=== PATIENT | male | born 1940 | race Caucasian/White ===

== ENCOUNTER 2020-06-03 19:21 | Outpatient (REF) | payer MEDICARE, MEDICAID, SELFPAY ==
--- NOTE | 2020-06-03 | MR_ITS ---
EXAMINATION: BRAIN MRI WITHOUT CONTRAST CLINICAL INFORMATION: Ataxic gait. COMPARISON: Brain MRI 09/09/2017. TECHNIQUE: Multiplanar MR imaging of the brain was performed without contrast. FINDINGS: There are numerous foci of T2 FLAIR signal hyperintensity within the periventricular white matter that most likely represent a chronic manifestation of small vessel ischemia. No acute territorial infarct. No pathological magnetic susceptibility artifact. Intracranial vascular flow voids are grossly maintained. There is no intracranial mass effect or midline shift. Lateral and third ventricles are proportionate to the subarachnoid spaces. No hydrocephalus. Midline structures including the cervicomedullary junction are normal. No acute bone marrow signal changes. No mastoid or middle ear effusion. Mild to moderate paranasal sinus disease primarily affecting the maxillary sinuses and ethmoid air cells. IMPRESSION: There are numerous chronic small vessel ischemic changes primarily involving the periventricular white matter. Otherwise normal examination. No evidence of acute territorial infarct or hemorrhage.
== END 2020-06-03 19:22 | disposition home or self-care (01) ==
LOC: HO.MRI 19:21
PROVIDERS: Visit Provider Internal Medicine
DX: R26.0 Ataxic gait (principal)
CPT/HCPCS: 70551

== ENCOUNTER 2020-07-11 12:29 | Outpatient (REF) | payer MEDICARE, MEDICAID, SELFPAY | END 2020-07-11 12:30 | disposition home or self-care (01) | LOC: HO.LAB 12:29 | PROVIDERS: Visit Provider Internal Medicine | DX: Z20.828 Contact with and (suspected) exposure to other viral communicable diseases (principal) | CPT/HCPCS: C9803; U0003 ==

== ENCOUNTER 2020-08-08 13:46 | Outpatient (REF) | payer MEDICARE, MEDICAID, SELFPAY ==
[2020-08-08 14:04] LABS: MANUAL DIFF FLAG NO
[2020-08-08 14:08] LABS: Basophils Percent Auto 0.6 % (0-2); Eosinophils Absolute Auto 0.1 X10*3/uL (0.0-0.4); Eosinophils Percent Auto 1.8 % (0-4); Hematocrit 41.2 % (42-52); Hemoglobin 13.9 g/dl (14.0-18.0); Imm Gran Abs Auto 0.02 X10*3/uL (0.00-0.03); Imm Gran Pct Auto 0.4 % (0.0-0.4); Lymphocytes Absolute Auto 1.2 X10*3/uL (1.2-4.9); Lymphocytes Percent Auto 21.3 % (20-40); Mean Corpuscular HGB Conc 33.7 g/dl (31.0-36.0); Mean Corpuscular Hemoglobin 33.6 pg (27.0-33.0); Mean Corpuscular Volume 99.5 fL (80-98); Mean Platelet Volume 10.7 fL (9.4-12.4); Monocytes Absolute Auto 0.7 X10*3/uL (0.1-1.2); Monocytes Percent Auto 11.9 % (2-11); Neutrophils Absolute Auto 3.5 X10*3/uL (2.0-8.3); Platelet Count 145 X10*3/uL (160-400); Red Blood Count 4.14 X10*6/uL (4.60-5.80); Red Cell Distribution Width 12.3 % (11.0-16.0); White Blood Count 5.4 X10*3/uL (4.8-10.8)
[2020-08-08 14:32] LABS: Alanine Aminotransferase 14 U/L (0-40); Albumin Level 3.9 g/dL (3.5-5.0); Alkaline Phosphatase 69 U/L (39-117); Anion Gap 10 (12-20); Aspartate Amino Transferase 20 U/L (5-37); Bilirubin Total 0.5 mg/dL (0.0-1.0); Blood Urea Nitrogen 15 mg/dL (9-16); Calcium 8.7 mg/dL (8.4-10.2); Carbon Dioxide 31 mmol/L (22-29); Chloride 105 mmol/L (96-108); Estimated Glomerular Filt Rate 55; Glucose Random 109 mg/dL (60-115); Potassium 4.5 mmol/l (3.3-5.1); Sodium 141 mmol/L (135-145); Total Protein 6.7 g/dL (6.5-8.0)
== END 2020-08-08 13:47 | disposition home or self-care (01) ==
LOC: HO.LAB 13:46
PROVIDERS: Visit Provider Internal Medicine Medical Oncology
DX: C91.10 Chronic lymphocytic leukemia of B-cell type not having achieved remission (principal); D69.6 Thrombocytopenia, unspecified; E66.9 Obesity, unspecified
CPT/HCPCS: 36415; 80053; 85025

== ENCOUNTER 2020-11-04 11:37 | Outpatient (REF) | payer MEDICARE, MEDICAID, SELFPAY ==
[2020-11-04 13:07] LABS: MANUAL DIFF FLAG NO
[2020-11-04 13:18] LABS: Basophils Percent Auto 0.9 % (0-2); Eosinophils Absolute Auto 0.1 X10*3/uL (0.0-0.4); Eosinophils Percent Auto 2.2 % (0-4); Hematocrit 40.9 % (42-52); Hemoglobin 13.7 g/dl (14.0-18.0); Imm Gran Abs Auto 0.02 X10*3/uL (0.00-0.03); Imm Gran Pct Auto 0.4 % (0.0-0.4); Lymphocytes Absolute Auto 1.2 X10*3/uL (1.2-4.9); Lymphocytes Percent Auto 27.2 % (20-40); Mean Corpuscular HGB Conc 33.5 g/dl (31.0-36.0); Mean Corpuscular Hemoglobin 33.5 pg (27.0-33.0); Mean Platelet Volume 11.2 fL (9.4-12.4); Monocytes Absolute Auto 0.6 X10*3/uL (0.1-1.2); Monocytes Percent Auto 14.4 % (2-11); Neutrophils Absolute Auto 2.4 X10*3/uL (2.0-8.3); Neutrophils Percent Auto 54.9 % (45-73); Platelet Count 147 X10*3/uL (160-400); Red Blood Count 4.09 X10*6/uL (4.60-5.80); Red Cell Distribution Width 12.4 % (11.0-16.0); White Blood Count 4.5 X10*3/uL (4.8-10.8)
[2020-11-04 14:30] LABS: Alanine Aminotransferase 14 U/L (0-40); Albumin Level 3.9 g/dL (3.5-5.0); Alkaline Phosphatase 68 U/L (39-117); Anion Gap 11 (12-20); Aspartate Amino Transferase 20 U/L (5-37); Bilirubin Total 0.5 mg/dL (0.0-1.0); Blood Urea Nitrogen 22 mg/dL (9-16); Calcium 8.9 mg/dL (8.4-10.2); Carbon Dioxide 29 mmol/L (22-29); Chloride 107 mmol/L (96-108); Estimated Glomerular Filt Rate 54; Glucose Random 94 mg/dL (60-115); Potassium 4.3 mmol/L (3.3-5.1); Sodium 143 mmol/L (135-145); Total Protein 6.5 g/dL (6.5-8.0)
== END 2020-11-04 11:38 | disposition home or self-care (01) ==
LOC: HO.LAB 11:37
PROVIDERS: PCP Internal Medicine; Visit Provider Internal Medicine Medical Oncology
DX: C91.10 Chronic lymphocytic leukemia of B-cell type not having achieved remission (principal); D69.6 Thrombocytopenia, unspecified; C85.90 Non-Hodgkin lymphoma, unspecified, unspecified site
CPT/HCPCS: 36415; 80053; 85025

== ENCOUNTER 2021-02-09 08:53 | Outpatient (REF) | payer MEDICARE, MEDICAID, SELFPAY ==
[2021-02-09 09:52] LABS: Eosinophils Absolute Auto 0.1 X10*3/uL (0.0-0.4); Hemoglobin 13.2 g/dl (14.0-18.0)
[2021-02-09 09:54] LABS: Basophils Percent Auto 0.2 % (0-2); Eosinophils Percent Auto 1.6 % (0-4); Hematocrit 39.8 % (42-52); Imm Gran Abs Auto 0.02 X10*3/uL (0.00-0.03); Imm Gran Pct Auto 0.5 % (0.0-0.4); Lymphocytes Absolute Auto 0.9 X10*3/uL (1.2-4.9); Lymphocytes Percent Auto 21.3 % (20-40); Mean Corpuscular HGB Conc 33.2 g/dl (31.0-36.0); Mean Corpuscular Hemoglobin 33.2 pg (27.0-33.0); Mean Platelet Volume 10.5 fL (9.4-12.4); Monocytes Absolute Auto 0.4 X10*3/uL (0.1-1.2); Monocytes Percent Auto 10.1 % (2-11); Neutrophils Absolute Auto 2.9 X10*3/uL (2.0-8.3); Neutrophils Percent Auto 66.3 % (45-73); Platelet Count 135 X10*3/uL (160-400); Red Blood Count 3.98 X10*6/uL (4.60-5.80); White Blood Count 4.4 X10*3/uL (4.8-10.8)
[2021-02-09 10:11] LABS: Alanine Aminotransferase 18 U/L (0-40); Alkaline Phosphatase 58 U/L (39-117); Anion Gap 12 (12-20); Aspartate Amino Transferase 21 U/L (5-37); Bilirubin Total 0.8 mg/dL (0.0-1.0); Blood Urea Nitrogen 15 mg/dL (9-16); Carbon Dioxide 28 mmol/L (22-29); Chloride 105 mmol/L (96-108); Estimated Glomerular Filt Rate 56; Glucose Random 135 mg/dL (60-115); Potassium 3.8 mmol/L (3.3-5.1); Sodium 141 mmol/L (135-145); Total Protein 6.5 g/dL (6.5-8.0)
== END 2021-02-09 08:54 | disposition home or self-care (01) ==
LOC: HO.LAB 08:53
PROVIDERS: Absent Provider Internal Medicine; PCP Internal Medicine; Visit Provider Internal Medicine Medical Oncology
DX: C91.10 Chronic lymphocytic leukemia of B-cell type not having achieved remission (principal)
CPT/HCPCS: 36415; 80053; 85025

== ENCOUNTER 2021-02-12 09:10 | Outpatient (REF) | payer MEDICARE, MEDICAID, SELFPAY ==
--- NOTE | ~2021-02-12 | XR_ITS ---
EXAMINATION: XR BILATERAL HIPS WITH AP PELVIS CLINICAL INFORMATION: Bilateral hip pain. COMPARISON: None TECHNIQUE: AP view of the pelvis and single views of each hip were obtained. FINDINGS: There is normal symmetry of bilateral hip joints and SI joints. No bony abnormality seen involving the pelvic bones. There are multiple phleboliths in the pelvis. Right hip: The right hip joint space is normal. No bony erosive changes, fracture or loose bodies. The soft tissues are normal Left hip: The left hip joint space is normal. No bony erosive changes, fracture or loose body seen. The soft tissues are normal. XR/XR hip BI w PEL1V IMPRESSION: Unremarkable AP pelvis and bilateral hip exam.
== END 2021-02-12 09:11 | disposition home or self-care (01) ==
LOC: HO.XRAY 09:10
PROVIDERS: PCP Internal Medicine; Visit Provider Internal Medicine
DX: M25.551 Pain in right hip (principal); M25.552 Pain in left hip
CPT/HCPCS: 73521

== ENCOUNTER 2021-02-20 11:00 | Outpatient (REF) | payer MEDICARE, MEDICAID, SELFPAY ==
--- NOTE | ~2021-02-20 | MR_ITS ---
EXAMINATION: MR HIP WITHOUT CONTRAST, RIGHT CLINICAL INFORMATION: Right hip pain. Lymphoma. COMPARISON: Bilateral hip and pelvis radiographs dated 02/12/2021. TECHNIQUE: MRI of the right hip was obtained using routine sequences on a high-field strength magnet. FINDINGS: ACETABULAR LABRUM: No displaced labral tear. ARTICULAR CARTILAGE/BONE: Intact articular cartilage. No abnormal marrow signal. No evidence of focal osseous lesion. No stress reaction, fracture, or avascular necrosis. The acetabular depth is within normal limits. MUSCLES/TENDONS: Gcit-fr-gveuwbqj gluteus medius and gluteus minimus tendinosis without a measurable tendon defect. JOINT FLUID/BURSA: Within normal limits. INTRAPELVIC STRUCTURES: Unremarkable. MR/MR hip RT wo con IMPRESSION: 1. Wygx-ag-xyxalqqd gluteus medius and gluteus minimus tendinosis. 2. No labral tear. 3. No focal osseous lesion. No stress reaction, fracture, or avascular necrosis.
== END 2021-02-20 11:01 | disposition home or self-care (01) ==
LOC: HO.MRI 11:00
PROVIDERS: PCP Internal Medicine; Visit Provider Internal Medicine
DX: M25.351 Other instability, right hip (principal)
CPT/HCPCS: 73721

== ENCOUNTER 2021-05-06 07:58 | Outpatient (REF) | payer MEDICARE, MEDICAID, SELFPAY ==
[2021-05-06 08:39] LABS: MANUAL DIFF FLAG NO
[2021-05-06 08:43] LABS: Basophils Percent Auto 0.6 % (0-2); Eosinophils Absolute Auto 0.1 X10*3/uL (0.0-0.4); Eosinophils Percent Auto 1.6 % (0-4); Hemoglobin 13.8 g/dl (14.0-18.0); Imm Gran Abs Auto 0.01 X10*3/uL (0.00-0.03); Imm Gran Pct Auto 0.2 % (0.0-0.4); Lymphocytes Absolute Auto 1.2 X10*3/uL (1.2-4.9); Lymphocytes Percent Auto 24.3 % (20-40); Mean Corpuscular HGB Conc 33.7 g/dl (31.0-36.0); Mean Corpuscular Hemoglobin 32.6 pg (27.0-33.0); Mean Corpuscular Volume 96.9 fL (80-98); Mean Platelet Volume 10.4 fL (9.4-12.4); Monocytes Absolute Auto 0.6 X10*3/uL (0.1-1.2); Monocytes Percent Auto 11.7 % (2-11); Neutrophils Percent Auto 61.6 % (45-73); Platelet Count 165 X10*3/uL (160-400); Red Blood Count 4.23 X10*6/uL (4.60-5.80); Red Cell Distribution Width 12.3 % (11.0-16.0); White Blood Count 4.9 X10*3/uL (4.8-10.8)
[2021-05-06 09:12] LABS: Alanine Aminotransferase 14 U/L (0-40); Albumin Level 4.1 g/dL (3.5-5.0); Alkaline Phosphatase 54 U/L (39-117); Anion Gap 11 (12-20); Aspartate Amino Transferase 26 U/L (5-37); Bilirubin Total 1.2 mg/dL (0.0-1.0); Blood Urea Nitrogen 27 mg/dL (9-16); Calcium 9.8 mg/dL (8.4-10.2); Carbon Dioxide 34 mmol/L (22-29); Chloride 100 mmol/L (96-108); Estimated Glomerular Filt Rate 47; Glucose Random 96 mg/dL (60-115); Lactate Dehydrogenase 157 U/L (118-273); Potassium 3.5 mmol/L (3.3-5.1); Sodium 141 mmol/L (135-145); Total Protein 6.8 g/dL (6.5-8.0)
[2021-05-06 09:27] LABS: Erythrocyte Sedimentation Rate 25 MM/HR (0-15)
== END 2021-05-06 07:59 | disposition home or self-care (01) ==
LOC: HO.LAB 07:58
PROVIDERS: PCP Internal Medicine; Visit Provider Internal Medicine Medical Oncology
DX: C91.10 Chronic lymphocytic leukemia of B-cell type not having achieved remission (principal)
CPT/HCPCS: 36415; 80053; 83615; 85025; 85652

== ENCOUNTER 2021-05-15 10:07 | Outpatient (REF) | payer MEDICARE, MEDICAID, SELFPAY ==
--- NOTE | ~2021-05-15 | XR_ITS ---
EXAMINATION: XR CHEST CLINICAL INFORMATION: Weight loss COMPARISON: Previous chest x-ray most recent March 2016 and chest CTA June 2014 TECHNIQUE: 2 views of the chest were obtained. FINDINGS: The cardiac and mediastinal contours are normal. The lungs are clear. There is no pleural effusion or pneumothorax. There are degenerative changes of the spine. XR/XR chest 2V IMPRESSION: Unremarkable examination.
[2021-05-15 10:38] LABS: MANUAL DIFF FLAG NO
[2021-05-15 10:43] LABS: Basophils Percent Auto 0.3 % (0-2); Eosinophils Absolute Auto 0.2 X10*3/uL (0.0-0.4); Eosinophils Percent Auto 2.7 % (0-4); Hematocrit 44.2 % (42-52); Hemoglobin 14.8 g/dl (14.0-18.0); Imm Gran Abs Auto 0.03 X10*3/uL (0.00-0.03); Imm Gran Pct Auto 0.4 % (0.0-0.4); Lymphocytes Absolute Auto 0.9 X10*3/uL (1.2-4.9); Lymphocytes Percent Auto 12.7 % (20-40); Mean Corpuscular HGB Conc 33.5 g/dl (31.0-36.0); Mean Corpuscular Hemoglobin 32.5 pg (27.0-33.0); Mean Corpuscular Volume 97.1 fL (80-98); Monocytes Absolute Auto 0.8 X10*3/uL (0.1-1.2); Monocytes Percent Auto 11.2 % (2-11); Neutrophils Absolute Auto 5.3 X10*3/uL (2.0-8.3); Neutrophils Percent Auto 72.7 % (45-73); Platelet Count 174 X10*3/uL (160-400); Red Blood Count 4.55 X10*6/uL (4.60-5.80); Red Cell Distribution Width 12.3 % (11.0-16.0); White Blood Count 7.3 X10*3/uL (4.8-10.8)
[2021-05-15 11:24] LABS: Alanine Aminotransferase 16 U/L (0-40); Albumin Level 4.1 g/dL (3.5-5.0); Alkaline Phosphatase 61 U/L (39-117); Anion Gap 10 (12-20); Aspartate Amino Transferase 23 U/L (5-37); Bilirubin Total 0.8 mg/dL (0.0-1.0); Blood Urea Nitrogen 24 mg/dL (9-16); Calcium 9.7 mg/dL (8.4-10.2); Carbon Dioxide 36 mmol/L (22-29); Chloride 99 mmol/L (96-108); Estimated Glomerular Filt Rate 45; Glucose Random 104 mg/dL (60-115); Potassium 3.6 mmol/L (3.3-5.1); Sodium 141 mmol/L (135-145); Total Protein 6.7 g/dL (6.5-8.0)
[2021-05-15 11:28] LABS: Erythrocyte Sedimentation Rate 18 MM/HR (0-15)
[2021-05-15 11:38] LABS: Free T4 (Free Thyroxine) 1.04 ng/dL (0.71-1.85)
[2021-05-15 11:51] LABS: Prostate Specific Antigen 0.51 ng/mL (<0.05-4.0)
== END 2021-05-15 10:08 | disposition home or self-care (01) ==
LOC: HO.XRAY 10:07
PROVIDERS: PCP Internal Medicine; Visit Provider Internal Medicine Medical Oncology
DX: C91.10 Chronic lymphocytic leukemia of B-cell type not having achieved remission (principal); R63.4 Abnormal weight loss
CPT/HCPCS: 36415; 71046; 80053; 84153; 84439; 85025; 85652

== ENCOUNTER 2021-07-22 10:25 | Outpatient (REF) | payer MEDICARE, MEDICAID, SELFPAY ==
[2021-07-22 10:40] LABS: MANUAL DIFF FLAG NO
[2021-07-22 11:48] LABS: Basophils Percent Auto 0.4 % (0-2); Eosinophils Absolute Auto 0.1 X10*3/uL (0.0-0.4); Eosinophils Percent Auto 2.7 % (0-4); Imm Gran Abs Auto 0.03 X10*3/uL (0.00-0.03); Imm Gran Pct Auto 0.6 % (0.0-0.4); Lymphocytes Percent Auto 19.5 % (20-40); Mean Corpuscular HGB Conc 33.3 g/dl (31.0-36.0); Mean Corpuscular Hemoglobin 33.7 pg (27.0-33.0); Mean Platelet Volume 10.5 fL (9.4-12.4); Monocytes Absolute Auto 0.5 X10*3/uL (0.1-1.2); Monocytes Percent Auto 10.4 % (2-11); Neutrophils Absolute Auto 3.5 x10*3/uL (2.0-8.3); Neutrophils Percent Auto 66.4 % (45-73); Platelet Count 157 X10*3/uL (160-400); Red Blood Count 3.86 X10*6/uL (4.60-5.80); Red Cell Distribution Width 12.7 % (11.0-16.0); White Blood Count 5.2 X10*3/uL (4.8-10.8)
[2021-07-22 12:13] LABS: Alanine Aminotransferase 12 U/L (0-40); Albumin Level 3.8 g/dL (3.5-5.0); Alkaline Phosphatase 62 U/L (39-117); Anion Gap 10 (12-20); Aspartate Amino Transferase 19 U/L (5-37); Bilirubin Total 0.4 mg/dL (0.0-1.0); Blood Urea Nitrogen 15 mg/dL (9-16); Calcium 9.1 mg/dL (8.4-10.2); Carbon Dioxide 31 mmol/L (22-29); Chloride 105 mmol/L (96-108); Estimated Glomerular Filt Rate 57; Glucose Random 90 mg/dL (60-115); Potassium 4.2 mmol/L (3.3-5.1); Sodium 142 mmol/L (135-145); Total Protein 6.4 g/dL (6.5-8.0)
[2021-07-22 12:43] LABS: Erythrocyte Sedimentation Rate 13 MM/HR (0-15)
[2021-07-27 11:56] LABS: Free Prostate Spec Ag 0.2 ng/mL; Percent Free Prostate Spec Ag 50 % (calc) (>25); Prostate Specific Ag Total 0.4 ng/mL (< OR = 4.0)
== END 2021-07-22 10:26 | disposition home or self-care (01) ==
LOC: HO.LAB 10:25
PROVIDERS: PCP Internal Medicine; Visit Provider Internal Medicine Medical Oncology
DX: Z12.5 Encounter for screening for malignant neoplasm of prostate (principal); C91.10 Chronic lymphocytic leukemia of B-cell type not having achieved remission; N40.0 Benign prostatic hyperplasia without lower urinary tract symptoms; D69.6 Thrombocytopenia, unspecified
CPT/HCPCS: 36415; 80053; 84154; 85025; 85652

== ENCOUNTER 2021-10-19 14:26 | Outpatient (REF) | payer MEDICARE, MEDICAID, SELFPAY ==
[2021-10-19 14:49] LABS: MANUAL DIFF FLAG NO
[2021-10-19 14:59] LABS: Basophils Percent Auto 0.6 % (0-2); Eosinophils Absolute Auto 0.1 X10*3/uL (0.0-0.4); Eosinophils Percent Auto 1.6 % (0-4); Hematocrit 35.4 % (42.0-52.0); Hemoglobin 11.6 g/dl (14.0-18.0); Imm Gran Abs Auto 0.02 X10*3/uL (0.00-0.03); Imm Gran Pct Auto 0.4 % (0.0-0.4); Lymphocytes Absolute Auto 0.8 X10*3/uL (1.2-4.9); Lymphocytes Percent Auto 16.9 % (20-40); Mean Corpuscular HGB Conc 32.8 g/dl (31.0-36.0); Mean Corpuscular Hemoglobin 33.4 pg (27.0-33.0); Monocytes Absolute Auto 0.7 X10*3/uL (0.1-1.2); Monocytes Percent Auto 14.5 % (2-11); Neutrophils Absolute Auto 3.2 x10*3/uL (2.0-8.3); Platelet Count 141 X10*3/uL (160-400); Red Blood Count 3.47 X10*6/uL (4.60-5.80); Red Cell Distribution Width 12.5 % (11.0-16.0); White Blood Count 4.9 X10*3/uL (4.8-10.8)
[2021-10-19 15:22] LABS: Alanine Aminotransferase 21 U/L (0-40); Albumin Level 3.7 g/dL (3.5-5.0); Alkaline Phosphatase 72 U/L (39-117); Anion Gap 10 (12-20); Aspartate Amino Transferase 30 U/L (5-37); Bilirubin Total 0.4 mg/dL (0.0-1.0); Blood Urea Nitrogen 28 mg/dL (9-16); Calcium 9.1 mg/dL (8.4-10.2); Carbon Dioxide 31 mmol/L (22-29); Chloride 106 mmol/L (96-108); Estimated Glomerular Filt Rate 51; Glucose Random 78 mg/dL (60-115); Potassium 4.5 mmol/L (3.3-5.1); Sodium 142 mmol/L (135-145); Total Protein 6.3 g/dL (6.5-8.0)
== END 2021-10-19 14:27 | disposition home or self-care (01) ==
LOC: HO.LAB 14:26
PROVIDERS: PCP Internal Medicine; Visit Provider Internal Medicine Medical Oncology
DX: C91.10 Chronic lymphocytic leukemia of B-cell type not having achieved remission (principal)
CPT/HCPCS: 36415; 80053; 85025

== ENCOUNTER 2022-02-23 14:53 | Outpatient (REF) | payer MEDICARE, MEDICAID, SELFPAY ==
[2022-02-23 15:38] LABS: MANUAL DIFF FLAG NO
[2022-02-23 15:41] LABS: Basophils Percent Auto 0.2 % (0-2); Eosinophils Absolute Auto 0.2 X10*3/uL (0.0-0.4); Eosinophils Percent Auto 3.1 % (0-4); Hematocrit 37.6 % (42.0-52.0); Hemoglobin 12.3 g/dl (14.0-18.0); Imm Gran Abs Auto 0.02 X10*3/uL (0.00-0.03); Imm Gran Pct Auto 0.4 % (0.0-0.4); Lymphocytes Absolute Auto 1.2 X10*3/uL (1.2-4.9); Mean Corpuscular HGB Conc 32.7 g/dl (31.0-36.0); Mean Corpuscular Hemoglobin 32.5 pg (27.0-33.0); Mean Corpuscular Volume 99.2 fL (80.0-98.0); Mean Platelet Volume 10.5 fL (9.4-12.4); Monocytes Absolute Auto 0.7 X10*3/uL (0.1-1.2); Monocytes Percent Auto 13.4 % (2-11); Neutrophils Absolute Auto 3.2 x10*3/uL (2.0-8.3); Neutrophils Percent Auto 60.9 % (45-73); Platelet Count 154 X10*3/uL (160-400); Red Blood Count 3.79 X10*6/uL (4.60-5.80); Red Cell Distribution Width 12.7 % (11.0-16.0); White Blood Count 5.2 X10*3/uL (4.8-10.8)
[2022-02-23 16:09] LABS: Alanine Aminotransferase 12 U/L (0-40); Albumin Level 3.9 g/dL (3.5-5.0); Alkaline Phosphatase 70 U/L (39-117); Anion Gap 10 (12-20); Aspartate Amino Transferase 21 U/L (5-37); Bilirubin Total 0.4 mg/dL (0.0-1.0); Blood Urea Nitrogen 23 mg/dL (9-16); Calcium 8.7 mg/dL (8.4-10.2); Carbon Dioxide 28 mmol/L (22-29); Chloride 107 mmol/L (96-108); Estimated Glomerular Filt Rate 42; Glucose Random 112 mg/dL (60-115); Potassium 4.4 mmol/L (3.3-5.1); Sodium 141 mmol/L (135-145)
[2022-02-23 16:29] LABS: Prostate Specific Antigen 0.45 ng/mL (<0.05-4.0); Thyroid Stimulating Hormone 1.87 uIU/mL (0.32-4.0); Vitamin D 25-OH Total 28.3 ng/mL (>30)
== END 2022-02-23 14:54 | disposition home or self-care (01) ==
LOC: HO.LAB 14:53
PROVIDERS: PCP Internal Medicine; Visit Provider Internal Medicine
DX: Z00.01 Encounter for general adult medical examination with abnormal findings (principal); Z12.5 Encounter for screening for malignant neoplasm of prostate
CPT/HCPCS: 36415; 80053; 82306; 84153; 84443; 85025

== ENCOUNTER 2022-03-05 12:24 | Outpatient (REF) | payer MEDICARE, MEDICAID, SELFPAY ==
[2022-03-05 12:38] LABS: MANUAL DIFF FLAG NO
[2022-03-05 13:40] LABS: Basophils Percent Auto 0.6 % (0-2); Eosinophils Absolute Auto 0.2 X10*3/uL (0.0-0.4); Hematocrit 36.6 % (42.0-52.0); Hemoglobin 12.1 g/dl (14.0-18.0); Imm Gran Abs Auto 0.02 X10*3/uL (0.00-0.03); Imm Gran Pct Auto 0.4 % (0.0-0.4); Lymphocytes Absolute Auto 1.1 X10*3/uL (1.2-4.9); Lymphocytes Percent Auto 21.4 % (20-40); Mean Corpuscular HGB Conc 33.1 g/dl (31.0-36.0); Mean Corpuscular Hemoglobin 32.6 pg (27.0-33.0); Mean Corpuscular Volume 98.7 fL (80.0-98.0); Mean Platelet Volume 10.8 fL (9.4-12.4); Monocytes Absolute Auto 0.7 X10*3/uL (0.1-1.2); Monocytes Percent Auto 13.2 % (2-11); Neutrophils Absolute Auto 3.1 x10*3/uL (2.0-8.3); Neutrophils Percent Auto 61.4 % (45-73); Platelet Count 144 X10*3/uL (160-400); Red Blood Count 3.71 X10*6/uL (4.60-5.80); Red Cell Distribution Width 12.6 % (11.0-16.0)
[2022-03-05 14:10] LABS: Alanine Aminotransferase 16 U/L (0-40); Albumin Level 3.8 g/dL (3.5-5.0); Alkaline Phosphatase 71 U/L (39-117); Anion Gap 11 (12-20); Aspartate Amino Transferase 23 U/L (5-37); Bilirubin Total 0.4 mg/dL (0.0-1.0); Blood Urea Nitrogen 23 mg/dL (9-16); Calcium 8.6 mg/dL (8.4-10.2); Carbon Dioxide 28 mmol/L (22-29); Chloride 106 mmol/L (96-108); Estimated Glomerular Filt Rate 46; Glucose Random 98 mg/dL (60-115); Potassium 4.3 mmol/L (3.3-5.1); Sodium 141 mmol/L (135-145); Total Protein 6.8 g/dL (6.5-8.0)
== END 2022-03-05 12:25 | disposition home or self-care (01) ==
LOC: HO.LAB 12:24
PROVIDERS: PCP Internal Medicine; Visit Provider Internal Medicine Medical Oncology
DX: C91.10 Chronic lymphocytic leukemia of B-cell type not having achieved remission (principal)
CPT/HCPCS: 36415; 80053; 85025

== ENCOUNTER 2022-06-02 08:42 | Outpatient (REF) | payer MEDICARE, MEDICAID, SELFPAY ==
[2022-06-02 08:50] LABS: MANUAL DIFF FLAG NO
[2022-06-02 08:59] LABS: Basophils Percent Auto 0.7 % (0-2); Eosinophils Absolute Auto 0.2 X10*3/uL (0.0-0.4); Eosinophils Percent Auto 4.1 % (0-4); Hematocrit 40.3 % (42.0-52.0); Hemoglobin 13.3 g/dl (14.0-18.0); Imm Gran Abs Auto 0.02 X10*3/uL (0.00-0.03); Imm Gran Pct Auto 0.4 % (0.0-0.4); Lymphocytes Absolute Auto 1.8 X10*3/uL (1.2-4.9); Lymphocytes Percent Auto 31.7 % (20-40); Mean Corpuscular Hemoglobin 31.6 pg (27.0-33.0); Mean Corpuscular Volume 95.7 fL (80.0-98.0); Mean Platelet Volume 9.9 fL (9.4-12.4); Monocytes Absolute Auto 0.7 X10*3/uL (0.1-1.2); Monocytes Percent Auto 12.1 % (2-11); Neutrophils Absolute Auto 2.9 x10*3/uL (2.0-8.3); Platelet Count 144 X10*3/uL (160-400); Red Blood Count 4.21 X10*6/uL (4.60-5.80); Red Cell Distribution Width 12.3 % (11.0-16.0); White Blood Count 5.6 X10*3/uL (4.8-10.8)
[2022-06-02 09:31] LABS: Alanine Aminotransferase 15 U/L (0-40); Albumin Level 3.8 g/dL (3.5-5.0); Alkaline Phosphatase 62 U/L (39-117); Anion Gap 14 (12-20); Aspartate Amino Transferase 23 U/L (5-37); Bilirubin Total 0.4 mg/dL (0.0-1.0); Blood Urea Nitrogen 30 mg/dL (9-16); Carbon Dioxide 27 mmol/L (22-29); Chloride 105 mmol/L (96-108); Cholesterol 202 mg/dL; Estimated Glomerular Filt Rate 43; Glucose Fasting 89 mg/dL (60-99); HDL Cholesterol 39 mg/dL; LDL Cholesterol Calculated 114 mg/dl; Potassium 4.3 mmol/L (3.3-5.1); Sodium 142 mmol/L (135-145); Total Protein 6.8 g/dL (6.5-8.0); Triglycerides 246 mg/dL; Uric Acid 6.7 mg/dL (3.4-7.0)
== END 2022-06-02 08:43 | disposition home or self-care (01) ==
LOC: HO.LAB 08:42
PROVIDERS: PCP Internal Medicine; Visit Provider Internal Medicine Medical Oncology
DX: C91.10 Chronic lymphocytic leukemia of B-cell type not having achieved remission (principal); E66.3 Overweight
CPT/HCPCS: 36415; 80053; 80061; 84550; 85025

== ENCOUNTER 2022-11-29 12:57 | Outpatient (REF) | payer MEDICARE, MEDICAID, SELFPAY ==
[2022-11-29 13:09] LABS: MANUAL DIFF FLAG NO
[2022-11-29 13:39] LABS: Basophils Percent Auto 0.4 % (0-2); Eosinophils Absolute Auto 0.1 X10*3/uL (0.0-0.4); Eosinophils Percent Auto 2.3 % (0-4); Hematocrit 40.4 % (42.0-52.0); Hemoglobin 13.2 g/dl (14.0-18.0); Imm Gran Abs Auto 0.03 X10*3/uL (0.00-0.03); Imm Gran Pct Auto 0.6 % (0.0-0.4); Lymphocytes Absolute Auto 1.4 X10*3/uL (1.2-4.9); Lymphocytes Percent Auto 27.1 % (20-40); Mean Corpuscular HGB Conc 32.7 g/dl (31.0-36.0); Mean Corpuscular Hemoglobin 32.4 pg (27.0-33.0); Mean Platelet Volume 10.2 fL (9.4-12.4); Monocytes Absolute Auto 0.8 X10*3/uL (0.1-1.2); Monocytes Percent Auto 14.6 % (2-11); Neutrophils Absolute Auto 2.9 x10*3/uL (2.0-8.3); Platelet Count 140 X10*3/uL (160-400); Red Blood Count 4.08 X10*6/uL (4.60-5.80); Red Cell Distribution Width 12.2 % (11.0-16.0); White Blood Count 5.3 X10*3/uL (4.8-10.8)
== END 2022-11-29 12:58 | disposition home or self-care (01) ==
LOC: HO.LAB 12:57
PROVIDERS: PCP Internal Medicine; Visit Provider Internal Medicine Medical Oncology
DX: C91.10 Chronic lymphocytic leukemia of B-cell type not having achieved remission (principal); I10 Essential (primary) hypertension; D69.6 Thrombocytopenia, unspecified; D70.9 Neutropenia, unspecified
CPT/HCPCS: 36415; 85025

== ENCOUNTER 2023-02-22 10:53 | Outpatient (REF) | payer MEDICARE, MEDICAID, SELFPAY ==
[2023-02-22 11:04] LABS: MANUAL DIFF FLAG NO
[2023-02-22 11:51] LABS: Basophils Percent Auto 0.7 % (0-2); Eosinophils Absolute Auto 0.1 X10*3/uL (0.0-0.4); Eosinophils Percent Auto 2.6 % (0-4); Hemoglobin 13.4 g/dl (14.0-18.0); Imm Gran Abs Auto 0.02 X10*3/uL (0.00-0.03); Imm Gran Pct Auto 0.5 % (0.0-0.4); Lymphocytes Absolute Auto 1.4 X10*3/uL (1.2-4.9); Lymphocytes Percent Auto 32.9 % (20-40); Mean Corpuscular HGB Conc 32.7 g/dl (31.0-36.0); Mean Corpuscular Hemoglobin 32.4 pg (27.0-33.0); Mean Platelet Volume 10.3 fL (9.4-12.4); Monocytes Absolute Auto 0.6 X10*3/uL (0.1-1.2); Monocytes Percent Auto 13.8 % (2-11); Neutrophils Absolute Auto 2.1 x10*3/uL (2.0-8.3); Neutrophils Percent Auto 49.5 % (45-73); Platelet Count 146 X10*3/uL (160-400); Red Blood Count 4.14 X10*6/uL (4.60-5.80); Red Cell Distribution Width 12.2 % (11.0-16.0); White Blood Count 4.3 X10*3/uL (4.8-10.8)
[2023-02-22 12:34] LABS: Erythrocyte Sedimentation Rate 14 MM/HR (0-15)
[2023-02-22 13:19] LABS: Alanine Aminotransferase 14 U/L (0-40); Albumin Level 3.7 g/dL (3.5-5.0); Alkaline Phosphatase 61 U/L (39-117); Anion Gap 11 (12-20); Aspartate Amino Transferase 21 U/L (5-37); Bilirubin Total 0.5 mg/dL (0.0-1.0); Blood Urea Nitrogen 25 mg/dL (9-16); Calcium 9.4 mg/dL (8.4-10.2); Carbon Dioxide 31 mmol/L (22-29); Chloride 105 mmol/L (96-108); Estimated Glomerular Filt Rate 46; Glucose Random 92 mg/dL (60-115); Lactate Dehydrogenase 178 U/L (118-273); Potassium 4.3 mmol/L (3.3-5.1); Sodium 143 mmol/L (135-145); Total Protein 6.9 g/dL (6.5-8.0)
== END 2023-02-22 10:54 | disposition home or self-care (01) ==
LOC: HO.LAB 10:53
PROVIDERS: Visit Provider Internal Medicine Medical Oncology
DX: C91.10 Chronic lymphocytic leukemia of B-cell type not having achieved remission (principal); I10 Essential (primary) hypertension; D69.6 Thrombocytopenia, unspecified; D70.9 Neutropenia, unspecified
CPT/HCPCS: 36415; 80053; 83615; 85025; 85652

== ENCOUNTER 2023-05-21 08:46 | Outpatient (REF) | payer MEDICARE, MEDICAID, SELFPAY ==
[2023-05-21 09:31] LABS: MANUAL DIFF FLAG NO
[2023-05-21 10:06] LABS: Basophils Percent Auto 0.6 % (0-2); Eosinophils Absolute Auto 0.1 X10*3/uL (0.0-0.4); Eosinophils Percent Auto 2.9 % (0-4); Hematocrit 40.8 % (42.0-52.0); Hemoglobin 13.3 g/dl (14.0-18.0); Imm Gran Abs Auto 0.01 X10*3/uL (0.00-0.03); Imm Gran Pct Auto 0.2 % (0.0-0.4); Lymphocytes Absolute Auto 1.6 X10*3/uL (1.2-4.9); Lymphocytes Percent Auto 32.7 % (20-40); Mean Corpuscular HGB Conc 32.6 g/dl (31.0-36.0); Mean Corpuscular Hemoglobin 32.6 pg (27.0-33.0); Mean Platelet Volume 10.3 fL (9.4-12.4); Monocytes Absolute Auto 0.6 X10*3/uL (0.1-1.2); Monocytes Percent Auto 11.4 % (2-11); Neutrophils Absolute Auto 2.5 x10*3/uL (2.0-8.3); Neutrophils Percent Auto 52.2 % (45-73); Platelet Count 140 X10*3/uL (160-400); Red Blood Count 4.08 X10*6/uL (4.60-5.80); Red Cell Distribution Width 12.2 % (11.0-16.0); White Blood Count 4.8 X10*3/uL (4.8-10.8)
[2023-05-21 10:31] LABS: Alanine Aminotransferase 11 U/L (0-40); Albumin Level 3.9 g/dL (3.5-5.0); Alkaline Phosphatase 62 U/L (39-117); Anion Gap 15 (12-20); Aspartate Amino Transferase 19 U/L (5-37); Bilirubin Total 0.4 mg/dL (0.0-1.0); Blood Urea Nitrogen 32 mg/dL (9-16); Calcium 9.4 mg/dL (8.4-10.2); Carbon Dioxide 26 mmol/L (22-29); Chloride 107 mmol/L (96-108); Estimated Glomerular Filt Rate 41; Glucose Random 99 mg/dL (60-115); Lactate Dehydrogenase 152 U/L (118-273); Potassium 4.1 mmol/L (3.3-5.1); Sodium 144 mmol/L (135-145)
== END 2023-05-21 08:47 | disposition home or self-care (01) ==
LOC: HO.LAB 08:46
PROVIDERS: PCP Internal Medicine Medical Oncology; Visit Provider Internal Medicine Medical Oncology
DX: C91.10 Chronic lymphocytic leukemia of B-cell type not having achieved remission (principal)
CPT/HCPCS: 36415; 80053; 83615; 85025

== ENCOUNTER → 2023-07-11 12:49 | Outpatient (REF) | payer MEDICARE, MEDICAID, SELFPAY ==
--- NOTE | 2023-07-11 12:52 | CA_ITS ---
Transthoracic Echocardiogram Patient (Last, First, Middle): Ishmael Beltran, Gender: Male Date of : 1940 Age: 83 Procedure Date: 07/11/2023 Procedure Type: Transthoracic Echocardiogram Location: OP Height: 165.1 cm Weight: 75.75 kg BSA: 1.83 m2 Heart Rate: bpm BP: 138 / 70 mmHg Patient Intake Representative: RODOLFO/SHRUTHI Referring MD: Avila Fuentes MD Symptoms: R07.9 CHEST PAIN Study Quality: Adequate with contrast ECG Rhythm: Sinus Conclusions: - The left ventricular systolic function is mildly decreased. The calculated ejection fraction is 44% by biplane method. - The inferolateral wall and basal inferior segment are akinetic. - No obvious valvular pathology seen on this study. Findings Procedure Information Contrast agent, definity, is being given per protocol without apparent complications. Left Ventricle Normal left ventricular cavity size. The left ventricular systolic function is mildly decreased. The calculated ejection fraction is 44% by biplane method. There is evidence of regional wall motion abnormalities. Evidence suggests grade I (mild) diastolic dysfunction. There is mild septal asymmetric hypertrophy. Wall Motion Rest Echo Findings The inferolateral wall and basal inferior segment are akinetic. Right Ventricle Normal right ventricular cavity size and systolic function. Atria Both atria are normal in size. Aortic Valve There is a normal trileaflet aortic valve. There is no aortic valve stenosis. There is no aortic valve regurgitation. Mitral Valve The mitral valve appears normal. There is trace mitral valve regurgitation. There is no mitral valve stenosis. Pulmonic Valve The pulmonic valve is likely normal. Tricuspid Valve Normal tricuspid valve structure. There is trace tricuspid valve regurgitation. There is no evidence of pulmonary hypertension. Great Vessels The asc aorta is normal in size. Venous The inferior vena cava is normal in size and collapses greater than 50% with inspiration. Pericardium/Pleural There is no evidence of pericardial effusion. Prior Study Comparison Changes noted compared to prior study dated: 03/07/2020. Decrease in LVEF. Recommendations, Care & Conclusions No obvious valvular pathology seen on this study. Measurements 2D Linear Measurements IVSd: 1.03 0.6-0.9/0.6-1.0 cm LVIDd: 5.16 3.9-5.3/4.2-5.9 cm LVIDd Index: 2.82 2.4-3.2/2.2-3.1 cm/m2 LVIDs: 4.58 2.0-3.6 cm LVPWd: 0.93 0.7-1.1 cm LA Diam: 3.20 2.7-3.8/3.0-4.0 cm LAIDs Index: 1.75 1.5-2.3 cm/m2 LV Mass: 232.50 67-162/88-224 g LV Mass Index: 127.05 43-95/49-115 g/m2 LVOT Diam: 2.20 3.0+(-)1.3 cm 2D Systolic Function EF 4C: 41.70 >55% EF 2C: 46.60 >55% EF BiP: 43.50 >55% Mitral Valve MV Pk E: 0.75 MV PK A: 1.10 MV Decel Time: 128.00 E/A: 0.70 E'Lateral: 6.31 E'Medial: 5.77 E/E' Med: 13.00 E/E' Lat: 11.90 PHT: 37.00 MVA PHT: 5.95 Decel Castro: 5.87 Aortic Valve AoV Pk Tyrone: 1.11 AoV Mn Tyrone: 0.80 AoV VTI: 0.25 AoV Pk Grad: 5.00 Aov Mn Grad: 3.00 CHARLIE Cont.VTI: 3.20 LVOT LVOT Pk Tyrone: 0.92 LVOT Mn Tyrone: 0.66 LVOT VTI: 0.21 LVOT Pk Grad: 3.00 LVOT Mn Grad: 2.00 LVOT Diam: 2.20 LVOT Area: 3.80 Diastolic Function MV Pk E: 0.75 MV Pk A: 1.10 E/A: 0.70 E'Medial: 5.77 E/E' Med: 13.00 E' Laterial: 6.31 E/E' Lat: 11.90 Right Ventricle TAPSE (mm): 24.40 TVS' Tyrone: 15.30 Tricuspid Valve TR Pk Tyrone: 2.34 TR Pk Grad: 22.00 RA Press: 3.00 RVSP: 25.00 Great Vessels Aorta Sinus of Valsalva: 3.69 2.0-3.[address] Ridge: 2.77 1.7-3.4 cm Ao Asc: 3.40 2.1-3.4 cm Updated in Other Vendor System with Status of Final Benja Singh MD electronically signed on 07/12/2023 9:49:03 AM with status of Final
== END ==
LOC: HO.CARD 12:49
PROVIDERS: PCP Internal Medicine Medical Oncology; Visit Provider Internal Medicine
DX: R07.9 Chest pain, unspecified (principal)
CPT/HCPCS: 93306; Q9957

== ENCOUNTER → 2023-07-11 12:52 | Outpatient (BNV) | payer MEDICARE, MEDICAID, SELFPAY | PROVIDERS: PCP Internal Medicine Medical Oncology; Visit Provider Internal Medicine | DX: I51.9 Heart disease, unspecified (principal) | CPT/HCPCS: 93306 ==

== ENCOUNTER 2023-09-28 13:02 | Outpatient (REF) | payer MEDICARE, MEDICAID, SELFPAY ==
[2023-09-28 13:12] LABS: MANUAL DIFF FLAG NO
[2023-09-28 13:23] LABS: Basophils Percent Auto 0.4 % (0-2); Eosinophils Absolute Auto 0.1 X10*3/uL (0.0-0.4); Eosinophils Percent Auto 2.6 % (0-4); Hematocrit 42.3 % (42.0-52.0); Hemoglobin 13.8 g/dl (14.0-18.0); Imm Gran Abs Auto 0.02 X10*3/uL (0.00-0.03); Imm Gran Pct Auto 0.4 % (0.0-0.4); Lymphocytes Absolute Auto 1.3 X10*3/uL (1.2-4.9); Lymphocytes Percent Auto 26.5 % (20-40); Mean Corpuscular HGB Conc 32.6 g/dl (31.0-36.0); Mean Corpuscular Hemoglobin 32.3 pg (27.0-33.0); Mean Corpuscular Volume 99.1 fL (80.0-98.0); Mean Platelet Volume 10.3 fL (9.4-12.4); Monocytes Absolute Auto 0.6 X10*3/uL (0.1-1.2); Monocytes Percent Auto 11.7 % (2-11); Neutrophils Percent Auto 58.4 % (45-73); Platelet Count 146 X10*3/uL (160-400); Red Blood Count 4.27 X10*6/uL (4.60-5.80); Red Cell Distribution Width 12.5 % (11.0-16.0); White Blood Count 5.1 X10*3/uL (4.8-10.8)
[2023-09-28 14:05] LABS: Alanine Aminotransferase 15 U/L (0-40); Alkaline Phosphatase 70 U/L (39-117); Anion Gap 11 (12-20); Aspartate Amino Transferase 21 U/L (5-37); Bilirubin Total 0.3 mg/dL (0.0-1.0); Blood Urea Nitrogen 24 mg/dL (9-16); Calcium 9.3 mg/dL (8.4-10.2); Carbon Dioxide 31 mmol/L (22-29); Chloride 106 mmol/L (96-108); Estimated Glomerular Filt Rate 44; Glucose Random 99 mg/dL (60-115); Potassium 4.4 mmol/L (3.3-5.1); Sodium 144 mmol/L (135-145); Total Protein 7.3 g/dL (6.5-8.0)
== END 2023-09-28 13:03 | disposition home or self-care (01) ==
LOC: HO.LAB 13:02
PROVIDERS: PCP Internal Medicine Medical Oncology; Visit Provider Internal Medicine Medical Oncology
DX: C91.10 Chronic lymphocytic leukemia of B-cell type not having achieved remission (principal); I10 Essential (primary) hypertension; D69.6 Thrombocytopenia, unspecified; D70.9 Neutropenia, unspecified
CPT/HCPCS: 36415; 80053; 85025

== ENCOUNTER 2024-01-02 10:35 | Outpatient (REF) | payer MEDICARE, SELFPAY ==
[2024-01-02 11:00] LABS: MANUAL DIFF FLAG NO
[2024-01-02 11:41] LABS: Basophils Percent Auto 0.7 % (0-2); Eosinophils Absolute Auto 0.1 X10*3/uL (0.0-0.4); Eosinophils Percent Auto 2.6 % (0-4); Hematocrit 39.5 % (42.0-52.0); Imm Gran Abs Auto 0.01 X10*3/uL (0.00-0.03); Imm Gran Pct Auto 0.2 % (0.0-0.4); Lymphocytes Absolute Auto 1.4 X10*3/uL (1.2-4.9); Lymphocytes Percent Auto 31.2 % (20-40); Mean Corpuscular HGB Conc 32.9 g/dl (31.0-36.0); Mean Corpuscular Hemoglobin 32.7 pg (27.0-33.0); Mean Corpuscular Volume 99.5 fL (80.0-98.0); Mean Platelet Volume 10.1 fL (9.4-12.4); Monocytes Absolute Auto 0.5 X10*3/uL (0.1-1.2); Monocytes Percent Auto 10.7 % (2-11); Neutrophils Absolute Auto 2.5 x10*3/uL (2.0-8.3); Neutrophils Percent Auto 54.6 % (45-73); Platelet Count 141 X10*3/uL (160-400); Red Blood Count 3.97 X10*6/uL (4.60-5.80); Red Cell Distribution Width 12.5 % (11.0-16.0); White Blood Count 4.6 X10*3/uL (4.8-10.8)
[2024-01-02 12:13] LABS: Alanine Aminotransferase 11 U/L (0-40); Albumin Level 3.8 g/dL (3.5-5.0); Alkaline Phosphatase 58 U/L (39-117); Anion Gap 13 (12-20); Aspartate Amino Transferase 22 U/L (5-37); Bilirubin Total 0.4 mg/dL (0.0-1.0); Blood Urea Nitrogen 28 mg/dL (9-16); Calcium 9.9 mg/dL (8.4-10.2); Carbon Dioxide 30 mmol/L (22-29); Chloride 106 mmol/L (96-108); Cholesterol 169 mg/dL (<200); Estimated Glomerular Filt Rate 40; Glucose Fasting 97 mg/dL (60-99); HDL Cholesterol 40 mg/dL (>40); LDL Cholesterol Calculated 101 mg/dL (<100); Lactate Dehydrogenase 155 U/L (118-273); Potassium 4.5 mmol/L (3.3-5.1); Sodium 144 mmol/L (135-145); Total Protein 7.1 g/dL (6.5-8.0); Triglycerides 140 mg/dL (<150)
[2024-01-03 13:49] LABS: Beta-2 Microglobulin, Serum 3.61 mg/L (< OR = 2.51)
== END 2024-01-02 10:36 | disposition home or self-care (01) ==
LOC: HO.LAB 10:35
PROVIDERS: PCP Internal Medicine; Visit Provider Internal Medicine Medical Oncology
DX: C91.10 Chronic lymphocytic leukemia of B-cell type not having achieved remission (principal); D69.6 Thrombocytopenia, unspecified; E66.3 Overweight
CPT/HCPCS: 36415; 80053; 80061; 82232; 83615; 84550; 85025

== ENCOUNTER 2024-05-29 08:17 | Outpatient (REF) | payer MEDICARE, SELFPAY ==
[2024-05-29 08:33] LABS: MANUAL DIFF FLAG NO
[2024-05-29 09:07] LABS: Basophils Percent Auto 0.5 % (0-2); Eosinophils Absolute Auto 0.1 X10*3/uL (0.0-0.4); Hematocrit 37.5 % (42.0-52.0); Hemoglobin 12.1 g/dl (14.0-18.0); Imm Gran Abs Auto 0.02 X10*3/uL (0.00-0.03); Imm Gran Pct Auto 0.5 % (0.0-0.4); Lymphocytes Absolute Auto 1.7 X10*3/uL (1.2-4.9); Lymphocytes Percent Auto 38.9 % (20-40); Mean Corpuscular HGB Conc 32.3 g/dl (31.0-36.0); Mean Corpuscular Hemoglobin 32.6 pg (27.0-33.0); Mean Corpuscular Volume 101.1 fL (80.0-98.0); Mean Platelet Volume 10.3 fL (9.4-12.4); Monocytes Absolute Auto 0.6 X10*3/uL (0.1-1.2); Monocytes Percent Auto 13.1 % (2-11); Neutrophils Absolute Auto 1.9 x10*3/uL (2.0-8.3); Platelet Count 137 X10*3/uL (160-400); Red Blood Count 3.71 X10*6/uL (4.60-5.80); Red Cell Distribution Width 12.3 % (11.0-16.0); White Blood Count 4.3 X10*3/uL (4.8-10.8)
[2024-05-29 09:40] LABS: Alanine Aminotransferase 12 U/L (0-40); Albumin Level 3.8 g/dL (3.5-5.0); Alkaline Phosphatase 64 U/L (39-117); Anion Gap 12 (12-20); Aspartate Amino Transferase 23 U/L (5-37); Bilirubin Total 0.4 mg/dL (0.0-1.0); Blood Urea Nitrogen 36 mg/dL (9-16); Calcium 9.5 mg/dL (8.4-10.2); Carbon Dioxide 29 mmol/L (22-29); Chloride 107 mmol/L (96-108); Cholesterol 158 mg/dL (<200); Estimated Glomerular Filt Rate 34; Glucose Fasting 98 mg/dL (60-99); HDL Cholesterol 35 mg/dL (>40); LDL Cholesterol Calculated 95 mg/dL (<100); Lactate Dehydrogenase 184 U/L (118-273); Potassium 4.5 mmol/L (3.3-5.1); Sodium 143 mmol/L (135-145); Total Protein 6.9 g/dL (6.5-8.0); Triglycerides 142 mg/dL (<150); Uric Acid 7.1 mg/dL (3.4-7.0)
[2024-05-31 05:08] LABS: Beta-2 Microglobulin, Serum 3.95 mg/L (< OR = 2.51)
== END 2024-05-29 08:18 | disposition home or self-care (01) ==
LOC: HO.LAB 08:17
PROVIDERS: PCP Internal Medicine; Visit Provider Internal Medicine Medical Oncology
DX: C91.10 Chronic lymphocytic leukemia of B-cell type not having achieved remission (principal); D69.6 Thrombocytopenia, unspecified; D70.9 Neutropenia, unspecified; K57.92 Diverticulitis of intestine, part unspecified, without perforation or abscess without bleeding
CPT/HCPCS: 36415; 80053; 80061; 82232; 83615; 84550; 85025

== ENCOUNTER 2024-08-09 16:40 | Outpatient (REF) | payer MEDICARE, MEDICAID, SELFPAY | END 2024-08-09 16:41 | disposition home or self-care (01) | LOC: HO.CT 16:40 | PROVIDERS: PCP Internal Medicine; Visit Provider Physician Assistant | DX: N23 Unspecified renal colic (principal) | CPT/HCPCS: 74176 ==

== ENCOUNTER → 2024-08-09 16:43 | Outpatient (BNV) | payer MEDICARE, MEDICAID, SELFPAY | PROVIDERS: PCP Internal Medicine; Visit Provider Radiology Diagnostic Radiology | DX: N20.0 Calculus of kidney (principal) | CPT/HCPCS: 74176 ==

== ENCOUNTER 2024-10-15 12:27 | Outpatient (REF) | payer MEDICARE, MEDICAID, SELFPAY ==
--- OUTSIDE RECORDS SUMMARY | 2024-10-15 12:30 | XMS_ITS ---
Author Organization Dillon Lynn III, MD Address [address] [address] Care Team Providers Care Shop Service Technician Name Role Phone Alfredo LEGER, Avila Primary Care Provider Dillon L[facility] [phone] Allergies Allergen (clinical drug ingredient) Drug/Non Drug Allergy documented on EMR Reaction Allergy Type Onset Date Status No Known Drug Allergy Unknown Drug Allergy Active REASON FOR VISIT Chronic lymphocytic leukemia, Benign prostatic hypertrophy, Hypertension, Weight loss Medications Medication SIG (Take, Route, Frequency, Duration) Notes Start Date End Date Status fentaNYL 25 MCG/HR APPLY 1 PATCH TOPICALLY TO THE SKIN EVERY 72 HOURS Transdermal Active traZODone HCl 100 MG 1 tablet at bedtime Orally Once a day Active Mirtazapine 30 MG 1 tablet at bedtime Orally Once a day Active Morphine Sulfate 15 MG 1 tablet as neede d Orally as needed Active Albuterol Sulfate 2 puffs as needed Inhalation as needed 1,1,1,8e6vdmdy Active Vitamin B 12 100 MCG as directed Orally once a day Active traMADol HCl 50 MG 2 tablet Orally twic e a day Active Leukeran 2 MG TAKE 1 TABLET BY MOUTH DAILY DIRECTED Active Aspirin 81 81 MG 1 tablet Orally Once a day Active Vitamin D3 50 MCG (1999 UT) 1 capsule Orally Once a day Active Social History Tobacco Use: Social History Observation Description Date Details (start date - stop date) Never Smoker NA - NA Sex Assigned At : Social History Observation Description Sex Assigned At Male Tobacco Use/Smoking Question Answer Notes Patient is a nonsmoker How long has it been since you last smoked? > 10 years Additional Findings: Tobacco Non-User Aggressive non-smoker Vital Signs Temperature 97.4 degrees Fahrenheit 06/13/20 24 Blood pressure systolic 110 mm Hg 06/13/20 24 Blood pressure diastolic 70 mm Hg 024 Heart Rate 80 /min 06/13/2024 Height 66 in 06/13/2024 Weight 171 lbs 06/13/2024 BMI 27.6 kg/m2 06/13/2024 Encounters Encounter Location Date Provider Diagnosis Dillon Lynn III, MD [address] [place] [address] [place] [id number] 06/13/2024 Dillon Lynn CLL (chronic lymphoc ytic leukemia) C91.10 ; Benign prostatic hyperplasia, presence of lower urinary tract symptoms unspecified, unspecified morphology N40.0 ; Essential hypertension I10 ; Thrombocytopenia D69.6 and Overweight E66.3 Assessments Encounter Date Diagnosis (ICD Code) Assessment Notes T reatment Notes Treatment Clinical Notes 06/13/2024 CLL (chronic lymphocytic leukemia) (ICD-10 - C91.10) He will continue on his current therapy with chlorambucil and and have blood work within the next 7 days. We will go and confer by telephone. 06/13/2024 Benign prostatic hyperplasia, presence of lower urinary tract symptoms unspecified, unspecified morphology (ICD-10 - N40.0) He wakes twice at night to urinate but is satisfied with this level of functioning. No change in his regimen was desired. 06/13/2024 Essential hypertension (ICD-10 - I10) His blood pressure is stable and well controlled today and no change in his regimen seems necessary. 06/13/2024 Thrombocytopenia (ICD-10 - D69.6) His mild thrombocytopenia remains without any bleeding. His platelets are 137,000. 06/13/2024 Overweight (ICD-10 - E66.3) He has lost 6 pounds and his weight is fluctuating. He says his appetite is good. His daughter said he is eating well. His weight will be carefully observed. Plan Of Treatment Medication Medication Name Sig Start Date Stop Date Notes fentaNYL 25 MCG/HR APPLY 1 PATCH TOPICA LLY TO THE SKIN EVERY 72 HOURS Transdermal traZODone HCl 100 MG 1 tablet at bedtime Orally Once a day Mirtazapine 30 MG 1 tablet at bedtime Orally Once a day Morphine Sulfate 15 MG 1 tablet as neede d Orally as needed Albuterol Sulfate 2 puffs as needed Inhalation as needed 1,1,1,0d9tfcvp Vitamin B 12 100 MCG as directed Orally once a day traMADol HCl 50 MG 2 tablet Orally twic e a day Leukeran 2 MG TAKE 1 TABLET BY JANET DAILY DIRECTED Aspirin 81 81 MG 1 tablet Orally Once a day Vitamin D3 50 MCG (1999) 1 capsule Orally Once a day Pending Test Test Name Order Date PROFILE, RANDOM (COMPREHENSIVE METABOLIC ) 06/13/2024 CBC WITH AUTO DIFF 06/13/2024 Beta-2 Microglobulin, Serum 06/13/2024 Next Appt Details Follow Up: 4 Months, Februar y, Reason: OV, Routine Checkup Provider Name:Dillon Lynn, 10/16/2024 09:30:00 AM, [address] [place] [address] [address] [id number], [place], [id number], Progress Notes * Otis CARMENioDOB:1940 (84 yo M)Acc No.[id number]:06/13/2024 Progress Notes Patient:?CARMEN Ishmael Provider:?Dillon Lynn MD :1940???Age:84 Y???Sex:Male Raymon e:06/13/2024 Address:[address] [place], [place] [id number] Pcp:Avila Fuentes MD Subjective: * Chief Complaints: * ???Chronic lymphocytic leuke miaBenign prostatic hypertrophyHypertensionWeight loss * HPI: ???COVID-19 Screening:?Questions?Have you had any new onset fever, chills, cough, congestion, sore throat, shortness of breath, muscle aches??No ?Have you been exposed to the virus within the last 10 days??No ?Have you travelled internationally in the last 10 days??No ?Have you been exposed to COVID-19 in the past??Yes ???:?The patient, a 84-year-old male, presented with complaints of back pain and overall body itch. The back pain is suspected to be due to arthritis. The itching is a new symptom and is suspected to be a side effect of the patient's chronic use of morphine. The patient also has a history of CLL (Chronic Lymphocytic Leukemia) for which he is currently on oral chemotherapy with Chlorambucil. The patient's CLL is stable and the medication is well-tolerated. However, there have been instances where the patient had to go without the medication for three to four days due to supply issues. The patient also has mild kidney failure, which is not severe but is not functioning as it did when he was younger. The patient's weight has been stable, with a slight increase over the past three years. * ROS:?General/Constitutional:?pain?only normal aches and pains.?Chills?denies.?Fatigue?admits.?Fever?denies.?ENT:?Decreased hearing?mild.?Respiratory:?Cough?denies.?Cardiovascular:?Chest pain with exertion?denies.?Dyspnea on exertion?denies.?Shortness of breath?denies.?Gastrointestinal:?Constipation?occasional.?Decreased appetite?denies.?Diarrhea?denies.?Heartburn?denies.?Nausea?denies.?Rectal bleeding?denies.?Vomiting?denies.?Hematology:?bruising?denies.?petechiae?denies.?Swollen glands?none have been noted.?Genitourinary:?Frequent urination?twice a night.?Musculoskeletal:?Muscle aches?denies.?Painful joints?denies.?Sciatica?denies.?Weakness?denies.?Skin:?Itching?denies.?Rash?denies.?Skin lesion(s)?denies.?Neurologic:?Difficulty speaking?denies.?Dizziness?denies.?Headache?denies.?Low back pain?denies.?Psychiatric:?Depressed mood?denies.? * Medical History:? * Surgical History:?right paro tid gland lymph node biopsy, CLL/SLL 12/2011No history * Hospitalization/Major Diagno stic Procedure:?No history * Family History:?Father: dece ased 85 yrs.?Mother: 75 yrs, stroke, breast cancer, diagnosed with Cancer.?2 brother(s) , 3 sister(s) . 6 son(s) , 3 daughter(s) . .? He has no family history of lymphoproliferative disorders. * Social History:?Tobacco Use:?Tobacco Use/Smoking?Patient is a?nonsmoker ?How long has it been since you last smoked??> 10 years ?Additional Findings: Tobacco Non-User?Aggressive non-smoker ???He does not smoke or drink. He is . He was born in [place]. * Medications:?TakingLeukeran 2 MG Tablet TAKE 1 TABLET BY MOUTH DAILY DIRECTED Aspirin 81 81 MG Tablet Delayed Release 1 tablet Orally Once a day Vitamin D3 50 MCG (2000 UT) Capsule 1 capsule Orally Once a day Vitamin B 12 100 MCG Lozenge as directed Orally once a day traMADol HCl 50 MG Tablet 2 tablet Orally twice a day fentaNYL 25 MCG/HR Patch 72 Hour APPLY 1 PATCH TOPICALLY TO THE SKIN EVERY 72 HOURS Transdermal traZODone HCl 100 MG Tablet 1 tablet at bedtime Orally Once a day Mirtazapine 30 MG Tablet 1 tablet at bedtime Orally Once a day Morphine Sulfate 15 MG Tablet 1 tablet as needed Orally as needed Albuterol Sulfate 2 puffs as needed Inhalation as needed , Notes to Pharmacist: 1,1,1,[id number] List reviewed and reconciled with the patientTaking Leukeran 2 MG Tablet TAKE 1 TABLET BY MOUTH DAILY DIRECTED Taking Aspirin 81 81 MG Tablet Delayed Release 1 tablet Orally Once a day Taking Vitamin D3 50 MCG (2000 UT) Capsule 1 capsule Orally Once a day Taking Vitamin B 12 100 MCG Lozenge as directed Orally once a day Taking traMADol HCl 50 MG Tablet 2 tablet Orally twice a day Taking fentaNYL 25 MCG/HR Patch 72 Hour APPLY 1 PATCH TOPICALLY TO THE SKIN EVERY 72 HOURS Transdermal Taking traZODone HCl 100 MG Tablet 1 tablet at bedtime Orally Once a day Taking Mirtazapine 30 MG Tablet 1 tablet at bedtime Orally Once a day Taking Morphine Sulfate 15 MG Tablet 1 tablet as needed Orally as needed Taking Albuterol Sulfate 2 puffs as needed Inhalation as needed , Notes to Pharmacist: 1,1,1,[id number] List reviewed and reconciled with the patient * Allergies:?No Known Drug All ergyno[Allergies Verified] Objective: * Vitals:?Ht: 66, Wt:171, BMI: 27.6, BP:110/70, HR:80, Temp:97.4, Wt-k.56. * ???Past Orders: Lab:Comprehensive Paty. Jona l Fast * Collection Date 05/29/2024 01/02/2024 06/02/2022 Collection Time 08:29 AM 10:58 AM 08:47 AM Order Date 05/29/2024 01/02/2024 06/02/2022 Sodium 143 (Ref Range: 135-145 mmol/L) 144 (Ref Range: 135-145 mmol/L) 142 (Ref Range: 135-145 mmol/L) Bilirubin Total 0.4 (Ref Range: 0.0-1.0 mg/dL) 0.4 (Ref Range: 0.0-1.0 mg/dL) 0.4 (Ref Range: 0.0-1.0 mg/dL) Aspartate Amino Transferase 23 (Ref Range: 5-37 U/L) 22 (Ref Range: 5-37 U/L) 23 (Ref Range: 5-37 U/L) Alanine Aminotransferase 12 (Ref Range: 0-40 U/L) 11 (Ref Range: 0-40 U/L) 15 (Ref Range: 0-40 U/L) Total Protein 6.9 (Ref Range: 6.5-8.0 g/dL) 7.1 (Ref Range: 6.5-8.0 g/dL) 6.8 (Ref Range: 6.5-8.0 g/dL) Albumin Level 3.8 (Ref Range: 3.5-5.0 g/dL) 3.8 (Ref Range: 3.5-5.0 g/dL) 3.8 (Ref Range: 3.5-5.0 g/dL) Alkaline Phosphatase 64 (Ref Range: 39-117 U/L) 58 (Ref Range: 39-117 U/L) 62 (Ref Range: 39-117 U/L) Potassium 4.5 (Ref Range: 3.3-5.1 mmol/L) 4.5 (Ref Range: 3.3-5.1 mmol/L) 4.3 (Ref Range: 3.3-5.1 mmol/L) Chloride 107 (Ref Range: 96-108 mmol/L) 106 (Ref Range: 96-108 mmol/L) 105 (Ref Range: 96-108 mmol/L) Carbon Dioxide 29 (Ref Range: 22-29 mmol/L) 30?H (Ref Range: 22-29 mmol/L) 27 (Ref Range: 22-29 mmol/L) Anion Gap 12 (Ref Range: 12-20) 13 (Ref Range: 12-20) 14 (Ref Range: 12-20) Blood Urea Nitrogen 36?H (Ref Range: 9-16 mg/dL) 28?H (Ref Range: 9-16 mg/dL) 30?H (Ref Range: 9-16 mg/dL) Creatinine 1.90?H (Ref Range: 0.5-1.4 mg/dL) 1.65?H (Ref Range: 0.5-1.4 mg/dL) 1.57?H (Ref Range: 0.5-1.4 mg/dL) Estimated Glomerular Filt Rate 34 40 43 Glucose Fasting 98 (Ref Range: 60-99 mg/dL) 97 (Ref Range: 60-99 mg/dL) 89 (Ref Range: 60-99 mg/dL) Calcium 9.5 (Ref Range: 8.4-10.2 mg/dL) 9.9 (Ref Range: 8.4-10.2 mg/dL) 9.0 (Ref Range: 8.4-10.2 mg/dL) * Lab:Uric Acid * Collection Date 05/29/2024 01/02/2024 06/02/2022 Collection Time 08:29 AM 10:58 AM 08:47 AM Order Date 05/29/2024 01/02/2024 06/02/2022 Uric Acid 7.1?H (Ref Range: 3.4-7.0 mg/dL) 6.0 (Ref Range: 3.4-7.0 mg/dL) 6.7 (Ref Range: 3.4-7.0 mg/dL) * Lab:Lactate Dehydrogenase * Collection Date 05/29/2024 01/02/2024 05/21/2023 Collection Time 08:29 AM 10:58 AM 09:30 AM Order Date 05/29/2024 01/02/2024 05/21/2023 Lactate Dehydrogenase 184 (Ref Range: 118-273 U/L) 155 (Ref Range: 118-273 U/L) 152 (Ref Range: 118-273 U/L) * Lab:Lipid Panel * Collection Date 05/29/2024 01/02/2024 06/02/2022 Collection Time 08:29 AM 10:58 AM 08:47 AM Order Date 05/29/2024 01/02/2024 06/02/2022 Triglycerides 142 (Ref Range: <150 mg/dL) 140 (Ref Range: <150 mg/dL) 246 (Ref Range: mg/dL) Cholesterol 158 (Ref Range: <200 mg/dL) 169 (Ref Range: <200 mg/dL) 202 (Ref Range: mg/dL) LDL Cholesterol Calculated 95 (Ref Range: <100 mg/dL) 101?H (Ref Range: <100 mg/dL) 114 (Ref Range: mg/dl) HDL Cholesterol 35?L (Ref Range: >40 mg/dL) 40?L (Ref Range: >40 mg/dL) 39 (Ref Range: mg/dL) * Lab:Beta-2 Microglobulin, Se rum * Collection Date 05/29/2024 01/02/2024 Collection Time 08:29 AM 10:58 AM Order Date 05/29/2024 01/02/2024 Beta-2 Microglobulin, Serum 3.95?A (Ref Range: < OR = 2.51 mg/L) 3.61?A (Ref Range: < OR = 2.51 mg/L) * Lab:Complete Blood Count Aut o Diff * Collection Date 05/29/2024 01/02/2024 09/28/2023 Collection Time 08:29 AM 10:58 AM 01:11 PM Order Date 05/29/2024 01/02/2024 09/28/2023 White Blood Count 4.3?L (Ref Range: 4.8-10.8 X10*3/uL) 4.6?L (Ref Range: 4.8-10.8 X10*3/uL) 5.1 (Ref Range: 4.8-10.8 X10*3/uL) Red Blood Count 3.71?L (Ref Range: 4.60-5.80 X10*6/uL) 3.97?L (Ref Range: 4.60-5.80 X10*6/uL) 4.27?L (Ref Range: 4.60-5.80 X10*6/uL) Hemoglobin 12.1?L (Ref Range: 14.0-18.0 g/dl) 13.0?L (Ref Range: 14.0-18.0 g/dl) 13.8?L (Ref Range: 14.0-18.0 g/dl) Hematocrit 37.5?L (Ref Range: 42.0-52.0 %) 39.5?L (Ref Range: 42.0-52.0 %) 42.3 (Ref Range: 42.0-52.0 %) Mean Corpuscular Volume 101.1?H (Ref Range: 80.0-98.0 fL) 99.5?H (Ref Range: 80.0-98.0 fL) 99.1?H (Ref Range: 80.0-98.0 fL) Mean Corpuscular Hemoglobin 32.6 (Ref Range: 27.0-33.0 pg) 32.7 (Ref Range: 27.0-33.0 pg) 32.3 (Ref Range: 27.0-33.0 pg) Mean Corpuscular HGB Conc 32.3 (Ref Range: 31.0-36.0 g/dl) 32.9 (Ref Range: 31.0-36.0 g/dl) 32.6 (Ref Range: 31.0-36.0 g/dl) Red Cell Distribution Width 12.3 (Ref Range: 11.0-16.0 %) 12.5 (Ref Range: 11.0-16.0 %) 12.5 (Ref Range: 11.0-16.0 %) Platelet Count 137?L (Ref Range: 160-400 X10*3/uL) 141?L (Ref Range: 160-400 X10*3/uL) 146?L (Ref Range: 160-400 X10*3/uL) Mean Platelet Volume 10.3 (Ref Range: 9.4-12.4 fL) 10.1 (Ref Range: 9.4-12.4 fL) 10.3 (Ref Range: 9.4-12.4 fL) Neutrophils Percent Auto 44.0?L (Ref Range: 45-73 %) 54.6 (Ref Range: 45-73 %) 58.4 (Ref Range: 45-73 %) Imm Gran Pct Auto 0.5?H (Ref Range: 0.0-0.4 %) 0.2 (Ref Range: 0.0-0.4 %) 0.4 (Ref Range: 0.0-0.4 %) Lymphocytes Percent Auto 38.9 (Ref Range: 20-40 %) 31.2 (Ref Range: 20-40 %) 26.5 (Ref Range: 20-40 %) Monocytes Percent Auto 13.1?H (Ref Range: 2-11 %) 10.7 (Ref Range: 2-11 %) 11.7?H (Ref Range: 2-11 %) Eosinophils Percent Auto 3.0 (Ref Range: 0-4 %) 2.6 (Ref Range: 0-4 %) 2.6 (Ref Range: 0-4 %) Basophils Percent Auto 0.5 (Ref Range: 0-2 %) 0.7 (Ref Range: 0-2 %) 0.4 (Ref Range: 0-2 %) NRBC Pct Auto 0.0 (Ref Range: 0.0-0.2 /100WBC) 0.0 (Ref Range: 0.0-0.2 /100WBC) 0.0 (Ref Range: 0.0-0.2 /100WBC) Neutrophils Absolute Auto 1.9?L (Ref Range: 2.0-8.3 x10*3/uL) 2.5 (Ref Range: 2.0-8.3 x10*3/uL) 3.0 (Ref Range: 2.0-8.3 x10*3/uL) Imm Gran Abs Auto 0.02 (Ref Range: 0.00-0.03 X10*3/uL) 0.01 (Ref Range: 0.00-0.03 X10*3/uL) 0.02 (Ref Range: 0.00-0.03 X10*3/uL) Lymphocytes Absolute Auto 1.7 (Ref Range: 1.2-4.9 X10*3/uL) 1.4 (Ref Range: 1.2-4.9 X10*3/uL) 1.3 (Ref Range: 1.2-4.9 X10*3/uL) Monocytes Absolute Auto 0.6 (Ref Range: 0.1-1.2 X10*3/uL) 0.5 (Ref Range: 0.1-1.2 X10*3/uL) 0.6 (Ref Range: 0.1-1.2 X10*3/uL) Eosinophils Absolute Auto 0.1 (Ref Range: 0.0-0.4 X10*3/uL) 0.1 (Ref Range: 0.0-0.4 X10*3/uL) 0.1 (Ref Range: 0.0-0.4 X10*3/uL) Basophils Absolute Auto 0.0 (Ref Range: 0.0-0.2 X10*3/uL) 0.0 (Ref Range: 0.0-0.2 X10*3/uL) 0.0 (Ref Range: 0.0-0.2 X10*3/uL) NRBC Abs Auto 0.000 (Ref Range: 0.0-0.012 X10*3/uL) 0.000 (Ref Range: 0.0-0.012 X10*3/uL) 0.000 (Ref Range: 0.0-0.012 X10*3/uL) * Examination: ???General Examination: ?GENERAL APPEARANCE:?pleasant, well nourished, well developed, in no acute distress, calm and relaxed, overweight, man.?HEAD:?atraumatic, normocephalic.?EYES:?eomi, perrla, anicteric, conjugate.?EARS:?normal.?NOSE:?septum intact.?ORAL CAVITY:?normal, unremarkable.?NECK/THYROID:?no jugular venous distention, no carotid bruit, thyroid normal.?LYMPH NODES:?no enlarged lymph nodes,spleen normal.?SKIN:?no suspicious lesions, anicteric.?HEART:?no clicks, gallops, murmurs, or rubs, regular rhythm, S1, S2 normal, no s3, or vascular bruits.?LUNGS:?clear to auscultation .?BREASTS:??no masses palpable bilaterally.?ABDOMEN:?bowel sounds normal, no ascites, no organomegaly, no mass.?RECTAL EXAM:?not examined.?MUSCULOSKELETAL:?extremities unremarkable, no clubbing, cyanosis or edema, Minor arthritic changes in the hands.?PERIPHERAL PULSES:?normal.?NEUROLOGIC:?alert and oriented, cranial nerves 2-12 grossly intact, deep tendon reflexes 2+ symmetrical, motor strength normal upper and lower extremities, sensory exam intact.?PSYCH:?alert, oriented, speech clear, cognitive function intact, cooperative with exam.? Assessment: * Assessment: 1.?CLL (chronic lymphocytic leukemia) - C91.10 (Primary)???Notes :He will continue on his current therapy with chlorambucil and and have blood work within the next 7 days. We will go and confer by telephone.???2.?Benign prostatic hyperplasia, presence of lower urinary tract symptoms unspecified, unspecified morphology - N40.0???Notes :He wakes twice at night to urinate but is satisfied with this level of functioning. No change in his regimen was desired.???3.?Essential hypertension - I10???Notes :His blood pressure is stable and well controlled today and no change in his regimen seems necessary.???4.?Thrombocytopenia - D69.6???Notes :His mild thrombocytopenia remains without any bleeding. His platelets are 137,000.???5.?Overweight - E66.3???Notes :He has lost 6 pounds and his weight is fluctuating. He says his appetite is good. His daughter said he is eating well. His weight will be carefully observed.??? Plan: * Treatment: 2.?Others? Continue Leukeran Tablet, 2 MG, TAKE 1 TABLET BY MOUTH DAILY DIRECTED.?? * Procedure Codes:? * Preventive Medicine:? ??Counseling:?Care goal follow-up plan:?Counseling for abnormal BMI given?Yes ?Above Normal BMI Follow-up?Dietary management education, guidance, and counseling * Follow Up:?4 Months, Februar y (Reason: OV, Routine Checkup) * Images: * Sign off status: Completed true * Provider:?Dillon Lynn MD Date:?05/29 Generated for Bruce coleman/Kayla/eTransmitting on:?10/15/2024 12:30 PM EST History and Physical Notes * HPI (History of Present Illness) Category Sub-Category Detail Notes COVID-19 Screening Questions Have you had any new onset fever, chills, cough, congestion, sore throat, shortness of breath, muscle aches?: No Have you been exposed to the virus withi n the last 10 days?: No Have you travelled internationally in last 10 days?: No Have you been exposed to COVID-19 in the past?: Yes Examination Category Sub-Category Detail Notes General Examination GENERAL APPEARANCE: pleasant , well nourished, well developed, in no acute distress, calm and relaxed, overweight, man HEAD: atraumatic, normocep halic EYES: eomi, perrla, anicte lucy, conjugate EARS: normal NOSE: septum intact NECK/THYROID: no jugular venous di stention, no carotid bruit, thyroid normal HEART: no clicks, gallops, murmurs, or rubs, regular rhythm, S1, S2 normal, no s3, or vascular bruits LUNGS: clear to auscultatio n ABDOMEN: bowel sounds normal, no ascites, no organomegaly, no mass NEUROLOGIC: alert and oriented, cranial nerves 2-12 grossly intact, deep tendon reflexes 2+ symmetrical, motor strength normal upper and lower extremities, sensory exam intact SKIN: no suspicious lesion s, anicteric PERIPHERAL PULSES: normal BREASTS: no masses palpable b ilaterally MUSCULOSKELETAL: extremities unremark able, no clubbing, cyanosis or edema, Minor arthritic changes in the hands LYMPH NODES: no enlarged lymph no tashia,spleen normal RECTAL EXAM: not examined PSYCH: alert, oriented, spe ech clear, cognitive function intact, cooperative with exam ORAL CAVITY: normal, unremarkable
--- OUTSIDE RECORDS SUMMARY | 2024-10-15 12:31 | XMS_ITS | Patient Health Record ---
Author Organization Dillon Lynn III, MD Address [address] [place] [address] [address] [facility] [place] [address] Care Team Providers Care Special Procedure Technologist Name Role Phone Avila Fuentes MD Primary Care Provider Dillon Lai Unavailable [phone] Allergies Allergen (clinical drug ingredient) Drug/Non Drug Allergy documented on EMR Reaction Allergy Type Onset Date Status No Known Drug Allergy Unknown Drug Allergy Active Results Component Value Reference Range Notes Complete Blood Count Auto Di ff Reviewed date:02/10/2024 03:01:49 PM Interpretation: Performing Lab:[facility], [address] [place] [phone] Notes/Report: White Blood Count 4.6 4.8-10.8 X10*3/uL Red Blood Count 3.97 4.60-5.80 X10*6/uL Hemoglobin 13.0 14.0-18.0 g/dl Hematocrit 39.5 42.0-52.0 % Mean Corpuscular Volume 99.5 80.0-98.0 fL Mean Corpuscular Hemoglobin 32.7 27.0-33.0 pg Mean Corpuscular HGB Conc 32.9 31.0-36.0 g/dl Red Cell Distribution Width 12.5 11.0-16.0 % Platelet Count 141 160-400 X10*3/uL Mean Platelet Volume 10.1 9.4-12.4 fL Neutrophils Percent Auto 54.6 45-73 % Imm Gran Pct Auto 0.2 0.0-0.4 % Lymphocytes Percent Auto 31.2 20-40 % Monocytes Percent Auto 10.7 2-11 % Eosinophils Percent Auto 2.6 0-4 % Basophils Percent Auto 0.7 0-2 % NRBC Pct Auto 0.0 0.0-0.2 /100WBC Neutrophils Absolute Auto 2.5 2.0-8.3 x10*3/u L Imm Gran Abs Auto 0.01 0.00-0.03 X10*3/uL Lymphocytes Absolute Auto 1.4 1.2-4.9 X10*3/u L Monocytes Absolute Auto 0.5 0.1-1.2 X10*3/uL Eosinophils Absolute Auto 0.1 0.0-0.4 X10*3/u L Basophils Absolute Auto 0.0 0.0-0.2 X10*3/uL NRBC Abs Auto 0.000 0.0-0.012 X10*3/uL Comprehensive [place]. Panel Fa st Reviewed date:02/10/2024 03:01:49 PM Interpretation: Performing Lab:[facility], [address] [place] [phone] Notes/Report: Sodium 144 135-145 mmol/L Potassium 4.5 3.3-5.1 mmol/L Chloride 106 96-108 mmol/L Carbon Dioxide 30 22-29 mmol/L Anion Gap 13 12-20 Blood Urea Nitrogen 28 9-16 mg/dL Creatinine 1.65 0.5-1.4 mg/dL Estimated Glomerular Filt Rate 40 NOTE: For -Honduran individuals, multiply the result by 1.210. Chronic Kidney Disease: Estimated GFR < 60 mL/min/1.73m2 Severe Kidney Disease: Estimated GFR < 15 mL/min/1.73m2 Glucose Fasting 97 60-99 mg/dL Calcium 9.9 8.4-10.2 mg/dL Bilirubin Total 0.4 0.0-1.0 mg/dL Aspartate Amino Transferase 22 5-37 U/L Alanine Aminotransferase 11 0-40 U/L Total Protein 7.1 6.5-8.0 g/dL Albumin Level 3.8 3.5-5.0 g/dL Alkaline Phosphatase 58 39-117 U/L Uric Acid Reviewed date:02/10/2024 03:01:49 PM Interpretation: Performing Lab:[facility], [address] [place] [phone] Notes/Report: Uric Acid 6.0 3.4-7.0 mg/dL Lactate Dehydrogenase Reviewed date:02/10/2024 03:01:49 PM Interpretation: Performing Lab:[facility], [address] [place] [phone] Notes/Report: Lactate Dehydrogenase 155 118-273 U/L Lipid Panel Reviewed date:02/10/2024 03:01:49 PM Interpretation: Performing Lab:[facility], [address] [place] [phone] Notes/Report: Triglycerides 140 <150 mg/dL Desirable Triglyceride: less than 150 mg/dL Borderline High Triglyceride 150-199 mg/dL High Triglyceride: 200-499 mg/dL Very High Triglyceride: greater than or equal to 5OO mg/dL Cholesterol 169 <200 mg/dL Desirable Cholesterol: less than 200 mg/dL Borderline High Cholesterol: 200-239 mg/dL High Cholesterol: greater than 239 mg/dL LDL Cholesterol Calculated 101 <100 mg/dL Desirable LDL: less than 100 mg/dL Near Optimal/Above Optimal LDL: 110-129 mg/dL Borderline High LDL: 130-159 mg/dL High LDL: 160-189 mg/dL Very High LDL: greater than or equal to 190 mg/dL HDL Cholesterol 40 >40 mg/dL Desirable HDL: greater than 40 mg/dL Note: This HDL assay may give artificially low results in patients with liver disease. Beta-2 Microglobulin, Serum Reviewed date:02/10/2024 03:01:49 PM Interpretation: Performing Lab:[facility], [address] [place] [phone] Notes/Report: Beta-2 Microglobulin, Serum 3.61 < OR = 2.51 m g/L THIS TEST WAS PERFORMED AT: [facility] [address] [place] [phone] VINCE LUCAS MD Complete Blood Count Auto Di ff Reviewed date:06/11/2024 07:35:14 AM Interpretation: Performing Lab:[facility], [address] [place] [phone] Notes/Report: White Blood Count 4.3 4.8-10.8 X10*3/uL Red Blood Count 3.71 4.60-5.80 X10*6/uL Hemoglobin 12.1 14.0-18.0 g/dl Hematocrit 37.5 42.0-52.0 % Mean Corpuscular Volume 101.1 80.0-98.0 fL Mean Corpuscular Hemoglobin 32.6 27.0-33.0 pg Mean Corpuscular HGB Conc 32.3 31.0-36.0 g/dl Red Cell Distribution Width 12.3 11.0-16.0 % Platelet Count 137 160-400 X10*3/uL Mean Platelet Volume 10.3 9.4-12.4 fL Neutrophils Percent Auto 44.0 45-73 % Imm Gran Pct Auto 0.5 0.0-0.4 % Lymphocytes Percent Auto 38.9 20-40 % Monocytes Percent Auto 13.1 2-11 % Eosinophils Percent Auto 3.0 0-4 % Basophils Percent Auto 0.5 0-2 % NRBC Pct Auto 0.0 0.0-0.2 /100WBC Neutrophils Absolute Auto 1.9 2.0-8.3 x10*3/u L Imm Gran Abs Auto 0.02 0.00-0.03 X10*3/uL Lymphocytes Absolute Auto 1.7 1.2-4.9 X10*3/u L Monocytes Absolute Auto 0.6 0.1-1.2 X10*3/uL Eosinophils Absolute Auto 0.1 0.0-0.4 X10*3/u L Basophils Absolute Auto 0.0 0.0-0.2 X10*3/uL NRBC Abs Auto 0.000 0.0-0.012 X10*3/uL Comprehensive [place]. Panel Fa st Reviewed date:06/11/2024 07:35:14 AM Interpretation: Performing Lab:[facility], [address] [place] [phone] Notes/Report: Sodium 143 135-145 mmol/L Potassium 4.5 3.3-5.1 mmol/L Chloride 107 96-108 mmol/L Carbon Dioxide 29 22-29 mmol/L Anion Gap 12 12-20 Blood Urea Nitrogen 36 9-16 mg/dL Creatinine 1.90 0.5-1.4 mg/dL Estimated Glomerular Filt Rate 34 NOTE: For -Honduran individuals, multiply the result by 1.210. Chronic Kidney Disease: Estimated GFR < 60 mL/min/1.73m2 Severe Kidney Disease: Estimated GFR < 15 mL/min/1.73m2 Glucose Fasting 98 60-99 mg/dL Calcium 9.5 8.4-10.2 mg/dL Bilirubin Total 0.4 0.0-1.0 mg/dL Aspartate Amino Transferase 23 5-37 U/L Alanine Aminotransferase 12 0-40 U/L Total Protein 6.9 6.5-8.0 g/dL Albumin Level 3.8 3.5-5.0 g/dL Alkaline Phosphatase 64 39-117 U/L Uric Acid Reviewed date:06/11/2024 07:35:14 AM Interpretation: Performing Lab:[facility], [address] [place] [phone] Notes/Report: Uric Acid 7.1 3.4-7.0 mg/dL Lactate Dehydrogenase Reviewed date:06/11/2024 07:35:14 AM Interpretation: Performing Lab:[facility], [address] [place] [phone] Notes/Report: Lactate Dehydrogenase 184 118-273 U/L Lipid Panel Reviewed date:06/11/2024 07:35:14 AM Interpretation: Performing Lab:[facility], [address] [place] [phone] Notes/Report: Triglycerides 142 <150 mg/dL Desirable Triglyceride: less than 150 mg/dL Borderline High Triglyceride 150-199 mg/dL High Triglyceride: 200-499 mg/dL Very High Triglyceride: greater than or equal to 5OO mg/dL Cholesterol 158 <200 mg/dL Desirable Cholesterol: less than 200 mg/dL Borderline High Cholesterol: 200-239 mg/dL High Cholesterol: greater than 239 mg/dL LDL Cholesterol Calculated 95 <100 mg/dL Desirable LDL: less than 100 mg/dL Near Optimal/Above Optimal LDL: 110-129 mg/dL Borderline High LDL: 130-159 mg/dL High LDL: 160-189 mg/dL Very High LDL: greater than or equal to 190 mg/dL HDL Cholesterol 35 >40 mg/dL Desirable HDL: greater than 40 mg/dL Note: This HDL assay may give artificially low results in patients with liver disease. Beta-2 Microglobulin, Serum Reviewed date:06/11/2024 07:35:14 AM Interpretation: Performing Lab:[facility], [address] [place] [phone] Notes/Report: Beta-2 Microglobulin, Serum 3.95 < OR = 2.51 m g/L THIS TEST WAS PERFORMED AT: [facility] [address] [place] [phone] VINCE LUCAS MD Reason For Referral No Information Medications Medication SIG (Take, Route, Frequency, Duration) Notes Start Date End Date Status Vitamin B 12 100 MCG as directed Orally once a day Active traMADol HCl 50 MG 2 tablet Orally twice a day Active fentaNYL 25 MCG/HR APPLY 1 PATCH TOPICALLY TO THE SKIN EVERY 72 HOURS Transdermal Active Chlorambucil 2 MG 2 mg Orally daily for 28 days 09/24/2024 Active Ibrutinib 140 MG 2 capsules Orally Once a day for 30 days DX: C91.10 Chronic Lymphocytic leukemia 10/10/2024 Active traZODone HCl 100 MG 1 tablet at bedtime Orally Once a day Active Mirtazapine 30 MG 1 tablet at bedtime Orally Once a day Active Morphine Sulfate 15 MG 1 tablet as needed Orally as needed Active Albuterol Sulfate 2 puffs as needed Inhalation as needed 1,1,1,7y0rqlld Active Aspirin 81 81 MG 1 tablet [...] years Additional Findings: Tobacco Non-User Aggressive non-smoker Problems Problem Type SNOMED Code ICD Code Onset Dates Problem Status W/U Status Risk Notes Problem 905406250 Overweight (E66.3) Active confirmed He has lost 6 pounds and his weight is fluctuating. He says his appetite is good. His daughter said he is eating well. His weight will be carefully observed. Problem Weight loss (37393306) Weight loss (R63.4) Active confirmed He has gained 4 pounds since July 2022. This problem has resolved. Problem 971636072 Thrombocytopenia (D69.6) Active confirmed His mild thrombocytopenia remains without any bleeding. His platelets are 137,000. Problem 450704345 Neutropenia (D70.9) Active confirmed His neutropenia is very mild and caused by the chlorambucil. He has had no infections. Problem 61809712 Essential hypertension (I10) Active confirmed His blood pressure is stable and well controlled today and no change in his regimen seems necessary. Problem 16716836 CLL (chronic lymphocytic leukemia) (C91.10) Active confirmed He will c ontinue on his current therapy with chlorambucil and and have blood work within the next 7 days. We will go and confer by telephone. Problem 488821670 Urine retention (R33.9) Active confirmed He recently had a catheter in place Problem 248654929 Benign prostatic hyperplasia, presence of lower urinary tract symptoms unspecified, unspecified morphology (N40.0) Active confirmed He wakes twice at night to urinate but is satisfied with this level of functioning. No change in his regimen was desired. Problem 679617363 Diverticulitis (K57.92) Active confirmed He clinically h as diverticulitis and will be treated with antibiotics for close follow-up visit. 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 He has not been to the emergency room and his cardiac status seems stable today. His pulse is regular and slow. Vital Signs Heart Rate 80 /min 06/13/2024 Temperature 97.4 degrees Fahrenheit 06/13/2024 Blood pressure diastolic 70 mm Hg 06/13/2024 Height 66 in 06/13/2024 Blood pressure systolic 110 mm Hg 06/13/2024 Weight 171 lbs 06/13/2024 BMI 27.6 kg/m2 06/13/2024 Encounters Encounter Location Date Provider Diagnosis Dillon Lynn III, MD [address] [place] [address] [place] [phone] 02/10/2024 Dillon Lynn CLL (chronic lymphoc ytic leukemia) C91.10 ; Thrombocytopenia D69.6 and Neutropenia D70.9 Dillon Lynn III, MD [address] [place] [address] [place] [phone] 06/13/2024 Dillon Lynn CLL (chronic lymphoc ytic leukemia) C91.10 ; Benign prostatic hyperplasia, presence of lower urinary tract symptoms unspecified, unspecified morphology N40.0 ; Essential hypertension I10 ; Thrombocytopenia D69.6 and Overweight E66.3 Dillon Lynn III, MD [address] [place] [address] [place] [phone] 09/20/2024 Dillon Lynn III, MD [address] [place] [address] DR [place], [place] [phone] 09/24/2024 Dillon Lynn Assessments Encounter Date Diagnosis (ICD Code) Assessment Notes T reatment Notes Treatment Clinical Notes 02/10/2024 Thrombocytopenia (ICD-10 - D69.6) His mild thrombocytopenia remains without any bleeding. His platelets are 141,000. 02/10/2024 CLL (chronic lymphocytic leukemia) (ICD-10 - C91.10) He will continue on his current therapy with chlorambucil and and have blood work within the next 7 days. We will go and confer by telephone. 06/13/2024 CLL (chronic lymphocytic leukemia) (ICD-10 - [...] No change in his regimen was desired. 02/10/2024 Neutropenia (ICD-10 - D70.9) His neutropenia is very mild and caused by the chlorambucil. He has had no infections. 06/13/2024 Essential hypertension (ICD-10 - I10) His [...] will be carefully observed. Plan Of Treatment Pending Test Test Name Order Date PROFILE, FASTING (COMPREHENSIVE METABOLI C) 05/25/2023 PROFILE, FASTING (COMPREHENSIVE METABOLI C) 03/09/2022 PROFILE, FASTING (COMPREHENSIVE METABOLI C) 02/10/2024 PROFILE, FASTING (COMPREHENSIVE METABOLI C) 06/09/2022 PROFILE, RANDOM (COMPREHENSIVE METABOLIC ) 09/21/2023 PROFILE, RANDOM (COMPREHENSIVE METABOLIC ) 02/11/2021 PROFILE, RANDOM (COMPREHENSIVE METABOLIC ) 07/30/2021 PROFILE, RANDOM (COMPREHENSIVE METABOLIC ) 05/14/2021 PROFILE, RANDOM (COMPREHENSIVE METABOLIC ) 02/23/2023 PROFILE, RANDOM (COMPREHENSIVE METABOLIC ) 05/29/2021 PROFILE, RANDOM (COMPREHENSIVE METABOLIC ) 06/13/2024 PROFILE, RANDOM (COMPREHENSIVE METABOLIC ) 11/24/2021 PROFILE, RANDOM (COMPREHENSIVE METABOLIC ) 11/22/2022 URIC ACID 03/09/2022 URIC ACID 05/25/2023 LIPID PANEL 03/09/2022 LIPID PANEL 05/25/2023 LDH 11/22/2022 LDH 06/09/2022 LDH 05/25/2023 LDH 02/23/2023 LDH 02/10/2024 FREE T4 (FT4) 05/14/2021 TSH (THYROID STIMULATING HORMONE) 2020 PSA, TOTAL 05/14/2021 PSA, TOTAL+FREE 05/29/2021 CBC w DIFF 02/23/2023 CBC w DIFF 11/24/2021 CBC w DIFF 05/29/2021 CBC w DIFF 11/22/2022 CBC w DIFF 06/09/2022 CBC w DIFF 05/14/2021 CBC w DIFF 09/21/2023 CBC w DIFF 07/30/2021 CBC w DIFF 03/09/2022 CBC w DIFF 05/25/2023 SED RATE (ESR) 05/29/2021 SED RATE (ESR) 11/22/2022 SED RATE (ESR) 05/14/2021 URINALYSIS (UA) 05/24/2022 BETA-2 MICROGLOBULIN, SERUM 05/25/2023 URINE CULTURE 05/24/2022 CBC WITH AUTO DIFF 06/13/2024 CBC WITH AUTO DIFF 02/10/2024 Uric Acid 02/10/2024 Lipid Panel 02/10/2024 Lipid Panel 06/09/2022 Beta-2 Microglobulin, Serum 06/13/2024 Beta-2 Microglobulin, Serum 02/10/2024 Beta-2 Microglobulin, Serum 06/09/2022 Next Appt Details Provider Name:Dillon Lynn, 10/16/2024 09:30:00 AM, [address] [place] [address] , KATHARINE Luz, [place], [address], Insurance Providers Payer Name Payer Address Payer Phone Subscriber Number Group Number Insured Name Patient Relationship to Insured Coverage Start Date Coverage End Date MEDICARE NGS [address] [place] [address] [id number] Ishmael Licea Self - patient is the insured MEDICAID [address] [place], [place] [id number] [phone] [id number] Ishmael Licea Self - patient is the insured Medical (General) History Medical History History ICD Code hypertension bph urine retention elevated psa back surgery for nerve impingement chronic lymphocytic leukemia Surgical History Surgery Date(Month/Year) No history right parotid gland lymph node biopsy, C LL/SLL 12/2011 Hospitalization History Reason Date(Month/Year) No history
--- OUTSIDE RECORDS SUMMARY | 2024-10-15 12:31 | XMS_ITS | Clinical Summary ---
Author Organization [facility] Address [address] [place] [address] Phone Care Team Providers Care Nuclear Logging Engineer Name Role Phone Avila Fuentes DO Primary Care Provider [phone] Allergies No known active allergies Encounters Date Type Department Care Team Description 10/01/2024 4:50 PM EST - 10/01/2024 10:55 PM EST Emergency [facility] Emergency [address] [place] [address] Larry Hoover MD Pain (Primary Dx); Chest pain on breathing Discharge Disposition: Home or Self Care from Last 3 Months Social History Tobacco Use Types Packs/Day Years Used Date Smoking Tobacco: Former Cigarettes Smokeless Tobacco: Never Tobacco Cessation:Counseling Given: Not Answered Sex and Gender Information Value Date Recorded Sex Assigned at Male 10/01/2024 5:33 PM EST Legal Sex Male 5:20 AM EST Gender Identity Male 10/01/2024 5:33 PM EST Sexual Orientation Straight 10/01/2024 5: 33 PM EST Obstetrics History Last Filed Vital Signs Vital Sign Reading Time Taken Comments Blood Pressure 135/75 10/01/2024 10:37 PM EST Pulse 71 10/01/2024 10:37 PM EST Temperature 36.7 ??C (98.1 ??F) 10/01/2024 10:[address] Respiratory Rate 16 10/01/2024 10:37 PM EST Oxygen Saturation 94% 10/01/2024 10:37 PM EST Inhaled Oxygen Concentration - - Weight 79.8 kg (176 lb) 10/01/2024 5:11 PM EST Height 165.1 cm (5' 5 ) 10/01/2024 5:11 PM EST Body Mass Index 29.29 10/01/2024 5:11 PM EST Plan of Treatment Health Maintenance Due Date Last Done Comments Zoster Vaccines (1 of 2) 01/03/1959 RSV Immunization Patients 60+ Years Old (1 - 1-dose 75+ series) 01/03/2015 Pneumococcal Vaccine: 50+ Years (2 of 2 - PPSV23) 10/12/2018 08/17/2018 COVID-19 Vaccine ( season) 2024 04/13/2022, 08/03/2021, 10/29/2020, Additional history exists Influenza Vaccine (#1) 2024 08/17/2018 Cholesterol Screening (Lipid Panel) 10/02/2024 Depression Screening 10/02/2024 Falls Risk Assessment 10/02/2024 Medicare Annual Wellness Visit 10/02/2024 Social Influencers of Health Screening 10/02/2024 Hypertension/CHF/CAD Annual BMP Blood Test 10/01/2025 10/01/2024 DTaP,Tdap,and Td Vaccines (3 - Td or Tdap) 06/12/2029 06/12/2019, 08/17/2018 HIB Vaccines Aged Out No longer eligi ble based on patient's age to complete this topic HPV Vaccines Aged Out No longer eligi ble based on patient's age to complete this topic Hepatitis A Vaccines Aged Out No long er eligible based on patient's age to complete this topic Hepatitis B Vaccines Aged Out No long er eligible based on patient's age to complete this topic IPV Vaccines Aged Out No longer eligi ble based on patient's age to complete this topic MMR Vaccines Aged Out No longer eligi ble based on patient's age to complete this topic Meningococcal ACWY Vaccine Aged Out N o longer eligible based on patient's age to complete this topic Meningococcal B Vacine Aged Out No lo nger eligible based on patient's age to complete this topic RSV Immunization Patients Under 20 months Aged Out No longer eligible based on patient's age to complete this topic Varicella Vaccines Aged Out No longer eligible based on patient's age to complete this topic Procedures Procedure Name Priority Date/Time Associated Diagnosis Comments CT ANGIO CHEST WO AND/OR W CONTRAST STAT 10/01/2024 8:52 PM EST Pain TROPONIN I HIGH SENSITIVITY STAT 10/01/2024 6:31 PM EST ECG 12-LEAD STAT 10/01/2024 6:30 PM EST XR CHEST 2 VIEWS STAT 10/01/2024 5:28 PM EST CBC WITH AUTO DIFFERENTIAL STAT 10/01/2024 5:15 PM EST B-TYPE NATRIURETIC PEPTIDE STAT 10/01/2024 5:15 PM EST MAGNESIUM STAT 10/01/2024 5:15 PM EST LIPASE STAT 10/01/2024 5:15 PM EST COMPREHENSIVE METABOLIC PANEL STAT 10/01/2024 5:15 PM EST CBC AND DIFFERENTIAL STAT 10/01/2024 5:15 PM EST TROPONIN I HIGH SENSITIVITY STAT 10/01/2024 5:15 PM EST ECG 12-LEAD STAT 10/01/2024 5:01 PM EST ECG ANNOTATED 10/01/2024 from Last 3 Months Results * CT Angio Chest wo and/or w Contrast (10/01/2024 8:52 PM EST) Anatomical Region Laterality Modality Body Computed Tomogra phy 10/01/2024 10:0 0 PM EST Impressions 10/01/2024 10:00 PM EST No acute findings. No pulmonary embolism. Nonemergent/incidental findings above. This document has been electronically signed by: De Juárez MD on 10/01/2024 22:00:43 Narrative 10/01/2024 10:00 PM EST INDICATION: PE suspected, high prob CT Angiography Chest W Contrast 3D Postprocessing COMPARISON: None FINDINGS: No pulmonary embolism. No thoracic aortic aneurysm or dissection. No consolidation. No mass. No pleural effusion. No pneumothorax. Mild cardiomegaly. No pericardial effusion. No pathologically enlarged lymph nodes. No acute fracture. Degenerative changes in the spine and shoulders. Small hiatal hernia. Procedure Note De Juárez MD - 10/01/2024 INDICATION: PE suspected, high prob CT Angiography Chest W Contrast 3D Postprocessing COMPARISON: None FINDINGS: No pulmonary embolism. No thoracic aortic aneurysm or dissection. No consolidation. No mass. No pleural effusion. No pneumothorax. Mild cardiomegaly. No pericardial effusion. No pathologically enlarged lymph nodes. No acute fracture. Degenerative changes in the spine and shoulders. Small hiatal hernia. IMPRESSION: No acute findings. No pulmonary embolism. Nonemergent/incidental findings above. This document has been electronically signed by: De Juárez MD on 10/01/2024 22:00:[address] PROCEDURES Final Resu lt * Troponin I high sensitivity (10/01/2024 6:31 PM EST) Only the most recent of2 resultswithin the time period is included. High Sensitivity Troponin I 47 <=79 ng/L LAB CHEMISTRY METHOD 10/01/2024 7:53 PM EST [facility] Blood Venous blood specimen / Unknown Venipuncture / Unknown 10/01/2024 6:31 PM EST 10/01/2024 7:25 PM EST Narrative [facility] - 10/01/2024 7:53 PM EST High levels of biotin in samples may falsely decrease hsTroponin values. ??Use caution when interpreting hsTroponin results in patients taking biotin who exhibit renal impairment (eGFR <60) or in patients taking more than 20 mg/day of biotin. Larry Hoover MD LAB BLOOD ORDERABLES Final Resu lt [facility] [address] [place] [address], * ECG 12 lead (10/01/2024 6:30 PM EST) Only the most recent of2 resultswithin the time period is included. Ventricular Rate ECG 77 BPM GEMUSE Atrial Rate 77 BPM GEMUSE P-R Interval 144 ms GEMUSE QRS Duration 122 ms GEMUSE Q-T Interval 388 ms GEMUSE QTc 439 ms GEMUSE P Wave Lavina -15 degrees GEMUSE R Lavina -36 degrees GEMUSE T Lavina 0 degrees GEMUSE ECG Interpretation Normal sinus rhythm Left anterior fascicular block Nonspecific ST abnormality Abnormal ECG When compared with ECG of 01-OCT-2024 17:01, Nonspecific T wave abnormality, improved in Lateral leads Confirmed by NAVNEET BARRIOS ([id number]) on 10/01/2024 8:22:40 PM GEMUSE 10/01/2024 6:30 PM EST 10/01/2024 8:22 PM EST us Larry B Kiko LEGER ECG ORDERABLES Final Result GEMUSE * XR Chest 2 Views (10/01/2024 5:28 PM EST) Anatomical Region Laterality Modality Body Radiographic Joceline ging 10/02/2024 8:13 AM EST Impressions 10/02/2024 8:14 AM EST No acute findings. -------- FINAL REPORT -------- Dictated By: Radu Young Dictated Date: 10/02/2024 08:13 ET Assigned Physician: Radu Young Reviewed and Electronically Signed By: Radu Young Signed Date: 10/02/2024 08:14 ET Workstation ID: [id number] Transcribed By: Self Edit Transcribed Date: 10/02/2024 08:13 ET Narrative 10/02/2024 8:14 AM EST PROCEDURE: PA and lateral radiographs of the chest. HISTORY: chest pain. COMPARISON: None. FINDINGS: Lungs, pleural spaces, and pulmonary vasculature are normal. ??Mildly tortuous aorta with mild atherosclerotic calcifications. ??Degenerative changes of the spine. Procedure Note Radu Young MD - 10/02/2024 PROCEDURE: PA and lateral radiographs of the chest. HISTORY: chest pain. COMPARISON: None. FINDINGS: Lungs, pleural spaces, and pulmonary vasculature are normal. Mildlytortuous aorta with mild atherosclerotic calcifications. Degenerativechanges of the spine. IMPRESSION: No acute findings. -------- FINAL REPORT -------- Dictated By: Radu Young Dictated Date: 10/02/2024 08:13 ET Assigned Physician: Radu Young Reviewed and Electronically Signed By: Radu Young Signed Date: 10/02/2024 08:14 ET Workstation ID: [id number] Transcribed By: Self Edit Transcribed Date: 10/02/2024 08:13 ET Larry Hoover MD IMG XR PROCEDURES Final Result * (ABNORMAL) CBC auto differential (10/01/2024 5:15 PM EST) WBC 5.1 4.8 - 10.8 K/mcL LAB HEMETOLOGY METHOD 10/01/2024 6:07 PM [facility] RBC 3.80(L) 4.50 - 5.50 M/mcL LAB HEMETOLOGY METHOD 10/01/2024 6:07 PM [facility] Hemoglobin 12.7(L) 13.5 - 17.5 g/dL LAB HEMETOLOGY METHOD 10/01/2024 6:07 PM [facility] Hematocrit 37.8(L) 42.0 - 54.0 % LAB HEMETOLOGY METHOD 10/01/2024 6:07 PM [facility] MCV 98.7(H) 79.0 - 98.0 FL LAB HEMETOLOGY METHOD 10/01/2024 6:07 PM [facility] MCH 33.2(H) 27.0 - 32.0 pcg LAB HEMETOLOGY METHOD 10/01/2024 6:07 PM [facility] MCHC 33.6 32.0 - 37.0 g/dL LAB HEMETOLOGY METHOD 10/01/2024 6:07 PM [facility] RDW 12.6 11.0 - 15.0 % LAB HEMETOLOGY METHOD 10/01/2024 6:07 PM [facility] Platelets 147 130 - 400 K/mcL LAB HEMETOLOGY METHOD 10/01/2024 6:07 PM [facility] MPV 10.3 7.0 - 11.0 FL LAB HEMETOLOGY METHOD 10/01/2024 6:07 PM [facility] NRBC 0.0 <1.0 % LAB HEMETOLOGY METHOD 10/01/2024 6:07 PM [facility] NRBC Absolute 0.00 <0.10 K/mcL LAB HEMETOLOGY METHOD 10/01/2024 6:07 PM [facility] Neutrophils Relative 66.7 % LAB HEMETOLOGY METHOD 10/01/2024 6:07 PM [facility] Lymphocytes Relative 21.1 % LAB HEMETOLOGY METHOD 10/01/2024 6:07 PM [facility] Monocytes Relative 10.0 % LAB HEMETOLOGY METHOD 10/01/2024 6:07 PM [facility] Eosinophils Relative 1.2 % LAB HEMETOLOGY METHOD 10/01/2024 6:07 PM [facility] Basophils Relative 0.4 % LAB HEMETOLOGY METHOD 10/01/2024 6:07 PM [facility] Immature Granulocytes Relative 0.6 % LAB HEMETOLOGY METHOD 10/01/2024 6:07 PM [facility] Neutrophils Absolute 3.42 1.50 - 7.00 K/mcL LAB HEMETOLOGY METHOD 10/01/2024 6:07 PM [facility] Lymphocytes Absolute 1.08 1.00 - 5.00 K/mcL LAB HEMETOLOGY METHOD 10/01/2024 6:07 PM [facility] Monocytes Absolute 0.51 0.20 - 1.00 K/[facility] LAB HEMETOLOGY METHOD 10/01/2024 6:07 PM EST [facility] Eosinophils Absolute 0.06 0.00 - 0.50 K/[facility] LAB HEMETOLOGY METHOD 10/01/2024 6:07 PM EST [facility] Basophils Absolute 0.02 0.00 - 0.20 K/[facility] LAB HEMETOLOGY METHOD 10/01/2024 6:07 PM EST [facility] Immature Granulocytes Absolute 0.03 0.00 - 0.03 K/[facility] LAB HEMETOLOGY METHOD 10/01/2024 6:07 PM EST [facility] Blood Venous blood specimen / Unknown Venipuncture / Unknown 10/01/2024 5:15 PM EST 10/01/2024 5:49 PM EST us Larryjohn Hoover MD LAB BLOOD ORDERABLES Final Resu lt [facility] [address] [place] [address], [place] [phone] * B-type natriuretic peptide (10/01/2024 5:15 PM EST) Pathologist [facility] BNP 79 <=100 pcg/mL LAB CHEMISTRY METHOD 10/01/2024 6:39 PM EST [facility] Blood Venous blood specimen / Unknown Venipuncture / Unknown 10/01/2024 5:15 PM EST 10/01/2024 5:49 PM EST us Larry Hoover MD LAB BLOOD ORDERABLES Final Resu lt [facility] [address] [place] [address], [place] [phone] * Magnesium (10/01/2024 5:15 PM EST) Pathologist [facility] Magnesium 2.0 1.9 - 2.6 mg/dL LAB CHEMISTRY METHOD 10/01/2024 6:52 PM EST [facility] Blood Venous blood specimen / Unknown Venipuncture / Unknown 10/01/2024 5:15 PM EST 10/01/2024 5:49 PM EST Larry Nancy Hoover MD LAB BLOOD ORDERABLES Final Resu lt Performing Organization Address City/[facility]/ZIP Co de Phone Number [facility] [address] [place] [address], [place] [phone] * Lipase (10/01/2024 5:15 PM EST) Pathologist [facility] Lipase 67 13 - 75 unit/L LAB CHEMISTRY METHOD 10/01/2024 6:52 PM [facility] Blood Venous blood specimen / Unknown Venipuncture / Unknown 10/01/2024 5:15 PM EST 10/01/2024 5:49 PM EST Larry Nancy Hoover MD LAB BLOOD ORDERABLES Final Resu lt Performing Organization Address [facility]/ZIP Co de Phone Number [facility] [address] [place] [address], [place] [phone] * (ABNORMAL) Comprehensive metabolic panel (10/01/2024 5:15 PM EST) Pathologist [facility] Sodium 139 133 - 145 mmol/L LAB CHEMISTRY METHOD 10/01/2024 6:52 PM [facility] Potassium 4.2 3.5 - 5.5 mmol/L LAB CHEMISTRY METHOD 10/01/2024 6:52 PM [facility] Chloride 106 96 - 110 mmol/L LAB CHEMISTRY METHOD 10/01/2024 6:52 PM EST [facility] CO2 27 21 - 32 mmol/L LAB CHEMISTRY METHOD 10/01/2024 6:52 PM EST [facility] Anion Gap 6 3 - 11 LAB CHEMISTRY METHOD 10/01/2024 6:52 PM [facility] Glucose 95 70 - 100 mg/dL LAB CHEMISTRY METHOD 10/01/2024 6:52 PM [facility] BUN 25 5 - 25 mg/dL LAB CHEMISTRY METHOD 10/01/2024 6:52 PM [facility] Creatinine 1.71(H) 0.70 - 1.30 mg/dL LAB CHEMISTRY METHOD 10/01/2024 6:52 PM [facility] eGFR 39(L) >=60 mL/min/1. 73m2 LAB CHEMISTRY METHOD 10/01/2024 6:52 PM [facility] Comment:Calculation based on the??Chronic Kidney Disease Epidemiology Collaboration (CKD-EPI) equation refit??without adjustment for race. BUN/Creatinine Ratio 14.6 LAB CHEMISTRY METHOD 10/01/2024 6:52 PM [facility] Calcium 8.9 8.5 - 10.5 mg/dL LAB CHEMISTRY METHOD 10/01/2024 6:52 PM [facility] AST (SGOT) 24 10 - 42 unit/L LAB CHEMISTRY METHOD 10/01/2024 6:52 PM [facility] ALT (SGPT) 20 10 - 60 unit/L LAB CHEMISTRY METHOD 10/01/2024 6:52 PM [facility] Alkaline Phosphatase 62 42 - 121 unit/L LAB CHEMISTRY METHOD 10/01/2024 6:52 PM [facility] Total Protein 6.8 6.0 - 8.0 g/dL LAB CHEMISTRY METHOD 10/01/2024 6:52 PM [facility] Albumin 3.7 3.2 - 5.0 g/dL LAB CHEMISTRY METHOD 10/01/2024 6:52 PM [facility] Total Bilirubin 0.4 0.0 - 1.4 mg/dL LAB CHEMISTRY METHOD 10/01/2024 6:52 PM [facility] Blood Venous blood specimen / Unknown Venipuncture / Unknown 10/01/2024 5:15 PM EST 10/01/2024 5:49 PM EST Larry Hoover MD LAB BLOOD ORDERABLES Final Resu lt [facility] [address] [place] [address], * ECG-Annotated (10/01/2024) Provider Onbase ECG ORDERABLES Final Result from Last 3 Months Insurance MEDICAID - [place] MEDICARE Care Teams Nuclear Logging Engineer Relationship Specialty Start Date End Date Avila Fuentes DO [address] [facility] [address] [place], [place] PCP - General Internal Medicine 09/08/17
--- OUTSIDE RECORDS SUMMARY | 2024-10-15 12:31 | XMS_ITS ---
Author Organization Dillon Lynn III, MD Address [address] [place] [address] [address] [facility] [facility] [place] [address] Care Team Providers Care Film Library Clerk Name Role Phone Alfredo LEGER, Avila Primary Care Provider Dillon Lai [phone] Medications Medication SIG (Take, Route, Fr equency, Duration) Notes Start Date End Date Status Chlorambucil 2 MG 2 mg Orally daily for 28 days Active Social History Sex Assigned At : Social History Observation Description Sex Assigned At Male Encounters Encounter Location Date Provider Diagnosis Dillon Lynn III, MD [address] [place] [address] [address] [facility] [facility] [address] 09/24/2024 Dillon Lynn Plan Of Treatment Medication Medication Name Sig Start Date Stop Date Notes Chlorambucil 2 MG 2 mg Orally daily for 28 days 09/24/2024 Next Appt Details Provider Name:Dillon Lynn, 10/16/2024 09:30:00 AM, [address] [place] [address] [place], [address], Progress Notes * Otis CARMENioDOB:1940 (84 yo M)Acc No.[id number]:09/24/2024 Patient:?CARMEN Ishmael :1940???Age:84 Y???Sex:Male Address:[address] [place] [id number] * Refills? Start Chlorambucil Tablet, 2 MG, Orally, 28, 2 mg, daily, 28 days, Refills=11 * true * Date:? Generated for Bruce coleman/Kayla/Hiteshitting on:?10/15/2024 12:30 PM EST
--- OUTSIDE RECORDS SUMMARY | 2024-10-15 12:32 | XMS_ITS ---
Author Organization Dillon Lynn III, MD Address [address] [place] [address] Care Team Providers Care Skein Tier Name Role Phone Alfredo LEGER, Avila Primary Care Provider Dillon Lai Unavailable [phone] REASON FOR VISIT Refills Medications Medication SIG (Take, Route, Frequency, Duration) Notes Start Date End Date Status Ibrutinib 140 MG 2 capsules Orally Once a day for 30 days DX: C91.10 Chronic Lymphocytic leukemia 10/10/2024 Active Social History Sex Assigned At : Social History Observation Description Sex Assigned At Male Encounters Encounter Location Date Provider Diagnosis Dillon Lynn III, MD [address] [place] [address] [address] [place] [address] 09/20/2024 Dillon Lynn Plan Of Treatment Medication Medication Name Sig Start Date Stop Date Notes Leukeran 2 MG TAKE 1 TABLET BY JANET TH DAILY DIRECTED Ibrutinib 140 MG 2 capsules Orally On ce a day for 30 days 10/10/2024 DX: C91.10 Chronic Lymphocytic leukemia Chlorambucil 2 MG 2 mg Orally daily 09/24/2024 Next Appt Details Provider Name:Dillon Lynn, 10/16/2024 09:30:00 AM, [address] [place] [address] [place], [address], Progress Notes * Otis CARMENioDOB:1940 (84 yo M)Acc No.[id number]:09/20/2024 Patient:?Ishmael CARMEN :1940???Age:84 Y???Sex:Male Address:[address] [place] [id number] * Refills? Stop Leukeran Tablet, 2 MG, TAKE 1 TABLET BY MOUTH DAILY DIRECTED Stop Chlorambucil Tablet, 2 MG, Orally, 2 mg, daily Start Ibrutinib Capsule, 140 MG, Orally, 60 Capsule, 2 capsules, Once a day, 30 days, Refills=11 * true * Date:? Generated for Bruce coleman/Kayla/Carolsmitting on:?10/15/2024 12:31 PM EST
[2024-10-15 12:41] LABS: MANUAL DIFF FLAG NO
[2024-10-15 13:39] LABS: Basophils Percent Auto 0.2 % (0-2); Eosinophils Absolute Auto 0.1 X10*3/uL (0.0-0.4); Eosinophils Percent Auto 0.5 % (0-4); Hematocrit 36.8 % (42.0-52.0); Hemoglobin 12.2 g/dl (14.0-18.0); Imm Gran Abs Auto 0.04 X10*3/uL (0.00-0.03); Imm Gran Pct Auto 0.4 % (0.0-0.4); Lymphocytes Absolute Auto 1.7 X10*3/uL (1.2-4.9); Lymphocytes Percent Auto 15.7 % (20-40); Mean Corpuscular HGB Conc 33.2 g/dl (31.0-36.0); Mean Corpuscular Hemoglobin 32.5 pg (27.0-33.0); Mean Corpuscular Volume 98.1 fL (80.0-98.0); Mean Platelet Volume 9.8 fL (9.4-12.4); Monocytes Absolute Auto 1.2 X10*3/uL (0.1-1.2); Monocytes Percent Auto 10.8 % (2-11); Neutrophils Absolute Auto 7.7 x10*3/uL (2.0-8.3); Neutrophils Percent Auto 72.4 % (45-73); Platelet Count 219 X10*3/uL (160-400); Red Blood Count 3.75 X10*6/uL (4.60-5.80); Red Cell Distribution Width 12.6 % (11.0-16.0); White Blood Count 10.6 X10*3/uL (4.8-10.8)
[2024-10-15 14:07] LABS: Alanine Aminotransferase 14 U/L (0-40); Albumin Level 3.7 g/dL (3.5-5.0); Alkaline Phosphatase 59 U/L (39-117); Anion Gap 10 (12-20); Aspartate Amino Transferase 26 U/L (5-37); Bilirubin Total 0.6 mg/dL (0.0-1.0); Blood Urea Nitrogen 17 mg/dL (9-16); Carbon Dioxide 28 mmol/L (22-29); Chloride 107 mmol/L (96-108); Estimated Glomerular Filt Rate 39; Glucose Random 105 mg/dL (60-115); Sodium 141 mmol/L (135-145); Total Protein 7.4 g/dL (6.5-8.0)
[2024-10-16 07:08] LABS: Beta-2 Microglobulin, Serum 4.29 mg/L (< OR = 2.51)
== END 2024-10-15 12:28 | disposition home or self-care (01) ==
LOC: HO.LAB 12:27
PROVIDERS: PCP Internal Medicine; Visit Provider Internal Medicine Medical Oncology
DX: C91.10 Chronic lymphocytic leukemia of B-cell type not having achieved remission (principal)
CPT/HCPCS: 36415; 80053; 82232; 85025

== ENCOUNTER 2024-10-29 09:03 | Outpatient (REF) | payer MEDICARE, MEDICAID, SELFPAY ==
[2024-10-29 09:37] LABS: MANUAL DIFF FLAG NO
--- OUTSIDE RECORDS SUMMARY | 2024-10-29 09:45 | XMS_ITS | Clinical Summary ---
Author Organization [facility] Address [address] [place] [address] Phone Care Team Providers Care Medical Collections Representative Name Role Phone Avila Funetes DO Primary Care Provider [phone] Allergies No known active allergies Encounters Date Type Department Care Team Description 10/01/2024 4:50 PM EST - 10/01/2024 10:55 PM EST Emergency [facility] Emergency [address] [place] [address] Larry Hoover MD Pain (Primary [...] LAB CHEMISTRY METHOD 10/01/2024 7:53 PM EST [facility] Blood Venous blood specimen / Unknown Venipuncture / Unknown 10/01/2024 6:31 PM EST 10/01/2024 7:25 PM EST Narrative [facility] - 10/01/2024 7:53 PM EST High levels of biotin in samples may falsely decrease hsTroponin values. ??Use caution when interpreting hsTroponin results in patients taking biotin who exhibit renal impairment (eGFR <60) or in patients taking more than 20 mg/day of biotin. Larry Hoover MD LAB BLOOD ORDERABLES Final Resu lt [facility] [address] [place] [address], * ECG 12 lead (10/01/2024 6:30 PM EST) Only the most recent of2 resultswithin the time period is included. Ventricular Rate ECG 77 BPM GEMUSE Atrial Rate 77 BPM GEMUSE P-R Interval 144 ms GEMUSE QRS Duration 122 ms GEMUSE Q-T Interval 388 ms GEMUSE QTc 439 ms GEMUSE P Wave [place] -15 degrees GEMUSE R [place] -36 degrees GEMUSE T [place] 0 degrees GEMUSE ECG Interpretation Normal sinus [...] Signed Date: 10/02/2024 08:14 ET Workstation ID: [id number] Transcribed By: Self Edit Transcribed Date: 10/02/2024 [...] Signed Date: 10/02/2024 08:14 ET Workstation ID: [id number] Transcribed By: Self Edit Transcribed Date: 10/02/2024 08:13 ET Larry Hoover MD IMG XR PROCEDURES Final Result * (ABNORMAL) CBC auto differential (10/01/2024 5:15 PM EST) WBC 5.1 4.8 - 10.8 K/mcL LAB HEMETOLOGY METHOD 10/01/2024 6:07 PM [facility] RBC 3.80(L) 4.50 - 5.50 M/mcL LAB HEMETOLOGY METHOD 10/01/2024 6:07 PM [facility] Hemoglobin 12.7(L) 13.5 - 17.5 g/dL LAB HEMETOLOGY METHOD 10/01/2024 6:07 PM [facility] Hematocrit 37.8(L) 42.0 - 54.0 % LAB HEMETOLOGY METHOD 10/01/2024 6:07 PM [facility] MCV 98.7(H) 79.0 - 98.0 FL LAB HEMETOLOGY METHOD 10/01/2024 6:07 PM [facility] MCH 33.2(H) 27.0 - 32.0 pcg LAB HEMETOLOGY METHOD 10/01/2024 6:07 PM [facility] MCHC 33.6 32.0 - 37.0 g/dL LAB HEMETOLOGY METHOD 10/01/2024 6:07 PM [facility] RDW 12.6 11.0 - 15.0 % LAB HEMETOLOGY METHOD 10/01/2024 6:07 PM [facility] Platelets 147 130 - 400 K/mcL LAB HEMETOLOGY METHOD 10/01/2024 6:07 PM [facility] MPV 10.3 7.0 - 11.0 FL LAB HEMETOLOGY METHOD 10/01/2024 6:07 PM [facility] NRBC 0.0 <1.0 % LAB HEMETOLOGY METHOD 10/01/2024 6:07 PM [facility] NRBC Absolute 0.00 <0.10 K/mcL LAB HEMETOLOGY METHOD 10/01/2024 6:07 PM [facility] Neutrophils Relative 66.7 % LAB HEMETOLOGY METHOD 10/01/2024 6:07 PM [facility] Lymphocytes Relative 21.1 % LAB HEMETOLOGY METHOD 10/01/2024 6:07 PM [facility] Monocytes Relative 10.0 % LAB HEMETOLOGY METHOD 10/01/2024 6:07 PM [facility] Eosinophils Relative 1.2 % LAB HEMETOLOGY METHOD 10/01/2024 6:07 PM [facility] Basophils Relative 0.4 % LAB HEMETOLOGY METHOD 10/01/2024 6:07 PM [facility] Immature Granulocytes Relative 0.6 % LAB HEMETOLOGY METHOD 10/01/2024 6:07 PM [facility] Neutrophils Absolute 3.42 1.50 - 7.00 K/mcL LAB HEMETOLOGY METHOD 10/01/2024 6:07 PM [facility] Lymphocytes Absolute 1.08 1.00 - 5.00 K/mcL LAB HEMETOLOGY METHOD 10/01/2024 6:07 PM [facility] Monocytes Absolute 0.51 0.20 - 1.00 K/[facility] LAB HEMETOLOGY METHOD 10/01/2024 6:07 PM EST [facility] Eosinophils Absolute 0.06 0.00 - 0.50 K/[facility] LAB HEMETOLOGY METHOD 10/01/2024 6:07 PM EST [facility] Basophils Absolute 0.02 0.00 - 0.20 K/[facility] LAB HEMETOLOGY METHOD 10/01/2024 6:07 PM EST [facility] Immature Granulocytes Absolute 0.03 0.00 - 0.03 K/[facility] LAB HEMETOLOGY METHOD 10/01/2024 6:07 PM EST [facility] Blood Venous blood specimen / Unknown Venipuncture / Unknown 10/01/2024 5:15 PM EST 10/01/2024 5:49 PM EST us Larryjohn Hoover MD LAB BLOOD ORDERABLES Final Resu lt [facility] [address] [place] [address], [place] [phone] * B-type natriuretic peptide (10/01/2024 5:15 PM EST) Pathologist [facility] BNP 79 <=100 pcg/mL LAB CHEMISTRY METHOD 10/01/2024 6:39 PM EST [facility] Blood Venous blood specimen / Unknown Venipuncture / Unknown 10/01/2024 5:15 PM EST 10/01/2024 5:49 PM EST us Larry Hoover MD LAB BLOOD ORDERABLES Final Resu lt [facility] [address] [place] [address], [place] [phone] * Magnesium (10/01/2024 5:15 PM EST) Pathologist [facility] Magnesium 2.0 1.9 - 2.6 mg/dL LAB CHEMISTRY METHOD 10/01/2024 6:52 PM EST [facility] Blood Venous blood specimen / Unknown Venipuncture / Unknown 10/01/2024 5:15 PM EST 10/01/2024 5:49 PM EST Larry Nancy Hoover MD LAB BLOOD ORDERABLES Final Resu lt Performing Organization Address City/[facility]/ZIP Co de Phone Number [facility] [address] [place] [address], [place] [phone] * Lipase (10/01/2024 5:15 PM EST) Pathologist [facility] Lipase 67 13 - 75 unit/L LAB CHEMISTRY METHOD 10/01/2024 6:52 PM [facility] Blood Venous blood specimen / Unknown Venipuncture / Unknown 10/01/2024 5:15 PM EST 10/01/2024 5:49 PM EST Larry Nancy Hoover MD LAB BLOOD ORDERABLES Final Resu lt Performing Organization Address City/[facility]/ZIP Co de Phone Number [facility] [address] [place] [address], [place] [phone] * (ABNORMAL) Comprehensive metabolic panel (10/01/2024 5:15 PM EST) Pathologist [facility] Sodium 139 133 - 145 mmol/L LAB CHEMISTRY METHOD 10/01/2024 6:52 PM [facility] Potassium 4.2 3.5 - 5.5 mmol/L LAB CHEMISTRY METHOD 10/01/2024 6:52 PM [facility] Chloride 106 96 - 110 mmol/L LAB CHEMISTRY METHOD 10/01/2024 6:52 PM EST [facility] CO2 27 21 - 32 mmol/L LAB CHEMISTRY METHOD 10/01/2024 6:52 PM EST [facility] Anion Gap 6 3 - 11 LAB CHEMISTRY METHOD 10/01/2024 6:52 PM [facility] Glucose 95 70 - 100 mg/dL LAB CHEMISTRY METHOD 10/01/2024 6:52 PM [facility] BUN 25 5 - 25 mg/dL LAB CHEMISTRY METHOD 10/01/2024 6:52 PM [facility] Creatinine 1.71(H) 0.70 - 1.30 mg/dL LAB CHEMISTRY METHOD 10/01/2024 6:52 PM [facility] eGFR 39(L) >=60 mL/min/1. 73m2 LAB CHEMISTRY METHOD 10/01/2024 6:52 PM [facility] Comment:Calculation based on the??Chronic Kidney Disease Epidemiology Collaboration (CKD-EPI) equation refit??without adjustment for race. BUN/Creatinine Ratio 14.6 LAB CHEMISTRY METHOD 10/01/2024 6:52 PM [facility] Calcium 8.9 8.5 - 10.5 mg/dL LAB CHEMISTRY METHOD 10/01/2024 6:52 PM [facility] AST (SGOT) 24 10 - 42 unit/L LAB CHEMISTRY METHOD 10/01/2024 6:52 PM [facility] ALT (SGPT) 20 10 - 60 unit/L LAB CHEMISTRY METHOD 10/01/2024 6:52 PM [facility] Alkaline Phosphatase 62 42 - 121 unit/L LAB CHEMISTRY METHOD 10/01/2024 6:52 PM [facility] Total Protein 6.8 6.0 - 8.0 g/dL LAB CHEMISTRY METHOD 10/01/2024 6:52 PM [facility] Albumin 3.7 3.2 - 5.0 g/dL LAB CHEMISTRY METHOD 10/01/2024 6:52 PM [facility] Total Bilirubin 0.4 0.0 - 1.4 mg/dL LAB CHEMISTRY METHOD 10/01/2024 6:52 PM [facility] Blood Venous blood specimen / Unknown Venipuncture / Unknown 10/01/2024 5:15 PM EST 10/01/2024 5:49 PM EST Larry Hoover MD LAB BLOOD ORDERABLES Final [facility] [address] [place] [address], * ECG-Annotated (10/01/2024) Provider Onbase ECG ORDERABLES Final Result from Last 3 Months Insurance MEDICAID - [place] MEDICARE Care Teams Medical Collections Representative Relationship Specialty Start Date End Date Avila Fuentes DO [address] [facility] [address] [place], [place] PCP - General Internal Medicine 09/08/17
--- OUTSIDE RECORDS SUMMARY | 2024-10-29 09:45 | XMS_ITS | Encounter Summary ---
Author Organization [facility] Address [address] [place] [address] Care Team Providers Care Financial Auditor Name Role Phone Avila Fuentes DO Primary Care Provider Reason for Visit * Reason Comments Chest Pain Encounter Details Date Type Department Care Team (Late st Contact Info) Description 10/01/2024 4:50 PM EST - 10/01/2024 10:55 PM EST Emergency [facility] Emergency [address] [place] [id number] Larry Hoover MD [address] [place] [address] Pain (Primary Dx); Chest pain on breathing Discharge Disposition: Home or Self Care Social History Tobacco Use Types Packs/Day Years Used Date Smoking Tobacco: Former Cigarettes Smokeless Tobacco: Never Tobacco Cessation:Counseling Given: Not Answered Sex and Gender Information Value Date Recorded Sex Assigned at Male 10/01/2024 5:33 PM EST Legal Sex Male 5:20 AM EST Gender Identity Male 10/01/2024 5:33 PM EST Sexual Orientation Straight 10/01/2024 5: 33 PM EST documented as of this encounter Last Filed Vital Signs Vital Sign Reading [...] Mass Index 29.29 10/01/2024 5:11 PM EST documented in this encounter Discharge Instructions * Discharge Instructions* DEMARCUS Baer - 10/01/2024 10:27 PM EST The blood work shows no evidence of this pain being related to the heart. The CAT scan shows no evidence of blood clot or pneumonia. Take Tylenol as needed for pain. Follow-up with your primary care doctor. Return to the emergency department for worsening symptoms. * Attachments The following attachments cannot be sent through Care Everywhere. * Chest Pain (Luxembourgish) documented in this encounter Discharge Disposition Disposition Code Departure Means Destination Comment s Home or Self Retirement PT AND FAMILY MEMBER PROVIDED DISCHARGE INSTRUCTIONS,PLAN OF CARE BY OTHER POD RN documented in this encounter Progress Notes * Gemma Giang RN - 10/01/2024 8:47 PM EST PT TO [address] SCAN * Gemma Giang RN - 10/01/2024 8:00 PM EST FALL RISK BAND APPLIED * Gemma Giang RN - 10/01/2024 7:26 PM EST ASSUMED CARE OF PT * Larry Hoover MD - 10/01/2024 5:50 PM EST 84Y M presents with CC of chest pressure like sensation and pleuritic chest pain. Earlier was steady pressure. Associated with SOB and nausea. Pain was worse with exertion. PMH: Emphysema, Silent DE, Leukemia (off treatment for 2 weeks) Larry Hoover MD 10/01/24 1750 * Olivia José RN - 10/01/2024 5:39 PM EST Fentanyl patch from home intact on left chest, verified and visualized by second nurse, Amy COREY. * Amy Campa RN - 10/01/2024 4:51 PM EST Pt BIBA from home with complaints of reproducible chest pain with deep breaths. Pt reported to EMS that he felt like he couldn't catch his his breath. Pt took 4 ASA at home prior to EMS arrival. Pt alert and oriented. * Larry Hoover MD - 10/01/2024 4:48 PM EST Emergency Medicine Note Patient Name: Ishmael Licea Initial Evaluation: 10/01/2024 : 1940 Patient's PCP: Avila Fuentes DO Emergency Physician: DEMARCUS Baer History of Present Illness Chief Complaint: Chief Complaint Patient presents with Chest Pain HPI: 84-year-old male with a history of CLL, he was on Lupron until approximately 2 weeks ago when his insurance stopped paying for it. Patient began complaining of chest tightness this morning. Patient states that he was nauseous earlier but that is resolved. He states that the discomfort is not co nstant, now he is only feeling it when he takes a deep breath. ROS: I have performed a ROS with the pertinent positives and negatives documented in the history ofpresent illness. Previous History No past medical history on file. No past surgical history on file. No family history on file. has no allergies on file. No current facility-administered medications on file prior to encounter. No current outpatient medications on file prior to encounter. Physical Exam ED Triage Vitals Temp Pulse Resp BP -- -- -- -- SpO2 Temp src Heart Rate Source Patient Position -- -- -- -- BP Location FiO2 (%) -- -- General: Well-appearing, well nourished, in no acute distress HEENT: PERRL, EOMI, external ears and nose appear unremarkable, airway is patent Neck: Supple, full range of motion Chest: Clear to auscultation; no evidence of respiratory distress. Mild left costochondral tenderness Circulatory: RRR, extremities well perfused Abdomen: Non-distended, Non-Tender Extremities: Normal ROM, No edema Skin: Warm and dry Neuro: Alert and oriented, no focal deficits Results Labs Reviewed TROPONIN I HIGH SENSITIVITY TROPONIN I HIGH SENSITIVITY CBC AND DIFFERENTIAL Narrative: The following orders were created for panel order CBC and differential. Procedure Abnormality Status --------- ------ CBC auto differential[[id number]] Please view results for these tests on the individual orders. COMPREHENSIVE METABOLIC PANEL LIPASE MAGNESIUM B-TYPE NATRIURETIC PEPTIDE CBC WITH AUTO DIFFERENTIAL Abnormal Labs Reviewed - No abnormal labs to display XR Chest 2 Views (Results Pending) I have discussed the incidental/abnormal imaging and/or lab abnormalities with the patient and haveinstructed them the need for further evaluation and workup with their primary care doctor. I have provided the patient with a paper copy of the abnormality. The laboratory results, imaging results and other diagnostic exam results were reviewed in the EMR. EKG Interpretation Normal sinus rhythm 81 bpm with left axis deviation and T waves in 1 aVL 2 3 aVF and V6 no ST depression or ST elevation Critical Care Time None ? Medical Decision Making Medications - No data to display Clinical Impressions as of 10/01/24 2227 Pain Chest pain on breathing Patient was evaluated. EKG chest x-ray CBC Chem-7 troponin x 2. Patient is already received aspirin. Currently pain-free except for deep breath. EKG shows no ST elevation or depression. Initial troponin is 44-second troponin is 47. Patient has been pain-free in the emergency department. CTA of the chest will be performed. CTA of the chest is negative. Procedures Procedures Diagnosis No diagnosis found. Noncardiac chest pain Disposition Data Unavailable Discharge ED Prescriptions None Physician Attestation I was available for consult in real time (during the shifts I was working) and if asked my input incare is as outlined by the documentation below by me. If not documented, then I did not participatein the care of this patient and have reviewed the chart as written. MD Harsha Rosado PA 10/01/24 1702 DEMARCUS Baer 10/01/24 1703 DEMARCUS Baer 10/01/24 1708 DEMARCUS Baer 10/01/24 1720 DEMARCUS Baer 10/01/24 2109 DEMARCUS Baer 10/01/24 2226 Larry Hoover MD 10/03/24 1908 documented in this encounter Plan of Treatment Not on file documented as of this encounter Procedures Procedure Name Priority Date/Time Associated Diagnosis Comments CT ANGIO CHEST WO AND/OR W CONTRAST STAT 10/01/2024 8:52 PM EST Pain TROPONIN I HIGH SENSITIVITY STAT 10/01/2024 6:31 PM EST ECG 12-LEAD STAT 10/01/2024 6:30 PM EST XR CHEST 2 VIEWS STAT 10/01/2024 5:28 PM EST TROPONIN I HIGH SENSITIVITY STAT 10/01/2024 5:15 PM EST CBC WITH AUTO DIFFERENTIAL STAT 10/01/2024 5:15 PM EST CBC AND DIFFERENTIAL STAT 10/01/2024 5:15 PM EST B-TYPE NATRIURETIC PEPTIDE STAT 10/01/2024 5:15 PM EST MAGNESIUM STAT 10/01/2024 5:15 PM EST LIPASE STAT 10/01/2024 5:15 PM EST COMPREHENSIVE METABOLIC PANEL STAT 10/01/2024 5:15 PM EST ECG 12-LEAD STAT 10/01/2024 5:01 PM EST ECG ANNOTATED 10/01/2024 documented in this encounter Results * CT Angio Chest wo and/or [...] I high sensitivity (10/01/2024 6:31 PM EST) High Sensitivity Troponin I 47 <=79 ng/L LAB CHEMISTRY METHOD 10/01/2024 7:53 PM EST [facility] Blood Venous blood specimen / Unknown Venipuncture / Unknown 10/01/2024 6:31 PM EST 10/01/2024 7:25 PM EST Narrative [facility] ([facility] - 10/01/2024 7:53 PM EST High levels of biotin in samples may falsely decrease hsTroponin values. ??Use caution when interpreting hsTroponin results in patients taking biotin who exhibit renal impairment (eGFR <60) or in patients taking more than 20 mg/day of biotin. Larryjohn Hoover MD LAB BLOOD ORDERABLES Final Resu lt Performing Organization Address City/[facility]/ZIP Co de Phone Number [facility] ([facility] [address] [place] [address], [place] [phone] * ECG 12 lead (10/01/2024 6:30 PM EST) Ventricular Rate ECG 77 BPM GEMUSE Atrial Rate 77 BPM GEMUSE P-R Interval 144 ms GEMUSE QRS Duration 122 ms GEMUSE Q-T Interval 388 ms GEMUSE QTc 439 ms GEMUSE P Wave [place] -15 degrees GEMUSE R [place] -36 degrees GEMUSE T [place] 0 degrees GEMUSE ECG Interpretation Normal sinus rhythm Left anterior fascicular block Nonspecific ST abnormality Abnormal ECG When compared with ECG of 01-OCT-2024 17:01, Nonspecific T wave abnormality, improved in Lateral leads Confirmed by NAVNEET BARRIOS ([id number]) on 10/01/2024 8:22:40 PM GEMUSE 10/01/2024 6:30 PM EST 10/01/2024 8:22 PM EST Larryjohn Hoover MD ECG ORDERABLES Final Result Performing Organization Address [facility] Co de Phone Number GEMUSE * XR Chest 2 Views (10/01/2024 5:28 PM EST) Anatomical Region Laterality Modality Body Radiographic Joceline ging 10/02/2024 8:13 AM EST Impressions 10/02/2024 8:14 AM EST No acute findings. -------- FINAL REPORT -------- Dictated By: Radu Young Dictated Date: 10/02/2024 08:13 ET Assigned Physician: Radu Young Reviewed and Electronically Signed By: Radu Young Signed Date: 10/02/2024 08:14 ET Workstation ID: [id number] Transcribed By: Self Edit Transcribed Date: 10/02/2024 [...] Signed Date: 10/02/2024 08:14 ET Workstation ID: [id number] Transcribed By: Self Edit Transcribed Date: 10/02/2024 08:13 ET Larry Hoover MD IMG XR PROCEDURES Final Result * (ABNORMAL) CBC auto differential (10/01/2024 5:15 PM EST) WBC 5.1 4.8 - 10.8 K/[facility] LAB HEMETOLOGY METHOD 10/01/2024 6:07 PM EST [facility] RBC 3.80(L) 4.50 - 5.50 M/mcL LAB HEMETOLOGY METHOD 10/01/2024 6:07 PM EST [facility] Hemoglobin 12.7(L) 13.5 - 17.5 g/dL LAB HEMETOLOGY METHOD 10/01/2024 6:07 PM [facility] Hematocrit 37.8(L) 42.0 - 54.0 % LAB HEMETOLOGY METHOD 10/01/2024 6:07 PM [facility] MCV 98.7(H) 79.0 - 98.0 FL LAB HEMETOLOGY METHOD 10/01/2024 6:07 PM [facility] MCH 33.2(H) 27.0 - 32.0 pcg LAB HEMETOLOGY METHOD 10/01/2024 6:07 PM [facility] MCHC 33.6 32.0 - 37.0 g/dL LAB HEMETOLOGY METHOD 10/01/2024 6:07 PM [facility] RDW 12.6 11.0 - 15.0 % LAB HEMETOLOGY METHOD 10/01/2024 6:07 PM [facility] Platelets 147 130 - 400 K/mcL LAB HEMETOLOGY METHOD 10/01/2024 6:07 PM [facility] MPV 10.3 7.0 - 11.0 FL LAB HEMETOLOGY METHOD 10/01/2024 6:07 PM [facility] NRBC 0.0 <1.0 % LAB HEMETOLOGY METHOD 10/01/2024 6:07 PM [facility] NRBC Absolute 0.00 <0.10 K/mcL LAB HEMETOLOGY METHOD 10/01/2024 6:07 PM [facility] Neutrophils Relative 66.7 % LAB HEMETOLOGY METHOD 10/01/2024 6:07 PM [facility] Lymphocytes Relative 21.1 % LAB HEMETOLOGY METHOD 10/01/2024 6:07 PM [facility] Monocytes Relative 10.0 % LAB HEMETOLOGY METHOD 10/01/2024 6:07 PM [facility] Eosinophils Relative 1.2 % LAB HEMETOLOGY METHOD 10/01/2024 6:07 PM EST [facility] Basophils Relative 0.4 % LAB HEMETOLOGY METHOD 10/01/2024 6:07 PM [facility] Immature Granulocytes Relative 0.6 % LAB HEMETOLOGY METHOD 10/01/2024 6:07 PM [facility] Neutrophils Absolute 3.42 1.50 - 7.00 K/mcL LAB HEMETOLOGY METHOD 10/01/2024 6:07 PM [facility] Lymphocytes Absolute 1.08 1.00 - 5.00 K/mcL LAB HEMETOLOGY METHOD 10/01/2024 6:07 PM [facility] Monocytes Absolute 0.51 0.20 - 1.00 K/mcL LAB HEMETOLOGY METHOD 10/01/2024 6:07 PM [facility] Eosinophils Absolute 0.06 0.00 - 0.50 K/mcL LAB HEMETOLOGY METHOD 10/01/2024 6:07 PM [facility] Basophils Absolute 0.02 0.00 - 0.20 K/mcL LAB HEMETOLOGY METHOD 10/01/2024 6:07 PM [facility] Immature Granulocytes Absolute 0.03 0.00 - 0.03 K/mcL LAB HEMETOLOGY METHOD 10/01/2024 6:07 PM [facility] Blood Venous blood specimen / Unknown Venipuncture / Unknown 10/01/2024 5:15 PM EST 10/01/2024 5:49 PM EST us Larry B Kiko LEGER LAB BLOOD ORDERABLES Final Resu lt [facility] [address] [place] [address], * B-type natriuretic peptide (10/01/2024 5:15 PM EST) BNP 79 <=100 pcg/mL LAB CHEMISTRY METHOD 10/01/2024 6:39 PM EST [facility] Blood Venous blood specimen / Unknown Venipuncture / Unknown 10/01/2024 5:15 PM EST 10/01/2024 5:49 PM EST Larryjohn Hoover MD LAB BLOOD ORDERABLES Final Resu lt Performing Organization Address City/[facility]/ZIP Co de Phone Number [facility] [address] [place] [address], [place] [phone] * Magnesium (10/01/2024 5:15 PM EST) Magnesium 2.0 1.9 - 2.6 mg/dL LAB CHEMISTRY METHOD 10/01/2024 6:52 PM EST [facility] Blood Venous blood specimen / Unknown Venipuncture / Unknown 10/01/2024 5:15 PM EST 10/01/2024 5:49 PM EST us Larryjohn Hoover MD LAB BLOOD ORDERABLES Final Resu lt Performing Organization Address [facility]/ZIP Co de Phone Number [facility] [address] [place] [address], [place] [phone] * Lipase (10/01/2024 5:15 PM EST) Lipase 67 13 - 75 unit/L LAB CHEMISTRY METHOD 10/01/2024 6:52 PM EST [facility] Blood Venous blood specimen / Unknown Venipuncture / Unknown 10/01/2024 5:15 PM EST 10/01/2024 5:49 PM EST Larryjohn Hoover MD LAB BLOOD ORDERABLES Final Resu lt Performing Organization Address City/[facility]/ZIP Co de Phone Number [facility] [address] [place] [address], [place] [phone] * (ABNORMAL) Comprehensive metabolic panel (10/01/2024 5:15 PM EST) Sodium 139 133 - 145 mmol/L LAB CHEMISTRY METHOD 10/01/2024 6:52 PM [facility] Potassium 4.2 3.5 - 5.5 mmol/L LAB CHEMISTRY METHOD 10/01/2024 6:52 PM [facility] Chloride 106 96 - 110 mmol/L LAB CHEMISTRY METHOD 10/01/2024 6:52 PM [facility] CO2 27 21 - 32 mmol/L LAB CHEMISTRY METHOD 10/01/2024 6:52 PM [facility] Anion Gap 6 3 - 11 LAB CHEMISTRY METHOD 10/01/2024 6:52 PM [facility] Glucose 95 70 - 100 mg/dL LAB CHEMISTRY METHOD 10/01/2024 6:52 PM [facility] BUN 25 5 - 25 mg/dL LAB CHEMISTRY METHOD 10/01/2024 6:52 PM [facility] Creatinine 1.71(H) 0.70 - 1.30 mg/dL LAB CHEMISTRY METHOD 10/01/2024 6:52 PM [facility] eGFR 39(L) >=60 mL/min/1. 73m2 LAB CHEMISTRY METHOD 10/01/2024 6:52 PM [facility] Comment:Calculation based on the??Chronic Kidney Disease Epidemiology Collaboration (CKD-EPI) equation refit??without adjustment for race. BUN/Creatinine Ratio 14.6 LAB CHEMISTRY METHOD 10/01/2024 6:52 PM [facility] Calcium 8.9 8.5 - 10.5 mg/dL LAB CHEMISTRY METHOD 10/01/2024 6:52 PM [facility] AST (SGOT) 24 10 - 42 unit/L LAB CHEMISTRY METHOD 10/01/2024 6:52 PM [facility] ALT (SGPT) 20 10 - 60 unit/L LAB CHEMISTRY METHOD 10/01/2024 6:52 PM EST [facility] Alkaline Phosphatase 62 42 - 121 unit/L LAB CHEMISTRY METHOD 10/01/2024 6:52 PM EST [facility] Total Protein 6.8 6.0 - 8.0 g/dL LAB CHEMISTRY METHOD 10/01/2024 6:52 PM EST [facility] Albumin 3.7 3.2 - 5.0 g/dL LAB CHEMISTRY METHOD 10/01/2024 6:52 PM EST [facility] Total Bilirubin 0.4 0.0 - 1.4 mg/dL LAB CHEMISTRY METHOD 10/01/2024 6:52 PM EST [facility] Blood Venous blood specimen / Unknown Venipuncture / Unknown 10/01/2024 5:15 PM EST 10/01/2024 5:49 PM EST Larry Hoover MD LAB BLOOD ORDERABLES Final Resu lt [facility] [address] [place] [address], * Troponin I high sensitivity (10/01/2024 5:15 PM EST) [facility] High Sensitivity Troponin I 44 <=79 ng/L LAB CHEMISTRY METHOD 10/01/2024 6:33 PM EST [facility] Blood Venous blood specimen / Unknown Venipuncture / Unknown 10/01/2024 5:15 PM EST 10/01/2024 5:49 PM EST Narrative [facility] - 10/01/2024 6:33 PM EST High levels of biotin in samples may falsely decrease hsTroponin values. ??Use caution when interpreting hsTroponin results in patients taking biotin who exhibit renal impairment (eGFR <60) or in patients taking more than 20 mg/day of biotin. us Larry Hoover MD LAB BLOOD ORDERABLES Final Resu lt Performing Organization Address City/[facility]/ZIP Co de Phone Number MACHELLE MARAVILLA MD ([facility] [address] [place] [address], * ECG 12 lead (10/01/2024 5:01 PM EST) Ventricular Rate ECG 81 BPM GEMUSE Atrial Rate 81 BPM GEMUSE P-R Interval 138 ms GEMUSE QRS Duration 124 ms GEMUSE Q-T Interval 376 ms GEMUSE QTc 436 ms GEMUSE P Wave [place] 118 degrees GEMUSE R [place] -42 degrees GEMUSE T [place] -36 degrees GEMUSE ECG Interpretation Normal sinus rhythm Left anterior fascicular block Nonspecific ST and T wave abnormality Abnormal ECG When compared with ECG of 15-MAR-2011 07:00, Left anterior fascicular block is now Present Confirmed by NAVNEET BARRIOS ([id number]) on 10/01/2024 8:16:12 PM GEM[facility] 10/01/2024 5:01 PM EST 10/01/2024 8:16 PM EST Larry Hoover MD ECG ORDERABLES Final Result Performing Organization Address [facility] Co de Phone Number GEMUSE * ECG-Annotated (10/01/2024) Provider Onbase ECG ORDERABLES Final Result documented in this encounter Visit Diagnoses Diagnosis Pain- Primary Generalized pain Chest pain on breathing Painful respiration documented in this encounter Administered Medications Inactive Administered Medications - up to 3 most recent administrations Medication Order MAR Action Action Date Dose Rate Site iopamidoL (ISOVUE-370) 370 mg iodine /mL (76 %) injection 100 mL 100 mL, intravenous, Once in imaging, Starting on Tue10/01/24 at 204, For 1 dose Given 10/01/2024 8:50 PM EST 90 mL sodium chloride 0.9 % bolus 1,000 mL 1,000 mL, intravenous, at 1,000 mL/hr, Administer over 1 Hours, Once, On Tue10/01/24 at 1927, For 1 dose New Bag 10/01/2024 7:49 PM EST 1,000 mL 1000 mL/hr sodium chloride 0.9 % flush 10 mL 10 mL, intravenous, Once, On Tue10/01/24 at 204, For 1 dose Given 10/01/2024 8:50 PM EST 10 mL documented in this encounter Active and Recently Administered Medications Times are shown in EST. Scheduled Medication Order 09/29/2024 09/30/2024 10/01/2024 iopamidoL (ISOVUE-370) 370 mg iodine /mL (76 %) injection 100 mL (COMPLETED) 100 mL, intravenous, Once in imaging, Starting on Tue10/01/24 at 2044, For 1 dose 2049 (Given - Provid er: Dwight Quintanilla) sodium chloride 0.9 % bolus 1,000 mL (COMPLETED) 1,000 mL, intravenous, at 1,000 mL/hr, Administer over 1 Hours, Once, On Tue10/01/24 at 1927, For 1 dose 194 (New Bag - Prov ider: Gemma Giang RN)3 (Stopped - Provider: Amy Campa RN) sodium chloride 0.9 % flush 10 mL (COMPLETED) 10 mL, intravenous, Once, On Tue10/01/24 at 2045, For 1 dose 2049 (Given - Provid er: Dwight Quintanilla) documented in this encounter Orders Medications Ordered That Jovany ht Not Have Been Administered Count Last Ordered Date First Ordered Date loperamide (IMODIUM) capsule 4 mg 1 025 documented in this encounter Care Teams Financial Auditor Relationship Specialty Start Date End Date Avila Fuentes DO [address] [facility] [address] [place], [place] PCP - General Internal Medicine 09/08/17 documented as of this encounter
[2024-10-29 09:57] LABS: Basophils Percent Auto 0.4 % (0-2); Eosinophils Absolute Auto 0.1 X10*3/uL (0.0-0.4); Eosinophils Percent Auto 0.5 % (0-4); Hematocrit 35.8 % (42.0-52.0); Hemoglobin 11.5 g/dl (14.0-18.0); Imm Gran Abs Auto 0.13 X10*3/uL (0.00-0.03); Imm Gran Pct Auto 1.3 % (0.0-0.4); Lymphocytes Absolute Auto 3.3 X10*3/uL (1.2-4.9); Lymphocytes Percent Auto 33.5 % (20-40); Mean Corpuscular HGB Conc 32.1 g/dl (31.0-36.0); Mean Corpuscular Hemoglobin 32.1 pg (27.0-33.0); Mean Platelet Volume 10.8 fL (9.4-12.4); Monocytes Percent Auto 10.1 % (2-11); Neutrophils Absolute Auto 5.3 x10*3/uL (2.0-8.3); Neutrophils Percent Auto 54.2 % (45-73); Platelet Count 167 X10*3/uL (160-400); Red Blood Count 3.58 X10*6/uL (4.60-5.80); Red Cell Distribution Width 12.7 % (11.0-16.0); White Blood Count 9.7 X10*3/uL (4.8-10.8)
== END 2024-10-29 09:04 | disposition home or self-care (01) ==
LOC: HO.LAB 09:03
PROVIDERS: PCP Internal Medicine; Visit Provider Internal Medicine Medical Oncology
DX: C91.10 Chronic lymphocytic leukemia of B-cell type not having achieved remission (principal)
CPT/HCPCS: 36415; 85025

== ENCOUNTER 2024-11-15 08:55 | Outpatient (AMB) | payer MEDICARE, MEDICAID, SELFPAY ==
--- NOTE | 2024-11-15 09:07 | A.OFFVIS_ITS ---
Intake Visit Reasons: Kidney Stones Intake Note: New Patient presents for initial visit for kidney stones Urology Medications: none Blood Thinner: aspirin Speech And Language Assistant Required: No Accompanied by: Unknown Allergies No Known Allergies Allergy (Unverified 11/15/24 09:43) Medication List - Last Reconciled 11/15/24 by SALLY Sellers- albuterol sulfate 90 mcg/actuation 2 puffs inhalation Q4H PRN aspirin 81 mg PO DAILY fentanyl 25 mcg/hr topical ibrutinib (Imbruvica) mg PO tramadol 100 mg PO BID PRN trazodone mg PO HPI Comments Details: Ishmael is a very pleasant 84-year-old male patient of Dr. Fuentes was accompanied by his grandson at today's office visit. He has a past medical history of back pain, memory impairment, spinal stenosis, nephrolithiasis, chronic kidney disease, diverticulitis, pulmonary emphysema, heart failure, paroxysmal super ventricular tachycardic, hypertension, restless legs syndrome, depression, metabolic syndrome, and chronic lymphoid leukemia. He presents to the office today as a new patient for nephrolithiasis, bladder wall thickening and history of TURP. In discussion with the patient today he was unaware as to why he was following up here as he has not had any bothersome urinary issues or concerns. We discussed findings on most recent CT 09/22 that notes there is a 2 mm nonobstructing calculus in the inferior pole of the left kidney, no hydronephrosis or definitive renal masses noted. Mild diffuse wall thickening suspected, most likely on the basis of chronic outlet obstruction. 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 When asked he does report a previous history of a TURP in the past over 10-15 years ago. He reports since this procedure he has had no bothersome urinary issues or concerns. He denie urinary urgency, urinary frequency, incontinence, nocturia, hematuria, dysuria, foul smelling urine, changes to urinary stream, flank pain, fever, and or chills. He is happy with his current voiding parameters. In office urinalysis results reviewed with the patient today. PVR 0 mL. In review of patient's chart it appears PSA 02/17 0.5. We discussed potential causes of nephrolithiasis as well as bladder wall thickening. He denies any previous history of nephrolithiasis and or surgical intervention for nephrolithiasis. Discussion Notes During our discussion, I explained to the patient that his 2 mm kidney stone is currently manageable with conservative measures, primarily focusing on maintaining high water intake to promote natural stone passage. I emphasized the importance of water as an effective preventative measure against recurrent stones. Given the mild bladder wall thickening found during diagnostic imaging, I advised that no treatment is necessary without symptoms, which reassured the patient due to his current symptom-free status. We discussed his past prostate surgery, acknowledging there are no symptoms warranting further intervention presently. For monitoring purposes, a PSA test is scheduled for this year, maintaining alignment with routine prostate health management. The patient was advised to keep aware of any new or changing urinary symptoms, with instructions to seek an immediate appointment if they occur. 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 Primary erectile dysfunction Kidney stone Chronic kidney disease Diverticulitis Pulmonary emphysema Heart failure Paroxysmal supraventricular tachycardia Hypertensive disorder Restless legs Depressive disorder Metabolic syndrome X Chronic lymphoid leukemia Herpes zoster Surgical History History of prostatectomy Review of Systems Eyes Reports no additional complaints ENT Reports no additional complaints Card Reports as per HPI Resp Reports as per HPI GI Reports no additional complaints Reports as per HPI Musc Reports as per HPI Neuro Reports no additional complaints Psych Reports as per HPI Endo Reports no additional complaints Physical Exam Const General: cooperative, healthy appearing, comfortable, no acute distress, well developed, alert and awake Orientation/consciousness: patient oriented x3 Limitations: ambulation with cane HEENT Head: Yes normal to inspection, Yes normocephalic and Yes atraumatic Ears: hearing grossly normal bilaterally Eyes General: appearance normal, both eyes and all related structures Neck Neck: Yes normal visual inspection and Yes trachea midline Chest Chest palpation & inspection: normal inspection of the chest Resp Effort & Inspection: normal respiratory effort and able to speak in complete sentences Cardio Rate: regular rate GI Inspection: Yes normal to inspection General: Yes no CVA tenderness Back/Spine/Pelvis Back: no CVA tenderness Skin General skin exam: no rashes or lesions noted Neuro General: patient oriented x3 Extrem General: Yes normal to inspection Psych Appearance: grossly normal and well kempt Mental Status: mental status grossly normal Speech and movement: Normal speech and movement present and Clear speech present Affect: normal affect Attitude: cooperative Thought process: Normal thought process present Thought content: Normal thought content present Insight: Fair insight present (Psych) Judgement: Fair judgement present (Psych) Results AMB Urinalysis, Automated UA Leukoctes 0 Sarah/uL Last Edit by Alton Luther on 11/15/24 09:24 UA Nitrite Last Edit by Alton Luther on 11/15/24 09:24 UA Urobilinogen 0.2 mg/dL Last Edit by Alton Luther on 11/15/24 09:24 UA Protein 15 mg/dL Last Edit by Alton Luther on 11/15/24 09:24 UA pH 6.0 Last Edit by Alton Luther on 11/15/24 09:24 UA Blood 25 Seth/uL Last Edit by Alton Luther on 11/15/24 09:24 UA Specific Elmont 1.020 Last Edit by Alton Luther on 11/15/24 09:24 UA Ketone Last Edit by Alton Luther on 11/15/24 09:24 UA Bilirubin 0 mg/dL Last Edit by Alton Luther on 11/15/24 09:24 UA Glucose 0 mg/dL Last Edit by [employer] on 11/15/24 09:24 Results Reviewed Results Reviewed: Laboratory Last Values Urine pH (Auto) 6.0 11/15/24 09:16 Specific [place]mont (Auto) 1.020 11/15/24 09:16 Urine Protein (Auto) 15 mg/dL 11/15/24 09:16 Glucose (UA)(Auto) 0 mg/dL 11/15/24 09:16 Urine Blood (Auto) 25 Seth/uL 11/15/24 09:16 Urine Bilirubin (Auto) 0 mg/dL 11/15/24 09:16 Urine Urobilinogen (Auto) 0.2 mg/dL 11/15/24 09:16 Leukocyte Esterase (Auto) 0 Sarah/uL 11/15/24 09:16 Date of Service: 08/09/24 Procedure(s): CT abdomen pelvis wo IV con FINDINGS: LUNG BASES: -There is scarring and mild bronchiectasis in both lung bases, worse than the costophrenic sulci. No active lung disease seen. Heart size is normal. There are moderate to heavy coronary calcifications. -There is a small type I hiatus hernia the GE junction. -There are no effusions. LIVER, GALLBLADDER, AND BILIARY TREE: The unenhanced liver is normal in size, shape, and attenuation. No focal hepatic lesion or biliary ductal dilatation is present. The gallbladder is unremarkable with no evidence of radiopaque gallstones, gallbladder wall thickening, or obvious pericholecystic inflammatory changes. PANCREAS: Unremarkable. SPLEEN: Unremarkable. ADRENAL GLANDS: Unremarkable. KIDNEYS AND URETERS: -There is mild bilateral nonspecific perinephric stranding. -There is a tiny 2 mm nonobstructing calculus in the inferior pole of the left kidney. -There are vascular calcifications within the renal navdeep left greater than right. -No hydronephrosis, definitive renal mass, or renal atrophy/thinning. -There is a hyperattenuating cyst in the superior pole of the left kidney measuring 6 mm. This is stable from CTA chest 07/19/2014. -Ureters are nondilated. BLADDER: -Partially collapsed, limiting evaluation especially ventrally. Mild diffuse wall thickening suspected, most likely on the basis of chronic outlet obstruction. No masses. No calculi. 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 GASTROINTESTINAL TRACT: -Small type I hiatus hernia present. -Duodenum is normal. -The small bowel is normal in caliber and course. -There is diverticulosis of the colon, moderate to severe in the sigmoid region. There is no inflammation or wall thickening identified. -The rectum is normal in appearance. ABDOMINAL WALL: Small fat-containing periumbilical hernia. There are postoperative changes to the abdomen. LYMPH NODES: No pathologic or abnormal lymphadenopathy is present. VASCULAR: There is mild ectasia and heavy calcification of the aorta and iliac arteries. There is no definable aneurysm. PELVIC VISCERA: Mild prostate hypertrophy is present with a probable central TURP defect. OSSEOUS STRUCTURES: -No suspicious lytic or blastic bone lesions are present. -There are moderate to advanced degenerative changes in the lumbar spine with a right convex scoliosis centered at L1-2. -L4-5 laminectomy. -There are mild hip joint degenerative changes. -Stable bone island in the left ischial tuberosity. IMPRESSION: 1. No acute findings in the abdomen or pelvis. 2. There is a 2 mm nonobstructing calculus in the lower pole of the left kidney. No hydronephrosis or renal mass. Nonspecific bilateral perirenal stranding. Kidneys otherwise normal. 3. Mild bladder wall thickening diffusely although difficult to evaluate due to decompression. No masses. 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 4. Heavy atheromatous calcification and ectasia of the aorta without aneurysm. 5. Moderate to severe sigmoid colonic diverticulosis. No inflammation. 6. Additional ancillary findings as discussed in the body of the report. Assessment & Plan Assessment & Plan (1) Kidney stone: Code(s): N20.0 - Calculus of kidney Category: Medical (2) Bladder wall thickening: Code(s): N32.89 - Other specified disorders of bladder Category: Medical Plan In office urinalysis results reviewed with the patient today; as noted above. PVR [address] results reviewed with the patient today; as noted above. We discussed at length potential causes and treatment options for nephrolithiasis as well as bladder wall thickening. He currently denies any bothersome urinary issues or concerns. He reports be happy with current voiding parameters. BEVERLEY offered however deferred. Discussed, educated, and stressed the importance of adequate hydration relation to nephrolithiasis as well as overall health and wellbeing. Will obtain PSA. Follow-up in 3 months with PSA and PVR; or sooner with any issues, concerns, and or questions. Orders: Orders AMB Urinalysis Automated Today Z13.9 - Encounter for screening, unspecified Patient Instructions: The patient had an opportunity to ask questions regarding the treatment plan. All questions were answered. Physical exam, labs, and imaging were discussed and reviewed in detail. As well as risks, benefits, and discussion of treatment choices. No major barriers to understanding were identified. The patient expressed understanding and agreement with the above treatment plan. The patient was made aware they should contact our office by phone for worsening of their current condition, the appearance of new symptoms, or with any questions or concerns. Compliance is encouraged with any medications and follow up testing that is ordered. It is a privilege to be allowed the opportunity to participate in? your urological care.? Again, if you have any questions or concerns If you have any questions or concerns please do not hesitate to contact me. The office is [phone]. This note is constructed using voice recognition software. While every effort has been made to ensure accuracy premium cancellation clerk errors may have been included. Yours sincerely, FREEDOM Sellers Coding Level of Care Code New Pt Level 3 (34714) Diagnoses Kidney stone N20.0 Bladder wall thickening N32.89
--- OUTSIDE RECORDS SUMMARY | 2024-11-15 09:27 | XMS_ITS ---
Author Organization Dillon Lynn III, MD Address [address] [place] [address] [place] [address] Care Team Providers Care Laboratory Animal Caretaker Name Role Phone Alfredo LEGER, Avila Primary Care Provider Dillon Lai Unavailable [phone] REASON FOR VISIT Message Social History Sex Assigned At : Social History Observation Description Sex Assigned At Male Encounters Encounter Location Date Provider Diagnosis Dillon Lynn III, MD [address] [place] [address] [address] [facility] [place] [address] 11/14/2024 Dillon Lynn Plan Of Treatment Next Appt Details Provider Name:Dillon Lynn, 12/27/2024 10:30:00 AM, [address] [place] [address] [place], [address], Progress Notes * Otis CARMENioDOB:1940 (84 yo M)Acc No.[id number]:11/14/2024 Patient:?Ishmael CARMEN :1940???Age:84 Y???Sex:Male Address:[address] [place] [phone] * * Date:?
--- OUTSIDE RECORDS SUMMARY | 2024-11-15 09:27 | XMS_ITS ---
Author Organization Dillon Lynn III, MD Address [address] [place] [address] [place] [address] Care Team Providers Care Bright Cutter Name Role Phone Alfredo LEGER, Avila Primary Care Provider Dillon Lai [facility] [phone] Allergies Allergen (clinical drug ingredient) Drug/Non Drug Allergy documented on EMR Reaction Allergy Type Onset Date Status No Known Drug Allergy Unknown Drug Allergy Active REASON FOR VISIT Chronic lymphocytic leukemia, Benign prostatic hypertrophy, Thrombocytopenia, Neutropenia Medications Medication SIG (Take, Route, Frequency, Duration) Notes Start Date End Date Status Albuterol Sulfate 2 puffs as needed Inhalation as needed 1,1,1,5v6cxmjq Active Morphine Sulfate 15 MG 1 tablet [...] Date Provider Diagnosis Dillon Lynn III, MD [address] [place] [address] [address] [place], [place] [phone] 11/01/2024 Dillon Lynn CLL (chronic lymphoc ytic [...] 2 puffs as needed Inhalation as needed 1,1,1,5y2nhwuq Morphine Sulfate 15 MG 1 tablet as [...] weeks, Reason: OV review labs Provider Name:Dillon Lynn, 12/27/2024 10:30:00 AM, [address] [place] [address] [address], [place], [address], Progress Notes * Otis CARMENioDOB:1940 (84 yo M)Acc No.[id number]:11/01/2024 Progress Notes Patient:?Ishmael CARMEN Provider:?Dillon Lynn MD :1940???Age:84 Y???Sex:Male Raymon e:11/01/2024 Address:[address] [place], [place] [id number] Pcp:Avila Fuentes MD Subjective: * Chief Complaints: * ???Chronic lymphocytic leuke miaBenign prostatic hypertrophyThrombocytopeniaNeutropenia * HPI: ???COVID-19 Screening:?He returns to monitor side efffects from his medication.? His chlorambucil was discontinued because the insurance company will no longer pay for it.? He has begun on ibruitinib 140 mg daily.? His white blood cell count is 9000.? The differential is normal.? He has had no side effects recently.? He had some insomnia and nausea for the first few days.? He is now tolerating it well.? This dose was continued with a repeat visit in 3 weeks after a CBC. ?Questions?Have you had any new onset fever, chills, cough, congestion, sore throat, shortness of breath, muscle aches??No * ROS:?General/Constitutional:?pain?only normal aches and pains.?Chills?denies.?Fatigue?admits.?Fever?denies.?ENT:?Decreased hearing?in both ears.?Respiratory:?Cough?denies.?Cardiovascular:?Chest pain with exertion?denies.?Dyspnea on exertion?denies.?Shortness of breath?denies.?Gastrointestinal:?Constipation?occasional.?Decreased [...] He is . He was born in [place]. * Medications:?TakingIbrutinib 140 MG Capsule 2 capsules Orally Once [...] Inhalation as needed , Notes to Pharmacist: 1,1,1,0y3amhieXyykrivas 140 MG Capsule Oral Taking Ibrutinib 140 [...] Inhalation as needed , Notes to Pharmacist: 1,1,1,0m5gfnwdAhqexh Imbruvica 140 MG Capsule Oral DiscontinuedChlorambucil 2 MG Tablet 2 mg Orally daily Medication List reviewed and reconciled with the patientDiscontinued Chlorambucil 2 MG Tablet 2 mg Orally daily Medication List reviewed and reconciled with the patient * Allergies:?No Known Drug All ergyno[Allergies Verified] Objective: * Vitals:?Ht: 66, Wt:167, BMI: 26.95, BP:143/89, HR:127, Temp:97.5, Wt-k.75. * Examination: ???General Examination: ?GENERAL APPEARANCE:?pleasant, well nourished, well developed, in no acute distress, calm and relaxed, overweight, elderly man.?HEAD:?atraumatic, normocephalic.?EYES:?eomi, perrla, anicteric, conjugate.?EARS:?normal.?NOSE:?septum intact.?ORAL CAVITY:?normal, unremarkable.?NECK/THYROID:?no jugular venous distention, no carotid bruit, thyroid normal.?LYMPH NODES:?no enlarged lymph nodes,spleen normal.?SKIN:?no suspicious lesions, anicteric.?HEART:?no clicks, gallops, murmurs, or rubs, regular rhythm, S1, S2 normal, no s3, or vascular bruits.?LUNGS:?clear to auscultation .?BREASTS:??no masses palpable bilaterally.?ABDOMEN:?bowel sounds normal, no ascites, no organomegaly, no mass.?RECTAL EXAM:?not examined.?MUSCULOSKELETAL:?extremities unremarkable, no clubbing, cyanosis or edema.?PERIPHERAL PULSES:?normal.?NEUROLOGIC:?alert and oriented, cranial nerves 2-12 grossly intact, deep tendon reflexes 2+ symmetrical, motor strength normal upper and lower extremities, sensory exam intact.?PSYCH:?alert, oriented.? Assessment: * Assessment: 1.?CLL (chronic lymphocytic leukemia) - C91.10 (Primary)???Notes :He was continued on 140 mg daily with a follow-up in 21 days.???2.?Thrombocytopenia - D69.6???Notes :His platelet count is now in the normal range.???3.?Overweight - E66.3???Notes :His weight is stable.? His appetite is good.? This will be observed carefully.???4.?Essential hypertension - I10???Notes :His blood pressure is stable and well controlled today and no change in his regimen seems necessary.??? Plan: * Treatment: 2.?Others? Continue Chlorambucil Tablet, 2 MG, 2 mg, Orally, daily;?Continue Ibrutinib Capsule, 140 MG, 2 capsules, Orally, Once a day, Notes to Pharmacist: DX: C91.10 Chronic Lymphocytic leukemia.?? * Procedure Codes:? * Preventive Medicine:? ??Counseling:?Care goal follow-up plan:?Counseling for abnormal BMI given?Yes ?Above Normal BMI Follow-up?Dietary management education, guidance, and counseling, Dietary needs education * Follow Up:?8 weeks (Reason: OV review labs) * Images: * Sign off status: Completed true * Provider:?Dillon Lynn MD Date:?01/2025 Generated for Shari jared/Kayla/eTransmitting on:?11/15/2024 09:27 AM EDT History and Physical Notes * HPI [...]
--- OUTSIDE RECORDS SUMMARY | 2024-11-15 09:27 | XMS_ITS | Clinical Summary ---
Author Organization [facility] Address [address] [place] [address] Phone Care Team Providers Care [employer] Name Role Phone Avila Fuentes DO Primary Care Provider [phone] Allergies No known active allergies Encounters Date Type Department Care Team Description 10/01/2024 4:50 PM EST - 10/01/2024 10:55 PM EST Emergency [facility] Emergency [address] [place] [address] Larry Hoover MD Pain (Primary [...] LAB CHEMISTRY METHOD 10/01/2024 7:53 PM EST [facility] Blood Venous blood specimen / Unknown Venipuncture / Unknown 10/01/2024 6:31 PM EST 10/01/2024 7:25 PM EST Narrative [facility] - 10/01/2024 7:53 PM EST High levels of biotin in samples may falsely decrease hsTroponin values. ??Use caution when interpreting hsTroponin results in patients taking biotin who exhibit renal impairment (eGFR <60) or in patients taking more than 20 mg/day of biotin. Larry Hoover MD LAB BLOOD ORDERABLES Final Resu lt [facility] [address] [place] [address], * ECG 12 lead (10/01/2024 6:30 PM EST) Only the most recent of2 resultswithin the time period is included. Ventricular Rate ECG 77 BPM GEMUSE Atrial Rate 77 BPM GEMUSE P-R Interval 144 ms GEMUSE QRS Duration 122 ms GEMUSE Q-T Interval 388 ms GEMUSE QTc 439 ms GEMUSE P Wave [place] -15 degrees GEMUSE R [place] -36 degrees GEMUSE T [place] 0 degrees GEMUSE ECG Interpretation Normal sinus [...] Signed Date: 10/02/2024 08:14 ET Workstation ID: [id number] Transcribed By: Self Edit Transcribed Date: 10/02/2024 [...] Signed Date: 10/02/2024 08:14 ET Workstation ID: [id number] Transcribed By: Self Edit Transcribed Date: 10/02/2024 08:13 ET Larry Hoover MD IMG XR PROCEDURES Final Result * (ABNORMAL) CBC auto differential (10/01/2024 5:15 PM EST) WBC 5.1 4.8 - 10.8 K/mcL LAB HEMETOLOGY METHOD 10/01/2024 6:07 PM [facility] RBC 3.80(L) 4.50 - 5.50 M/mcL LAB HEMETOLOGY METHOD 10/01/2024 6:07 PM [facility] Hemoglobin 12.7(L) 13.5 - 17.5 g/dL LAB HEMETOLOGY METHOD 10/01/2024 6:07 PM [facility] Hematocrit 37.8(L) 42.0 - 54.0 % LAB HEMETOLOGY METHOD 10/01/2024 6:07 PM [facility] MCV 98.7(H) 79.0 - 98.0 FL LAB HEMETOLOGY METHOD 10/01/2024 6:07 PM [facility] MCH 33.2(H) 27.0 - 32.0 pcg LAB HEMETOLOGY METHOD 10/01/2024 6:07 PM [facility] MCHC 33.6 32.0 - 37.0 g/dL LAB HEMETOLOGY METHOD 10/01/2024 6:07 PM [facility] RDW 12.6 11.0 - 15.0 % LAB HEMETOLOGY METHOD 10/01/2024 6:07 PM [facility] Platelets 147 130 - 400 K/mcL LAB HEMETOLOGY METHOD 10/01/2024 6:07 PM [facility] MPV 10.3 7.0 - 11.0 FL LAB HEMETOLOGY METHOD 10/01/2024 6:07 PM [facility] NRBC 0.0 <1.0 % LAB HEMETOLOGY METHOD 10/01/2024 6:07 PM [facility] NRBC Absolute 0.00 <0.10 K/mcL LAB HEMETOLOGY METHOD 10/01/2024 6:07 PM [facility] Neutrophils Relative 66.7 % LAB HEMETOLOGY METHOD 10/01/2024 6:07 PM [facility] Lymphocytes Relative 21.1 % LAB HEMETOLOGY METHOD 10/01/2024 6:07 PM [facility] Monocytes Relative 10.0 % LAB HEMETOLOGY METHOD 10/01/2024 6:07 PM [facility] Eosinophils Relative 1.2 % LAB HEMETOLOGY METHOD 10/01/2024 6:07 PM [facility] Basophils Relative 0.4 % LAB HEMETOLOGY METHOD 10/01/2024 6:07 PM [facility] Immature Granulocytes Relative 0.6 % LAB HEMETOLOGY METHOD 10/01/2024 6:07 PM [facility] Neutrophils Absolute 3.42 1.50 - 7.00 K/mcL LAB HEMETOLOGY METHOD 10/01/2024 6:07 PM [facility] Lymphocytes Absolute 1.08 1.00 - 5.00 K/mcL LAB HEMETOLOGY METHOD 10/01/2024 6:07 PM [facility] Monocytes Absolute 0.51 0.20 - 1.00 K/[facility] LAB HEMETOLOGY METHOD 10/01/2024 6:07 PM EST [facility] Eosinophils Absolute 0.06 0.00 - 0.50 K/[facility] LAB HEMETOLOGY METHOD 10/01/2024 6:07 PM EST [facility] Basophils Absolute 0.02 0.00 - 0.20 K/[facility] HEMETOLOGY METHOD 10/01/2024 6:07 PM EST [facility] Immature Granulocytes Absolute 0.03 0.00 - 0.03 K/[facility] HEMETOLOGY METHOD 10/01/2024 6:07 PM EST [facility] Blood Venous blood specimen / Unknown Venipuncture / Unknown 10/01/2024 5:15 PM EST 10/01/2024 5:49 PM EST us Larryjohn Hoover MD LAB BLOOD ORDERABLES Final Resu lt [facility] [address] [place] [address], [place] [phone] * B-type natriuretic peptide (10/01/2024 5:15 PM EST) Pathologist [facility] BNP 79 <=100 pcg/mL LAB CHEMISTRY METHOD 10/01/2024 6:39 PM EST [facility] Blood Venous blood specimen / Unknown Venipuncture / Unknown 10/01/2024 5:15 PM EST 10/01/2024 5:49 PM EST us Larry Hoover MD LAB BLOOD ORDERABLES Final Resu lt [facility] [address] [place] [address], [place] [phone] * Magnesium (10/01/2024 5:15 PM EST) Pathologist [facility] Magnesium 2.0 1.9 - 2.6 mg/dL LAB CHEMISTRY METHOD 10/01/2024 6:52 PM EST [facility] Blood Venous blood specimen / Unknown Venipuncture / Unknown 10/01/2024 5:15 PM EST 10/01/2024 5:49 PM EST Larry Nancy Hoover MD LAB BLOOD ORDERABLES Final Resu lt Performing Organization Address City/[facility]/ZIP Co de Phone Number [facility] [address] [place] [address], [place] [phone] * Lipase (10/01/2024 5:15 PM EST) Pathologist [facility] Lipase 67 13 - 75 unit/L LAB CHEMISTRY METHOD 10/01/2024 6:52 PM [facility] Blood Venous blood specimen / Unknown Venipuncture / Unknown 10/01/2024 5:15 PM EST 10/01/2024 5:49 PM EST Larry Nancy Hoover MD LAB BLOOD ORDERABLES Final Resu lt Performing Organization Address City/[facility]/ZIP Co de Phone Number [facility] [address] [place] [address], [place] [phone] * (ABNORMAL) Comprehensive metabolic panel (10/01/2024 5:15 PM EST) Pathologist [facility] Sodium 139 133 - 145 mmol/L LAB CHEMISTRY METHOD 10/01/2024 6:52 PM [facility] Potassium 4.2 3.5 - 5.5 mmol/L LAB CHEMISTRY METHOD 10/01/2024 6:52 PM [facility] Chloride 106 96 - 110 mmol/L LAB CHEMISTRY METHOD 10/01/2024 6:52 PM EST [facility] CO2 27 21 - 32 mmol/L LAB CHEMISTRY METHOD 10/01/2024 6:52 PM EST [facility] Anion Gap 6 3 - 11 LAB CHEMISTRY METHOD 10/01/2024 6:52 PM [facility] Glucose 95 70 - 100 mg/dL LAB CHEMISTRY METHOD 10/01/2024 6:52 PM [facility] BUN 25 5 - 25 mg/dL LAB CHEMISTRY METHOD 10/01/2024 6:52 PM [facility] Creatinine 1.71(H) 0.70 - 1.30 mg/dL LAB CHEMISTRY METHOD 10/01/2024 6:52 PM [facility] eGFR 39(L) >=60 mL/min/1. 73m2 LAB CHEMISTRY METHOD 10/01/2024 6:52 PM [facility] Comment:Calculation based on the??Chronic Kidney Disease Epidemiology Collaboration (CKD-EPI) equation refit??without adjustment for race. BUN/Creatinine Ratio 14.6 LAB CHEMISTRY METHOD 10/01/2024 6:52 PM [facility] Calcium 8.9 8.5 - 10.5 mg/dL LAB CHEMISTRY METHOD 10/01/2024 6:52 PM [facility] AST (SGOT) 24 10 - 42 unit/L LAB CHEMISTRY METHOD 10/01/2024 6:52 PM [facility] ALT (SGPT) 20 10 - 60 unit/L LAB CHEMISTRY METHOD 10/01/2024 6:52 PM [facility] Alkaline Phosphatase 62 42 - 121 unit/L LAB CHEMISTRY METHOD 10/01/2024 6:52 PM [facility] Total Protein 6.8 6.0 - 8.0 g/dL LAB CHEMISTRY METHOD 10/01/2024 6:52 PM [facility] Albumin 3.7 3.2 - 5.0 g/dL LAB CHEMISTRY METHOD 10/01/2024 6:52 PM [facility] Total Bilirubin 0.4 0.0 - 1.4 mg/dL LAB CHEMISTRY METHOD 10/01/2024 6:52 PM [facility] Blood Venous blood specimen / Unknown Venipuncture / Unknown 10/01/2024 5:15 PM EST 10/01/2024 5:49 PM EST Larry Hoover MD LAB BLOOD ORDERABLES Final Resu lt [facility] [address] [place] [address], * ECG-Annotated (10/01/2024) Provider Onbase ECG ORDERABLES Final Result from Last 3 Months Insurance MEDICAID - [place] MEDICARE Care Teams [employer] Relationship Specialty Start Date End Date Avila Fuentes DO [address] [facility] [address] [place], [place] PCP - General Internal Medicine 09/08/17
--- OUTSIDE RECORDS SUMMARY | 2024-11-15 09:27 | XMS_ITS ---
Author Organization Dillon Lynn III, MD Address [address] [place] [address] Care Team Providers Care Weapons Engineer Name Role Phone Alfredo LEGER, Avila Primary Care Provider Dillon Lai [facility] [phone] Allergies Allergen (clinical drug ingredient) Drug/Non Drug [...] 2 puffs as needed Inhalation as needed 1,1,1,2j8ypjaq Active Morphine Sulfate 15 MG 1 tablet [...] Date Provider Diagnosis Dillon Lynn III, MD [address] [place] [address] [address] [place], [place] [address] 10/16/2024 Dillon Lynn CLL (chronic lymphoc ytic [...] 2 puffs as needed Inhalation as needed 1,1,1,1m8rbxta Morphine Sulfate 15 MG 1 tablet as neede d Orally as needed traMADol HCl 50 MG 2 tablet Orally twic e a day Vitamin B 12 100 MCG as directed Orally once a day Ibrutinib 140 MG 2 capsules Orally Once a day 10/10/2024 DX: C91.10 Chronic Lymphocytic leukemia Vitamin D3 50 MCG (1999) 1 capsule Orally Once a day Aspirin 81 81 MG 1 tablet Orally Once a day Imbruvica 140 MG Oral Chlorambucil 2 MG 2 mg Orally daily 09/24/2024 Next Appt Details Follow Up: 2 Weeks, Reason: OV Provider Name:Dillon Lynn, 12/27/2024 10:30:00 AM, [address] [place] [address], [address], Progress Notes * Otis CARMENioDOB:1940 (84 yo M)Acc No.[id number]:10/16/2024 Progress Notes Patient:?Sammy CARMENnisio Provider:?Dillon Lynn MD :1940???Age:84 Y???Sex:Male Raymon e:10/16/2024 Address:[address] [place], [place] [phone] Pcp:Avila Fuentes MD Subjective: * Chief Complaints: * ???Chronic lymphocytic leuke miaBenign prostatic hypertrophyHypertensionThrombocytopenia * HPI: ???COVID-19 Screening:? He has been maintained on chlorambucil 2 mg 3 times a week with no side effects and excellent control of his disease.? In the past I have offered him, several times, to update his treatment to more modern therapy.? He has always refused preferring the chlorambucil.? Recently his insurance company has declined to pay for chlorambucil.? Therefore he will be switched to ibrutinib.? I have explained this at length to the patient and his daughter ,Cherrie.? They both understand and agree to this.? Because of his age I have recommended a dose of 240 mg daily and will begin with half of that.? A follow-up visit in the near future was arranged. ?Questions?Have you had any new onset fever, chills, cough, congestion, sore throat, shortness of breath, muscle aches??Yes Sore Throat, Cough, Congestion 2 weeks * ROS:?General/Constitutional:?pain?only normal aches and pains.?Chills?denies.?Fatigue?admits.?Fever?denies.?ENT:?Decreased hearing?denies.?Respiratory:?Cough?denies.?Cardiovascular:?Chest pain with exertion?denies.?Dyspnea on exertion?denies.?Shortness of breath?denies.?Gastrointestinal:?Constipation?occasional.?Decreased [...] He is . He was born in [place]. * Medications:?TakingAspirin 8 1 81 MG Tablet Delayed Release 1 tablet [...] Inhalation as needed , Notes to Pharmacist: 1,1,1,7o2idpcwZhizxhfrduao 2 MG Tablet 2 mg Orally daily [...] Inhalation as needed , Notes to Pharmacist: 1,1,1,5x2jlhcdAizkgo Chlorambucil 2 MG Tablet 2 mg Orally daily Taking Ibrutinib 140 MG Capsule 2 capsules Orally Once a day , Notes to Pharmacist: DX: C91.10 Chronic Lymphocytic leukemiaTaking Imbruvica 140 MG Capsule Oral Medication List reviewed and reconciled with the patient * Allergies:?No Known Drug All ergyno[Allergies Verified] Objective: * Vitals:?Ht: 66, Wt:170, BMI: 27.44, BP:128/63, HR:96, Temp:98.4, Wt-k.11. * Examination: ???General Examination: ?GENERAL APPEARANCE:?pleasant, well [...] lymphocytic leukemia) - C91.10 (Primary)???Notes :He will begin his new therapy with 1 tablet a day.? Blood work will be done periodically and he will be seen in the office to titrate to the effective dose.???2.?Benign prostatic hyperplasia, presence of lower urinary tract symptoms unspecified, unspecified morphology - N40.0???Notes :He wakes twice at night to urinate but is satisfied with this level of functioning. No change in his regimen was desired.???3.?Thrombocytopenia - D69.6???Notes :His mild thrombocytopenia remains without any bleeding. 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 He has not been to the emergency room and his cardiac status seems stable today. His pulse is regular and slow.???5.?Overweight - E66.3???Notes :He has lost 6 pounds and his weight is fluctuating. He says his appetite is good. His daughter said he is eating well. His weight will be carefully observed.??? Plan: * Treatment: 2.?Others? Continue Chlorambucil Tablet, 2 MG, 2 mg, Orally, daily;?Continue Ibrutinib Capsule, 140 MG, 2 capsules, Orally, Once a day, Notes to Pharmacist: DX: C91.10 Chronic Lymphocytic leukemia.?? * Procedure Codes:? * Preventive Medicine:? ??Counseling:?Care goal follow-up plan:?Counseling for abnormal BMI given?Yes ?Above Normal BMI Follow-up?Dietary management education, guidance, and counseling, Dietary needs education * Follow Up:?2 Weeks (Reason: OV) * Images: * Sign off status: Completed true * Provider:?Dillon Lynn MD Date:?09/29 Generated for Printi ng/Faclarig/eTransmitting on:?11/15/2024 09:27 AM EDT History and Physical [...]
== END 2024-11-15 09:44 | disposition home or self-care (01) ==
LOC: HO.HUSH 08:55
PROVIDERS: PCP Internal Medicine; Visit Provider Nurse Practitioner Family
DX: N20.0 Calculus of kidney (principal); N32.89 Other specified disorders of bladder; Z13.9 Encounter for screening, unspecified
CPT/HCPCS: 99203

== ENCOUNTER 2024-11-15 08:55 | Outpatient (REF) | payer MEDICARE, MEDICAID, SELFPAY ==
[2024-11-15 17:56] LABS: Urine Cytology See Pathology rpt
== END 2024-11-15 08:56 | disposition home or self-care (01) ==
LOC: HO.LNP 08:55
PROVIDERS: PCP Internal Medicine; Visit Provider Nurse Practitioner Family
DX: N20.0 Calculus of kidney (principal); N32.89 Other specified disorders of bladder
CPT/HCPCS: 81003; 88112; 99202

== ENCOUNTER 2024-12-27 10:57 | Outpatient (REF) | payer MEDICARE, MEDICAID, SELFPAY ==
--- OUTSIDE RECORDS SUMMARY | 2024-12-27 12:40 | XMS_ITS | Clinical Summary ---
Author Organization [facility] Address [address] [place] [address] Phone Care Team Providers Care Adult Basic Studies Teacher Name Role Phone Avila Fuentes Primary Care Provider [phone] Allergies No known active allergies Encounters Date Type Department Care Team Description 10/01/2024 4:50 PM EST - 10/01/2024 10:55 PM EST Emergency [facility] Emergency [address] [place] [address] Larry Hoover MD Pain (Primary [...] Vaccines (1 of 2) 01/03/1959 RSV Immunization Adult Patients (1 - 1-dose 75+ series) 01/03/2015 Pneumococcal Vaccine: 50+ Years (2 of 2 - PPSV23) 10/12/2018 08/17/2018 COVID-19 Vaccine ( season) 2024 04/13/2022, 08/03/2021, 10/29/2020, Additional history exists Cholesterol Screening (Lipid Panel) 10/02/2024 Depression Screening 10/02/2024 Falls Risk Assessment 10/02/2024 Medicare Annual Wellness Visit 10/02/2024 Social Influencers of Health Screening 10/02/2024 Influenza Vaccine (Season Ended) 2025 08/17/2018 Hypertension/CHF/CAD Annual BMP Blood Test 10/01/2025 10/01/2024 [...] age to complete this topic Meningococcal B Vaccine Aged Out No l onger eligible based on patient's age to complete [...] of2 resultswithin the time period is included. [facility] High Sensitivity Troponin I 47 <=79 ng/L LAB CHEMISTRY METHOD 10/01/2024 7:[address] [facility] Blood Venous blood specimen / Unknown Venipuncture / Unknown 10/01/2024 6:31 PM EST 10/01/2024 7:[address] [facility] - 10/01/2024 7:53 PM EST High levels of biotin in samples may falsely decrease hsTroponin values. ??Use caution when interpreting hsTroponin results in patients taking biotin who exhibit renal impairment (eGFR <60) or in patients taking more than 20 mg/day of biotin. Larry Hoover MD LAB BLOOD ORDERABLES Final Resu lt [facility]) [facility] [address] [place] [address], * ECG 12 lead (10/01/2024 6:30 PM EST) Only the most recent of2 resultswithin the time period is included. Ventricular Rate ECG 77 BPM GEMUSE Atrial Rate 77 BPM GEMUSE P-R Interval 144 ms GEMUSE QRS Duration 122 ms GEMUSE Q-T Interval 388 ms GEMUSE QTc 439 ms GEMUSE P Wave [place] -15 degrees GEMUSE R [place] -36 degrees GEMUSE T [place] 0 degrees GEMUSE ECG Interpretation Normal sinus rhythm Left anterior fascicular block Nonspecific ST abnormality Abnormal ECG When compared with ECG of 01-OCT-2024 17:01, Nonspecific T wave abnormality, improved in Lateral leads Confirmed by NAVNEET BARRIOS ([id number]) on 10/01/2024 8:22:40 PM GEMUSE 10/01/2024 6:30 PM EST 10/01/2024 8:22 PM EST Larry Hoover MD ECG ORDERABLES Final Result GEMUSE * XR [...] Signed Date: 10/02/2024 08:14 ET Workstation ID: [id number] Transcribed By: Self Edit Transcribed Date: 10/02/2024 [...] Signed Date: 10/02/2024 08:14 ET Workstation ID: [id number] Transcribed By: Self Edit Transcribed Date: 10/02/2024 [...] K/mcL LAB HEMETOLOGY METHOD 10/01/2024 6:[address] [facility] Eosinophils Absolute 0.06 0.00 - 0.50 K/Health system LAB HEMETOLOGY METHOD 10/01/2024 6:[address] [facility] Basophils Absolute 0.02 0.00 - 0.20 K/Health system LAB HEMETOLOGY METHOD 10/01/2024 6:[address] [facility] Immature Granulocytes Absolute 0.03 0.00 - 0.03 K/Health system LAB HEMETOLOGY METHOD 10/01/2024 6:[address] [facility] Blood Venous blood specimen / Unknown Venipuncture / Unknown 10/01/2024 5:15 PM EST 10/01/2024 5:49 PM EST Larryjohn Hoover MD LAB BLOOD ORDERABLES Final Resu lt [facility] [address] [place] [address], [place] [phone] * B-type natriuretic peptide (10/01/2024 5:15 PM EST) BNP 79 <=100 pcg/mL LAB CHEMISTRY METHOD 10/01/2024 6:[address] [facility] Blood Venous blood specimen / Unknown Venipuncture / Unknown 10/01/2024 5:15 PM EST 10/01/2024 5:49 PM EST us Larryjohn Hoover MD LAB BLOOD ORDERABLES Final Resu lt [facility] [address] [place] [address], [place] [phone] * Magnesium (10/01/2024 5:15 PM EST) Magnesium 2.0 1.9 - 2.6 mg/dL LAB CHEMISTRY METHOD 10/01/2024 6:[address] [facility] Blood Venous blood specimen / Unknown Venipuncture / Unknown 10/01/2024 5:15 PM EST 10/01/2024 5:49 PM EST Larry B Kiko LEGER LAB BLOOD ORDERABLES Final Resu lt Performing Organization Address City/[facility]/ZIP Co de Phone Number [facility] [address] [place] [address], [place] [phone] * Lipase (10/01/2024 5:15 PM EST) Pathologist [facility] Lipase 67 13 - 75 unit/L LAB CHEMISTRY METHOD 10/01/2024 6:52 PM [facility] Blood Venous blood specimen / Unknown Venipuncture / Unknown 10/01/2024 5:15 PM EST 10/01/2024 5:49 PM EST Larry Nancy Hoover MD LAB BLOOD ORDERABLES Final Resu lt Performing Organization Address City/[facility]/ZIP Co de Phone Number [facility] [address] [place] [address], [place] [phone] * (ABNORMAL) Comprehensive metabolic panel (10/01/2024 5:15 PM EST) Pathologist [facility] Sodium 139 133 - 145 mmol/L LAB CHEMISTRY METHOD 10/01/2024 6:52 PM [facility] Potassium 4.2 3.5 - 5.5 mmol/L LAB CHEMISTRY METHOD 10/01/2024 6:52 PM [facility] Chloride 106 96 - 110 mmol/L LAB CHEMISTRY METHOD 10/01/2024 6:52 PM [facility] CO2 27 21 - 32 mmol/L LAB CHEMISTRY METHOD 10/01/2024 6:52 PM [facility] Anion Gap 6 3 [...] MD LAB BLOOD ORDERABLES Final Resu lt [facility] [address] [place] [address], * ECG-Annotated (10/01/2024) Provider Onbase ECG ORDERABLES Final Result from Last 3 Months Insurance MEDICAID - [place] MEDICARE Care Teams Adult Basic Studies Teacher Relationship Specialty Start Date End Date Avila Fuentes DO [address] [facility] [address] [place], [place] PCP - General Internal Medicine 09/08/17
[2024-12-27 14:03] LABS: MANUAL DIFF FLAG NO
[2024-12-27 14:16] LABS: Basophils Percent Auto 0.4 % (0-2); Eosinophils Absolute Auto 0.1 X10*3/uL (0.0-0.4); Eosinophils Percent Auto 1.1 % (0-4); Hematocrit 36.7 % (42.0-52.0); Hemoglobin 11.9 g/dl (14.0-18.0); Imm Gran Abs Auto 0.04 X10*3/uL (0.00-0.03); Imm Gran Pct Auto 0.5 % (0.0-0.4); Lymphocytes Absolute Auto 4.1 X10*3/uL (1.2-4.9); Lymphocytes Percent Auto 47.8 % (20-40); Mean Corpuscular HGB Conc 32.4 g/dl (31.0-36.0); Mean Corpuscular Hemoglobin 32.2 pg (27.0-33.0); Mean Corpuscular Volume 99.2 fL (80.0-98.0); Mean Platelet Volume 11.7 fL (9.4-12.4); Monocytes Absolute Auto 0.7 X10*3/uL (0.1-1.2); Monocytes Percent Auto 8.1 % (2-11); Neutrophils Absolute Auto 3.6 x10*3/uL (2.0-8.3); Neutrophils Percent Auto 42.1 % (45-73); Platelet Count 125 X10*3/uL (160-400); Red Cell Distribution Width 13.1 % (11.0-16.0); White Blood Count 8.5 X10*3/uL (4.8-10.8)
[2024-12-27 14:29] LABS: Alanine Aminotransferase 14 U/L (0-40); Albumin Level 3.7 g/dL (3.5-5.0); Alkaline Phosphatase 51 U/L (39-117); Anion Gap 12 (12-20); Aspartate Amino Transferase 34 U/L (5-37); Bilirubin Total 0.4 mg/dL (0.0-1.0); Blood Urea Nitrogen 23 mg/dL (9-16); Carbon Dioxide 27 mmol/L (22-29); Chloride 108 mmol/L (96-108); Estimated Glomerular Filt Rate 41; Glucose Random 100 mg/dL (60-115); Potassium 4.3 mmol/L (3.3-5.1); Sodium 143 mmol/L (135-145); Total Protein 6.7 g/dL (6.5-8.0)
== END 2024-12-27 10:58 | disposition home or self-care (01) ==
LOC: HO.10HDL 10:57
PROVIDERS: Visit Provider Internal Medicine Medical Oncology
DX: C91.10 Chronic lymphocytic leukemia of B-cell type not having achieved remission (principal); D69.6 Thrombocytopenia, unspecified
CPT/HCPCS: 36415; 80053; 85025

== ENCOUNTER 2025-02-19 09:02 | Outpatient (REF) | payer MEDICARE, MEDICAID, SELFPAY ==
[2025-02-19 09:17] LABS: MANUAL DIFF FLAG NO
[2025-02-19 09:49] LABS: Basophils Percent Auto 0.5 % (0-2); Eosinophils Absolute Auto 0.1 X10*3/uL (0.0-0.4); Eosinophils Percent Auto 1.7 % (0-4); Hemoglobin 12.4 g/dl (14.0-18.0); Imm Gran Abs Auto 0.02 X10*3/uL (0.00-0.03); Imm Gran Pct Auto 0.3 % (0.0-0.4); Lymphocytes Percent Auto 52.5 % (20-40); Mean Corpuscular HGB Conc 31.8 g/dl (31.0-36.0); Mean Corpuscular Hemoglobin 31.9 pg (27.0-33.0); Mean Corpuscular Volume 100.3 fL (80.0-98.0); Mean Platelet Volume 11.9 fL (9.4-12.4); Monocytes Absolute Auto 0.8 X10*3/uL (0.1-1.2); Monocytes Percent Auto 10.3 % (2-11); Neutrophils Absolute Auto 2.6 x10*3/uL (2.0-8.3); Neutrophils Percent Auto 34.7 % (45-73); Platelet Count 121 X10*3/uL (160-400); Red Blood Count 3.89 X10*6/uL (4.60-5.80); Red Cell Distribution Width 12.8 % (11.0-16.0); White Blood Count 7.6 X10*3/uL (4.8-10.8)
[2025-02-19 09:53] LABS: Fibrinogen 445 MG/DL (259-690); INTERNATIONAL NORM RATIO 0.9 (0.9-1.1); Prothrombin Time 9.9 SEC (10.9-12.4)
[2025-02-19 09:56] LABS: Partial Thromboplastin Time 30.4 SEC (26.0-36.8)
[2025-02-19 10:14] LABS: Alanine Aminotransferase 17 U/L (0-40); Albumin Level 3.9 g/dL (3.5-5.0); Alkaline Phosphatase 65 U/L (39-117); Anion Gap 11 (12-20); Aspartate Amino Transferase 33 U/L (5-37); Bilirubin Total 0.3 mg/dL (0.0-1.0); Blood Urea Nitrogen 27 mg/dL (9-16); Calcium 8.9 mg/dL (8.4-10.2); Carbon Dioxide 27 mmol/L (22-29); Chloride 109 mmol/L (96-108); Estimated Glomerular Filt Rate 35; Glucose Random 94 mg/dL (60-115); Potassium 4.3 mmol/L (3.3-5.1); Sodium 143 mmol/L (135-145); Total Protein 6.8 g/dL (6.5-8.0)
[2025-02-19 14:23] LABS: Prostate Specific Antigen 0.47 ng/mL (<0.05-4.0)
[2025-02-21 09:28] LABS: Beta-2 Microglobulin, Serum 3.88 mg/L (< OR = 2.51)
== END 2025-02-19 09:03 | disposition home or self-care (01) ==
LOC: HO.LAB 09:02
PROVIDERS: Absent Provider Nurse Practitioner Family; PCP Internal Medicine Medical Oncology; Visit Provider Internal Medicine Medical Oncology
DX: C91.10 Chronic lymphocytic leukemia of B-cell type not having achieved remission (principal); D69.6 Thrombocytopenia, unspecified; E66.3 Overweight; Z12.5 Encounter for screening for malignant neoplasm of prostate
CPT/HCPCS: 36415; 80053; 82232; 84153; 85025; 85384; 85610; 85730

== ENCOUNTER 2025-02-20 09:31 | Outpatient (AMB) | payer MEDICARE, MEDICAID, SELFPAY ==
--- OUTSIDE RECORDS SUMMARY | 2024-12-27 06:30 | XMS_ITS ---
Author Organization Dillon Lynn III, MD Address [address] [place] [address] Care Team Providers Care Switchboard Wirer Name Role Phone Alfredo LEGER, Avila Primary Care Provider Dillon Lai [facility] [phone] Allergies Allergen (clinical drug ingredient) Drug/Non Drug [...] 2 puffs as needed Inhalation as needed 1,1,1,3g8vjyha Active fentaNYL 25 MCG/HR APPLY 1 PATCH [...] Date Provider Diagnosis Dillon Lynn III, MD [address] [place] [address] [place], [place] [address] 12/27/2024 Dillon Lynn CLL (chronic lymphoc ytic [...] 2 puffs as needed Inhalation as needed 1,1,1,6q0kygsr fentaNYL 25 MCG/HR APPLY 1 PATCH TOPICALLY [...] UT) 1 capsule Orally Once a day Chlorambucil 2 MG 2 mg Orally daily 09/24/2024 Pending Test Test Name Order Date PROFILE, RANDOM (COMPREHENSIVE METABOLIC ) 12/27/2024 CBC w DIFF 12/27/2024 Beta-2 Microglobulin, Serum 12/27/2024 Next Appt Details Follow Up: 2 Months, Reason: ov review labs Provider Name:Dillon Lynn, 03/07/2025 10:30:00 AM, [address] [place] [address], [address], [address], Progress Notes * Otis CARMENioDOB:1940 (84 yo M)Acc No.[id number]:12/27/2024 Progress Notes Patient: Ishmael GRIGSBY Provider: Sarah Lynn MD :1940 A ge:84 Y S ex:Male Date:12/27/2024 Address:[address] [place], [place] [phone] Pcp:Avila Fuentes MD Subjective: * Chief Complaints: [...] He was born in [place]. * Medications: T akingIbrutinib 140 MG Capsule [...] Inhalation as needed , Notes to Pharmacist: 1,,1,9a6vxspnFxhhux Ibrutinib 140 MG Capsule 2 capsules Orally [...] Inhalation as needed , Notes to Pharmacist: 1,1,1,8l1olyihDzoigxhcvenzEvpjfvjpujtl 2 MG Tablet 2 mg Orally daily [...] MD Date: 0 12/27/2024 Generated for Bruce coleman/Kayla/Hiteshitting on: 0 02/20/2025 10:31 AM EDT History and Physical Notes * [...]
--- NOTE | 2025-02-20 09:36 | A.OFFVIS_ITS ---
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 Fuentes was accompanied by his grandson at today's office visit. He has a past medical history of back pain, memory impairment, spinal stenosis, nephrolithiasis, chronic kidney disease, diverticulitis, pulmonary emphysema, heart failure, paroxysmal super ventricular tachycardic, hypertension, restless legs syndrome, depression, metabolic syndrome, and chronic lymphoid leukemia. He presents to the office today for follow-up of his history of nephrolithiasis, bladder wall thickening and history of TURP. In discussion with the patient today reports to be doing and feeling well. He denies any bothersome urinary issues or concerns. Previous workup has included 08/21 that noted there is a 2 mm nonobstructing calculus in the inferior pole of the left kidney, no hydronephrosis or definitive renal masses noted. Mild diffuse wall thickening suspected, most likely on the basis of chronic outlet obstruction. 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 He reports a previous TURP in the past over 10-15 years ago. He reports since this procedure he has had no bothersome urinary issues or concerns. He denies urinary urgency, urinary frequency, incontinence, nocturia, hematuria, dysuria, foul smelling urine, changes to urinary stream, flank pain, fever, and or chills. He is happy with his current voiding parameters. In office urinalysis results reviewed with the patient today. We did discussed microscopic hematuria and previous urine cytology results. We did discussed potential causes of microscopic hematuria as well as further workup in risks and benefits of these interventions. We discussed reasons for blood in the urine may include but are not limited to kidney stones, cancer in the urin johanna tract, BPH, kidney stone disease or inflammatory conditions of the urinary tract. I have discussed workup to include cystoscopy evaluation. PVR 56 mL. PSAs are as follows: 05/19 0.5, 02/17 0.5, 02/20 0.5 We discussed surveillance monitoring of PSAs as well as nephrolithiasis. All questions were answered. He otherwise offers no other issues or concerns at this time. 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 Primary erectile dysfunction Kidney stone Chronic kidney disease Diverticulitis Pulmonary emphysema Heart failure Paroxysmal supraventricular tachycardia Hypertensive disorder Restless legs Depressive disorder Metabolic syndrome X Chronic lymphoid leukemia Herpes zoster Surgical History History of prostatectomy Review of Systems Eyes Reports no additional complaints ENT Reports no additional complaints Card Reports as per HPI Resp Reports as per HPI GI Reports no additional complaints Reports as per HPI Musc Reports as per [facility] Neuro Reports no additional complaints Psych Reports as per HPI Endo Reports no additional complaints Physical Exam Const General: cooperative, healthy appearing, comfortable, no acute distress, well developed, alert and awake Orientation/consciousness: patient oriented x3 Limitations: ambulation with cane HEENT Head: Yes normal to inspection, Yes normocephalic and Yes atraumatic Ears: hearing grossly normal bilaterally Eyes General: appearance normal, both eyes and all related structures Neck Neck: Yes normal visual inspection and Yes trachea midline Chest Chest palpation & inspection: normal inspection of the chest Resp Effort & Inspection: normal respiratory effort and able to speak in complete sentences Cardio Rate: regular rate GI Inspection: Yes normal to inspection General: Yes no CVA tenderness Back/Spine/Pelvis Back: no CVA tenderness Skin General skin exam: no rashes or lesions noted Neuro General: patient oriented x3 Extrem General: Yes normal to inspection Psych Appearance: grossly normal and well kempt Mental Status: mental status grossly normal Speech and movement: Normal speech and movement present and Clear speech present Affect: normal affect Attitude: cooperative Thought process: Normal thought process present Thought content: Normal thought content present Insight: Fair insight present (Psych) Judgement: Fair judgement present (Psych) Office Procedures Post Void Residual Post Residual Void Post Void Residual (PVR): 59 [id number] Void Residual by ultrasound Results AMB Urinalysis, Automated 2 UA Leukoctes 0 Sarah/uL Last Edit by DU Chawla on 02/20/25 09:52 UA Nitrite Last Edit by Alton Luther [facility] on 02/20/25 09:52 UA Urobilinogen 0.2 mg/dL Last Edit by Alton Luther [facility] on 02/20/25 09:5 2 UA Protein 0 mg/dL Last Edit by Alton Luther [facility] on 02/20/25 09:52 UA pH 6.0 Last Edit by Alton Luther [facility] on 02/20/25 09:52 UA Blood 80 Seth/uL Last Edit by Alton Luther [facility] on 02/20/25 09:52 UA Specific [place] 1.015 Last Edit by Alton Luther [facility] on 02/20/25 09: 52 UA Ketone Last Edit by Alton Luther [facility] on 02/20/25 09:52 UA Bilirubin 0 mg/dL Last Edit by Alton Luther [facility] on 02/20/25 09:52 UA Glucose 0 mg/dL Last Edit by Alton Luther [facility] on 02/20/25 09:52 Results Reviewed Results Reviewed: Laboratory Last Values Urine pH (Auto) 6.0 02/20/25 09:42 Specific [place] (Auto) 1.015 02/20/25 09:42 Urine Protein (Auto) 0 mg/dL 02/20/25 09:42 Glucose (UA)(Auto) 0 mg/dL 02/20/25 09:42 Urine Blood (Auto) 80 Seth/uL 02/20/25 09:42 Urine Bilirubin (Auto) 0 mg/dL 02/20/25 09:42 Urine Urobilinogen (Auto) 0.2 mg/dL 02/20/25 09:42 Leukocyte Esterase (Auto) 0 Sarah/uL 02/20/25 09:42 Assessment & Plan Assessment & Plan (1) Kidney stone: Code(s): N20.0 - Calculus of kidney Category: Medical (2) Bladder wall thickening: Code(s): N32.89 - Other specified disorders of bladder Category: Medical (3) Microscopic hematuria: Code(s): R31.29 - Other microscopic hematuria Category: Medical Plan In office urinalysis results reviewed with the patient today; as noted above will send for urine cytology. PVR 56 mL. Most recent PSA results reviewed with the patient today; as noted above. We will continue with surveillance monitoring of PSAs, nephrolithiasis, and bladder wall thickening. He currently denies any bothersome urinary issues or concerns. He reports be happy with current voiding parameters. Discussed, educated, and stressed the importance of adequate hydration relation to nephrolithiasis as well as overall health and wellbeing. Will obtain renal ultrasound in 6 months Follow-up in 6 months with imaging and PVR; or sooner with any issues, concerns, and or questions. Orders: Orders US renal BI 6 Months N20.0 - Calculus of kidney Urine Cytology Today R31.29 - Other microscopic hematuria AMB Urinalysis Automated Today Z13.9 - Encounter for screening, unspecified AMB Post Void Residual by ultrasound Today N32.89 - Other specified disorders of bladder Patient Instructions: The patient had an opportunity to ask questions regarding the treatment plan. A ll questions were answered. Physical exam, labs, and imaging were discussed and reviewed in detail. As well as risks, benefits, and discussion of treatment choices. No major barriers to understanding were identified. The patient expressed understanding and agreement with the above treatment plan. The patient was made aware they should contact our office by phone for worsening of their current condition, the appearance of new symptoms, or with any questions or concerns. Compliance is encouraged with any medications and follow up testing that is ordered. It is a privilege to be allowed the opportunity to participate in? your urological care.? Again, if you have any questions or concerns If you have any questions or concerns please do not hesitate to contact me. The office is [phone]. This note is constructed using voice recognition software. While every effort has been made to ensure accuracy injection maintenance technician errors may have been included. Yours sincerely, SALLY Sellers-MATHIEU Coding Level of Care Code Est Pt Level 3 (54598) Complex EM visit Add On G2211 Diagnoses Kidney stone N20.0 Bladder wall thickening N32.89 Microscopic hematuria R31.29 CPT Codes Post Residual Void - PVR CPT Code: 03917-[id number] Void Residual by ultrasound ([id number])
== END 2025-02-20 10:06 | disposition home or self-care (01) ==
PROVIDERS: PCP Internal Medicine Medical Oncology; Visit Provider Nurse Practitioner Family
DX: N20.0 Calculus of kidney (principal); N32.89 Other specified disorders of bladder; R31.29 Other microscopic hematuria; Z13.9 Encounter for screening, unspecified
CPT/HCPCS: 99213; G2211

== ENCOUNTER 2025-02-20 09:31 | Outpatient (REF) | payer MEDICARE, MEDICAID, SELFPAY ==
[2025-02-20 16:29] LABS: Urine Cytology See Pathology rpt
== END 2025-02-20 09:32 | disposition home or self-care (01) ==
LOC: HO.LAB 09:31
PROVIDERS: PCP Internal Medicine Medical Oncology; Visit Provider Nurse Practitioner Family
DX: N20.0 Calculus of kidney (principal); N32.89 Other specified disorders of bladder; R31.29 Other microscopic hematuria
CPT/HCPCS: 51798; 81003; 88112; 99212

== ENCOUNTER 2025-03-18 09:27 | Outpatient (REF) | payer MEDICARE, MEDICAID, SELFPAY ==
--- OUTSIDE RECORDS SUMMARY | 2025-03-07 06:30 | XMS_ITS ---
Author Organization Dillon Lynn III, MD Address [address] [place] [address] Care Team Providers Care Transmission Rebuilder Name Role Phone Alfredo LEGER, Avila Primary Care Provider Dillon Lai Unavailable [phone] Allergies Allergen (clinical drug ingredient) Drug/Non Drug [...] 2 puffs as needed Inhalation as needed 1,1,1,4l7kebha Active Imbruvica 140 MG Oral Act srutih Social History Tobacco Use: Social History Observation [...] Date Provider Diagnosis Dillon Lynn III, MD [address] [place] [address] [place] [address] 03/07/2025 Dillon Lynn CLL (chronic lymphoc ytic [...] 2 puffs as needed Inhalation as needed 1,1,1,9d7ixnbr Imbruvica 140 MG Oral Pending Test Test Name Order Date PROFILE, RANDOM (COMPREHENSIVE METABOLIC ) 03/07/2025 CBC w DIFF 03/07/2025 Next Appt Details Follow Up: 2 Months, Reason: ov review labs Provider Name:Dillon Lynn, 05/09/2025 10:45:00 AM, [address] [place] [address], [address], [address], Progress Notes * Otis CARMENioDOB:1940 (85 yo M)Acc No.[id number]:03/07/2025 Progress Notes Patient: Ishmael GRIGSBY Provider: Sarah Lynn MD :1940 A ge:85 Y S ex:Male Date:03/07/2025 Address:[address] [place], [place] [phone] Pcp:Avila Fuentes MD Subjective: * Chief Complaints: * C hronic lymphocytic leukemiaBenign prostatic hypertrophyHypertensionNeutropeniaThrombocytopeniaHistory of junctional tachycardia * HPI: C OVID-19 Screening: went to er for cp bmc. He returns for medical management of his chronic lymphocytic leukemia.? Since his last visit he had developed an episode of chest pain and went to the [facility] where he was kept for 12 [...] Inhalation as needed , Notes to Pharmacist: 1,1,1,1l3rfcwiPibftfshb 140 MG Capsule Oral Taking Ibrutinib 140 [...] Inhalation as needed , Notes to Pharmacist: 1,1,1,1z9dmzarSuajdv Imbruvica 140 MG Capsule Oral Not-Taking/PRNChlorambucil 2 [...] Date & Time - 02/19/2025 09:16 AM)?ValueReference Range?[id number] - MG/DL * Lab:Comprehensive Met. Panel * [...] true * Provider: Sarah Lynn MD Date: 03/07/2025 Generated for Bruce coleman/Kayla/Hiteshitting on: 03/18/2025 09:56 AM EDT History and Physical Notes * [...]
--- OUTSIDE RECORDS SUMMARY | 2025-03-18 09:57 | XMS_ITS | Patient Health Record ---
Author Organization [facility] Address [address] [place] [address] Care Team Providers Care Fiction And Nonfiction Writer Prose Name Role Phone Valentino Acosta Jr Reason For Referral No Information Plan Of Treatment No Information
--- OUTSIDE RECORDS SUMMARY | 2025-03-18 09:57 | XMS_ITS | Clinical Summary ---
Author Organization [facility] Address [address] [place] [address] Phone Care Team Providers Care Apprentice Name Role Phone Avila Fuentes Primary Care Provider [phone] Allergies No known active allergies Social History Tobacco Use Types Packs/Day Years [...] 71 10/01/2024 10:37 PM EST Temperature 36.7 C (98.1 F) 10/01/2024 10:37 PM EST Respiratory Rate 16 10/01/2024 10:37 PM EST [...] 2024 04/13/2022, 08/03/2021, 10/29/2020, Additional history exists Depression Screening 08/29/2024 Cholesterol Screening (Lipid Panel) 10/02/2024 Falls Risk Assessment 10/02/2024 Medicare Annual Wellness Visit 10/02/2024 Social Influencers of Health Screening 10/02/2024 Influenza Vaccine (#1) 2025 08/17/2018 Hypertension/CHF/CAD Annual BMP Blood Test [...] Procedure Name Priority Date/Time Associated Diagnosis Comments COMPREHENSIVE METABOLIC PANEL STAT 10/01/2024 5:15 PM EST from Last 3 Months or Most Recently Relevant to Health Maintenance Results * (ABNORMAL) Comprehensive metabolic panel (10/01/2024 5:15 PM EST) Sodium 139 133 - 145 mmol/L LAB CHEMISTRY METHOD 10/01/2024 6:52 PM EST [facility] ([facility] Potassium 4.2 3.5 - 5.5 mmol/L LAB CHEMISTRY METHOD 10/01/2024 6:52 PM [facility] Chloride 106 96 - 110 mmol/L LAB CHEMISTRY METHOD 10/01/2024 6:52 PM [facility] CO2 27 21 - 32 mmol/L LAB CHEMISTRY METHOD 10/01/2024 6:52 PM [facility] Anion Gap 6 3 - 11 LAB CHEMISTRY METHOD 10/01/2024 6:52 PM [facility] Glucose 95 70 - 100 mg/dL LAB CHEMISTRY METHOD 10/01/2024 6:52 PM [facility] BUN 25 5 - 25 mg/dL LAB CHEMISTRY METHOD 10/01/2024 6:52 PM [facility] Creatinine 1.71(H) 0.70 - 1.30 mg/dL LAB CHEMISTRY METHOD 10/01/2024 6:52 PM [facility] eGFR 39(L) >=60 mL/min/1. 73m2 LAB CHEMISTRY METHOD 10/01/2024 6:52 PM [facility] Comment:Calculation based on the Chronic Kidney Disease Epidemiology Collaboration (CKD-EPI) equation refit without adjustment for race. BUN/Creatinine Ratio 14.6 LAB CHEMISTRY METHOD 10/01/2024 6:52 PM [facility] Calcium 8.9 8.5 - 10.5 mg/dL LAB CHEMISTRY METHOD 10/01/2024 6:52 PM [facility] AST (SGOT) 24 10 - 42 unit/L LAB CHEMISTRY METHOD 10/01/2024 6:52 PM [facility] ALT (SGPT) 20 10 - 60 unit/L LAB CHEMISTRY METHOD 10/01/2024 6:52 PM [facility] Alkaline Phosphatase 62 42 - 121 unit/L LAB CHEMISTRY METHOD 10/01/2024 6:52 PM [facility] Total Protein 6.8 6.0 - 8.0 g/dL LAB CHEMISTRY METHOD 10/01/2024 6:52 PM [facility] Albumin 3.7 3.2 - 5.0 g/dL LAB CHEMISTRY METHOD 10/01/2024 6:52 PM EST [facility] Total Bilirubin 0.4 0.0 - 1.4 mg/dL LAB CHEMISTRY METHOD 10/01/2024 6:52 PM EST [facility] Blood Venous blood specimen / Unknown Venipuncture / Unknown 10/01/2024 5:15 PM EST 10/01/2024 5:49 PM EST us Larry B Kiko LEGER LAB BLOOD ORDERABLES Final Resu lt [facility] ([facility]) [facility] [address] [place] [address], from Last 3 Months or Most Recently Relevant to Health Maintenance Insurance MEDICAID - [place] MEDICARE Care Teams Apprentice Relationship Specialty Start Date End Date Avila Fuentes DO [address] [facility] [place], [place] PCP - General Internal Medicine 09/08/17
[2025-03-18 10:11] LABS: INTERNATIONAL NORM RATIO 0.9 (0.9-1.1); Prothrombin Time 10.4 SEC (10.9-12.4)
[2025-03-18 10:18] LABS: Hemoglobin A1C 120.9343 umol/L; Total Hemoglobin (HGBA1C) 3439.1504 umol/L
[2025-03-18 10:52] LABS: Alanine Aminotransferase 10 U/L (0-40); Albumin Level 3.7 g/dL (3.5-5.0); Alkaline Phosphatase 63 U/L (39-117); Anion Gap 11 (12-20); Aspartate Amino Transferase 24 U/L (5-37); Blood Urea Nitrogen 25 mg/dL (9-16); Calcium 8.7 mg/dL (8.4-10.2); Carbon Dioxide 28 mmol/L (22-29); Chloride 110 mmol/L (96-108); Estimated Glomerular Filt Rate 35; Magnesium 2.0 mg/dL (1.6-2.6); Potassium 4.4 mmol/L (3.3-5.1); Sodium 145 mmol/L (135-145); Total Protein 6.4 g/dL (6.5-8.0)
[2025-03-18 10:53] LABS: Protein/Creatinine Ratio, Ur 0.08 (<0.2); Total Protein Urine Random 8 mg/dL (<12)
== END 2025-03-18 09:28 | disposition home or self-care (01) ==
LOC: HO.LAB 09:27
PROVIDERS: Absent Provider Nurse Practitioner Family; PCP Internal Medicine; Visit Provider Physician Assistant
DX: N28.9 Disorder of kidney and ureter, unspecified (principal)
CPT/HCPCS: 36415; 80053; 82306; 82550; 82570; 83036; 83735; 84100; 84156; 85610

== ENCOUNTER 2025-04-16 15:41 | Outpatient (REF) | payer MEDICARE, MEDICAID, SELFPAY ==
--- OUTSIDE RECORDS SUMMARY | 2025-03-07 06:30 | XMS_ITS ---
Author Organization Dillon Lynn III, MD Address [address] [place] [address] Care Team Providers Care Director Business Systems Name Role Phone Alferdo LEGER, Avila Primary Care Provider Dillon Lai Unavailable [phone] Allergies Allergen (clinical drug ingredient) Drug/Non Drug [...] 2 puffs as needed Inhalation as needed 1,1,1,1h2veruo Active Imbruvica 140 MG Oral Act sruthi [...] Provider Diagnosis Dillon Lynn III, MD [address] [place] [address] [place] [address] 03/07/2025 Dillon Lynn CLL (chronic lymphoc ytic [...] 2 puffs as needed Inhalation as needed 1,1,1,9v8aeofg Imbruvica 140 MG Oral Pending Test Test Name Order Date PROFILE, RANDOM (COMPREHENSIVE METABOLIC ) 03/07/2025 CBC w DIFF 03/07/2025 Next Appt Details Follow Up: 2 Months, Reason: ov review labs Provider Name:Dillon Lynn, 05/09/2025 10:45:00 AM, [address] [place] [address], [address], [address], Progress Notes * Otis CARMENioDOB:1940 (85 yo M)Acc No.[id number]:03/07/2025 Progress Notes Patient: Ishmael GRIGSBY Provider: Sarah Lynn MD :1940 A ge:85 Y S ex:Male Date:03/07/2025 Address:[address] [place], [place] [id number] Pcp:Avila Fuentes MD Subjective: * Chief Complaints: * C hronic lymphocytic leukemiaBenign prostatic hypertrophyHypertensionNeutropeniaThrombocytopeniaHistory of junctional tachycardia * HPI: C OVID-19 Screening: went to er for cp bmc. He returns for medical management of his chronic lymphocytic leukemia.? Since his last visit he had developed an episode of chest pain and went to the [facility] where he was kept for 12 [...] is . He was born in [place]. * Medications: T akingIbrutinib 140 MG Capsule [...] Inhalation as needed , Notes to Pharmacist: 1,1,1,7y9dkwxlPiouexotr 140 MG Capsule Oral Taking Ibrutinib 140 [...] Inhalation as needed , Notes to Pharmacist: 1,1,1,8b7howtoDdtkzo Imbruvica 140 MG Capsule Oral Not-Taking/PRNChlorambucil 2 [...] Date & Time - 02/19/2025 09:16 AM)?ValueReference Range?[id number] - MG/DL * Lab:Comprehensive Met. Panel * [...] Date: 03/07/2025 Generated for Bruce coleman/Kayla/Hiteshitting on: 04/16/2025 05:00 PM EDT History and Physical Notes * [...]
--- NOTE | ~2025-04-16 | CT_ITS ---
CLINICAL HISTORY: CHEST PAIN CT chest without contrast Comparison: None provided Findings: The heart is normal size. Moderate atherosclerotic calcification of the coronary arteries. The visualized thyroid and mediastinum are unremarkable. No consolidation or effusion. The upper abdomen is unremarkable. The bones are intact. IMPRESSION: 1. No acute disease within the chest. 2. Moderate coronary artery calcifications. This document has been electronically signed by: Ryan Richards MD on 04/23/2025 20:39:30
--- OUTSIDE RECORDS SUMMARY | 2025-04-16 17:01 | XMS_ITS | Clinical Summary ---
Author Organization [facility] Address [address] [place] [address] Phone Care Team Providers Care Hyperbaric Technologist Name Role Phone Avila Fuentes Primary Care Provider [phone] Allergies No known active allergies Social History [...] METHOD 10/01/2024 6:52 PM EST [facility] ([facility] Potassium 4.2 3.5 - 5.5 mmol/L LAB CHEMISTRY METHOD 10/01/2024 6:52 PM [facility] Chloride 106 96 - 110 mmol/L LAB CHEMISTRY METHOD 10/01/2024 6:52 PM [facility] CO2 27 21 - 32 mmol/L LAB CHEMISTRY METHOD 10/01/2024 6:52 PM [facility] Anion Gap 6 3 - 11 LAB CHEMISTRY METHOD 10/01/2024 6:52 PM [facility] Glucose 95 70 - 100 mg/dL LAB CHEMISTRY METHOD 10/01/2024 6:52 PM [facility] BUN 25 5 - 25 mg/dL LAB CHEMISTRY METHOD 10/01/2024 6:52 PM [facility] Creatinine 1.71(H) 0.70 - 1.30 mg/dL LAB CHEMISTRY METHOD 10/01/2024 6:52 PM [facility] eGFR 39(L) >=60 mL/min/1. 73m2 LAB CHEMISTRY METHOD 10/01/2024 6:52 PM [facility] Comment:Calculation based on the Chronic Kidney Disease Epidemiology Collaboration (CKD-EPI) equation refit without adjustment for race. BUN/Creatinine Ratio 14.6 LAB CHEMISTRY METHOD 10/01/2024 6:52 PM [facility] Calcium 8.9 8.5 - 10.5 mg/dL LAB CHEMISTRY METHOD 10/01/2024 6:52 PM [facility] AST (SGOT) 24 10 - 42 unit/L LAB CHEMISTRY METHOD 10/01/2024 6:52 PM [facility] ALT (SGPT) 20 10 - 60 unit/L LAB CHEMISTRY METHOD 10/01/2024 6:52 PM [facility] Alkaline Phosphatase 62 42 - 121 unit/L LAB CHEMISTRY METHOD 10/01/2024 6:52 PM [facility] Total Protein 6.8 6.0 - 8.0 g/dL LAB CHEMISTRY METHOD 10/01/2024 6:52 PM [facility] Albumin 3.7 3.2 - 5.0 g/dL LAB CHEMISTRY METHOD 10/01/2024 6:52 PM EST [facility] Total Bilirubin 0.4 0.0 - 1.4 mg/dL LAB CHEMISTRY METHOD 10/01/2024 6:52 PM EST [facility] Blood Venous blood specimen / Unknown Venipuncture / Unknown 10/01/2024 5:15 PM EST 10/01/2024 5:49 PM EST us Larry B Kiko LEGER LAB BLOOD ORDERABLES Final Resu lt [facility] ([facility]) [facility] [address] [place] [address], from Last 3 Months or Most Recently Relevant to Health Maintenance Insurance [place] - [place]ICARE Care Teams Hyperbaric Technologist Relationship Specialty Start Date End Date Avila Fuentes DO [address] [facility] [address] [place], [place] PCP - General Internal Medicine 09/08/17
--- OUTSIDE RECORDS SUMMARY | 2025-04-16 17:01 | XMS_ITS | Patient Health Record ---
Author Organization [facility] Address [address] [place] [address] Care Team Providers Care Embossing Press Operator Name Role Phone Valentino Acosta Jr Reason For Referral No Information Plan Of Treatment No Information
== END 2025-04-16 15:42 | disposition home or self-care (01) ==
LOC: HO.CT 15:41
PROVIDERS: PCP Internal Medicine; Visit Provider Physician Assistant
DX: R07.89 Other chest pain (principal)
CPT/HCPCS: 71250

== ENCOUNTER → 2025-04-16 15:58 | Outpatient (BNV) | payer MEDICARE, MEDICAID, SELFPAY | PROVIDERS: PCP Internal Medicine; Visit Provider Student in an Organized Health Care Education/Training Program | DX: R07.9 Chest pain, unspecified (principal) | CPT/HCPCS: 71250 ==

== ENCOUNTER → 2025-04-24 12:54 | Outpatient (REF) | payer MEDICARE, MEDICAID, SELFPAY ==
--- OUTSIDE RECORDS SUMMARY | 2024-12-27 06:30 | XMS_ITS ---
Author Organization Dillon yLnn III, MD Address [address] [place] [address] Care Team Providers Care Biomedical Equipment Specialist Name Role Phone Alfredo LEGER, Avila Primary Care Provider Dillon Lai [facility] [phone] Allergies Allergen (clinical drug ingredient) Drug/Non Drug Allergy documented on EMR Reaction Allergy Type Onset Date Status No Known Drug Allergy Unknown Drug Allergy Active Results Component Value Reference Range Notes Beta-2 Microglobulin, Serum Reviewed date:02/27/2025 03:57:54 PM Interpretation: Performing Lab:[facility], [address] [place] [phone] Notes/Report: Beta-2 Microglobulin, Serum 3.88 < OR = 2.51 m g/L THIS TEST WAS PERFORMED AT: [facility] [employer] [address] [phone] VINCE LUCAS MD REASON FOR VISIT Chronic [...] 2 puffs as needed Inhalation as needed 1,1,1,4n2niuhk Active fentaNYL 25 MCG/HR APPLY 1 PATCH [...] Date Provider Diagnosis Dillon Lynn III, MD [address] [place] [address] [place] [address] 12/27/2024 Dillon Lynn CLL (chronic lymphoc ytic [...] 2 puffs as needed Inhalation as needed 1,1,1,2z7yficb fentaNYL 25 MCG/HR APPLY 1 PATCH TOPICALLY [...] 2 MG 2 mg Orally daily 09/24/2024 Pending Test Test Name Order Date PROFILE, RANDOM (COMPREHENSIVE METABOLIC ) 12/27/2024 CBC w DIFF 12/27/2024 Next Appt Details Follow Up: 2 Months, Reason: ov review labs Provider Name:Dillon Lynn, 05/09/2025 10:45:00 AM, [address] [place] [address] , [place] [address], [place], [address], Progress Notes * Otis CARMENioDOB:1940 (84 yo M)Acc No.[id number]:12/27/2024 Progress Notes Patient: Ishmael GRIGSBY Provider: Sarah Lynn MD :1940 A ge:84 Y S ex:Male Date:12/27/2024 Address:[address] [place] [address], [facility], [id number] Pcp:Avila Fuentes MD Subjective: * Chief Complaints: [...] He is . He was born in [place]. * Medications: T akingIbrutinib 140 MG Capsule [...] Inhalation as needed , Notes to Pharmacist: 1,1,1,0a2evmkmLmihah Ibrutinib 140 MG Capsule 2 capsules Orally [...] Inhalation as needed , Notes to Pharmacist: 1,1,1,6m7nfvmmDwkyrzlfodxjXlpaawokiqly 2 MG Tablet 2 mg Orally daily [...] Range: 8.4-10.2 mg/dL) * Lab:Beta-2 Microglobulin, Se [facility] * Collection Date 10/15/2024 05/29/2024 01/02/2024 Collection [...] Lynn MD Date: 0 12/27/2024 Generated for Shari jared/Kayla/eTransmitting on: 0 04/24/2025 01:21 PM EDT History and Physical Notes * [...]
--- OUTSIDE RECORDS SUMMARY | 2025-02-18 06:02 | XMS_ITS ---
Author Organization Dillon Lynn III, MD Address [address] [facility] [address] [place] [address] Care Team Providers Care Paginator Name Role Phone Alfredo LEGER, Avila Primary Care Provider Dillon Lai Unavailable [phone] REASON FOR VISIT Concern Social History Sex Assigned At : Social History Observation Description Sex Assigned At Male Encounters Encounter Location Date Provider Diagnosis Dillon Lynn III, MD [address] [place] [address] [place] [address] 02/18/2025 Dillon Lynn CLL (chronic lymphoc ytic leukemia) C91.10 ; Thrombocytopenia D69.6 and Overweight E66.3 Assessments Encounter Date Diagnosis (ICD Code) Assessment Notes Treat ment Notes Treatment Clinical Notes 02/18/2025 CLL (chronic lymphocytic leukemia) (ICD-10 - C91.10) 02/18/2025 Thrombocytopenia (ICD-10 - D69.6) 02/18/2025 Overweight (ICD-10 - E66.3) Plan Of Treatment Pending Test Test Name Order Date CBC w DIFF 02/18/2025 PROTHROMBIN TIME (PT, INR) 02/18/2025 PARTIAL THROMBOPLASTIN TIME (PTT) 2024 FIBRINOGEN 02/18/2025 Next Appt Details Provider Name:Dillon Lynn, 05/09/2025 10:45:00 AM, [address] [place] [address] [place], [address], Progress Notes * Otis CARMENioDOB:1940 (85 yo M)Acc No.[id number]:02/18/2025 Patient: Ishmael GRIGSBY :1940 A ge:85 Y S ex:Male Address:[address] [place] [address] Subjective: * Chief Complaints: * C oncern [...] * Date: Generated for Bruce coleman/Kayla/Carolsmitting on: 0 04/24/2025 01:22 PM EDT
--- OUTSIDE RECORDS SUMMARY | 2025-03-07 06:30 | XMS_ITS ---
Author Organization Dillon Lynn III, MD Address [address] [address] Care Team Providers Care Labor Union Business Representative Name Role Phone Alfredo LEGER, Avila Primary Care Provider Dillon Lai Unavailable [phone] Allergies Allergen (clinical drug ingredient) Drug/Non Drug [...] 2 puffs as needed Inhalation as needed 1,1,1,3r6ogaok Active Imbruvica 140 MG Oral Act sruthi [...] Date Provider Diagnosis Dillon Lynn III, MD [address] [place] [address] [place] [address] 03/07/2025 Dillon Lynn CLL (chronic lymphoc ytic [...] 2 puffs as needed Inhalation as needed 1,1,1,2d8obmzb Imbruvica 140 MG Oral Pending Test Test Name Order Date PROFILE, RANDOM (COMPREHENSIVE METABOLIC ) 03/07/2025 CBC w DIFF 03/07/2025 Next Appt Details Follow Up: 2 Months, Reason: ov review labs Provider Name:Dillon Lynn, 05/09/2025 10:45:00 AM, [address] [place] [address], [address], [address], Progress Notes * Otis CARMENioDOB:1940 (85 yo M)Acc No.[id number]:03/07/2025 Progress Notes Patient: Ishmael GRIGSBY Provider: Sarah Lynn MD :1940 A ge:85 Y S ex:Male Date:03/07/2025 Address:[address] [place], [place] [phone] Pcp:Avila Fuentes MD Subjective: * Chief Complaints: * C hronic lymphocytic leukemiaBenign prostatic hypertrophyHypertensionNeutropeniaThrombocytopeniaHistory of junctional tachycardia * HPI: C OVID-19 Screening: went to er for cp bmc. He returns for medical management of his chronic lymphocytic leukemia.? Since his last visit he had developed an episode of chest pain and went to the [facility] where he was kept for 12 hours [...] Inhalation as needed , Notes to Pharmacist: 1,1,1,7d4orygvGbtlvxcan 140 MG Capsule Oral Taking Ibrutinib 140 [...] Inhalation as needed , Notes to Pharmacist: 1,1,1,7p4wphglGrdvpi Imbruvica 140 MG Capsule Oral Not-Taking/PRNChlorambucil 2 [...] Date & Time - 02/19/2025 09:16 AM)?ValueReference Range?[id number] - MG/DL * Lab:Comprehensive Met. Panel * [...] 0 03/07/2025 Generated for Bruce coleman/Kayla/Hiteshitting on: 04/24/2025 01:21 PM EDT History and Physical [...]
--- NOTE | 2025-04-24 12:57 | CA_ITS ---
Transthoracic Echocardiogram Patient (Last, First, Middle): Ishmael Beltran, Gender: M Date of : 1940 Age: 85 Procedure Date: 04/24/2025 Procedure Type: Transthoracic Echocardiogram Location: OP Height: 165.1 cm Weight: 76.2 kg BSA: 1.84 m2 Heart Rate: 72 bpm BP: 142 / 55 mmHg Construction Manager: RODOLFO Referring MD: Fauzia TRACY Symptoms: CP Study Quality: Adequate w contrast ECG Rhythm: Sinus Conclusions: - The left ventricular systolic function is mild to moderately decreased. The calculated ejection fraction is 41% by biplane method. - The basal inferior and basal inferolateral segments are akinetic. - No obvious valvular pathology seen on this study. Findings Procedure Information Contrast agent, definity, is being given per protocol without apparent complications. Left Ventricle Normal left ventricular cavity size. There is normal left ventricular wall thickness. The left ventricular systolic function is mild to moderately decreased. The calculated ejection fraction is 41% by biplane method. Evidence suggests grade I (mild) diastolic dysfunction. Wall Motion Rest Echo Findings The basal inferior and basal inferolateral segments are akinetic. Right Ventricle Normal right ventricular cavity size and systolic function. Atria Both atria are normal in size. Aortic Valve There is a normal trileaflet aortic valve. There is no aortic valve stenosis. There is no aortic valve regurgitation. Mitral Valve There is mild mitral annular calcification. There is mild mitral valve regurgitation. There is no mitral valve stenosis. Pulmonic Valve The pulmonic valve is likely normal. Tricuspid Valve There is trace tricuspid valve regurgitation. There is no evidence of pulmonary hypertension. Great Vessels The asc aorta and aortic arch are normal in size. Venous The inferior vena cava is normal in size and collapses greater than 50% with inspiration. Pericardium/Pleural There is no evidence of pericardial effusion. Prior Study Comparison No significant change compared to prior study dated: 07/11/2023. Recommendations, Care & Conclusions No obvious valvular pathology seen on this study. Measurements 2D Linear Measurements IVSd: 0.73 0.6-0.9/0.6-1.0 cm LVIDd: 5.49 3.9-5.3/4.2-5.9 cm LVIDd Index: 2.98 2.4-3.2/2.2-3.1 cm/m2 LVIDs: 4.92 2.0-3.6 cm LVPWd: 0.80 0.7-1.1 cm LA Diam: 3.10 2.7-3.8/3.0-4.0 cm LAIDs Index: 1.68 1.5-2.3 cm/m2 LV Mass: 187.24 67-162/88-224 g LV Mass Index: 101.76 43-95/49-115 g/m2 LVOT Diam: 2.30 3.0+(-)1.3 cm 2D Systolic Function EF 4C: 40.80 >55% EF 2C: 42.20 >55% EF BiP: 41.00 >55% Mitral Valve MV Pk E: 0.72 MV PK A: 1.02 MV Decel Time: 234.00 E/A: 0.70 E'Lateral: 7.51 E'Medial: 5.22 E/E' Med: 13.80 E/E' Lat: 9.60 PHT: 68.00 MVA PHT: 3.24 Decel Leslie: 3.08 Aortic Valve AoV Pk Tyrone: 1.19 AoV Mn Tyrone: 0.78 AoV VTI: 0.26 AoV Pk Grad: 6.00 Aov Mn Grad: 3.00 CHARLIE Cont.VTI: 2.96 LVOT LVOT Pk Tyrone: 0.78 LVOT Mn Tyrone: 0.49 LVOT VTI: 0.18 LVOT Pk Grad: 2.00 LVOT Mn Grad: 1.00 LVOT Diam: 2.30 LVOT Area: 4.15 Diastolic Function MV Pk E: 0.72 MV Pk A: 1.02 E/A: 0.70 E'Medial: 5.22 E/E' Med: 13.80 E' Laterial: 7.51 E/E' Lat: 9.60 Right Ventricle TAPSE (mm): 25.70 TVS' Tyrone: 17.20 Tricuspid Valve TR Pk Tyrone: 2.65 TR Pk Grad: 28.00 RA Press: 3.00 RVSP: 31.00 Great Vessels Aorta Sinus of Valsalva: 3.40 2.0-3.5 cm Ao Asc: 3.10 2.1-3.4 cm Ao Arch: 3.10 Pulmonary Valve PV Pk Tyrone: 1.24 Peak PV Grad: 6.00 Updated in Other Vendor System with Status of Final Benja Francisco MD electronically signed on 04/25/2025 12:49:12 PM with status of Final
--- OUTSIDE RECORDS SUMMARY | 2025-04-24 13:22 | XMS_ITS | Patient Health Record ---
Author Organization [facility] Address [address] [place] [address] Care Team Providers Care Calender Wind Up Helper Name Role Phone Valentino Acosta Jr Reason For Referral No Information Plan Of Treatment No Information
--- OUTSIDE RECORDS SUMMARY | 2025-04-24 13:22 | XMS_ITS | Clinical Summary ---
Author Organization [facility] Address [address] [place] [address] Phone Care Team Providers Care Crown Pouncer Name Role Phone Avila Fuentes Primary Care Provider [phone] Allergies No known active allergies Social History [...] LAB CHEMISTRY METHOD 10/01/2024 6:52 PM EST [facility] ([facility] Potassium 4.2 3.5 - 5.5 mmol/L LAB CHEMISTRY METHOD 10/01/2024 6:52 PM [facility] Chloride 106 96 - 110 mmol/L LAB CHEMISTRY METHOD 10/01/2024 6:52 PM [facility] CO2 27 21 - 32 mmol/L LAB CHEMISTRY METHOD 10/01/2024 6:52 PM [facility] Anion Gap 6 3 - 11 LAB CHEMISTRY METHOD 10/01/2024 6:52 PM [facility] Glucose 95 70 - 100 mg/dL LAB CHEMISTRY METHOD 10/01/2024 6:52 PM [facility] BUN 25 5 - 25 mg/dL LAB CHEMISTRY METHOD 10/01/2024 6:52 PM [facility] Creatinine 1.71(H) 0.70 - 1.30 mg/dL LAB CHEMISTRY METHOD 10/01/2024 6:52 PM [facility] eGFR 39(L) >=60 mL/min/1. 73m2 LAB CHEMISTRY METHOD 10/01/2024 6:52 PM [facility] Comment:Calculation based on the Chronic Kidney Disease Epidemiology Collaboration (CKD-EPI) equation refit without adjustment for race. BUN/Creatinine Ratio 14.6 LAB CHEMISTRY METHOD 10/01/2024 6:52 PM [facility] Calcium 8.9 8.5 - 10.5 mg/dL LAB CHEMISTRY METHOD 10/01/2024 6:52 PM [facility] AST (SGOT) 24 10 - 42 unit/L LAB CHEMISTRY METHOD 10/01/2024 6:52 PM [facility] ALT (SGPT) 20 10 - 60 unit/L LAB CHEMISTRY METHOD 10/01/2024 6:52 PM [facility] Alkaline Phosphatase 62 42 - 121 unit/L LAB CHEMISTRY METHOD 10/01/2024 6:52 PM [facility] Total Protein 6.8 6.0 - 8.0 g/dL LAB CHEMISTRY METHOD 10/01/2024 6:52 PM [facility] Albumin 3.7 3.2 - 5.0 g/dL LAB CHEMISTRY METHOD 10/01/2024 6:52 PM EST [facility] Total Bilirubin 0.4 0.0 - 1.4 mg/dL LAB CHEMISTRY METHOD 10/01/2024 6:52 PM EST [facility] Blood Venous blood specimen / Unknown Venipuncture / Unknown 10/01/2024 5:15 PM EST 10/01/2024 5:49 PM EST us Larry B Kiko LEGER LAB BLOOD ORDERABLES Final Resu lt [facility] ([facility]) [facility] [address] [place] [address], from Last 3 Months or Most Recently Relevant to Health Maintenance Insurance [place]ICA[place] - [place] MEDICARE Care Teams Crown Pouncer Relationship Specialty Start Date End Date Avila Fuentes DO [address] [facility] [facility] [address] [place], [place] PCP - General Internal Medicine 09/08/17
--- OUTSIDE RECORDS SUMMARY | 2025-04-24 13:22 | XMS_ITS | Patient Health Record ---
Author Organization Dillon Lynn III, MD Address [address] [place] [address] [place] [address] Care Team Providers Care Healthcare Economics Manager Name Role Phone Avila Fuentes MD Primary Care Provider Dillon Lai [phone] Allergies Allergen (clinical drug ingredient) Drug/Non Drug Allergy documented on EMR Reaction Allergy Type Onset Date Status No Known Drug Allergy Unknown Drug Allergy Active Results Component Value Reference Range Notes Beta-2 Microglobulin, Serum Reviewed date:02/27/2025 03:57:54 PM Interpretation: Performing Lab:[facility], [address] [place] [phone] Notes/Report: Beta-2 Microglobulin, Serum 3.88 < OR = 2.51 mg/L THIS TEST WAS PERFORMED AT: [facility] [address] [place] [phone] VINCE LUCAS MD Complete Blood Count Auto Di ff Reviewed date:06/11/2024 07:35:14 AM Interpretation: Performing Lab:[facility], [address] [place] [phone] Notes/Report: White Blood Count 4.3 4.8-10.8 X10*3/uL [...] 0.0-0.2 /100WBC Neutrophils Absolute Auto 1.9 2.0-8.3 x10*3/uL Imm Gran Abs Auto 0.02 0.00-0.03 X10*3/uL Lymphocytes Absolute Auto 1.7 1.2-4.9 X10*3/uL Monocytes Absolute Auto 0.6 0.1-1.2 X10*3/uL Eosinophils Absolute Auto 0.1 0.0-0.4 X10*3/uL Basophils Absolute Auto 0.0 0.0-0.2 X10*3/uL NRBC Abs Auto 0.000 0.0-0.012 X10*3/uL Comprehensive [place]. Panel Fa st Reviewed date:06/11/2024 07:35:14 AM Interpretation: Performing Lab:[facility], [address] [place] [phone] Notes/Report: Sodium 143 135-145 mmol/L Potassium 4.5 3.3-5.1 mmol/L Chloride 107 96-108 mmol/L Carbon Dioxide 29 22-29 mmol/L Anion Gap 12 12-20 Blood Urea Nitrogen 36 9-16 mg/dL Creatinine 1.90 0.5-1.4 mg/dL Estimated Glomerular Filt Rate 34 NOTE: For -Filipino individuals, multiply the result by 1.210. Chronic [...] Acid Reviewed date:06/11/2024 07:35:14 AM Interpretation: Performing Lab:[facility], [address] [place] [phone] Notes/Report: Uric Acid 7.1 3.4-7.0 mg/dL Lactate Dehydrogenase Reviewed date:06/11/2024 07:35:14 AM Interpretation: Performing Lab:[facility], [address] [place] [phone] Notes/Report: Lactate Dehydrogenase 184 118-273 U/L Lipid Panel Reviewed date:06/11/2024 07:35:14 AM Interpretation: Performing Lab:[facility], [address] [place] [phone] Notes/Report: Triglycerides 142 <150 mg/dL Desirable Triglyceride: [...] Serum Reviewed date:06/11/2024 07:35:14 AM Interpretation: Performing Lab:[facility], [address] [place] [phone] Notes/Report: Beta-2 Microglobulin, Serum 3.95 < OR = 2.51 mg/L THIS TEST WAS PERFORMED AT: [facility] [address] [place] [phone] VINCE LUCAS MD Complete Blood Count Auto Di ff Reviewed date:11/11/2024 10:16:50 AM Interpretation: Performing Lab:[facility], [address] [place] [phone] Notes/Report: White Blood Count 10.6 4.8-10.8 X10*3/uL Red Blood Count 3.75 4.60-5.80 X10*6/uL Hemoglobin 12.2 14.0-18.0 g/dl Hematocrit 36.8 42.0-52.0 % Mean Corpuscular Volume 98.1 80.0-98.0 fL Mean Corpuscular Hemoglobin 32.5 27.0-33.0 pg Mean Corpuscular HGB Conc 33.2 31.0-36.0 g/dl Red Cell Distribution Width 12.6 11.0-16.0 % Platelet Count 219 160-400 X10*3/uL Mean Platelet Volume 9.8 9.4-12.4 fL Neutrophils Percent Auto 72.4 45-73 % Imm Gran Pct Auto 0.4 0.0-0.4 % Lymphocytes Percent Auto 15.7 20-40 % Monocytes Percent Auto 10.8 2-11 % Eosinophils Percent Auto 0.5 0-4 % Basophils Percent Auto 0.2 0-2 % NRBC Pct Auto 0.0 0.0-0.2 /100WBC Neutrophils Absolute Auto 7.7 2.0-8.3 x10*3/uL Imm Gran Abs Auto 0.04 0.00-0.03 X10*3/uL Lymphocytes Absolute Auto 1.7 1.2-4.9 X10*3/uL Monocytes Absolute Auto 1.2 0.1-1.2 X10*3/uL Eosinophils Absolute Auto 0.1 0.0-0.4 X10*3/uL Basophils Absolute Auto 0.0 0.0-0.2 X10*3/uL NRBC Abs Auto 0.000 0.0-0.012 X10*3/uL Comprehensive Met. Panel Reviewed date:11/11/2024 10:16:50 AM Interpretation: Performing Lab:[facility], [address] [place] [phone] Notes/Report: Sodium 141 135-145 mmol/L Potassium 4.0 3.3-5.1 mmol/L Chloride 107 96-108 mmol/L Carbon Dioxide 28 22-29 mmol/L Anion Gap 10 12-20 Blood Urea Nitrogen 17 9-16 mg/dL Creatinine 1.69 0.5-1.4 mg/dL Estimated Glomerular Filt Rate 39 Chronic Kidney Disease: Estimated GFR < 60 mL/min/1.73m2 Severe Kidney Disease: Estimated GFR < 15 mL/min/1.73m2 Glucose Random 105 60-115 mg/dL Calcium 9.0 8.4-10.2 mg/dL Bilirubin Total 0.6 0.0-1.0 mg/dL Aspartate Amino Transferase 26 5-37 U/L Alanine Aminotransferase 14 0-40 U/L Total Protein 7.4 6.5-8.0 g/dL Albumin Level 3.7 3.5-5.0 g/dL Alkaline Phosphatase 59 39-117 U/L Beta-2 Microglobulin, Serum Reviewed date:11/11/2024 10:16:50 AM Interpretation: Performing Lab:[facility], [address] [place] [phone] Notes/Report: Beta-2 Microglobulin, Serum 4.29 < OR = 2.51 mg/L THIS TEST WAS PERFORMED AT: [facility] [address] [phone] VINCE LUCAS MD Complete Blood Count Auto Di ff Reviewed date:11/11/2024 10:16:50 AM Interpretation: Performing Lab:[facility], [address] [place] [phone] Notes/Report: White Blood Count 9.7 4.8-10.8 X10*3/uL Red Blood Count 3.58 4.60-5.80 X10*6/uL Hemoglobin 11.5 14.0-18.0 g/dl Hematocrit 35.8 42.0-52.0 % Mean Corpuscular Volume 100.0 80.0-98.0 fL Mean Corpuscular Hemoglobin 32.1 27.0-33.0 pg Mean Corpuscular HGB Conc 32.1 31.0-36.0 g/dl Red Cell Distribution Width 12.7 11.0-16.0 % Platelet Count 167 160-400 X10*3/uL Mean Platelet Volume 10.8 9.4-12.4 fL Neutrophils Percent Auto 54.2 45-73 % Imm Gran Pct Auto 1.3 0.0-0.4 % Lymphocytes Percent Auto 33.5 20-40 % Monocytes Percent Auto 10.1 2-11 % Eosinophils Percent Auto 0.5 0-4 % Basophils Percent Auto 0.4 0-2 % NRBC Pct Auto 0.0 0.0-0.2 /100WBC Neutrophils Absolute Auto 5.3 2.0-8.3 x10*3/uL Imm Gran Abs Auto 0.13 0.00-0.03 X10*3/uL Lymphocytes Absolute Auto 3.3 1.2-4.9 X10*3/uL Monocytes Absolute Auto 1.0 0.1-1.2 X10*3/uL Eosinophils Absolute Auto 0.1 0.0-0.4 X10*3/uL Basophils Absolute Auto 0.0 0.0-0.2 X10*3/uL NRBC Abs Auto 0.000 0.0-0.012 X10*3/uL Complete Blood Count Auto Di ff Reviewed date:12/29/2024 08:46:20 PM Interpretation: Performing Lab:[facility], [address] [place] [phone] Notes/Report: White Blood Count 8.5 4.8-10.8 X10*3/uL Red Blood Count 3.70 4.60-5.80 X10*6/uL Hemoglobin 11.9 14.0-18.0 g/dl Hematocrit 36.7 42.0-52.0 % Mean Corpuscular Volume 99.2 80.0-98.0 fL Mean Corpuscular Hemoglobin 32.2 27.0-33.0 pg Mean Corpuscular HGB Conc 32.4 31.0-36.0 g/dl Red Cell Distribution Width 13.1 11.0-16.0 % Platelet Count 125 160-400 X10*3/uL Mean Platelet Volume 11.7 9.4-12.4 fL Neutrophils Percent Auto 42.1 45-73 % Imm Gran Pct Auto 0.5 0.0-0.4 % Lymphocytes Percent Auto 47.8 20-40 % Monocytes Percent Auto 8.1 2-11 % Eosinophils Percent Auto 1.1 0-4 % Basophils Percent Auto 0.4 0-2 % NRBC Pct Auto 0.0 0.0-0.2 /100WBC Neutrophils Absolute Auto 3.6 2.0-8.3 x10*3/uL Imm Gran Abs Auto 0.04 0.00-0.03 X10*3/uL Lymphocytes Absolute Auto 4.1 1.2-4.9 X10*3/uL Monocytes Absolute Auto 0.7 0.1-1.2 X10*3/uL Eosinophils Absolute Auto 0.1 0.0-0.4 X10*3/uL Basophils Absolute Auto 0.0 0.0-0.2 X10*3/uL NRBC Abs Auto 0.000 0.0-0.012 X10*3/uL Comprehensive Met. Panel Reviewed date:12/29/2024 08:46:20 PM Interpretation: Performing Lab:[facility], [address] [place] [phone] Notes/Report: Sodium 143 135-145 mmol/L Potassium 4.3 3.3-5.1 mmol/L Chloride 108 96-108 mmol/L Carbon Dioxide 27 22-29 mmol/L Anion Gap 12 12-20 Blood Urea Nitrogen 23 9-16 mg/dL Creatinine 1.63 0.5-1.4 mg/dL Estimated Glomerular Filt Rate 41 Chronic Kidney Disease: Estimated GFR < 60 mL/min/1.73m2 Severe Kidney Disease: Estimated GFR < 15 mL/min/1.73m2 Glucose Random 100 60-115 mg/dL Calcium 9.0 8.4-10.2 mg/dL Bilirubin Total 0.4 0.0-1.0 mg/dL Aspartate Amino Transferase 34 5-37 U/L Alanine Aminotransferase 14 0-40 U/L Total Protein 6.7 6.5-8.0 g/dL Albumin Level 3.7 3.5-5.0 g/dL Alkaline Phosphatase 51 39-117 U/L Complete Blood Count Auto Di ff Reviewed date:02/20/2025 05:39:39 AM Interpretation: Performing Lab:[facility], [address] [place] [phone] Notes/Report: White Blood Count 7.6 4.8-10.8 X10*3/uL Red Blood Count 3.89 4.60-5.80 X10*6/uL Hemoglobin 12.4 14.0-18.0 g/dl Hematocrit 39.0 42.0-52.0 % Mean Corpuscular Volume 100.3 80.0-98.0 fL Mean Corpuscular Hemoglobin 31.9 27.0-33.0 pg Mean Corpuscular HGB Conc 31.8 31.0-36.0 g/dl Red Cell Distribution Width 12.8 11.0-16.0 % Platelet Count 121 160-400 X10*3/uL Mean Platelet Volume 11.9 9.4-12.4 fL Neutrophils Percent Auto 34.7 45-73 % Imm Gran Pct Auto 0.3 0.0-0.4 % Lymphocytes Percent Auto 52.5 20-40 % Monocytes Percent Auto 10.3 2-11 % Eosinophils Percent Auto 1.7 0-4 % Basophils Percent Auto 0.5 0-2 % NRBC Pct Auto 0.0 0.0-0.2 /100WBC Neutrophils Absolute Auto 2.6 2.0-8.3 x10*3/uL Imm Gran Abs Auto 0.02 0.00-0.03 X10*3/uL Lymphocytes Absolute Auto 4.0 1.2-4.9 X10*3/uL Monocytes Absolute Auto 0.8 0.1-1.2 X10*3/uL Eosinophils Absolute Auto 0.1 0.0-0.4 X10*3/uL Basophils Absolute Auto 0.0 0.0-0.2 X10*3/uL NRBC Abs Auto 0.000 0.0-0.012 X10*3/uL Prothrombin Time INR Reviewed date:02/20/2025 05:39:39 AM Interpretation: Performing Lab:[facility], [address] [place] [phone] Notes/Report: Prothrombin Time 9.9 10.9-12.4 SEC INTERNATIONAL NORM RATIO 0.9 0.9-1.1 INTERNATIONAL NORMALIZED RATIO (INR) REFERENCE RANGES Reference Range For patients not on anticoagulant therapy: 0.9 - 1.1 INR ranges for oral anticoagulant therapy: For prevention and treatment of venous thrombosis and pulmonary embolism: 2.0 - 3.0 For acute myocardial infarction with aspirin therapy: 2.0 - 3.0 For acute myocardial infarction without aspirin therapy: 3.0 - 4.0 For patients with mechanical prosthetic heart valves: 2.5 - 3.5 Partial Thromboplastin Time Reviewed date:02/20/2025 05:39:39 AM Interpretation: Performing Lab:[facility], [address] [place] [phone] Notes/Report: Partial Thromboplastin Time 30.4 26.0-36.8 SEC For information regarding the monitoring of direct thrombin inhibitors, please refer to Pharmacy. Fibrinogen Reviewed date:02/20/2025 05:39:39 AM Interpretation: Performing Lab:[address] [phone] Notes/Report: Fibrinogen 445 259-690 MG/DL Comprehensive Met. Panel Reviewed date:02/20/2025 05:39:39 AM Interpretation: Performing Lab:[address] [phone] Notes/Report: Sodium 143 135-145 mmol/L Potassium 4.3 3.3-5.1 mmol/L Chloride 109 96-108 mmol/L Carbon Dioxide 27 22-29 mmol/L Anion Gap 11 12-20 Blood Urea Nitrogen 27 9-16 mg/dL Creatinine 1.86 0.5-1.4 mg/dL Estimated Glomerular Filt Rate 35 Chronic Kidney Disease: Estimated GFR < 60 mL/min/1.73m2 Severe Kidney Disease: Estimated GFR < 15 mL/min/1.73m2 Glucose Random 94 60-115 mg/dL Calcium 8.9 8.4-10.2 mg/dL Bilirubin Total 0.3 0.0-1.0 mg/dL Aspartate Amino Transferase 33 5-37 U/L Alanine Aminotransferase 17 0-40 U/L Total Protein 6.8 6.5-8.0 g/dL Albumin Level 3.9 3.5-5.0 g/dL Alkaline Phosphatase 65 39-117 U/L Prostate Specific Antigen Reviewed date:02/20/2025 03:22:01 PM Interpretation: Performing Lab:[address] [phone] Notes/Report: Prostate Specific Antigen 0.47 <0.05-4.0 ng/mL PSA methodology: Best Alinity i Chemiluminescent Microparticle Immunoassay (CMIA) Pathology Reviewed date:02/27/2025 03:57:54 PM Interpretation: Performing Lab:[address] [phone] Notes/Report: ------ Name: Ishmael Beltran Age/Sex: 85/M : 1940 Unit#: [id number] Attend Dr: Mary Servin [facility] Re02/20/25 Status : [facility] Disch: ------ SPEC : [id number] RECD : 02/21/25-1035 STATUS: ADRIANA MOSLEY NUM: [id number] MARC: 02/20/25-[address] [facility] [address]: Mary Servin [facility] ENTERED: 02/21/25-11 36 SP TYPE: Cytology OTHR DR: Dillon Lynn MD ORDERED: Cyto-enhanced Diagnosis Urine: Atypical urot helial cells. See comment. COMMENT: Cellular sp ecimen consisting of a rare group of atypical urothelial cells, which are small/medium in size, have increased nuclear:cytoplasmic ratio and variable dark chromatin. The backg round has single urothelial cells with degenerative changes, squamous cells, nume shikha acute inflammatory cells and red blood cells. Clinical History Other microscopic hematuria Material Received Urine Gross Description Received is 35 cc of clear yellow fluid from which a ThinPrep slide is prepared. IHC S/NG Disclaimer NOTE: Unless otherwi se stated, all tissue is formalin-fixed and paraffin-embedded. Some or all of the immunohistochemical tests reported herein may have been developed and their performance characteristics determined by [facility]. They have not been cleared or appr jose carlos by the U.S. Food and Drug Administration (FDA). However, the FDA has determined that such clearance or approval is not necessary. This laboratory is certified under the Clinical Laboratory Improvement Amendments of 1988 (CLIA) as qualified to perform high comp lexity clinical laboratory testing. Copies To: Dillon Lynn MD [address] [place] [address] [address] [place] [address] Mary Servin [facility] [address] [place] [address] DrMarc [address] [place], [place] [id number] [email or web address] CONTINUED ON NEXT PAGE ------ Name: Ishmael Beltran Age/Sex: 85/M : 1940 Unit#: [id number] Attend Dr: Mary Servin [facility] Re02/20/25 Status : DEP [facility] Disch: ------ SPEC : [id number] RECD : 02/21/25 STATUS: ADRIANA MOSLEY NUM: [id number] MARC: 02/20/[address] [facility] [address]: Mary ServinPCARA ENTERED: 02/21/25-11 36 SP TYPE: Cytology OTHR DR: Dillon Lynn MD ORDERED: Cyto-enhanced ------ Signed (signature on file) Dung Bowman MD 02/25/25 1130 ------ END OF REPORT Reason For Referral No Information Medications Medication [...] 2 puffs as needed Inhalation as needed 1,1,1,7c5mfend Active Chlorambucil 2 MG 2 mg Orally daily 09/24/2024 Active Imbruvica 140 MG Oral Act sruthi Ibrutinib 140 MG 2 capsules Orally Once a day DX: C91.10 Chronic Lymphocytic leukemia 10/10/2024 Active Aspirin 81 81 MG 1 tablet Orally Once a day Active Vitamin D3 50 MCG (1999 [place]) 1 capsule Orally Once a day Active Vitamin B 12 100 MCG as directed Orally once a day Active traMADol HCl 50 MG 2 tablet Orally twice a day Active Social History Tobacco Use: Social History Observation Description Date Details (start date - stop date) Never Smoker NA - NA Sex Assigned At : Social History Observation Description Sex Assigned At Male Tobacco Use/Smoking Question Answer Notes Patient is a nonsmoker How long has it been since you last smoked? > 10 years Additional Findings: Tobacco Non-User Aggressive non-smoker Alcohol Screen Question Answer Notes Did you have a drink containing alcohol in the p ast year? No Points 0 Interpretation Negative Problems Problem Type SNOMED Code ICD Code Onset Dates Problem Status W/U Status Risk Notes Problem 001523816 Overweight (E66.3) Active confirmed He has gained 6 pounds. His body mass index is 27.9. I recommended stabilizing his weight at this level. Problem Weight loss (R63.4) Active confirmed He has gained 6 pounds on his body mass index is now 27. He is no longer losing weight. Problem 729418157 Thrombocytopenia (D69.6) Active confirmed His platelet count is at his baseline which is 121,000. He has had no bleeding. No change in his medications was made today. Problem 484601026 Neutropenia (D70.9) Active confirmed His neutrophils and lymphocytes are present in normal numbers. His medication was continued at the current dose. Problem 08055543 Essential hypertension (I10) Active confirmed His blood pressure is stable and well controlled today and no change in his regimen seems necessary.His value was 133/76. Problem 42466915 CLL (chronic lymphocytic leukemia) (C91.10) Active confirmed He was continued on Ibrutinib without a change in dose. He is stable and his disease is well controlled. Problem 186198680 Urine retention (R33.9) Active confirmed He recently had a catheter in place Problem 840178213 Benign prostatic hyperplasia, presence of lower urinary tract symptoms unspecified, unspecified morphology (N40.0) Active confirmed He wakes twice at night to urinate but is satisfied with this level of functioning. No change in his regimen was desired. Problem 167211185 Diverticulitis (K57.92) Active confirmed He clinically has diverticulitis and will be treated with antibiotics for close follow-up visit. 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 Vital Signs Heart Rate 74 /min 03/07/2025 Temperature 97.4 degrees Fahrenheit 03/07/2025 Blood pressure diastolic 76 mm Hg 03/07/2025 Height 66 in 03/07/2025 Blood pressure systolic 133 mm Hg 03/07/2025 Weight 171 lbs 03/07/2025 BMI 27.6 kg/m2 03/07/2025 Encounters Encounter Location Date Provider Diagnosis Dillon Lynn III, MD [address] [place] [address] [place] [address] 06/13/2024 Dillon Lynn CLL (chronic lymphoc ytic leukemia) C91.10 ; Benign prostatic hyperplasia, presence of lower urinary tract symptoms unspecified, unspecified morphology N40.0 ; Essential hypertension I10 ; Thrombocytopenia D69.6 and Overweight E66.3 Dillon Lynn III, MD [address] [place] [address] [place] [address] 10/16/2024 Dillon Lynn CLL (chronic lymphoc ytic leukemia) C91.10 ; Benign prostatic hyperplasia, presence of lower urinary tract symptoms unspecified, unspecified morphology N40.0 ; Thrombocytopenia D69.6 ; Junctional tachycardia I47.1 and Overweight E66.3 Dillon Lynn III, MD [address] [place] [address] [place] [address] 11/01/2024 Dillon Lynn CLL (chronic lymphoc ytic leukemia) C91.10 ; Thrombocytopenia D69.6 ; Overweight E66.3 and Essential hypertension I10 Dillon Lynn III, MD [address] [place] [address] [place] [address] 12/27/2024 Dillon Lynn CLL (chronic lymphoc ytic leukemia) C91.10 ; Thrombocytopenia D69.6 ; Benign prostatic hyperplasia, presence of lower urinary tract symptoms unspecified, unspecified morphology N40.0 ; Essential hypertension I10 ; Weight loss R63.4 ; Junctional tachycardia I47.1 and Overweight E66.3 Dillon Lynn III, MD [address] [place] [address] [place] [address] 03/07/2025 Dillon Lynn CLL (chronic lymphoc ytic leukemia) C91.10 ; Thrombocytopenia D69.6 ; Neutropenia D70.9 ; Benign prostatic hyperplasia, presence of lower urinary tract symptoms unspecified, unspecified morphology N40.0 ; Essential hypertension I10 and Junctional tachycardia I47.1 Dillon Lynn III, MD [address] [place] [address] [place] [address] 09/20/2024 Dillon Lynn III, MD [address] [place] [address] [place] [address] 09/24/2024 Dillon Lynn III, MD [address] [place] [address] [place] [address] 11/14/2024 Dillon Lynn III, MD [address] [place] [address] [address] [place] [phone] 02/18/2025 Dillon Lynn CLL (chronic lymphoc ytic [...] change in his regimen was desired. 10/16/2024 CLL (chronic lymphocytic leukemia) (ICD-10 - [...] No change in his regimen was desired. 11/01/2024 Thrombocytopenia (ICD-10 - D69.6) His platelet count is now in the normal range. 11/01/2024 CLL (chronic lymphocytic leukemia) (ICD-10 - C91.10) He was continued on 140 mg daily with a follow-up in 21 days. 12/27/2024 Thrombocytopenia (ICD-10 - D69.6) His platelet count has returned to normal and this problem has resolved. 12/27/2024 CLL (chronic lymphocytic leukemia) (ICD-10 - C91.10) He was continued on 140 mg daily with a follow-up in 21 days.His CBC today shows good control of his chronic lymphocytic leukemia. 03/07/2025 Thrombocytopenia (ICD-10 - D69.6) His platelet count is at his baseline which is 121,000. He has had no bleeding. No change in his medications was made today. 03/07/2025 CLL (chronic lymphocytic leukemia) (ICD-10 - C91.10) He was continued on Ibrutinib without a change in dose. He is stable and his disease is well controlled. 02/18/2025 CLL (chronic lymphocytic leukemia) (ICD-10 - C91.10) 06/13/2024 Essential hypertension (ICD-10 - I10) His blood pressure is stable and well controlled today and no change in his regimen seems necessary. 10/16/2024 Thrombocytopenia (ICD-10 - D69.6) His mild thrombocytopenia remains without any bleeding. His platelets are 137,000. 11/01/2024 Overweight (ICD-10 - E66.3) His weight is stable. His appetite is good. This will be observed carefully. 12/27/2024 Benign prostatic hyperplasia, presence of lower urinary tract symptoms unspecified, unspecified morphology (ICD-10 - N40.0) He wakes twice at night to urinate but is satisfied with this level of functioning. No change in his regimen was desired. 03/07/2025 Neutropenia (ICD-10 - D70.9) His neutrophils and lymphocytes are present in normal numbers. His medication was continued at the current dose. 02/18/2025 Thrombocytopenia (ICD-10 - D69.6) 06/13/2024 Thrombocytopenia (ICD-10 - D69.6) His mild [...] today. His pulse is regular and slow. 11/01/2024 Essential hypertension (ICD-10 - I10) His blood pressure is stable and well controlled today and no change in his regimen seems necessary. 12/27/2024 Essential hypertension (ICD-10 - I10) His blood pressure is stable and well controlled today and no change in his regimen seems necessary.His value was 129/67. 03/07/2025 Benign prostatic hyperplasia, presence of lower urinary tract symptoms unspecified, unspecified morphology (ICD-10 - N40.0) He wakes twice at night to urinate but is satisfied with this level of functioning. No change in his regimen was desired. 02/18/2025 Overweight (ICD-10 - E66.3) 06/13/2024 Overweight (ICD-10 - E66.3) He has lost 6 pounds and his weight is fluctuating. He says his appetite is good. His daughter said he is eating well. His weight will be carefully observed. 10/16/2024 Overweight (ICD-10 - E66.3) He has lost 6 pounds and his weight is fluctuating. He says his appetite is good. His daughter said he is eating well. His weight will be carefully observed. 12/27/2024 Weight loss (ICD-10 - R63.4) He has gained 6 pounds on his body mass index is now 27. He is no longer losing weight. 03/07/2025 Essential hypertension (ICD-10 - I10) His blood pressure is stable and well controlled today and no change in his regimen seems necessary.His value was 133/76. 12/27/2024 Junctional tachycardia (ICD-10 - I47.1) He was in a normal sinus rhythm today with a normal heart rate and no complaints. 03/07/2025 Junctional tachycardia (ICD-10 - I47.1) He was in a normal sinus rhythm today with a normal heart rate and no complaints. 12/27/2024 Overweight (ICD-10 - E66.3) He has gained 6 pounds. His body mass index is 27.9. I recommended stabilizing his weight at this level. Plan Of Treatment Pending Test Test Name Order Date PROFILE, RANDOM (COMPREHENSIVE METABOLIC ) 12/27/2024 PROFILE, RANDOM (COMPREHENSIVE METABOLIC ) 03/07/2025 CBC w DIFF 02/18/2025 CBC w DIFF 12/27/2024 CBC w DIFF 03/07/2025 PROTHROMBIN TIME (PT, INR) 02/18/2025 PARTIAL THROMBOPLASTIN TIME (PTT) 2024 FIBRINOGEN 02/18/2025 Next Appt Details Provider Name:Dillon Lynn, 05/09/2025 10:45:00 AM, [address] [place] [address] KATH[address]INE MERIDA, [place], [phone], Insurance Providers Payer Name Payer Address Payer Phone Subscriber Number Group Number Insured Name Patient Relationship to Insured Coverage Start Date Coverage End Date MEDICARE NGS [address] [place] [address] [id number] Ishmael Licea Self - patient is the insured [place] [address] [place] [id number] [phone] [id number] Ishmael Licea Self - patient is the insured Medical (General) History Medical History History ICD Code hypertension bph urine retention elevated psa back surgery for nerve impingement chronic lymphocytic leukemia Surgical History Surgery Date(Month/Year) No history right parotid gland lymph node biopsy, C LL/SLL 12/2011 Hospitalization History Reason Date(Month/Year) No history
== END ==
LOC: HO.CARD 12:54
PROVIDERS: PCP Internal Medicine; Visit Provider Physician Assistant
DX: R07.89 Other chest pain (principal)
CPT/HCPCS: 93306; Q9957

== ENCOUNTER → 2025-04-24 12:57 | Outpatient (BNV) | payer MEDICARE, MEDICAID, SELFPAY | PROVIDERS: PCP Internal Medicine; Visit Provider Internal Medicine | DX: I34.0 Nonrheumatic mitral (valve) insufficiency (principal); I51.89 Other ill-defined heart diseases | CPT/HCPCS: 93306 ==

== ENCOUNTER 2025-06-04 10:50 | Outpatient (AMB) | payer MEDICARE, MEDICAID, SELFPAY ==
--- OUTSIDE RECORDS SUMMARY | 2024-12-27 06:30 | XMS_ITS ---
Author Organization Dillon Lynn III, MD Address [address] [place] [address] Care Team Providers Care Paper Bag Maker Name Role Phone Alfredo LEGER, Avila Primary Care Provider Dr. Dillon Lai III Unavailable [phone] Allergies Allergen (clinical drug ingredient) Drug/Non Drug Allergy documented on EMR Reaction Allergy Type Onset Date Status No Known Drug Allergy Unknown Drug Allergy Active Results Component Value Reference Range Notes Beta-2 Microglobulin, Serum Reviewed date:02/27/2025 03:57:54 PM Interpretation: Performing Lab:[facility], [address] [place] [phone] Notes/Report: Beta-2 Microglobulin, Serum 3.88 < OR = 2.51 m g/L THIS TEST WAS PERFORMED AT: [facility] [address] [place] [phone] VINCE LUCAS MD REASON FOR VISIT Chronic [...] 2 puffs as needed Inhalation as needed 1,1,1,9i3xpact Active fentaNYL 25 MCG/HR APPLY 1 PATCH [...] Date Provider Diagnosis Dillon Lynn III, MD [address] [place] [address] [place] [address] 12/27/2024 Dillon Lynn CLL (chronic lymphoc ytic [...] 2 puffs as needed Inhalation as needed 1,1,1,9q6fsadd fentaNYL 25 MCG/HR APPLY 1 PATCH TOPICALLY [...] Provider Name:Dillon Lynn , 06/21/2025 09:30:00 AM, [address] [place] [address] [address]ATHARINE [place], [place], [address], Progress Notes * Otis CARMENioDOB:1940 (84 yo M)Acc No.[id number]:12/27/2024 Progress Notes Patient: Sarah JENNIFERSammy BolanosIshmael Provider: Sarah Lynn MD :1940 A ge:84 Y S ex:Male Date:12/27/2024 Address:[address] [place] [address], [phone] Pcp:Avila Fuentes MD Subjective: * Chief Complaints: [...] Inhalation as needed , Notes to Pharmacist: 1,1,1,2l6opryrEfciqc Ibrutinib 140 MG Capsule 2 capsules Orally [...] Inhalation as needed , Notes to Pharmacist: 1,1,1,2i7uealbQevtkgbiamkiLadexcyjqnjr 2 MG Tablet 2 mg Orally daily [...] 0 12/27/2024 Generated for Bruce coleman/Kayla/Carolsmitting on: 01:18 PM EDT History and Physical Notes * [...]
--- OUTSIDE RECORDS SUMMARY | 2025-02-18 06:02 | XMS_ITS ---
Author Organization Dillon Lynn III, MD Address [address] [place] [address] [place] [address] Care Team Providers Care Kaiako Kura Tuarua Name Role Phone Alfredo LEGER, Avila Primary Care Provider Dr. Dillon Lai III Unavailable [phone] REASON FOR VISIT Concern Social History Sex Assigned At : Social History Observation Description Sex Assigned At Male Encounters Encounter Location Date Provider Diagnosis Dillon Lynn III, MD [address] [place] [address] [place] [address] 02/18/2025 Dillon Lynn CLL (chronic lymphoc ytic leukemia) C91.10 ; Thrombocytopenia D69.6 and Overweight E66.3 Assessments Encounter Date Diagnosis (ICD Code) Assessment Notes Treat ment Notes Treatment Clinical Notes 02/18/2025 CLL (chronic lymphocytic leukemia) (ICD-10 - C91.10) 02/18/2025 Thrombocytopenia (ICD-10 - D69.6) 02/18/2025 Overweight (ICD-10 - E66.3) Plan Of Treatment Next Appt Details Provider Name:Dillon Lynn , 06/21/2025 09:30:00 AM, [address] [place] [address] [place], [address], Progress Notes * Mariaa CARMENOB:1940 (85 yo M)Acc No.[id number]:02/18/2025 Patient: Sarah Ishmael BEAN :1940 A ge:85 Y S ex:Male Address:[address] [place] [address] Subjective: * Chief Complaints: * C oncern [...] * true * Date: Generated for Bruce coleman/Kayla/Carolsmitting on: 01:19 PM EDT
--- OUTSIDE RECORDS SUMMARY | 2025-03-07 06:30 | XMS_ITS ---
Author Organization Dillon Lynn III, MD Address [address] [place] [address] [place] [address] Care Team Providers Care Finance And Administration Manager Name Role Phone Alfredo LEGER, Avila Primary [...] 2 puffs as needed Inhalation as needed 1,1,1,0s2zdced Active Imbruvica 140 MG Oral Act sruthi [...] Date Provider Diagnosis Dillon Lynn III, MD [address] [place] [address] [place] [address] 03/07/2025 Dillon Lynn CLL (chronic lymphoc ytic [...] 2 puffs as needed Inhalation as needed 1,1,1,1f1qmtdv Imbruvica 140 MG Oral Pending Test Test Name Order Date PROFILE, RANDOM (COMPREHENSIVE METABOLIC ) 03/07/2025 CBC w DIFF 03/07/2025 Next Appt Details Follow Up: 2 Months, Reason: ov review labs Provider Name:Dillon Lynn , 06/21/2025 09:30:00 AM, [address] [place] [address] , [address], [address], Progress Notes * Otis CARMENioDOB:1940 (85 yo M)Acc No.[id number]:03/07/2025 Progress Notes Patient: Ishmael GRIGSBY Provider: Sarah Lynn MD :1940 A ge:85 Y S ex:Male Date:03/07/2025 Address:[address] [place], [place] [phone] Pcp:Avila Fuentes MD Subjective: * Chief Complaints: * C hronic lymphocytic leukemiaBenign prostatic hypertrophyHypertensionNeutropeniaThrombocytopeniaHistory of junctional tachycardia * HPI: C OVID-19 Screening: went to er for cp bmc. He returns for medical management of his chronic lymphocytic leukemia.? Since his last visit he had developed an episode of chest pain and went to the [facility] where he was kept for 12 hours [...] He is . He was born in [place]. * Medications: T akingIbrutinib 140 MG Capsule [...] Inhalation as needed , Notes to Pharmacist: 1,1,1,2d4xbitgGshwbbbsn 140 MG Capsule Oral Taking Ibrutinib 140 [...] Inhalation as needed , Notes to Pharmacist: 1,1,1,3k6wfskyOpqkeg Imbruvica 140 MG Capsule Oral Not-Taking/PRNChlorambucil 2 [...] Date & Time - 02/19/2025 09:16 AM)?ValueReference Range?[id number] - MG/DL * Lab:Comprehensive Met. Panel * [...] 0 03/07/2025 Generated for Bruce coleman/Kayla/Hiteshitting on: 01:18 PM EDT History and Physical [...]
--- OUTSIDE RECORDS SUMMARY | 2025-05-09 06:45 | XMS_ITS ---
Author Organization Dillon Lynn III, MD Address [address] [place] [address] [place] [address] Care Team Providers Care Attending Ambulatory Care Name Role Phone Alfredo LEGER, Avila Primary [...] 2 puffs as needed Inhalation as needed 1,1,1,0n7qgjnu Active Vitamin D3 50 MCG (2000 UT) [...] Provider Diagnosis Dillon Lynn III, MD [address] [place] [address] [place] [address] 05/09/2025 Dillon Lynn CLL (chronic lymphoc ytic [...] 2 puffs as needed Inhalation as needed 1,1,1,3t3fyykr Vitamin D3 50 MCG (2000 UT) 1 [...] Provider Name:Dillon Lynn , 06/21/2025 09:30:00 AM, [address] [place] [address], [address], Progress Notes * Otis CARMENioDOB:1940 (85 yo M)Acc No.[id number]:05/09/2025 Progress Notes Patient: Ishmael GRIGSBY Provider: Sarah Lynn MD :1940 A ge:85 Y S ex:Male Date:05/09/2025 Address:[address] [place], [place] [phone] Pcp:Avila Fuentes MD Subjective: * Chief Complaints: [...] we will appeal. He was hospitalized at [facility] couple of months ago with chest [...] Inhalation as needed , Notes to Pharmacist: 1,1,1,3k8qmxqeXbaltellw 140 MG Capsule Oral Medication List reviewed [...] Inhalation as needed , Notes to Pharmacist: 1,1,1,4a2wnimmZhuiow Imbruvica 140 MG Capsule Oral Medication List [...] Date & Time - 02/19/2025 09:16 AM)?ValueReference Range?[id number] - MG/DL ???Lab:Pathology (Order Date - 02/20/2025) [...] 0 05/09/2025 Generated for Shari jared/Kayla/Hiteshitting on: 1 01:19 PM EDT History and Physical Notes * [...]
--- OUTSIDE RECORDS SUMMARY | 2025-05-09 07:17 | XMS_ITS ---
Author Organization Dillon Lynn III, MD Address [address] [place] [facility] [place] [address] Care Team Providers Care Welding Equipment Repairer Name Role Phone Alfredo LEGER, Avila Primary Care Provider Dr. Dillon Lai III Unavailable [phone] REASON FOR VISIT go back on Leukeran/Chlorambucil Social History Sex Assigned At : Social History Observation Description Sex Assigned At Male Encounters Encounter Location Date Provider Diagnosis Dillon Lynn III, MD [address] [place] [address] [address] [place] [place] [address] 05/09/2025 Dillon Lynn Plan Of Treatment Next Appt Details Provider Name:Dillon Lynn , 06/21/2025 09:30:00 AM, [address] [place] [address] [place], [address], Progress Notes * Otis CARMENioDOB:1940 (85 yo M)Acc No.[id number]:05/09/2025 Patient: Sarah Ishmael BEAN :1940 A ge:85 Y S ex:Male Address:[address] [place] [address] * true * Date: Generated for Printi ng/Faxing/eTransmitting on: 01:18 PM EDT
--- NOTE | 2025-06-04 10:59 | A.OFFVIS_ITS ---
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 No prior history of any coronary disease but it seems that he has had an echocardiogram in the past that shows wall motion abnormalities and most likely has undiagnosed CAD. He gets some random chest pains at different times. Can happen any time. Nothing clearly exertional. Otherwise, he has somewhat frail. Suspect he has got some gait instability as well. According to martha, blood pressures are variable and sometimes goes up into the 150s but nothing truly as to low blood pressure. Many comorbidities. Few months back, visit to [facility] emergency room for chest pain. Does not appear that he underwent any testing or follow-up. 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 Primary erectile dysfunction Kidney stone Chronic kidney disease Diverticulitis Pulmonary emphysema Heart failure Paroxysmal supraventricular tachycardia Hypertensive disorder Restless legs Depressive disorder Metabolic syndrome X Chronic lymphoid leukemia Herpes zoster Surgical History History of prostatectomy Family History (Updated 06/04/25 @ 11:03 by Lyric Zapata CMA) Mother Stroke Social History (Updated 06/04/25 @ 11:03 by Lyric Zapata CMA) Alcohol intake: never Patient Tobacco Use Status: Never used Tobacco Review of Systems Const Denies chills, Denies fatigue, Denies fever(s), Denies frequent falls, Denies weakness, Denies weight gain and Denies weight loss ENT Denies dizziness Card Denies chest pain, Denies leg edema, Denies lightheadedness, Denies palpitations, Denies dyspnea, Denies dyspnea on exertion and Denies orthopnea Resp Denies cough, Denies dyspnea and Denies dyspnea on exertion GI Denies bloating and Denies change in bowel habits Musc Denies muscle weakness, Denies numbness and Denies tingling Neuro Denies dizziness, Denies frequent falls, Denies numbness, Denies tingling and Denies weakness Endo Denies fatigue and Denies palpitations Physical Exam Vital Signs: Last Vital Signs Pulse 73 06/04/25 11:00 BP 130/62 06/04/25 11:00 BMI result Body Mass Index 28.1 Const General: comfortable and no acute distress Orientation/consciousness: patient oriented x3 HEENT Other: Unremarkable Head: Yes normal to inspection Neck Neck: Yes normal visual inspection Chest Chest palpation & inspection: normal inspection of the chest Resp Auscultation: clear to auscultation bilaterally Cardio Palpation: normal PMI Heart sounds: S1 normal heart sound present, S2 normal heart sound present, no gallops, no murmurs and no rubs GI Palpation (GI): Soft to palpation Back/Spine/Pelvis Other: unremarkable Skin General skin exam: no rashes or lesions noted Neuro General: patient oriented x3 Extrem General: Yes normal to inspection Psych Mental Status: mental status grossly normal Office Procedures EKG Details: EKG with underlying sinus rhythm at 73/Min; leftward axis; nonspecific interventricular conduction defect; nonspecific ST-T changes; [place] [address]-[id number], Complete Assessment & Plan Assessment & Plan (1) Atherosclerotic cardiovascular disease: Code(s): I25.10 - Atherosclerotic heart disease of nez perce coronary artery without angina pectoris Category: Medical Plan Echocardiogram 2022-LVEF 44% with basal inferior/inferolateral akinesis. Echocardiogram 2024-LVEF 41% with basal inferior/inferolateral akinesis. Based on the above, he clearly has underlying coronary artery disease. The chest pains he describes above could be angina but could also be something nonspecific as it can randomly happened. He can continue low-dose aspirin. Start low-dose beta-blockers and statins. We will get a pharmacological stress perfusion imaging study. Consider diagnostic catheterization but he has got many comorbidities, of advanced age and also frail. We will need to decide if it is truly necessary. Discussed with grandson and he will contact us if any concerns. Discussion Notes I discussed with the patient the need for a stress test to evaluate cardiac function and the possibility of an angiogram if significant abnormalities are found. We also talked about starting a small dose of medication to manage blood pressure fluctuations and the importance of monitoring symptoms such as dizziness and leg swelling. Patient was informed and verbally consented to the use of an ambient scribe for clinic note documentation during this visit. Orders: Orders CA lexiscan stress w radu Today I20.9 - Angina pectoris, unspecified, I25.10 - Atherosclerotic heart disease of nez perce coronary artery without angina pectoris NM cardiolite stress test Today I25.10 - Atherosclerotic heart disease of nez perce coronary artery without angina pectoris, R07.2 - Precordial pain Medications: New metoprolol succinate ER (Toprol XL) 25 mg PO DAILY 30 tabs 3RF atorvastatin (Lipitor) 10 mg PO QPM 30 tabs 5RF I25.10 - Atherosclerotic heart disease of nez perce coronary artery without angina pectoris Patient Instructions: - Undergo a stress test as scheduled. - Start the prescribed medication for blood pressure management. - Monitor for any new or worsening symptoms, especially dizziness and leg swelling, and report them promptly. - Follow up in six to eight weeks for reassessment. Coding Level of Care Code New Pt Level 4 (14296) Complex EM visit Add On G2211 Diagnoses Atherosclerotic cardiovascular disease I25.10 CPT Codes EKG - CPT: 34114-[id number], Complete ([id number])
[2025-06-04 11:00] VITALS: BP 130/62; PULSE 73; BMI 28.1
--- OUTSIDE RECORDS SUMMARY | 2025-06-04 13:18 | XMS_ITS | Patient Health Record ---
Author Organization [facility] Address [address] [place] [address] Care Team Providers Care Honey Liquefier Name Role Phone Valentino Acosta Jr Reason For Referral No Information Plan Of Treatment No Information
--- OUTSIDE RECORDS SUMMARY | 2025-06-04 13:19 | XMS_ITS | Clinical Summary ---
Author Organization [facility] Address [address] [place] [address] Phone Care Team Providers Care Ceramic Engineer Name Role Phone Avila Fuentes Primary Care Provider [phone] Allergies No known active allergies Social History [...] Vaccine: 50+ Years (2 of 2 - PPSV23, PCV20, or PCV21) 10/12/2018 08/17/2018 Depression Screening 08/29/2024 Cholesterol Screening (Lipid Panel) 10/02/2024 Falls Risk Assessment 10/02/2024 Medicare Annual Wellness Visit 10/02/2024 Social Influencers of Health Screening 10/02/2024 COVID-19 Vaccine ( season) 2025 04/13/2022, 08/03/2021, 10/29/2020, Additional history exists Influenza Vaccine (#1) 2025 08/17/2018 Hypertension/CHF/CAD Annual [...] LAB CHEMISTRY METHOD 10/01/2024 6:[address] [facility] Potassium 4.2 3.5 - 5.5 mmol/L LAB CHEMISTRY METHOD 10/01/2024 6:52 PM [facility] Chloride 106 96 - 110 mmol/L LAB CHEMISTRY METHOD 10/01/2024 6:52 PM [facility] CO2 27 21 - 32 mmol/L LAB CHEMISTRY METHOD 10/01/2024 6:52 PM [facility] Anion Gap 6 3 - 11 LAB CHEMISTRY METHOD 10/01/2024 6:52 PM [facility] Glucose 95 70 - 100 mg/dL LAB CHEMISTRY METHOD 10/01/2024 6:52 PM [facility] BUN 25 5 - 25 mg/dL LAB CHEMISTRY METHOD 10/01/2024 6:52 PM [facility] Creatinine 1.71(H) 0.70 - 1.30 mg/dL LAB CHEMISTRY METHOD 10/01/2024 6:52 PM [facility] eGFR 39(L) >=60 mL/min/1. 73m2 LAB CHEMISTRY METHOD 10/01/2024 6:52 PM [facility] Comment:Calculation based on the Chronic Kidney Disease Epidemiology Collaboration (CKD-EPI) equation refit without adjustment for race. BUN/Creatinine Ratio 14.6 LAB CHEMISTRY METHOD 10/01/2024 6:52 PM [facility] Calcium 8.9 8.5 - 10.5 mg/dL LAB CHEMISTRY METHOD 10/01/2024 6:52 PM [facility] AST (SGOT) 24 10 - 42 unit/L LAB CHEMISTRY METHOD 10/01/2024 6:52 PM [facility] ALT (SGPT) 20 10 - 60 unit/L LAB CHEMISTRY METHOD 10/01/2024 6:52 PM [facility] Alkaline Phosphatase 62 42 - 121 unit/L LAB CHEMISTRY METHOD 10/01/2024 6:52 PM [facility] Total Protein 6.8 6.0 - 8.0 g/dL LAB CHEMISTRY METHOD 10/01/2024 6:52 PM [facility] Albumin 3.7 3.2 - 5.0 g/dL LAB CHEMISTRY METHOD 10/01/2024 6:[address] [facility] Total Bilirubin 0.4 0.0 - 1.4 mg/dL LAB CHEMISTRY METHOD 10/01/2024 6:[address] [facility] Blood Venous blood specimen / Unknown Venipuncture / Unknown 10/01/2024 5:15 PM EST 10/01/2024 5:49 PM EST us Larry B Kiko LEGER LAB BLOOD ORDERABLES Final Resu lt [facility] [address] [place] [address], from Last 3 Months or Most Recently Relevant to Health Maintenance Insurance MEDICAID - [place] MEDICARE Care Teams Ceramic Engineer Relationship Specialty Start Date End Date Avila Fuentes DO [facility] [place] [place] PCP - General Internal Medicine 09/08/17
--- OUTSIDE RECORDS SUMMARY | 2025-06-04 13:19 | XMS_ITS | Patient Health Record ---
Author Organization Dillon Lynn III, MD Address [address] [place] [address] [place] [address] Care Team Providers Care Optometric Coordinator Name Role Phone Avila Fuentes MD Primary Care Provider Dr. Dillon Lai III Unavailable [phone] Allergies Allergen (clinical drug ingredient) Drug/Non Drug Allergy documented on EMR Reaction Allergy Type Onset Date Status No Known Drug Allergy Unknown Drug Allergy Active Results Component Value Reference Range Notes Beta-2 Microglobulin, Serum Reviewed date:02/27/2025 03:57:54 PM Interpretation: Performing Lab:[facility], [address] [place] [phone] Notes/Report: Beta-2 Microglobulin, Serum 3.88 < OR = 2.51 mg/L THIS TEST WAS PERFORMED AT: [facility] [address] [place] [phone] VINCE LUCAS MD Complete Blood Count Auto Di ff Reviewed date:11/11/2024 10:16:50 AM Interpretation: Performing Lab:[facility], [address] [place] [phone] Notes/Report: White Blood Count 10.6 4.8-10.8 X10*3/uL [...] Panel Reviewed date:11/11/2024 10:16:50 AM Interpretation: Performing Lab:[facility], [address] [place] [phone] Notes/Report: Sodium 141 135-145 mmol/L Potassium 4.0 [...] Serum Reviewed date:11/11/2024 10:16:50 AM Interpretation: Performing Lab:[facility], [address] [place] [phone] Notes/Report: Beta-2 Microglobulin, Serum 4.29 < OR = 2.51 mg/L THIS TEST WAS PERFORMED AT: [facility] [address] [place] [phone] VINCE LUCAS MD Complete Blood Count Auto Di ff Reviewed date:11/11/2024 10:16:50 AM Interpretation: Performing Lab:[facility], [address] [place] [phone] Notes/Report: White Blood Count 9.7 4.8-10.8 X10*3/uL [...] ff Reviewed date:12/29/2024 08:46:20 PM Interpretation: Performing Lab:[facility], [address] [place] [phone] Notes/Report: White Blood Count 8.5 4.8-10.8 X10*3/uL [...] Panel Reviewed date:12/29/2024 08:46:20 PM Interpretation: Performing Lab:[facility], [address] [place] [phone] Notes/Report: Sodium 143 135-145 mmol/L Potassium 4.3 [...] ff Reviewed date:02/20/2025 05:39:39 AM Interpretation: Performing Lab:[facility], [address] [place] [phone] Notes/Report: White Blood Count 7.6 4.8-10.8 X10*3/uL [...] INR Reviewed date:02/20/2025 05:39:39 AM Interpretation: Performing Lab:[address] [phone] Notes/Report: Prothrombin Time 9.9 10.9-12.4 SEC INTERNATIONAL [...] Time Reviewed date:02/20/2025 05:39:39 AM Interpretation: Performing Lab:[facility], [address] [place] [phone] Notes/Report: Partial Thromboplastin Time 30.4 26.0-36.8 SEC For information regarding the monitoring of direct thrombin inhibitors, please refer to Pharmacy. Fibrinogen Reviewed date:02/20/2025 05:39:39 AM Interpretation: Performing Lab:[address] [phone] Notes/Report: Fibrinogen 445 259-690 MG/DL Comprehensive Met. Panel Reviewed date:02/20/2025 05:39:39 AM Interpretation: Performing Lab:[facility] [address], [place] [address] Notes/Report: Sodium 143 135-145 mmol/L Potassium 4.3 [...] Antigen Reviewed date:02/20/2025 03:22:01 PM Interpretation: Performing Lab:[facility], [address] [place] [phone] Notes/Report: Prostate Specific Antigen 0.47 <0.05-4.0 ng/mL PSA methodology: Best Alinity i Chemiluminescent Microparticle Immunoassay (CMIA) Pathology Reviewed date:02/27/2025 03:57:54 PM Interpretation: Performing Lab:[facility], [address] [place] [phone] Notes/Report: ------- Name: George Beltran Age/Sex: 85/M : 1940 Unit#: [id number] Attend Dr: Mary Servin [facility]: 02/20/25 Status : DEP REF Location: .LAB Disch: ------- SPEC : [id number] RECD : 02/21/25 STATUS: ADRIANA MOSLEY NUM: [id number] MARC: 02/20/25 [facility] DR: Mary Servin [facility] ENTERED: 02/21/25 36 SP TYPE: Cytology OTHR DR: Dillon [...] may have been developed and their performance characte ristics determined by [facility]. They have not been cleared or appr jose carlos by the U.S. Food and Drug Administration (FDA). However, the FDA has determined that such clearance or approval is not necessary. This laboratory is certified under the Clinical Laboratory Improvement Amendments of 1988 (CLIA) as qualified to perform high comp lexity clinical laboratory testing. Copies To: Dillon Lynn MD [address] [place] [address], [facility] [address] [address] [facility] [address] [place] [address] Dr. Top[address] [id number] [email or web address] CONTINUED ON NEXT PAGE ------- Name: Vinayak LundyeGorge schultz freida Age/Sex: 85/M : 1940 Unit#: [id number] Attend Dr: Mary Servin [facility] Re02/20/25 Status : DEP REF Location: [facility] Disch: ------- SPEC : [id number] RECD : 02/21/25 STATUS: ADRIANA MOSLEY NUM: [id number] MARC: 02/20/25-1626 [facility] DR: Mary Servin [facility] ENTERED: 02/21/25-11 36 SP TYPE: Cytology OTHR DR: Dillon Lynn MD ORDERED: Cyto-enhanced ------- Signed (si gnature on file) Dung Bowman MD 02/25/25 1130 ------- END OF REPORT Reason For Referral No Information Medications Medication SIG (Take, Route, Frequency, Duration) Notes Start Date End Date Status Vitamin D3 50 MCG (1999) 1 capsule [...] 72 HOURS Transdermal Active Chlorambucil 2 MG 1 tablet Orally daily for 30 days 05/09/2025 Active Chlorambucil 2 MG 2 mg Orally daily 09/24/2024 Active Imbruvica 140 MG Oral Act sruthi Ibrutinib 140 MG 2 capsules Orally Once a day DX: C91.10 Chronic Lymphocytic leukemia 10/10/2024 Active Morphine Sulfate 15 MG 1 tablet as needed Orally as needed Active Albuterol Sulfate 2 puffs as needed Inhalation as needed 1,1,1,6n2ovyre Active Aspirin 81 81 MG 1 tablet [...] Problem Status W/U Status Risk Notes Problem 262706149 Overweight (E66.3) Active confirmed He has gained 6 pounds. His body mass index is 27.9. I recommended stabilizing his weight at this level. Problem Weight loss (611222249) Weight loss (R63.4) Active confirmed He has gained 6 pounds on his body mass index is now 27. He is no longer losing weight. Problem 448729379 Thrombocytopenia (D69.6) Active confirmed His platelet count is at his baseline which is 121,000. He has had no bleeding. No change in his medications was made today. Problem 098311237 Neutropenia (D70.9) Active confirmed His neutrophils and lymphocytes are present in normal numbers. His medication was continued at the current dose. Problem 38330321 Essential hypertension (I10) Active confirmed His blood pressure is stable and well controlled today and no change in his regimen seems necessary.His value was 133/76. Problem 01966815 CLL (chronic lymphocytic leukemia) (C91.10) Active confirmed He was continued on Ibrutinib without a change in dose. He is stable and his disease is well controlled. I will try to obtain the chlorambucil that he and his family prefer. Problem 738961429 Urine retention (R33.9) Active confirmed He recently had a catheter in place Problem 249079433 Benign prostatic hyperplasia, presence of lower urinary tract symptoms unspecified, unspecified morphology (N40.0) Active confirmed He wakes twice at night to urinate but is satisfied with this level of functioning. No change in his regimen was desired. Problem 052363325 Diverticulitis (K57.92) Active confirmed He clinically has diverticulitis and will be treated with antibiotics for close follow-up visit. 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 Vital Signs Heart Rate 73 /min 05/09/2025 Temperature 98.4 degrees Fahrenheit 05/09/2025 Blood pressure diastolic 64 mm Hg 05/09/2025 Height 66 in 05/09/2025 Blood pressure systolic 131 mm Hg 05/09/2025 Weight 171 lbs 05/09/2025 BMI 27.6 kg/m2 05/09/2025 Encounters Encounter Location Date Provider Diagnosis Dillon Lynn III, MD [address] [place] [address] [place] [phone] 06/13/2024 Dillon Lynn CLL (chronic lymphoc ytic leukemia) C91.10 ; Benign prostatic hyperplasia, presence of lower urinary tract symptoms unspecified, unspecified morphology N40.0 ; Essential hypertension I10 ; Thrombocytopenia D69.6 and Overweight E66.3 Dillon Lynn III, MD [address] [place] [address] [place] [phone] 10/16/2024 Dillon Lynn CLL (chronic lymphoc ytic leukemia) C91.10 ; Benign prostatic hyperplasia, presence of lower urinary tract symptoms unspecified, unspecified morphology N40.0 ; Thrombocytopenia D69.6 ; Junctional tachycardia I47.1 and Overweight E66.3 Dillon Lynn III, MD [address] [place] [address] [place] [id number] 11/01/2024 Dillon Lynn CLL (chronic lymphoc ytic leukemia) C91.10 ; Thrombocytopenia D69.6 ; Overweight E66.3 and Essential hypertension I10 Dillon Lynn III, MD [address] [place] [address] [place] [id number] 12/27/2024 Dillon Lynn CLL (chronic lymphoc ytic leukemia) C91.10 ; Thrombocytopenia D69.6 ; Benign prostatic hyperplasia, presence of lower urinary tract symptoms unspecified, unspecified morphology N40.0 ; Essential hypertension I10 ; Weight loss R63.4 ; Junctional tachycardia I47.1 and Overweight E66.3 Dillon Lynn III, MD [address] [place] [address] [place] [id number] 03/07/2025 Dillon Lynn CLL (chronic lymphoc ytic leukemia) C91.10 ; Thrombocytopenia D69.6 ; Neutropenia D70.9 ; Benign prostatic hyperplasia, presence of lower urinary tract symptoms unspecified, unspecified morphology N40.0 ; Essential hypertension I10 and Junctional tachycardia I47.1 Dillon Lynn III, MD [address] [place] [address] [place] [id number] 05/09/2025 Dillon Lynn CLL (chronic lymphoc ytic leukemia) C91.10 ; Overweight E66.3 ; Junctional tachycardia I47.1 ; Thrombocytopenia D69.6 and Benign prostatic hyperplasia, presence of lower urinary tract symptoms unspecified, unspecified morphology N40.0 Dillon Lynn III, MD [address] [place] [address] [place] [phone] 09/20/2024 Dillon Lynn III, MD [address] [place] [address] [place] [phone] 09/24/2024 Dillon Lynn III, MD [address] [place] [address] [place] [id number] 11/14/2024 Dillon Lynn III, MD [address] [place] [address] [place] [phone] 02/18/2025 Dillon Lynn CLL (chronic lymphoc ytic leukemia) C91.10 ; Thrombocytopenia D69.6 and Overweight E66.3 Dillon Lynn III, MD [address] [place] [address] [place] [phone] 05/09/2025 Dillon Lynn Assessments Encounter Date Diagnosis (ICD [...] stable and his disease is well controlled. 05/09/2025 Overweight (ICD-10 - E66.3) He has gained 6 pounds. His body mass index is 27.9. I recommended stabilizing his weight at this level. 05/09/2025 CLL (chronic lymphocytic leukemia) (ICD-10 - C91.10) He was continued on Ibrutinib without a change in dose. He is stable and his disease is well controlled. I will try to obtain the chlorambucil that he and his family prefer. 02/18/2025 CLL (chronic lymphocytic leukemia) (ICD-10 - [...] medication was continued at the current dose. 05/09/2025 Junctional tachycardia (ICD-10 - I47.1) He was in a normal sinus rhythm today with a normal heart rate and no complaints. 02/18/2025 Thrombocytopenia (ICD-10 - D69.6) 06/13/2024 Thrombocytopenia [...] No change in his regimen was desired. 05/09/2025 Thrombocytopenia (ICD-10 - D69.6) His platelet count is at his baseline which is 121,000. He has had no bleeding. No change in his medications was made today. 02/18/2025 Overweight (ICD-10 - E66.3) 06/13/2024 Overweight [...] his regimen seems necessary.His value was 133/76. 05/09/2025 Benign prostatic hyperplasia, presence of lower urinary tract symptoms unspecified, unspecified morphology (ICD-10 - N40.0) He wakes twice at night to urinate but is satisfied with this level of functioning. No change in his regimen was desired. 12/27/2024 Junctional tachycardia (ICD-10 - I47.1) He [...] Date PROFILE, RANDOM (COMPREHENSIVE METABOLIC ) 03/07/2025 PROFILE, RANDOM (COMPREHENSIVE METABOLIC ) 05/09/2025 CBC w DIFF 03/07/2025 CBC w DIFF 05/09/2025 Next Appt Details Provider Name:Dillon Lynn , 06/21/2025 09:30:00 AM, [address] [place] [address] [address], [place], [address], Insurance Providers Payer Name Payer Address Payer Phone Subscriber Number Group Number Insured Name Patient Relationship to Insured Coverage Start Date Coverage End Date MEDICARE [place] [address] [place] [address] [id number] Ishmael Licea Self - patient is the insured MED[place] [address] [id number] Ishmael Licea Self - patient is the insured Medical (General) History Medical History History ICD Code hypertension bph urine retention elevated psa back surgery for nerve impingement chronic lymphocytic leukemia Surgical History Surgery Date(Month/Year) No history right parotid gland lymph node biopsy, C LL/SLL 12/2011 Hospitalization History Reason Date(Month/Year) No history
== END 2025-06-04 11:21 | disposition home or self-care (01) ==
LOC: HO.HCS 10:51
PROVIDERS: PCP Internal Medicine; Visit Provider Internal Medicine
DX: I25.10 Atherosclerotic heart disease of native coronary artery without angina pectoris (principal)
CPT/HCPCS: 93010; 99214; G2211

== ENCOUNTER → 2025-06-04 10:50 | Outpatient (BNVA) | payer MEDICARE, MEDICAID, SELFPAY | PROVIDERS: PCP Internal Medicine; Visit Provider Internal Medicine | DX: I25.10 Atherosclerotic heart disease of native coronary artery without angina pectoris (principal); I45.4 Nonspecific intraventricular block; R94.31 Abnormal electrocardiogram [ECG] [EKG] | CPT/HCPCS: 93005; 99212 ==

== ENCOUNTER 2025-06-13 09:28 | Outpatient (REF) | payer MEDICARE, MEDICAID, SELFPAY ==
--- OUTSIDE RECORDS SUMMARY | 2024-12-27 06:30 | XMS_ITS ---
Author Organization Dillon Lynn III, MD Address [address] [place] [address] Care Team Providers Care Milking Worker Name Role Phone Alfredo LEGER, Avila Primary Care Provider Dr. Dillon Lai III Unavailable Allergies Allergen (clinical drug ingredient) Drug/Non Drug Allergy documented on EMR Reaction Allergy Type Onset Date Status No Known Drug Allergy Unknown Drug Allergy Active Results Component Value Reference Range Notes Beta-2 Microglobulin, Serum Reviewed date:02/27/2025 03:57:54 PM Interpretation: Performing Lab:[facility], [address] [place] [phone] Notes/Report: Beta-2 Microglobulin, Serum 3.88 < OR = 2.51 m g/L THIS TEST WAS PERFORMED AT: [facility] [address] [place] [phone] VINCE LUCAS MD REASON FOR VISIT Chronic [...] 2 puffs as needed Inhalation as needed 1,1,1,2s6jboer Active fentaNYL 25 MCG/HR APPLY 1 PATCH [...] Date Provider Diagnosis Dillon Lynn III, MD [address] [place] [address] [place] [address] 12/27/2024 Dillon Lynn CLL (chronic lymphoc ytic [...] 2 puffs as needed Inhalation as needed 1,1,1,9z3hscos fentaNYL 25 MCG/HR APPLY 1 PATCH TOPICALLY [...] Provider Name:Dillon Lynn , 06/21/2025 09:30:00 AM, [address] [place] [address] [address] KATHAR[address] Sukh, [place], [address], Progress Notes * Otis CARMENioDOB:1940 (84 yo M)Acc No.[id number]:12/27/2024 Progress Notes Patient: Sarah JENNIFERSammy BolanosIshmael Provider: Sarah Lynn MD :1940 A ge:84 Y S ex:Male Date:12/27/2024 Address:[address] [place] [address], [id number] Pcp:Avila Fuentes MD Subjective: * Chief Complaints: [...] He is . He was born in [place]. * Medications: T akingIbrutinib 140 MG Capsule [...] Inhalation as needed , Notes to Pharmacist: 1,1,1,8a0ppeqrVbkdan Ibrutinib 140 MG Capsule 2 capsules Orally [...] Inhalation as needed , Notes to Pharmacist: 1,1,1,3c3frcyrVdmivfnpqhupYupvckihfkeo 2 MG Tablet 2 mg Orally daily [...] man. HEAD: a traumatic, normocephalic. EYES: e aklia, perrla, anicteric, conjugate. EARS: n ormal. NOSE: [...] 0 12/27/2024 Generated for Bruce coleman/Kayla/Carolsmitting on: 10:51 AM EDT History and Physical Notes * [...]
--- OUTSIDE RECORDS SUMMARY | 2025-02-18 06:02 | XMS_ITS ---
Author Organization Dillon Lynn III, MD Address [address] [place] [address] [place] [address] Care Team Providers Care Home Stager Name Role Phone Alfredo LEGER, Avila Primary Care Provider Dr. Dillon Lai III Unavailable REASON FOR VISIT Concern Social History Sex Assigned At : Social History Observation Description Sex Assigned At Male Encounters Encounter Location Date Provider Diagnosis Dillon Lynn III, MD [address] [place] [address] [place] [address] 02/18/2025 Dillon Lynn CLL (chronic lymphoc ytic leukemia) C91.10 ; Thrombocytopenia D69.6 and Overweight E66.3 Assessments Encounter Date Diagnosis (ICD Code) Assessment Notes Treat ment Notes Treatment Clinical Notes 02/18/2025 CLL (chronic lymphocytic leukemia) (ICD-10 - C91.10) 02/18/2025 Thrombocytopenia (ICD-10 - D69.6) 02/18/2025 Overweight (ICD-10 - E66.3) Plan Of Treatment Next Appt Details Provider Name:Dillon Lynn , 06/21/2025 09:30:00 AM, [address] [place] [address] [place], [address], Progress Notes * Mariaa CARMENOB:1940 (85 yo M)Acc No.[id number]:02/18/2025 Patient: Sarah Ishmael BEAN :1940 A ge:85 Y S ex:Male Address:[address] [place] [address] Subjective: * Chief Complaints: * C oncern [...] * Date: Generated for Bruce coleman/Kayla/Carolsmitting on: 1 10:51 AM EDT
--- OUTSIDE RECORDS SUMMARY | 2025-03-07 06:30 | XMS_ITS ---
Author Organization Dillon Lynn III, MD Address [address] [place] [address] [place] [address] Care Team Providers Care Counselor Aide Name Role Phone Alfredo LEGER, Avila Primary Care Provider Dr. Dillon Lai III Unavailable [phone] Allergies Allergen (clinical drug ingredient) Drug/Non Drug [...] 2 puffs as needed Inhalation as needed 1,1,1,3u7ulwgz Active Imbruvica 140 MG Oral Act sruthi [...] Date Provider Diagnosis Dillon Lynn III, MD [address] [place] [address] [place] [address] 03/07/2025 Dillon Lynn CLL (chronic lymphoc ytic [...] 2 puffs as needed Inhalation as needed 1,1,1,6y8syczz Imbruvica 140 MG Oral Pending Test Test Name Order Date PROFILE, RANDOM (COMPREHENSIVE METABOLIC ) 03/07/2025 CBC w DIFF 03/07/2025 Next Appt Details Follow Up: 2 Months, Reason: ov review labs Provider Name:Dillon Lynn , 06/21/2025 09:30:00 AM, [address] [place] [address] , [address], [address], Progress Notes * Otis CARMENioDOB:1940 (85 yo M)Acc No.[id number]:03/07/2025 Progress Notes Patient: Ishmael GRIGSBY Provider: Sarah Lynn MD :1940 A ge:85 Y S ex:Male Date:03/07/2025 Address:[address] [place], [place] [phone] Pcp:Avila Fuentes MD Subjective: * Chief Complaints: * C hronic lymphocytic leukemiaBenign prostatic hypertrophyHypertensionNeutropeniaThrombocytopeniaHistory of junctional tachycardia * HPI: C OVID-19 Screening: went to er for cp bmc. He returns for medical management of his chronic lymphocytic leukemia.? Since his last visit he had developed an episode of chest pain and went to the [facility] where he was kept for 12 [...] Inhalation as needed , Notes to Pharmacist: 1,1,1,2s9fzhliWsrfwbqiu 140 MG Capsule Oral Taking Ibrutinib 140 [...] Inhalation as needed , Notes to Pharmacist: 1,1,1,5g7ooqfsMhzqsk Imbruvica 140 MG Capsule Oral Not-Taking/PRNChlorambucil 2 [...] Date & Time - 02/19/2025 09:16 AM)?ValueReference Range?[id number] - MG/DL * Lab:Comprehensive Met. Panel * [...] 0 03/07/2025 Generated for Bruce coleman/Kayla/Hiteshitting on: 10:51 AM EDT History and Physical [...]
--- OUTSIDE RECORDS SUMMARY | 2025-05-09 06:45 | XMS_ITS ---
Author Organization Dillon Lynn III, MD Address [address] [place] [address] [place] [address] Care Team Providers Care Gameplay Programmer Name Role Phone Alfredo LEGER, Avila Primary Care Provider Dr. Dillon Lai III Unavailable [phone] Allergies Allergen (clinical drug ingredient) Drug/Non Drug [...] 2 puffs as needed Inhalation as needed 1,1,1,2i1dvqdf Active Vitamin D3 50 MCG (2000 UT) [...] Provider Diagnosis Dillon Lynn III, MD [address] [place] [address] [place] [address] 05/09/2025 Dillon Lynn CLL (chronic lymphoc ytic [...] 2 puffs as needed Inhalation as needed 1,1,1,0c9bitis Vitamin D3 50 MCG (2000 UT) 1 [...] Provider Name:Dillon Lynn , 06/21/2025 09:30:00 AM, [address] [place] [address], [address], Progress Notes * Otis CARMENioDOB:1940 (85 yo M)Acc No.[id number]:05/09/2025 Progress Notes Patient: Ishmael GRIGSBY Provider: Sarah Lynn MD :1940 A ge:85 Y S ex:Male Date:05/09/2025 Address:[address] [place], [place] [phone] Pcp:Avila Fuentes MD Subjective: * Chief Complaints: [...] we will appeal. He was hospitalized at [facility] couple of months ago with chest [...] Inhalation as needed , Notes to Pharmacist: 1,1,1,3u4emrpqSplsnktje 140 MG Capsule Oral Medication List reviewed [...] Inhalation as needed , Notes to Pharmacist: 1,1,1,2j3njyuvBvcpmi Imbruvica 140 MG Capsule Oral Medication List [...] Date & Time - 02/19/2025 09:16 AM)?ValueReference Range?[id number] - MG/DL ???Lab:Pathology (Order Date - 02/20/2025) [...] MD Date: 0 05/09/2025 Generated for Shari jared/Kayla/Carolsmitting on: 1 10:52 AM EDT History and Physical Notes * [...]
--- OUTSIDE RECORDS SUMMARY | 2025-05-09 07:17 | XMS_ITS ---
Author Organization Dillon Lynn III, MD Address [address] [place] [facility] [place] [address] Care Team Providers Care Industrial Gas Servicer Helper Name Role Phone Alfredo LEGER, Avila Primary Care Provider Dr. Dillon Lai III Unavailable REASON FOR VISIT go back on Leukeran/Chlorambucil Social History Sex Assigned At : Social History Observation Description Sex Assigned At Male Encounters Encounter Location Date Provider Diagnosis Dillon Lynn III, MD [address] [place] [address] [address] [facility] [facility] [place] [address] 05/09/2025 Dillon Lynn Plan Of Treatment Next Appt Details Provider Name:Dillon Lynn , 06/21/2025 09:30:00 AM, [address] [place] [address] [place], [address], Progress Notes * Otis CARMENioDOB:1940 (85 yo M)Acc No.[id number]:05/09/2025 Patient: Sarah Ishmael BEAN :1940 A ge:85 Y S ex:Male Address:[address] [place] [address] * true * Date: Generated for Printi ng/Faxing/eTransmitting on: 10:51 AM EDT
--- NOTE | ~2025-06-13 | XR_ITS ---
EXAMINATION: XR CHEST CLINICAL INFORMATION: Acute bronchitis COMPARISON: May 15, 2021. Correlated to CT chest dated April 16, 2025 TECHNIQUE: PA and lateral views FINDINGS: Hyperinflated lungs. Pulmonary reticular pattern. No consolidation, pleural effusion or pneumothorax. Cardiomediastinal silhouette size is normal with likely prominent pericardial fat near the apex. Calcified plaques, thoracic aorta. Multilevel thoracolumbar spondylosis. Degenerative changes in the shoulders. XR/XR chest 2V IMPRESSION: Chronic interstitial lung disease. Atherosclerosis disease. Multilevel spondylosis. Electronically signed by: Maldonado Berman MD 06/13/2025 09:46 AM EDT
--- OUTSIDE RECORDS SUMMARY | 2025-06-13 10:51 | XMS_ITS | Patient Health Record ---
Author Organization [facility] Address [address] [place] [address] Care Team Providers Care Spring Upholsterer Name Role Phone Valentino Acosta Jr Reason For Referral No Information Plan Of Treatment No Information
--- OUTSIDE RECORDS SUMMARY | 2025-06-13 10:52 | XMS_ITS | Patient Health Record ---
Author Organization Dillon Lynn III, MD Address [address] [place] [address] [place] [address] Care Team Providers Care Torch Straightener Name Role Phone Avila Fuentes MD Primary Care Provider Dr. Dillon Lai III Unavailable Allergies Allergen (clinical drug ingredient) Drug/Non Drug Allergy documented on EMR Reaction Allergy Type Onset Date Status No Known Drug Allergy Unknown Drug Allergy Active Results Component Value Reference Range Notes Beta-2 Microglobulin, Serum Reviewed date:02/27/2025 03:57:54 PM Interpretation: Performing Lab:[facility], [address] [place] [phone] Notes/Report: Beta-2 Microglobulin, Serum 3.88 < OR = 2.51 mg/L THIS TEST WAS PERFORMED AT: [facility] [address] [place] [phone] VINCE LUCAS MD Complete Blood Count Auto Di ff Reviewed date:11/11/2024 10:16:50 AM Interpretation: Performing Lab:[facility], [address] [place] [phone] Notes/Report: White Blood Count 10.6 4.8-10.8 X10*3/uL [...] Panel Reviewed date:11/11/2024 10:16:50 AM Interpretation: Performing Lab:[facility], [address] [place] [phone] Notes/Report: Sodium 141 135-145 mmol/L Potassium 4.0 [...] Serum Reviewed date:11/11/2024 10:16:50 AM Interpretation: Performing Lab:[facility], [address] [place] [phone] Notes/Report: Beta-2 Microglobulin, Serum 4.29 < OR = 2.51 mg/L THIS TEST WAS PERFORMED AT: [facility] [address] [place] [phone] VINCE LUCAS MD Complete Blood Count Auto Di ff Reviewed date:11/11/2024 10:16:50 AM Interpretation: Performing Lab:[facility], [address] [place] [phone] Notes/Report: White Blood Count 9.7 4.8-10.8 X10*3/uL [...] ff Reviewed date:12/29/2024 08:46:20 PM Interpretation: Performing Lab:[facility], [address] [place] [phone] Notes/Report: White Blood Count 8.5 4.8-10.8 X10*3/uL [...] Panel Reviewed date:12/29/2024 08:46:20 PM Interpretation: Performing Lab:[facility], [address] [place] [phone] Notes/Report: Sodium 143 135-145 mmol/L Potassium 4.3 [...] ff Reviewed date:02/20/2025 05:39:39 AM Interpretation: Performing Lab:[facility], [address] [place] [phone] Notes/Report: White Blood Count 7.6 4.8-10.8 X10*3/uL [...] INR Reviewed date:02/20/2025 05:39:39 AM Interpretation: Performing Lab:[address] [phone] Notes/Report: Prothrombin Time 9.9 10.9-12.4 SEC [employer]NATIONAL [...] Time Reviewed date:02/20/2025 05:39:39 AM Interpretation: Performing Lab:[facility], [address] [place] [phone] Notes/Report: Partial Thromboplastin Time 30.4 26.0-36.8 SEC For information regarding the monitoring of direct thrombin inhibitors, please refer to Pharmacy. Fibrinogen Reviewed date:02/20/2025 05:39:39 AM Interpretation: Performing Lab:[address] [phone] Notes/Report: Fibrinogen 445 259-690 MG/DL Comprehensive Met. Panel Reviewed date:02/20/2025 05:39:39 AM Interpretation: Performing Lab:[facility] [address], [place] [address] Notes/Report: Sodium 143 135-145 mmol/L Potassium 4.3 [...] Antigen Reviewed date:02/20/2025 03:22:01 PM Interpretation: Performing Lab:[facility], [address] [place] [phone] Notes/Report: Prostate Specific Antigen 0.47 <0.05-4.0 ng/mL PSA methodology: Best Alinity i Chemiluminescent Microparticle Immunoassay (CMIA) Pathology Reviewed date:02/27/2025 03:57:54 PM Interpretation: Performing Lab:[facility], [address] [place] [phone] Notes/Report: ------- Name: George Beltran Age/Sex: 85/M : 1940 Unit#: [id number] Attend Dr: Mary Servin [facility]: 02/20/25 Status : DEP REF Location: .LAB Disch: ------- SPEC : [id number] RECD : 02/21/25 STATUS: ADRIANA MOSLEY NUM: [id number] MARC: 02/20/[address] [facility] [address]: Mary Servin [facility] ENTERED: 02/21/25 36 SP TYPE: Cytology OTHR [...] and their performance characte ristics determined by [facility]. They have not been cleared or appr jose carlos by the U.S. Food and Drug Administration (FDA). However, the FDA has determined that such clearance or approval is not necessary. This laboratory is certified under the Clinical Laboratory Improvement Amendments of 1988 (CLIA) as qualified to perform high comp lexity clinical laboratory testing. Copies To: Dillon Lynn MD [address] [place] [address], [facility] [address] [address] [facility] [address] [place] [address] Dr. [address] [id number] [email or web address] CONTINUED ON NEXT PAGE ------- Name: Vinayak LundyGeorge schultz freida Age/Sex: 85/M : 1940 Unit#: [id number] Attend Dr: Mary Servin [facility] Re02/20/25 Status : DEP REF Location: [facility] Disch: ------- SPEC : [id number] RECD : 02/21/25 STATUS: ADRIANA MOSLEY NUM: [id number] MARC: 02/20/25-[address] [facility] [address]: Mary Servin [facility] ENTERED: 02/21/25-11 36 SP TYPE: Cytology OTHR [...] 2 puffs as needed Inhalation as needed 1,1,1,6q2iqrlp Active Aspirin 81 81 MG 1 tablet [...] Problem Status W/U Status Risk Notes Problem 398364824 Overweight (E66.3) Active confirmed He has gained 6 pounds. His body mass index is 27.9. I recommended stabilizing his weight at this level. Problem Weight loss (968828635) Weight loss (R63.4) Active confirmed He has gained 6 pounds on his body mass index is now 27. He is no longer losing weight. Problem 562899264 Thrombocytopenia (D69.6) Active confirmed His platelet count is at his baseline which is 121,000. He has had no bleeding. No change in his medications was made today. Problem 366215929 Neutropenia (D70.9) Active confirmed His neutrophils and lymphocytes are present in normal numbers. His medication was continued at the current dose. Problem 35843976 Essential hypertension (I10) Active confirmed His blood pressure is stable and well controlled today and no change in his regimen seems necessary.His value was 133/76. Problem 96958401 CLL (chronic lymphocytic leukemia) (C91.10) Active confirmed He was continued on Ibrutinib without a change in dose. He is stable and his disease is well controlled. I will try to obtain the chlorambucil that he and his family prefer. Problem 063712708 Urine retention (R33.9) Active confirmed He recently had a catheter in place Problem 689753183 Benign prostatic hyperplasia, presence of lower urinary tract symptoms unspecified, unspecified morphology (N40.0) Active confirmed He wakes twice at night to urinate but is satisfied with this level of functioning. No change in his regimen was desired. Problem 479075082 Diverticulitis (K57.92) Active confirmed He clinically has diverticulitis and will be treated with antibiotics for close follow-up visit. 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) Active confirmed He was [...] Date Provider Diagnosis Dillon Lynn III, MD [address] [place] [address] [place] [phone] 06/13/2024 Dillon Lynn CLL (chronic lymphoc ytic leukemia) C91.10 ; Benign prostatic hyperplasia, presence of lower urinary tract symptoms unspecified, unspecified morphology N40.0 ; Essential hypertension I10 ; Thrombocytopenia D69.6 and Overweight E66.3 Dillon Lynn III, MD [address] [place] [address] [place] [phone] 10/16/2024 Dillon Lynn CLL (chronic lymphoc ytic leukemia) C91.10 ; Benign prostatic hyperplasia, presence of lower urinary tract symptoms unspecified, unspecified morphology N40.0 ; Thrombocytopenia D69.6 ; Junctional tachycardia I47.1 and Overweight E66.3 Dillon Lynn III, MD [address] [place] [address] [place] [phone] 11/01/2024 Dillon Lynn CLL (chronic lymphoc ytic leukemia) C91.10 ; Thrombocytopenia D69.6 ; Overweight E66.3 and Essential hypertension I10 Dillon Lynn III, MD [address] [place] [address] [place] [phone] 12/27/2024 Dillon Lynn CLL (chronic lymphoc ytic leukemia) C91.10 ; Thrombocytopenia D69.6 ; Benign prostatic hyperplasia, presence of lower urinary tract symptoms unspecified, unspecified morphology N40.0 ; Essential hypertension I10 ; Weight loss R63.4 ; Junctional tachycardia I47.1 and Overweight E66.3 Dillon Lynn III, MD [address] [place] [address] [place] [phone] 03/07/2025 Dillon Lynn CLL (chronic lymphoc ytic leukemia) C91.10 ; Thrombocytopenia D69.6 ; Neutropenia D70.9 ; Benign prostatic hyperplasia, presence of lower urinary tract symptoms unspecified, unspecified morphology N40.0 ; Essential hypertension I10 and Junctional tachycardia I47.1 Dillon Lynn III, MD [address] [place] [address] [place] [address] 05/09/2025 Dillon Lynn CLL (chronic lymphoc ytic leukemia) C91.10 ; Overweight E66.3 ; Junctional tachycardia I47.1 ; Thrombocytopenia D69.6 and Benign prostatic hyperplasia, presence of lower urinary tract symptoms unspecified, unspecified morphology N40.0 Dillon Lynn III, MD [address] [place] [address] [place] [phone] 09/20/2024 Dillon Lynn III, MD [address] [place] [address] [place] [address] 09/24/2024 Dillon Lynn III, MD [address] [place] [address] [place] [address] 11/14/2024 Dillon Lynn III, MD [address] [place] [address] [place] [phone] 02/18/2025 Dillon Lynn CLL (chronic lymphoc ytic leukemia) C91.10 ; Thrombocytopenia D69.6 and Overweight E66.3 Dillon Lynn III, MD [address] [place] [address] [place] [phone] 05/09/2025 Dillon Lynn Assessments Encounter Date Diagnosis [...] Provider Name:Dillon Lynn , 06/21/2025 09:30:00 AM, [address] [place] [address] [address], [place], [address], Insurance Providers Payer Name Payer Address Payer Phone Subscriber Number Group Number Insured Name Patient Relationship to Insured Coverage Start Date Coverage End Date MEDICARE [place] [address] [place] [address] [id number] Ishmael Licea Self - patient is the insured [place] [address] [id number] Ishmael Licea Self - patient is the insured Medical (General) History Medical History History ICD Code hypertension bph urine retention elevated psa back surgery for nerve impingement chronic lymphocytic leukemia Surgical History Surgery Date(Month/Year) No history right parotid gland lymph node biopsy, C LL/SLL 12/2011 Hospitalization History Reason Date(Month/Year) No history
--- OUTSIDE RECORDS SUMMARY | 2025-06-13 10:52 | XMS_ITS | Clinical Summary ---
Author Organization [facility] Address [address] [place] [address] Phone Care Team Providers Care Aircraft Accessories Mechanic Name Role Phone Avila Fuentes Primary Care Provider [phone] Allergies No known active allergies Social History [...] LAB CHEMISTRY METHOD 10/01/2024 6:52 PM EST [facility] Potassium 4.2 3.5 - 5.5 mmol/L LAB CHEMISTRY METHOD 10/01/2024 6:52 PM [facility] Chloride 106 96 - 110 mmol/L LAB CHEMISTRY METHOD 10/01/2024 6:52 PM [facility] CO2 27 21 - 32 mmol/L LAB CHEMISTRY METHOD 10/01/2024 6:52 PM [facility] Anion Gap 6 3 - 11 LAB CHEMISTRY METHOD 10/01/2024 6:52 PM [facility] Glucose 95 70 - 100 mg/dL LAB CHEMISTRY METHOD 10/01/2024 6:52 PM [facility] BUN 25 5 - 25 mg/dL LAB CHEMISTRY METHOD 10/01/2024 6:52 PM [facility] Creatinine 1.71(H) 0.70 - 1.30 mg/dL LAB CHEMISTRY METHOD 10/01/2024 6:52 PM [facility] eGFR 39(L) >=60 mL/min/1. 73m2 LAB CHEMISTRY METHOD 10/01/2024 6:52 PM [facility] Comment:Calculation based on the Chronic Kidney Disease Epidemiology Collaboration (CKD-EPI) equation refit without adjustment for race. BUN/Creatinine Ratio 14.6 LAB CHEMISTRY METHOD 10/01/2024 6:52 PM [facility] Calcium 8.9 8.5 - 10.5 mg/dL LAB CHEMISTRY METHOD 10/01/2024 6:52 PM [facility] AST (SGOT) 24 10 - 42 unit/L LAB CHEMISTRY METHOD 10/01/2024 6:52 PM [facility] ALT (SGPT) 20 10 - 60 unit/L LAB CHEMISTRY METHOD 10/01/2024 6:52 PM [facility] Alkaline Phosphatase 62 42 - 121 unit/L LAB CHEMISTRY METHOD 10/01/2024 6:52 PM [facility] Total Protein 6.8 6.0 - 8.0 g/dL LAB CHEMISTRY METHOD 10/01/2024 6:52 PM [facility] Albumin 3.7 3.2 - 5.0 g/dL LAB CHEMISTRY METHOD 10/01/2024 6:52 PM EST [facility] Total Bilirubin 0.4 0.0 - 1.4 mg/dL LAB CHEMISTRY METHOD 10/01/2024 6:52 PM EST [facility] Blood Venous blood specimen / Unknown Venipuncture / Unknown 10/01/2024 5:15 PM EST 10/01/2024 5:49 PM EST us Larry B Kiko LEGER LAB BLOOD ORDERABLES Final Resu lt [facility]) [facility] [address] [place] [address], from Last 3 Months or Most Recently Relevant to Health Maintenance Insurance MEDICAID - [place] MEDICARE Care Teams Aircraft Accessories Mechanic Relationship Specialty Start Date End Date Avila Fuentes [facility] [place] [place] PCP - General Internal Medicine 09/08/17
== END 2025-06-13 09:29 | disposition home or self-care (01) ==
LOC: HO.XRAY 09:28
PROVIDERS: PCP Internal Medicine; Visit Provider Physician Assistant
DX: J20.9 Acute bronchitis, unspecified (principal)
CPT/HCPCS: 71046

== ENCOUNTER → 2025-06-13 09:39 | Outpatient (BNV) | payer MEDICARE, MEDICAID, SELFPAY | PROVIDERS: PCP Internal Medicine; Visit Provider Radiology Diagnostic Radiology | DX: J84.9 Interstitial pulmonary disease, unspecified (principal); I70.90 Unspecified atherosclerosis; M47.814 Spondylosis without myelopathy or radiculopathy, thoracic region | CPT/HCPCS: 71046 ==

== ENCOUNTER 2025-06-14 10:39 | Outpatient (REF) | payer MEDICARE, MEDICAID, SELFPAY ==
--- OUTSIDE RECORDS SUMMARY | 2024-09-20 12:22 | XMS_ITS ---
Author Organization Dillon Lynn III, MD Address [address] [place] [address] Care Team Providers Care [employer] Buffer Name Role Phone Alfredo LEGER, Avila Primary Care Provider Dr. 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 Chronic Lymphocytic leukemia 10/10/2024 Active Social History Sex Assigned At : Social History Observation Description Sex Assigned At Male Encounters Encounter Location Date Provider Diagnosis Dillon Lynn III, MD [address] [place] [address] [place] [address] 09/20/2024 Dillon Lynn Plan Of Treatment Medication Medication Name Sig Start Date Stop Date Notes Leukeran 2 MG TAKE 1 TABLET BY JANET TH DAILY DIRECTED Ibrutinib 140 MG 2 capsules Orally On ce a day for 30 days 10/10/2024 DX: C91.10 Chronic Lymphocytic leukemia Chlorambucil 2 MG 2 mg Orally daily 09/24/2024 Next Appt Details Provider Name:Dillon Lynn , 06/21/2025 09:30:00 AM, [address] [place] [address] [place], [address], Progress Notes * Otis CARMENioDOB:1940 (84 yo M)Acc No.[id number]:09/20/2024 Patient: Ishmael GRIGSBY :1940 A ge:84 Y S ex:Male Address:[address] [place] [id number] * Refills Stop Leukeran Tablet, 2 MG, TAKE 1 TABLET BY MOUTH DAILY DIRECTED Stop Chlorambucil Tablet, 2 MG, Orally, 2 mg, daily Start Ibrutinib Capsule, 140 MG, Orally, 60 Capsule, 2 capsules, Once a day, 30 days, Refills=11 * true * Date: Generated for Bruce coleman/Kayla/Hiteshitting on: 1 01:04 PM EDT
--- OUTSIDE RECORDS SUMMARY | 2024-09-24 09:20 | XMS_ITS ---
Author Organization Dillon Lynn III, MD Address [address] [place] [address] [address] [place] [address] Care Team Providers Care Sign E[employer]ctor And Repairer Name Role Phone Alfredo LEGER, Avila Primary Care Provider Dr. Dillon Lai III [facility] [phone] Medications Medication SIG (Take, Route, Fr equency, Duration) Notes Start Date End Date Status Chlorambucil 2 MG 2 mg Orally daily for 28 days Active Social History Sex Assigned At : Social History Observation Description Sex Assigned At Male Encounters Encounter Location Date Provider Diagnosis Dillon Lynn III, MD [address] [place] [address] [place] [address] 09/24/2024 Dillon Lynn Plan Of Treatment Medication Medication Name Sig Start Date Stop Date Notes Chlorambucil 2 MG 2 mg Orally daily for 28 days 09/24/2024 Next Appt Details Provider Name:Dillon Lynn , 06/21/2025 09:30:00 AM, [address] [place] [address] [place], [address], Progress Notes * Otis CARMENioDOB:1940 (84 yo M)Acc No.[id number]:09/24/2024 Patient: Sarah Ishmael BEAN :1940 A ge:84 Y S ex:Male Address:[address] [place] [id number] * Refills Start Chlorambucil Tablet, 2 MG, Orally, 28, 2 mg, daily, 28 days, Refills=11 * true * Date: Generated for Bruce coleman/Kayla/Yadira on: 01:03 PM EDT
--- OUTSIDE RECORDS SUMMARY | 2024-10-16 05:30 | XMS_ITS ---
Author Organization Dillon Lynn III, MD Address [address] [place] [address] [place] [address] Care Team Providers Care Visual Education Teacher Name Role Phone Alfredo LEGER, Avila Primary Care Provider Dr. Dillon Lai III Unavailable [phone] Allergies Allergen (clinical drug ingredient) Drug/Non Drug Allergy documented on EMR Reaction Allergy Type Onset Date Status No Known Drug Allergy Unknown Drug Allergy Active REASON FOR VISIT Chronic lymphocytic leukemia, Benign prostatic hypertrophy, Hypertension, Thrombocytopenia Medications Medication SIG (Take, Route, Frequency, Duration) Notes Start Date End Date Status fentaNYL 25 MCG/HR APPLY 1 PATCH TOPICALLY TO THE SKIN EVERY 72 HOURS Transdermal Active Mirtazapine 30 MG 1 tablet at bedtime Orally Once a day Active traZODone HCl 100 MG 1 tablet at bedtime Orally Once a day Active Albuterol Sulfate 2 puffs as needed Inhalation as needed 1,1,1,2i0mvtfh Active Morphine Sulfate 15 MG 1 tablet as needed Orally as needed Active traMADol HCl 50 MG 2 tablet Orally twice a day Active Vitamin B 12 100 MCG as directed Orally once a day Active Ibrutinib 140 MG 2 capsules Orally Once a day DX: C91.10 Chronic Lymphocytic leukemia 10/10/2024 Active Vitamin D3 50 MCG (1999 UT) 1 capsule Orally Once a day Active Aspirin 81 81 MG 1 tablet Orally Once a day Active Imbruvica 140 MG Oral Act sruthi Chlorambucil 2 MG 2 mg Orally daily 09/24/2024 Active Social History Tobacco Use: Social History Observation Description Date Details (start date - stop date) Never Smoker NA - NA Sex Assigned At : Social History Observation Description Sex Assigned At Male Tobacco Use/Smoking Question Answer Notes Patient is a nonsmoker How long has it been since you last smoked? > 10 years Additional Findings: Tobacco Non-User Aggressive non-smoker Vital Signs Temperature 98.4 degrees Fahrenheit 10/16/19 25 Blood pressure systolic 128 mm Hg 10/16/19 25 Blood pressure diastolic 63 mm Hg 025 Heart Rate 96 /min 10/16/2024 Height 66 in 10/16/2024 Weight 170 lbs 10/16/2024 BMI 27.44 kg/m2 10/16/2024 Encounters Encounter Location Date Provider Diagnosis Dillon Lynn III, MD [address] [place] [address] [address] [place], [place] [id number] 10/16/2024 Dillon Lynn CLL (chronic lymphoc ytic leukemia) C91.10 ; Benign prostatic hyperplasia, presence of lower urinary tract symptoms unspecified, unspecified morphology N40.0 ; Thrombocytopenia D69.6 ; Junctional tachycardia I47.1 and Overweight E66.3 Assessments Encounter Date Diagnosis (ICD Code) Assessment Notes T reatment Notes Treatment Clinical Notes 10/16/2024 CLL (chronic lymphocytic leukemia) (ICD-10 - C91.10) He will begin his new therapy with 1 tablet a day. Blood work will be done periodically and he will be seen in the office to titrate to the effective dose. 10/16/2024 Benign prostatic hyperplasia, presence of lower urinary tract symptoms unspecified, unspecified morphology (ICD-10 - N40.0) He wakes twice at night to urinate but is satisfied with this level of functioning. No change in his regimen was desired. 10/16/2024 Thrombocytopenia (ICD-10 - D69.6) His mild thrombocytopenia remains without any bleeding. His platelets are 137,000. 10/16/2024 Junctional tachycardia (ICD-10 - I47.1) Since his last visit he has had no episodes of fluttering in his chest or rapid heart rates tachycardia, chest pain or dyspnea. He has not been to the emergency room and his cardiac status seems stable today. His pulse is regular and slow. 10/16/2024 Overweight (ICD-10 - E66.3) He has lost 6 pounds and his weight is fluctuating. He says his appetite is good. His daughter said he is eating well. His weight will be carefully observed. Plan Of Treatment Medication Medication Name Sig Start Date Stop Date Notes fentaNYL 25 MCG/HR APPLY 1 PATCH TOPICALLY TO THE SKIN EVERY 72 HOURS Transdermal Mirtazapine 30 MG 1 tablet at bedtime Orally Once a day traZODone HCl 100 MG 1 tablet at bedtime Orally Once a day Albuterol Sulfate 2 puffs as needed Inhalation as needed 1,1,1,4y9vquvg Morphine Sulfate 15 MG 1 tablet as neede d Orally as needed traMADol HCl 50 MG 2 tablet Orally twic e a day Vitamin B 12 100 MCG as directed Orally once a day Ibrutinib 140 MG 2 capsules Orally Once a day 10/10/2024 DX: C91.10 Chronic Lymphocytic leukemia Vitamin D3 50 MCG (1999 UT) 1 capsule Orally Once a day Aspirin 81 81 MG 1 tablet Orally Once a day Imbruvica 140 MG Oral Chlorambucil 2 MG 2 mg Orally daily 09/24/2024 Next Appt Details Follow Up: 2 Weeks, Reason: OV Provider Name:Dillon Lynn , 06/21/2025 09:30:00 AM, [address] [place] [address], [address], [address], Progress Notes * Sammy CARMENvijayaioDOB:1940 (84 yo M)Acc No.[id number]:10/16/2024 Progress Notes Patient: Ishmael GRIGSBY Provider: Sarah Lynn MD :1940 A ge:84 Y S ex:Male Date:10/16/2024 Address:[address] [place] [address] [place], [place] [id number] Pcp:Avila Fuentes MD Subjective: * Chief Complaints: * C hronic lymphocytic leukemiaBenign prostatic hypertrophyHypertensionThrombocytopenia * HPI: C OVID-19 Screening: He has been maintained on chlorambucil 2 mg 3 times a week with no side effects and excellent control of his disease. In the past I have offered him, several times, to update his treatment to more modern therapy. He has always refused preferring the chlorambucil. Recently his insurance company has declined to pay for chlorambucil. Therefore he will be switched to ibrutinib. I have explained this at length to the patient and his daughter ,Cherrie. They both understand and agree to this. Because of his age I have recommended a dose of 240 mg daily and will begin with half of that. A follow-up visit in the near future was arranged. Questions H ave you had any new onset fever, chills, cough, congestion, sore throat, shortness of breath, muscle aches? Y es Sore Throat, Cough, Congestion 2 weeks * ROS: G eneral/Constitutional: pain o nly normal aches and pains. C hills d enies.?Fatigue a dmits. F ever d enies. E NT: Decreased hearing d enies. R espiratory: Cough d enies. C ardiovascular: Chest pain with exertion d enies. D yspnea on exertion?denies. S hortness of breath d enies. G astrointestinal: Constipation o ccasional. D ecreased appetite d enies. D iarrhea d enies. H e[place]burn d enies. N ausea d enies. R ectal bleeding d enies. V omiting d enies. H ematology: bruising d enies. p etechiae d enies. S wollen glands n one have been noted. G enitourinary: Frequent urination t wice a night. M usculoskeletal: Muscle aches d enies. P ainful joints d enies. S ciatica d enies. W eakness d enies. S kin: Itching d enies. R trip d enies. S kin lesion(s)?denies. N eurologic: Difficulty speaking d enies. D izziness d enies.?Headache d enies. L ow back pain d enies. P sychiatric: Depressed mood d enies. * Medical History: * Surgical History: r ight parotid gland lymph node biopsy, CLL/SLL 12/2011No history * Hospitalization/Major Diagno stic Procedure: N o history * Family History: F ather: 85 yrs. M other: 75 yrs, stroke, breast cancer, diagnosed with Cancer. 2 brother(s) , 3 sister(s) . 6 son(s) , 3 daughter(s) . . He has no family history of lymphoproliferative disorders. * Social History: T obacco Use: T obacco Use/Smoking P atient is a n onsmoker H ow long has it been since you last smoked??> 10 years A dditional Findings: Tobacco Non-User A ggressive non-smoker H e does not smoke or drink. He is . He was born in [place]. * Medications: T akingAspirin 81 81 MG Tablet Delayed Release 1 [...] Inhalation as needed , Notes to Pharmacist: 1,1,1,0r3pkimrNdoaoyzhdogl 2 MG Tablet 2 mg Orally daily Ibrutinib 140 MG Capsule 2 capsules Orally Once a day , Notes to Pharmacist: DX: C91.10 Chronic Lymphocytic leukemiaImbruvica 140 MG Capsule Oral Medication List reviewed and reconciled with the patientTaking Aspirin 81 81 MG Tablet Delayed Release [...] Inhalation as needed , Notes to Pharmacist: 1,1,1,4c9wnmmoNdcsgg Chlorambucil 2 MG Tablet 2 mg Orally daily Taking Ibrutinib 140 MG Capsule 2 capsules Orally Once a day , Notes to Pharmacist: DX: C91.10 Chronic Lymphocytic leukemiaTaking Imbruvica 140 MG Capsule Oral Medication List reviewed and reconciled with the patient * Allergies: N o Known Drug Allergyno[Allergies Verified] Objective: * Vitals: H t: 66, Wt:170, BMI:27.44, BP:128/63, HR:96, Temp:98.4, Wt-k.11. * Examination: G eneral Examination: GENERAL APPEARANCE: p lillian, well nourished, well developed, in no acute distress, calm and relaxed, overweight, elderly man. HEAD: a traumatic, normocephalic. EYES: e akila, perrla, anicteric, conjugate. EARS: n ormal. NOSE: s eptum intact. ORAL CAVITY: n ormal, unremarkable. NECK/THYROID: n o jugular venous distention, no carotid bruit, thyroid normal. LYMPH NODES: n o enlarged lymph nodes,spleen normal. SKIN: n o suspicious lesions, anicteric. HEART: n o clicks, gallops, murmurs, or rubs, regular rhythm, S1, S2 normal, no s3, or vascular bruits. LUNGS: c lear to auscultation . BREASTS: no masses palpable bilaterally. ABDOMEN: b owel sounds normal, no ascites, no organomegaly, no mass. RECTAL EXAM: n ot examined. MUSCULOSKELETAL: e xtremities unremarkable, no clubbing, cyanosis or edema. PERIPHERAL PULSES: n ormal. NEUROLOGIC: a lert and oriented, cranial nerves 2-12 grossly intact, deep tendon reflexes 2+ symmetrical, motor strength normal upper and lower extremities, sensory exam intact. PSYCH: a lert, oriented. Assessment: * Assessment: 1. C LL (chronic lymphocytic leukemia) - C91.10 (Primary) N otes :He will begin his new therapy with 1 tablet a day. Blood work will be done periodically and he will be seen in the office to titrate to the effective dose. 2 . B enign prostatic hyperplasia, presence of lower urinary tract symptoms unspecified, unspecified morphology - N40.0 N otes :He wakes twice at night to urinate but is satisfied with this level of functioning. No change in his regimen was desired. 3 . T hrombocytopenia - D69.6 N otes :His mild thrombocytopenia remains without any bleeding. His platelets are 137,000. 4 . J unctional tachycardia - I47.1 N otes :Since his last visit he has had no episodes of fluttering in his chest or rapid heart rates tachycardia, chest pain or dyspnea. He has not been to the emergency room and his cardiac status seems stable today. His pulse is regular and slow. 5 . O verweight - E66.3 N otes :He has lost 6 pounds and his weight is fluctuating. He says his appetite is good. His daughter said he is eating well. His weight will be carefully observed. Plan: * Treatment: 2. O thers Continue Chlorambucil Tablet, 2 MG, 2 mg, Orally, daily; C ontinue Ibrutinib Capsule, 140 MG, 2 capsules, Orally, Once a day, Notes to Pharmacist: DX: C91.10 Chronic Lymphocytic leukemia. ? * Procedure Codes: * Preventive Medicine: Counseling: C are goal follow-up plan: Counseling for abnormal BMI given Y es Above Normal BMI Follow-up D ietary management education, guidance, and counseling, Dietary needs education * Follow Up: 2 Weeks (Reason: OV) * Images: * Sign off status: Completed true * Provider: Sarah Lynn MD Date: 0 10/16/2024 Generated for Bruce coleman/Kayla/Carolsmitting on: 1 01:01 PM EDT History and Physical Notes * HPI (History of Present Illness) Category Sub-Category Detail Notes COVID-19 Screening Questions Have you had any new onset fever, chills, cough, congestion, sore throat, shortness of breath, muscle aches?: Yes Sore Throat, Cough, Congestion 2 weeks Examination Category Sub-Category Detail Notes General Examination GENERAL APPEARANCE: pleasant , well nourished, well developed, in no acute distress, calm and relaxed, overweight, elderly man HEAD: atraumatic, normocep halic EYES: eomi, [...] extremities unremark able, no clubbing, cyanosis or edema LYMPH NODES: no enlarged lymph no tashia,spleen normal RECTAL EXAM: not examined PSYCH: alert, oriented ORAL CAVITY: normal, unremarkable
--- OUTSIDE RECORDS SUMMARY | 2024-11-01 05:15 | XMS_ITS ---
Author Organization Dillon Lynn III, MD Address [address] [place] [address] [place] [address] Care Team Providers Care Iron Erector Name Role Phone Alfredo LEGER, Avila Primary Care Provider Dr. Dillon Lai III Unavailable [phone] Allergies Allergen (clinical drug ingredient) Drug/Non Drug Allergy documented on EMR Reaction Allergy Type Onset Date Status No Known Drug Allergy Unknown Drug Allergy Active REASON FOR VISIT Chronic lymphocytic leukemia, Benign prostatic hypertrophy, Thrombocytopenia, Neutropenia Medications Medication SIG (Take, Route, Frequency, Duration) Notes Start Date End Date Status Albuterol Sulfate 2 puffs as needed Inhalation as needed 1,1,1,5s7mxkbg Active Morphine Sulfate 15 MG 1 tablet [...] Date Provider Diagnosis Dillon Lynn III, MD [address] [place] [address] [address] [place], [place] [address] 11/01/2024 Dillon Lynn CLL (chronic lymphoc ytic [...] 2 puffs as needed Inhalation as needed 1,1,1,6b4kthdo Morphine Sulfate 15 MG 1 tablet as [...] OV review labs Provider Name:Dillon Lynn , 06/21/2025 09:30:00 AM, [address] [place], [place] [address]K[place], [place], [address], Progress Notes * Otis CARMENioDOB:1940 (84 yo M)Acc No.[id number]:11/01/2024 Progress Notes Patient: Ishmael GRIGSBY Provider: Sarah Lynn MD :1940 A ge:84 Y S ex:Male Date:11/01/2024 Address:[address] [place], [place] [phone] Pcp:Avila Fuentes MD Subjective: * Chief Complaints: [...] He is . He was born in [place]. * Medications: T akingIbrutinib 140 MG Capsule [...] Inhalation as needed , Notes to Pharmacist: 1,1,1,8x1ywkfwPmsvxtvco 140 MG Capsule Oral Taking Ibrutinib 140 [...] Inhalation as needed , Notes to Pharmacist: 1,1,1,0d0nptcnPvuhgg Imbruvica 140 MG Capsule Oral DiscontinuedChlorambucil 2 [...] 0 11/01/2024 Generated for Bruce coleman/Kayla/Hiteshitting on: 01:01 PM EDT History and Physical Notes [...]
--- OUTSIDE RECORDS SUMMARY | 2024-11-14 11:57 | XMS_ITS ---
Author Organization Dillon Lynn III, MD Address [address] [place] [address] [place] [address] Care Team Providers Care Neighborhood Worker Name Role Phone Alfredo LEGER, Avila Primary Care Provider Dr. Dillon Lai III Unavailable [phone] REASON FOR VISIT Message Social History Sex Assigned At : Social History Observation Description Sex Assigned At Male Encounters Encounter Location Date Provider Diagnosis Dillon Lynn III, MD [address] [place] [address] [address] [facility] [place] [address] 11/14/2024 Dillon Lynn Plan Of Treatment Next Appt Details Provider Name:Dillon Lynn , 06/21/2025 09:30:00 AM, [address] [place] [address] [place], [address], Progress Notes * Otis CARMENioDOB:1940 (84 yo M)Acc No.[id number]:11/14/2024 Patient: Ishmael GRIGSBY :1940 A ge:84 Y S ex:Male Address:[address] [place] [address] * true * Date: Generated for Bruce coleman/Kayla/eTransmitting on: 01:04 PM EDT
--- OUTSIDE RECORDS SUMMARY | 2024-12-27 06:30 | XMS_ITS ---
Author Organization Dillon Lynn III, MD Address [address] [place] [address] Care Team Providers Care Master Deputy Sheriff Court Security Name Role Phone Alfredo LEGER, Avila Primary Care Provider Dr. Dillon Lai III Unavailable Allergies Allergen (clinical drug ingredient) Drug/Non Drug Allergy documented on EMR Reaction Allergy Type Onset Date Status No Known Drug Allergy Unknown Drug Allergy Active Results Component Value Reference Range Notes Beta-2 Microglobulin, Serum Reviewed date:02/27/2025 03:57:54 PM Interpretation: Performing Lab:[facility], [address] [place] [phone] Notes/Report: Beta-2 Microglobulin, Serum 3.88 < OR = 2.51 m g/L THIS TEST WAS PERFORMED AT: [facility] [address] [place] [phone] VINCE LUCAS MD REASON FOR VISIT Chronic [...] 2 puffs as needed Inhalation as needed 1,1,1,8z0zlxis Active fentaNYL 25 MCG/HR APPLY 1 PATCH [...] Date Provider Diagnosis Dillon Lynn III, MD [address] [place] [address] [place] [address] 12/27/2024 Dillon Lynn CLL (chronic lymphoc ytic [...] 2 puffs as needed Inhalation as needed 1,1,1,4n5bjhsz fentaNYL 25 MCG/HR APPLY 1 PATCH TOPICALLY [...] ov review labs Provider Name:Dillon Lynn , 06/21/2025 09:30:00 AM, [address] [place] [address] [address]ATH[address]ukh, [place], [address], Progress Notes * Otis CARMENioDOB:1940 (84 yo M)Acc No.[id number]:12/27/2024 Progress Notes Patient: Sarah JENNIFERSammy BolanosIshmael Provider: Sarah Lynn MD :1940 A ge:84 Y S ex:Male Date:12/27/2024 Address:[address] [place] [address], [id number] Pcp:Avila Fuentes MD Subjective: * Chief Complaints: [...] He is . He was born in [place]. * Medications: T akingIbrutinib 140 MG Capsule [...] Inhalation as needed , Notes to Pharmacist: 1,1,1,9e8zfodwFufjkg Ibrutinib 140 MG Capsule 2 capsules Orally [...] Inhalation as needed , Notes to Pharmacist: 1,1,1,8t7wbcyaQswgzkmaouncTkmwtwlfnznx 2 MG Tablet 2 mg Orally daily [...] MD Date: 0 12/27/2024 Generated for Bruce coleman/Kayal/Carolsmitting on: 01:02 PM EDT History and Physical Notes * [...]
--- OUTSIDE RECORDS SUMMARY | 2025-02-18 06:02 | XMS_ITS ---
Author Organization Dillon Lynn III, MD Address [address] [place] [address] [place] [address] Care Team Providers Care Evp And Chief Operating Officer Name Role Phone Alfredo LEGER, Avila Primary Care Provider Dr. Dillon Lai III Unavailable [phone] REASON FOR VISIT Concern Social History Sex Assigned At : Social History Observation Description Sex Assigned At Male Encounters Encounter Location Date Provider Diagnosis Dillon Lynn III, MD [address] [place] [address] [place] [address] 02/18/2025 Dillon Lynn CLL (chronic lymphoc ytic leukemia) C91.10 ; Thrombocytopenia D69.6 and Overweight E66.3 Assessments Encounter Date Diagnosis (ICD Code) Assessment Notes Treat ment Notes Treatment Clinical Notes 02/18/2025 CLL (chronic lymphocytic leukemia) (ICD-10 - C91.10) 02/18/2025 Thrombocytopenia (ICD-10 - D69.6) 02/18/2025 Overweight (ICD-10 - E66.3) Plan Of Treatment Next Appt Details Provider Name:Dillon Lynn , 06/21/2025 09:30:00 AM, [address] [place] [address] [place], [address], Progress Notes * Mariaa CARMENOB:1940 (85 yo M)Acc No.[id number]:02/18/2025 Patient: Sarah Ishmael BEAN :1940 A ge:85 Y S ex:Male Address:[address] [place] [address] Subjective: * Chief Complaints: * C oncern [...] * true * Date: Generated for Bruce coleman/Kayla/Carolsmhayder on: 01:03 PM EDT
--- OUTSIDE RECORDS SUMMARY | 2025-03-07 06:30 | XMS_ITS ---
Author Organization Dillon Lynn III, MD Address [address] [place] [address] [place] [address] Care Team Providers Care Loan Collector Name Role Phone Alfredo LEGER, Avila Primary [...] 2 puffs as needed Inhalation as needed 1,1,1,7k2kyifg Active Imbruvica 140 MG Oral Act sruthi [...] Date Provider Diagnosis Dillon Lynn III, MD [address] [place] [address] [place] [address] 03/07/2025 Dillon Lynn CLL (chronic lymphoc ytic [...] 2 puffs as needed Inhalation as needed 1,1,1,4b1rjond Imbruvica 140 MG Oral Pending Test Test Name Order Date PROFILE, RANDOM (COMPREHENSIVE METABOLIC ) 03/07/2025 CBC w DIFF 03/07/2025 Next Appt Details Follow Up: 2 Months, Reason: ov review labs Provider Name:Dillon Lynn , 06/21/2025 09:30:00 AM, [address] [place] [address] , [address], [address], Progress Notes * Otis CARMENioDOB:1940 (85 yo M)Acc No.[id number]:03/07/2025 Progress Notes Patient: Ishmael GRIGSBY Provider: Sarah Lynn MD :1940 A ge:85 Y S ex:Male Date:03/07/2025 Address:[address] [place], [place] [phone] Pcp:Avila Fuentes MD Subjective: * Chief Complaints: * C hronic lymphocytic leukemiaBenign prostatic hypertrophyHypertensionNeutropeniaThrombocytopeniaHistory of junctional tachycardia * HPI: C OVID-19 Screening: went to er for cp bmc. He returns for medical management of his chronic lymphocytic leukemia.? Since his last visit he had developed an episode of chest pain and went to the [facility] where he was kept for 12 [...] He is . He was born in [place]. * Medications: T akingIbrutinib 140 MG Capsule [...] Inhalation as needed , Notes to Pharmacist: 1,1,1,1d2tdoafWclscmkwn 140 MG Capsule Oral Taking Ibrutinib 140 [...] Inhalation as needed , Notes to Pharmacist: 1,1,1,6n2kpahaKuepvb Imbruvica 140 MG Capsule Oral Not-Taking/PRNChlorambucil 2 [...] Date & Time - 02/19/2025 09:16 AM)?ValueReference Range?[id number] - MG/DL * Lab:Comprehensive Met. Panel * [...] 0 03/07/2025 Generated for Bruce coleman/Kayla/Hiteshitting on: 01:02 PM EDT History and Physical [...]
--- OUTSIDE RECORDS SUMMARY | 2025-05-09 06:45 | XMS_ITS ---
Author Organization Dillon Lynn III, MD Address [address] [place] [address] [place] [address] Care Team Providers Care Money Market Dealer Name Role Phone Alfredo LEGER, Avila Primary [...] 2 puffs as needed Inhalation as needed 1,1,1,2r7gxctd Active Vitamin D3 50 MCG (2000 UT) [...] Provider Diagnosis Dillon Lynn III, MD [address] [place] [address] [place] [address] 05/09/2025 Dillon Lynn CLL (chronic lymphoc ytic [...] 2 puffs as needed Inhalation as needed 1,1,1,7t0ebkad Vitamin D3 50 MCG (2000 UT) 1 [...] Provider Name:Dillon Lynn , 06/21/2025 09:30:00 AM, [address] [place] [address], [address], Progress Notes * Otis CARMENioDOB:1940 (85 yo M)Acc No.[id number]:05/09/2025 Progress Notes Patient: Ishmael GRIGSBY Provider: Sarah Lynn MD :1940 A ge:85 Y S ex:Male Date:05/09/2025 Address:[address] [place], [place] [phone] Pcp:Avila Fuentes MD Subjective: * Chief Complaints: [...] we will appeal. He was hospitalized at [facility] couple of months ago with chest pain [...] Inhalation as needed , Notes to Pharmacist: 1,1,1,3n1vveucLtycigqkx 140 MG Capsule Oral Medication List reviewed [...] Inhalation as needed , Notes to Pharmacist: 1,1,1,7m8akdzjJnpuxv Imbruvica 140 MG Capsule Oral Medication List [...] Date & Time - 02/19/2025 09:16 AM)?ValueReference Range?[id number] - MG/DL ???Lab:Pathology (Order Date - 02/20/2025) [...] 0 05/09/2025 Generated for Shari jared/Kayla/Hiteshitting on: 01:04 PM EDT History and Physical Notes * [...]
--- OUTSIDE RECORDS SUMMARY | 2025-05-09 07:17 | XMS_ITS ---
Author Organization Dillon Lynn III, MD Address [address] [place] [facility] [place] [address] Care Team Providers Care Loftsman/Woman Name Role Phone Alfredo LEGER, Avila Primary Care Provider Dr. Dillon Lai III Unavailable [phone] REASON FOR VISIT go back on Leukeran/Chlorambucil Social History Sex Assigned At : Social History Observation Description Sex Assigned At Male Encounters Encounter Location Date Provider Diagnosis Dillon Lynn III, MD [address] [place] [address] [address] [facility] [facility] [place] [address] 05/09/2025 Dillon Lynn Plan Of Treatment Next Appt Details Provider Name:Dillon Lynn , 06/21/2025 09:30:00 AM, [address] [place] [address] [place], [address], Progress Notes * Otis CARMENioDOB:1940 (85 yo M)Acc No.[id number]:05/09/2025 Patient: Sarah Ishmael BEAN :1940 A ge:85 Y S ex:Male Address:[address] [place] [address] * true * Date: Generated for Printi ng/Faxing/eTransmitting on: 01:03 PM EDT
[2025-06-14 11:12] LABS: MANUAL DIFF FLAG NO
[2025-06-14 11:50] LABS: Hematocrit 39.7 % (42.0-52.0); Hemoglobin 12.8 g/dl (14.0-18.0); Imm Gran Abs Auto 0.03 X10*3/uL (0.00-0.03); Imm Gran Pct Auto 0.6 % (0.0-0.4); Lymphocytes Absolute Auto 1.0 X10*3/uL (1.2-4.9); Mean Corpuscular HGB Conc 32.2 g/dl (31.0-36.0); Mean Corpuscular Hemoglobin 32.2 pg (27.0-33.0); Mean Corpuscular Volume 100.0 fL (80.0-98.0); NRBC Abs Auto 0.000 X10*3/uL (0.0-0.012); NRBC Pct Auto 0.0 /100WBC (0.0-0.2); Platelet Count 135 X10*3/uL (160-400); Red Blood Count 3.97 X10*6/uL (4.60-5.80); White Blood Count 4.9 X10*3/uL (4.8-10.8)
--- OUTSIDE RECORDS SUMMARY | 2025-06-14 13:03 | XMS_ITS | Patient Health Record ---
Author Organization [facility] Address [address] [place] [address] Care Team Providers Care Accounts Receivable Clerk Name Role Phone Valentino Acosta Jr [phone] Reason For Referral No Information Plan Of Treatment No Information
--- OUTSIDE RECORDS SUMMARY | 2025-06-14 13:04 | XMS_ITS | Clinical Summary ---
Author Organization [facility] Address [address] [place] [address] Phone Care Team Providers Care Billing Control Clerk Name Role Phone Avila Fuentes Primary Care Provider [phone] Allergies No known active allergies Social History [...] 6:52 PM EST [facility] Potassium 4.2 3.5 - 5.5 mmol/L LAB CHEMISTRY METHOD 10/01/2024 6:52 PM [facility] Chloride 106 96 - 110 mmol/L LAB CHEMISTRY METHOD 10/01/2024 6:52 PM [facility] CO2 27 21 - 32 mmol/L LAB CHEMISTRY METHOD 10/01/2024 6:52 PM [facility] Anion Gap 6 3 - 11 LAB CHEMISTRY METHOD 10/01/2024 6:52 PM [facility] Glucose 95 70 - 100 mg/dL LAB CHEMISTRY METHOD 10/01/2024 6:52 PM [facility] BUN 25 5 - 25 mg/dL LAB CHEMISTRY METHOD 10/01/2024 6:52 PM [facility] Creatinine 1.71(H) 0.70 - 1.30 mg/dL LAB CHEMISTRY METHOD 10/01/2024 6:52 PM [facility] eGFR 39(L) >=60 mL/min/1. 73m2 LAB CHEMISTRY METHOD 10/01/2024 6:52 PM [facility] Comment:Calculation based on the Chronic Kidney Disease Epidemiology Collaboration (CKD-EPI) equation refit without adjustment for race. BUN/Creatinine Ratio 14.6 LAB CHEMISTRY METHOD 10/01/2024 6:52 PM [facility] Calcium 8.9 8.5 - 10.5 mg/dL LAB CHEMISTRY METHOD 10/01/2024 6:52 PM [facility] AST (SGOT) 24 10 - 42 unit/L LAB CHEMISTRY METHOD 10/01/2024 6:52 PM [facility] ALT (SGPT) 20 10 - 60 unit/L LAB CHEMISTRY METHOD 10/01/2024 6:52 PM [facility] Alkaline Phosphatase 62 42 - 121 unit/L LAB CHEMISTRY METHOD 10/01/2024 6:52 PM [facility] Total Protein 6.8 6.0 - 8.0 g/dL LAB CHEMISTRY METHOD 10/01/2024 6:52 PM [facility] Albumin 3.7 3.2 - [...] LEGER LAB BLOOD ORDERABLES Final Resu lt [facility]) [facility] [address] [place] [address], from Last 3 Months or Most Recently Relevant to Health Maintenance Insurance [place]ICA[place] - [place]ICARE Care Teams Billing Control Clerk Relationship Specialty Start Date End Date Avila Fuentes DO [facility] [employer], [place] PCP - General Internal Medicine 09/08/17
--- OUTSIDE RECORDS SUMMARY | 2025-06-14 13:04 | XMS_ITS | Patient Health Record ---
Author Organization Dillon Lynn III, MD Address [address] [place] [address] [place] [address] Care Team Providers Care Manufacturing Engineer Assembly Name Role Phone Avila Fuentes MD Primary Care Provider Dr. Dillon Lai III Unavailable [phone] Allergies Allergen (clinical drug ingredient) Drug/Non Drug Allergy documented on EMR Reaction Allergy Type Onset Date Status No Known Drug Allergy Unknown Drug Allergy Active Results Component Value Reference Range Notes Beta-2 Microglobulin, Serum Reviewed date:02/27/2025 03:57:54 PM Interpretation: Performing Lab:[facility], [address] [place] [phone] Notes/Report: Beta-2 Microglobulin, Serum 3.88 < OR = 2.51 mg/L THIS TEST WAS PERFORMED AT: [facility] [address] [place] [place] [phone] VINCE LUCAS MD Complete Blood Count Auto Di ff Reviewed date:11/11/2024 10:16:50 AM Interpretation: Performing Lab:[facility], [address] [place] [phone] Notes/Report: White Blood Count 10.6 4.8-10.8 X10*3/uL [...] Panel Reviewed date:11/11/2024 10:16:50 AM Interpretation: Performing Lab:[facility], [address] [place] [phone] Notes/Report: Sodium 141 135-145 mmol/L Potassium 4.0 [...] Serum Reviewed date:11/11/2024 10:16:50 AM Interpretation: Performing Lab:[facility], [address] [place] [phone] Notes/Report: Beta-2 Microglobulin, Serum 4.29 < OR = 2.51 mg/L THIS TEST WAS PERFORMED AT: [facility] [address] [place] [phone] VINCE LUCAS MD Complete Blood Count Auto Di ff Reviewed date:11/11/2024 10:16:50 AM Interpretation: Performing Lab:[facility], [address] [place] [phone] Notes/Report: White Blood Count 9.7 4.8-10.8 X10*3/uL [...] ff Reviewed date:12/29/2024 08:46:20 PM Interpretation: Performing Lab:[facility], [address] [place] [phone] Notes/Report: White Blood Count 8.5 4.8-10.8 X10*3/uL [...] Panel Reviewed date:12/29/2024 08:46:20 PM Interpretation: Performing Lab:[facility], [address] [place] [phone] Notes/Report: Sodium 143 135-145 mmol/L Potassium 4.3 [...] ff Reviewed date:02/20/2025 05:39:39 AM Interpretation: Performing Lab:[facility], [address] [place] [phone] Notes/Report: White Blood Count 7.6 4.8-10.8 X10*3/uL [...] INR Reviewed date:02/20/2025 05:39:39 AM Interpretation: Performing Lab:[address] [address] Notes/Report: Prothrombin Time 9.9 10.9-12.4 SEC INTERNATIONAL [...] Time Reviewed date:02/20/2025 05:39:39 AM Interpretation: Performing Lab:[facility], [address] [place] [phone] Notes/Report: Partial Thromboplastin Time 30.4 26.0-36.8 SEC For information regarding the monitoring of direct thrombin inhibitors, please refer to Pharmacy. Fibrinogen Reviewed date:02/20/2025 05:39:39 AM Interpretation: Performing Lab:[address] [address] Notes/Report: Fibrinogen 445 259-690 MG/DL Comprehensive Met. Panel Reviewed date:02/20/2025 05:39:39 AM Interpretation: Performing Lab:[facility] [address], [place] [address] Notes/Report: Sodium 143 135-145 mmol/L Potassium 4.3 [...] Antigen Reviewed date:02/20/2025 03:22:01 PM Interpretation: Performing Lab:[facility], [address] [place] [phone] Notes/Report: Prostate Specific Antigen 0.47 <0.05-4.0 ng/mL PSA methodology: Best Alinity i Chemiluminescent Microparticle Immunoassay (CMIA) Pathology Reviewed date:02/27/2025 03:57:54 PM Interpretation: Performing Lab:[facility], [address] [place] [phone] Notes/Report: ------- Name: George Beltran Age/Sex: 85/M : 1940 Unit#: [id number] Attend Dr: Mary Servin [facility]: 02/20/25 Status : DEP REF Location: .LAB Disch: ------- SPEC : [id number] RECD : 02/21/25 STATUS: ADRIANA MOSLEY NUM: [id number] MARC: 02/20/25 [facility] DR: Mary Servin [facility] ENTERED: 02/21/25 36 SP TYPE: Cytology OTHR [...] and their performance characte ristics determined by [facility]. They have not been cleared or appr jose carlos by the U.S. Food and Drug Administration (FDA). However, the FDA has determined that such clearance or approval is not necessary. This laboratory is certified under the Clinical Laboratory Improvement Amendments of 1988 (CLIA) as qualified to perform high comp lexity clinical laboratory testing. Copies To: Dillon Lynn MD [address] [place] [address], [facility] [address] [address] [facility] [address] [place] [address] Dr. [address] [id number] [email or web address] CONTINUED ON NEXT PAGE ------- Name: Vinayak LundyGeorge schultz freida Age/Sex: 85/M : 1940 Unit#: [id number] Attend Dr: Mary Servin [facility] Re02/20/25 Status : DEP REF Location: [facility] Disch: ------- SPEC : [id number] RECD : 02/21/25 STATUS: ADRIANA MOSLEY NUM: [id number] MARC: 02/20/25-1626 [facility] DR: Mary Servin [facility] ENTERED: 02/21/25-11 36 SP TYPE: Cytology [...] 2 puffs as needed Inhalation as needed 1,1,1,4c0krzhi Active Aspirin 81 81 MG 1 tablet [...] Problem Status W/U Status Risk Notes Problem 243184649 Overweight (E66.3) Active confirmed He has gained 6 pounds. His body mass index is 27.9. I recommended stabilizing his weight at this level. Problem Weight loss (550387821) Weight loss (R63.4) Active confirmed He has gained 6 pounds on his body mass index is now 27. He is no longer losing weight. Problem 349203060 Thrombocytopenia (D69.6) Active confirmed His platelet count is at his baseline which is 121,000. He has had no bleeding. No change in his medications was made today. Problem 664699560 Neutropenia (D70.9) Active confirmed His neutrophils and lymphocytes are present in normal numbers. His medication was continued at the current dose. Problem 43174346 Essential hypertension (I10) Active confirmed His blood pressure is stable and well controlled today and no change in his regimen seems necessary.His value was 133/76. Problem 10227164 CLL (chronic lymphocytic leukemia) (C91.10) Active confirmed He was continued on Ibrutinib without a change in dose. He is stable and his disease is well controlled. I will try to obtain the chlorambucil that he and his family prefer. Problem 635345477 Urine retention (R33.9) Active confirmed He recently had a catheter in place Problem 445790632 Benign prostatic hyperplasia, presence of lower urinary tract symptoms unspecified, unspecified morphology (N40.0) Active confirmed He wakes twice at night to urinate but is satisfied with this level of functioning. No change in his regimen was desired. Problem 188083206 Diverticulitis (K57.92) Active confirmed He clinically has diverticulitis and will be treated with antibiotics for close follow-up visit. 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) Active confirmed He was [...] Provider Diagnosis Dillon Lynn III, MD [address] [place] [address] [place] [address] 10/16/2024 Dillon Lynn CLL (chronic lymphoc ytic leukemia) C91.10 ; Benign prostatic hyperplasia, presence of lower urinary tract symptoms unspecified, unspecified morphology N40.0 ; Thrombocytopenia D69.6 ; Junctional tachycardia I47.1 and Overweight E66.3 Dillon Lynn III, MD [address] [place] [address] [place] [address] 11/01/2024 Dillon Lynn CLL (chronic lymphoc ytic leukemia) C91.10 ; Thrombocytopenia D69.6 ; Overweight E66.3 and Essential hypertension I10 Dillon Lynn III, MD [address] [place] [address] [place] [address] 12/27/2024 Dillon Lynn CLL (chronic lymphoc ytic leukemia) C91.10 ; Thrombocytopenia D69.6 ; Benign prostatic hyperplasia, presence of lower urinary tract symptoms unspecified, unspecified morphology N40.0 ; Essential hypertension I10 ; Weight loss R63.4 ; Junctional tachycardia I47.1 and Overweight E66.3 Dillon Lynn III, MD [address] [place] [address] [place] [address] 03/07/2025 Dillon Lynn CLL (chronic lymphoc ytic leukemia) C91.10 ; Thrombocytopenia D69.6 ; Neutropenia D70.9 ; Benign prostatic hyperplasia, presence of lower urinary tract symptoms unspecified, unspecified morphology N40.0 ; Essential hypertension I10 and Junctional tachycardia I47.1 Dillon Lynn III, MD [address] [place] [address] [place] [address] 05/09/2025 Dillon Lynn CLL (chronic lymphoc ytic leukemia) C91.10 ; Overweight E66.3 ; Junctional tachycardia I47.1 ; Thrombocytopenia D69.6 and Benign prostatic hyperplasia, presence of lower urinary tract symptoms unspecified, unspecified morphology N40.0 Dillon Lynn III, MD [address] [place] [address] [place] [address] 09/20/2024 Dillon Lynn III, MD [address] [place] [address] [place] [address] 09/24/2024 Dillon Lynn III, MD [address] [place] [address] [place] [address] 11/14/2024 Dillon Lynn III, MD [address] [place] [address] [place] [address] 02/18/2025 Dillon Lynn CLL (chronic lymphoc ytic leukemia) C91.10 ; Thrombocytopenia D69.6 and Overweight E66.3 Dillon Lynn III, MD [address] [place] [address] [address] [place] [place] [address] 05/09/2025 Dillon Lynn Assessments Encounter Date Diagnosis [...] CLL (chronic lymphocytic leukemia) (ICD-10 - C91.10) 10/16/2024 Thrombocytopenia (ICD-10 - D69.6) His mild [...] no complaints. 02/18/2025 Thrombocytopenia (ICD-10 - D69.6) 10/16/2024 Junctional tachycardia (ICD-10 - I47.1) Since [...] made today. 02/18/2025 Overweight (ICD-10 - E66.3) 10/16/2024 Overweight (ICD-10 - E66.3) He has [...] DIFF 05/09/2025 Next Appt Details Provider Name:Dillon Arias Leah , 06/21/2025 09:30:00 AM, [address] [place] [address] [address], [place], [address], Insurance Providers Payer Name Payer Address Payer Phone Subscriber Number Group Number Insured Name Patient Relationship to Insured Coverage Start Date Coverage End Date MEDICARE NGS [address] [place] [address] [id number] Ishmael Licea Self - patient is the insured [place] [address] [place] [id number] [phone] [id number] Ishmael Licea Self - patient is the insured Medical (General) History Medical History History ICD Code hypertension bph urine retention elevated psa back surgery for nerve impingement chronic lymphocytic leukemia Surgical History Surgery Date(Month/Year) No history right parotid gland lymph node biopsy, C LL/SLL 12/2011 Hospitalization History Reason Date(Month/Year) No history
[2025-06-14 13:38] LABS: Alanine Aminotransferase 24 U/L (0-40); Albumin Level 4.1 g/dL (3.5-5.0); Alkaline Phosphatase 76 U/L (39-117); Anion Gap 12 (12-20); Aspartate Amino Transferase 35 U/L (5-37); Blood Urea Nitrogen 28 mg/dL (9-16); Calcium 8.7 mg/dL (8.4-10.2); Carbon Dioxide 27 mmol/L (22-29); Chloride 108 mmol/L (96-108); Estimated Glomerular Filt Rate 37; Potassium 4.8 mmol/L (3.3-5.1); Sodium 142 mmol/L (135-145); Total Protein 7.0 g/dL (6.5-8.0)
== END 2025-06-14 10:40 | disposition home or self-care (01) ==
LOC: HO.LAB 10:39
PROVIDERS: PCP Internal Medicine; Visit Provider Internal Medicine Medical Oncology
DX: C91.10 Chronic lymphocytic leukemia of B-cell type not having achieved remission (principal)
CPT/HCPCS: 36415; 80053; 85025

== ENCOUNTER → 2025-08-09 07:44 | Outpatient (REF) | payer MEDICARE, MEDICAID, SELFPAY ==
--- NOTE | ~2025-08-09 | NM_ITS ---
Lexiscan Myocardial perfusion study Indication: Precordial chest pain to evaluate for myocardial ischemia Technique: The patient was brought in for a Lexiscan perfusion study on 08/09/2025 and was injected 0.4 mg of Lexiscan intravenously. Within a minute of this injection 25 mCi of sestamibi was given intravenously. Images were obtained using the SPECT gamma camera interlaced with the gating device. Images were obtained in supine position. Resting perfusion study was performed on 08/12/2025. Patient was administered 25 mCi of sestamibi intravenously at rest. Images were then obtained in supine position. Images were processed with the software and compared side to side in short axis, horizontal long axis and vertical long axis views. Images obtained without without CT attenuation. Total DLP 81 mGy-cm. Findings: The stress perfusion study showed nonattenuated images show moderately reduced uptake in the inferior, inferolateral and basal lateral wall of the LV myocardium. Attenuated corrected images show mildly reduced uptake in the inferior, basal lateral as well as inferolateral wall of the LV myocardium. The gated study shows reduced LV systolic function with calculated LVEF of 50%. LV cavity is mildly to moderately dilated in size. The gated study shows reduced wall thickening and contraction of basal inferior, inferolateral and mid inferior segments. Resting study shows no significant change in perfusion pattern compared to stress perfusion study. Gating at rest reveals inferior and inferolateral wall motion with ejection fraction at 42%. The findings are consistent with no reversible defect suggestive of ischemia. Fixed defect of the inferior and inferolateral wall suggestive nontransmural myocardial infarction. NM/NM cardiolite stress test Impression: 1. Myocardial perfusion imaging study shows no myocardial ischemia but findings suggestive of nontransmural infarct of the inferior and inferolateral wall 2. Gated LVEF is 42% at rest 3. Transient ischemic dilatation not present but LV cavity is dilated Nondiagnostic changes on EKG. Electronically signed by: Phuc Reyes MD 08/12/2025 03:30 PM [facility] [place]
--- NOTE | 2025-08-09 07:48 | CA_ITS ---
Acquisition Time: 2025-08-09 08:03:35 Total Exercise Time: 00:02:00 Test Indications: CAD CARDIOMYOPATHY CP Medications: ASA ALBUTEROL LEUKERAN DOXEPIN MIRTAZAPINE TRANMADOL Protocol: LEXISCAN Max HR: 85 BPM 62% of Pred: 135 BPM Max BP: 164/72 mmHG Max Work Load: 1.0 METS Pharmacological stress test with Lexiscan while pt swings his legs in chair, with reports of knee pain, with isolated PVCs, with normotensive response to injection. Nondiagnostic EKG for ischemia. In recovery, pt feeling back to baseline. Nuclear images pending. Test reviewed with Dr. Reyes. Referred By: Benja Singh Electronically Signed By: Kam Machado
== END ==
LOC: HO.CARD 07:44
PROVIDERS: PCP Internal Medicine; Visit Provider Internal Medicine
DX: R07.2 Precordial pain (principal); I25.119 Atherosclerotic heart disease of native coronary artery with unspecified angina pectoris
CPT/HCPCS: 78452; 93017; A9500; J0280; J2785

== ENCOUNTER → 2025-08-09 07:48 | Outpatient (BNV) | payer MEDICARE, MEDICAID, SELFPAY | PROVIDERS: PCP Internal Medicine | DX: R07.2 Precordial pain (principal) | CPT/HCPCS: 78452; 93016; 93018 ==

== ENCOUNTER 2025-08-16 09:19 | Outpatient (AMB) | payer MEDICARE, MEDICAID, SELFPAY ==
--- OUTSIDE RECORDS SUMMARY | 2024-11-01 04:15 | XMS_ITS ---
Author Organization Dillon Lynn III, MD Address [address] [place] [address] [place] [address] Care Team Providers Care Trenching Machine Operator Name Role Phone Alfredo LEGER, Avila Primary Care Provider Dr. Dillon Lai III Unavailable Allergies Allergen (clinical drug ingredient) Drug/Non Drug Allergy documented on EMR Reaction Allergy Type Onset Date Status No Known Drug Allergy Unknown Drug Allergy Active REASON FOR VISIT Chronic lymphocytic leukemia, Benign prostatic hypertrophy, Thrombocytopenia, Neutropenia Medications Medication SIG (Take, Route, Frequency, Duration) Notes Start Date End Date Status Albuterol Sulfate 2 puffs as needed Inhalation as needed 1,1,1,5l1apaom Active Morphine Sulfate 15 MG 1 tablet as needed Orally as needed Active Imbruvica 140 MG Oral Act sruthi Mirtazapine 30 MG 1 tablet at bedtime Orally Once a day Active Vitamin D3 50 MCG (1999 UT) 1 capsule Orally Once a day Active Vitamin B 12 100 MCG as directed Orally once a day Active fentaNYL 25 MCG/HR APPLY 1 PATCH TOPICALLY TO THE SKIN EVERY 72 HOURS Transdermal Active traMADol HCl 50 MG 2 tablet Orally twice a day Active traZODone HCl 100 MG 1 tablet at bedtime Orally Once a day Active Aspirin 81 81 MG 1 tablet Orally Once a day Active Ibrutinib 140 MG 2 capsules Orally Once a day DX: C91.10 Chronic Lymphocytic leukemia 10/10/2024 Active Chlorambucil 2 MG 2 mg Orally [...] Tobacco Non-User Aggressive non-smoker Vital Signs Temperature 97.5 degrees Fahrenheit 11/02/19 25 Blood pressure systolic 143 mm Hg 11/02/19 25 Blood pressure diastolic 89 mm Hg 025 Heart Rate 127 /min 11/01/2024 Height 66 in 11/01/2024 Weight 167 lbs 11/01/2024 BMI 26.95 kg/m2 11/01/2024 Encounters Encounter Location Date Provider Diagnosis Dillon Lynn III, MD [address] [place] [address] [address] [place], [place] [address] 11/01/2024 Dillon Lynn CLL (chronic lymphoc ytic leukemia) C91.10 ; Thrombocytopenia D69.6 ; Overweight E66.3 and Essential hypertension I10 Assessments Encounter Date Diagnosis (ICD Code) Assessment Notes Treat ment Notes Treatment Clinical Notes 11/01/2024 CLL (chronic lymphocytic leukemia) (ICD-10 - C91.10) He was continued on 140 mg daily with a follow-up in 21 days. 11/01/2024 Thrombocytopenia (ICD-10 - D69.6) His platelet count is now in the normal range. 11/01/2024 Overweight (ICD-10 - E66.3) His weight is stable. His appetite is good. This will be observed carefully. 11/01/2024 Essential hypertensi on (ICD-10 - I10) His blood pressure is stable and well controlled today and no change in his regimen seems necessary. Plan Of Treatment Medication Medication Name Sig Start Date Stop Date Notes Albuterol Sulfate 2 puffs as needed Inhalation as needed 1,1,1,8n5xlevq Morphine Sulfate 15 MG 1 tablet as neede d Orally as needed Imbruvica 140 MG Oral Mirtazapine 30 MG 1 tablet at bedtime Orally Once a day Vitamin D3 50 MCG (2000 UT) 1 capsule Orally Once a day Vitamin B 12 100 MCG as directed Orally once a day fentaNYL 25 MCG/HR APPLY 1 PATCH TOPICALLY TO THE SKIN EVERY 72 HOURS Transdermal traMADol HCl 50 MG 2 tablet Orally twic e a day traZODone HCl 100 MG 1 tablet at bedtime Orally Once a day Aspirin 81 81 MG 1 tablet Orally Once a day Ibrutinib 140 MG 2 capsules Orally Once a day 10/10/2024 DX: C91.10 Chronic Lymphocytic leukemia Chlorambucil 2 MG 2 mg Orally daily 09/24/2024 Next Appt Details Follow Up: 8 weeks, Reason: OV review labs Provider Name:Dillon Lynn , 09/27/2025 09:30:00 AM, [address] [place], [place] [address]KATHARINE, [place], [address], Progress Notes * Otis CARMENioDOB:1940 (84 yo M)Acc No.[id number]:11/01/2024 Progress Notes Patient: Ishmael GRIGSBY Provider: Sarah Lynn MD :1940 A ge:84 Y S ex:Male Date:11/01/2024 Address:[address] [place], [place] [phone] Pcp:Avila Fuentes MD Subjective: * Chief Complaints: * C hronic lymphocytic leukemiaBenign prostatic hypertrophyThrombocytopeniaNeutropenia * HPI: C OVID-19 Screening: He returns to monitor side efffects from his medication. His chlorambucil was discontinued because the insurance company will no longer pay for it. He has begun on ibruitinib 140 mg daily. His white blood cell count is 9000. The differential is normal. He has had no side effects recently. He had some insomnia and nausea for the first few days. He is now tolerating it well. This dose was continued with a repeat visit in 3 weeks after a CBC. Questions H ave you had any new onset fever, chills, cough, congestion, sore throat, shortness of breath, muscle aches? N o * ROS: G eneral/Constitutional: pain o nly normal aches and pains. C hills d enies.?Fatigue a dmits. F ever d enies. E NT: Decreased hearing i n both ears. R espiratory: Cough d enies. C ardiovascular: [...] He is . He was born in [place]. * Medications: T akingIbrutinib 140 MG Capsule 2 capsules Orally Once a day , Notes to Pharmacist: DX: C91.10 Chronic Lymphocytic leukemiaAspirin 81 81 MG Tablet Delayed Release 1 [...] Inhalation as needed , Notes to Pharmacist: 1,1,1,5k4thltlAoysmnhqc 140 MG Capsule Oral Taking Ibrutinib 140 MG Capsule 2 capsules Orally Once a day , Notes to Pharmacist: DX: C91.10 Chronic Lymphocytic leukemiaTaking Aspirin 81 81 MG Tablet Delayed Release [...] Inhalation as needed , Notes to Pharmacist: 1,1,1,4n7tthqmSmjcse Imbruvica 140 MG Capsule Oral DiscontinuedChlorambucil 2 MG Tablet 2 mg Orally daily Medication List reviewed and reconciled with the patientDiscontinued Chlorambucil 2 MG Tablet 2 mg Orally daily Medication List reviewed and reconciled with the patient * Allergies: N o Known Drug Allergyno[Allergies Verified] Objective: * Vitals: H t: 66, Wt:167, BMI:26.95, BP:143/89, HR:127, Temp:97.5, Wt-k.75. * Examination: G eneral Examination: GENERAL APPEARANCE: p leasant, well nourished, well developed, in no acute [...] leukemia) - C91.10 (Primary) N otes :He was continued on 140 mg daily with a follow-up in 21 days. 2 . T hrombocytopenia - D69.6 N otes :His platelet count is now in the normal range. 3 . O verweight - E66.3 N otes :His weight is stable. His appetite is good. This will be observed carefully. 4 . E ssential hypertension - I10 N otes :His blood pressure is stable and well controlled today and no change in his regimen seems necessary. Plan: * Treatment: 2. O thers Continue [...] counseling, Dietary needs education * Follow Up: 8 weeks (Reason: OV review labs) * Images: * Sign off status: Completed true * Provider: Sarah Lynn MD Date: 0 11/01/2024 Generated for Bruce coleman/Kayla/Hiteshitting on: 10/17/2024 09:55 AM EST History and Physical Notes * HPI (History of Present Illness) Category Sub-Category Detail Notes COVID-19 Screening Questions Have you had any new onset fever, chills, cough, congestion, sore throat, shortness of breath, muscle aches?: No Examination Category Sub-Category Detail Notes General Examination [...]
--- OUTSIDE RECORDS SUMMARY | 2024-11-14 10:57 | XMS_ITS ---
Author Organization Dillon Lynn III, MD Address [address] [place] [address] [place] [address] Care Team Providers Care Rectangular Tank Cooper Name Role Phone Alfredo LEGER, Avila Primary Care Provider Dr. Dillon Lai III Unavailable REASON FOR VISIT Message Social History Sex Assigned At : Social History Observation Description Sex Assigned At Male Encounters Encounter Location Date Provider Diagnosis Dillon Lynn III, MD [address] [place] [address] [address] [facility] [place] [address] 11/14/2024 Dillon Lynn Plan Of Treatment Next Appt Details Provider Name:Dillon Lynn , 09/27/2025 09:30:00 AM, [address] [place] [address] [place], [address], Progress Notes * Otis CARMENioDOB:1940 (84 yo M)Acc No.[id number]:11/14/2024 Patient: Ishmael GRIGSBY :1940 A ge:84 Y S ex:Male Address:[address] [place] [address] * true * Date: Generated for Bruce coleman/Kayla/eTransmitting on: 10/17/2024 09:56 AM EST
--- OUTSIDE RECORDS SUMMARY | 2024-12-27 05:30 | XMS_ITS ---
Author Organization Dillon Lynn III, MD Address [address] [place] [address] Care Team Providers Care Document Control Coordinator Name Role Phone Alfredo LEGER, Avila Primary Care Provider Dr. Dillon Lai III Unavailable [phone] Allergies Allergen (clinical drug ingredient) Drug/Non Drug Allergy documented on EMR Reaction Allergy Type Onset Date Status No Known Drug Allergy Unknown Drug Allergy Active Results Component Value Reference Range Notes Beta-2 Microglobulin, Serum Reviewed date:02/27/2025 03:57:54 PM Interpretation: Performing Lab:[facility], [address] [place] [phone] Notes/Report: Beta-2 Microglobulin, Serum 3.88 < OR = 2.51 m g/L THIS TEST WAS PERFORMED AT: [facility] [address] [place] [phone] VINCE LUCAS MD REASON FOR VISIT Chronic lymphocytic leukemia, Benign prostatic hypertrophy, Hypertension Medications Medication SIG (Take, Route, Frequency, Duration) Notes Start Date End Date Status Morphine Sulfate 15 MG 1 tablet as needed Orally as needed Active Mirtazapine 30 MG 1 tablet at bedtime Orally Once a day Active Imbruvica 140 MG Oral Act sruthi Albuterol Sulfate 2 puffs as needed Inhalation as needed 1,1,1,1l1gibpx Active fentaNYL 25 MCG/HR APPLY 1 PATCH TOPICALLY TO THE SKIN EVERY 72 HOURS Transdermal Active traMADol HCl 50 MG 2 tablet Orally twice a day Active traZODone HCl 100 MG 1 tablet at bedtime Orally Once a day Active Vitamin B 12 100 MCG as directed Orally once a day Active Aspirin 81 81 MG 1 tablet Orally Once a day Active Ibrutinib 140 MG 2 capsules Orally Once a day DX: C91.10 Chronic Lymphocytic leukemia 10/10/2024 Active Vitamin D3 50 MCG (1999) 1 capsule Orally Once a day Active Chlorambucil 2 MG 2 mg Orally [...] Tobacco Non-User Aggressive non-smoker Vital Signs Temperature 97.2 degrees Fahrenheit 12/28/19 25 Blood pressure systolic 129 mm Hg 12/28/19 25 Blood pressure diastolic 67 mm Hg 025 Heart Rate 72 /min 12/27/2024 Height 66 in 12/27/2024 Weight 173 lbs 12/27/2024 BMI 27.92 kg/m2 12/27/2024 Encounters Encounter Location Date Provider Diagnosis Dillon Lynn III, MD [address] [place] [address] [place] [address] 12/27/2024 Dillon Lynn CLL (chronic lymphoc ytic leukemia) C91.10 ; Thrombocytopenia D69.6 ; Benign prostatic hyperplasia, presence of lower urinary tract symptoms unspecified, unspecified morphology N40.0 ; Essential hypertension I10 ; Weight loss R63.4 ; Junctional tachycardia I47.1 and Overweight E66.3 Assessments Encounter Date Diagnosis (ICD Code) Assessment Notes Treat ment Notes Treatment Clinical Notes 12/27/2024 CLL (chronic lymphocytic leukemia) (ICD-10 - C91.10) He was continued on 140 mg daily with a follow-up in 21 days.His CBC today shows good control of his chronic lymphocytic leukemia. 12/27/2024 Thrombocytopenia (ICD-10 - D69.6) His platelet count has returned to normal and this problem has resolved. 12/27/2024 Benign prostatic hyperplasia, presence of lower urinary tract symptoms unspecified, unspecified morphology (ICD-10 - N40.0) He wakes twice at night to urinate but is satisfied with this level of functioning. No change in his regimen was desired. 12/27/2024 Essential hypertensi on (ICD-10 - I10) His blood pressure is stable and well controlled today and no change in his regimen seems necessary.His value was 129/67. 12/27/2024 Weight loss (ICD-10 - R63.4) He has gained 6 pounds on his body mass index is now 27. He is no longer losing weight. 12/27/2024 Junctional tachycard ia (ICD-10 - I47.1) He was in a normal sinus rhythm today with a normal heart rate and no complaints. 12/27/2024 Overweight (ICD-10 - E66.3) He has gained 6 pounds. His body mass index is 27.9. I recommended stabilizing his weight at this level. Plan Of Treatment Medication Medication Name Sig Start Date Stop Date Notes Morphine Sulfate 15 MG 1 tablet as neede d Orally as needed Mirtazapine 30 MG 1 tablet at bedtime Orally Once a day Imbruvica 140 MG Oral Albuterol Sulfate 2 puffs as needed Inhalation as needed 1,1,1,1l0bweow fentaNYL 25 MCG/HR APPLY 1 PATCH TOPICALLY TO THE SKIN EVERY 72 HOURS Transdermal traMADol HCl 50 MG 2 tablet Orally twic e a day traZODone HCl 100 MG 1 tablet at bedtime Orally Once a day Vitamin B 12 100 MCG as directed Orally once a day Aspirin 81 81 MG 1 tablet Orally Once a day Ibrutinib 140 MG 2 capsules Orally Once a day 10/10/2024 DX: C91.10 Chronic Lymphocytic leukemia Vitamin D3 50 MCG (1999) 1 capsule Orally Once a day Chlorambucil 2 MG 2 mg Orally daily 09/24/2024 Next Appt Details Follow Up: 2 Months, Reason: ov review labs Provider Name:Dillon Lynn , 09/27/2025 09:30:00 AM, [address] [place] [address] [address], [place], [address], Progress Notes * Otis CARMENioDOB:1940 (84 yo M)Acc No.[id number]:12/27/2024 Progress Notes Patient: Sarah JENNIFERSammy BolanosIshmael Provider: Sarah Lynn MD :1940 A ge:84 Y S ex:Male Date:12/27/2024 Address:[address] [place] [address], [id number] Pcp:Avila Fuentes MD Subjective: * Chief Complaints: * C hronic lymphocytic leukemiaBenign prostatic hypertrophyHypertension * HPI: C OVID-19 Screening: He returns to the office for management of his chronic lymphocytic leukemia. He was recently switched to ibrutinib. He is taking 280 mg tablets daily. He has experienced no toxicity. His dosage may be increased. Conference blood work is not available today but he will go to the laboratory. Immediately after this visit for CBC and chemistry profile. We will then be able to determine if adjusting his medication is necessary. He was in good spirits today and see medically stable. He denied any side effects from this medication. Questions H ave you had any new onset fever, chills, cough, congestion, sore throat, shortness of breath, muscle aches? N o * ROS: G eneral/Constitutional: pain o nly normal aches and pains. C hills d enies.?Fatigue a dmits. F ever d enies. E NT: Decreased hearing m ild. R espiratory: Cough d enies. C ardiovascular: Chest pain with exertion d enies. D yspnea on exertion?denies. S hortness of breath d enies. G astrointestinal: Constipation o ccasional. D ecreased appetite d enies. D iarrhea d enies. H eartburn o ccasional. N ausea d enies. R ectal bleeding d enies. V omiting d enies. H ematology: bruising d enies. p etechiae d enies. S wollen glands n one have been noted. G enitourinary: Frequent urination o nce a night. M usculoskeletal: Muscle aches d [...] He is . He was born in [place]. * Medications: T akingIbrutinib 140 MG Capsule [...] Inhalation as needed , Notes to Pharmacist: 1,1,1,6e0maoayWidnrn Ibrutinib 140 MG Capsule 2 capsules Orally [...] Inhalation as needed , Notes to Pharmacist: 1,1,1,0b8bgbxxUfhsxxfqfgpzJccpmvqqropp 2 MG Tablet 2 mg Orally daily Imbruvica 140 MG Capsule Oral Medication List reviewed and reconciled with the patientDiscontinued Chlorambucil 2 MG Tablet 2 mg Orally daily Discontinued Imbruvica 140 MG Capsule Oral Medication List reviewed and reconciled with the patient * Allergies: N o Known Drug Allergyno[Allergies Verified] Objective: * Vitals: H t: 66, Wt:173, BMI:27.92, BP:129/67, HR:72, Temp:97.2, Wt-k.47. * P ast Orders: Lab:Complete Blood Count Aut o Diff * Collection Date 10/29/2024 10/15/2024 05/29/2024 Collection Time 09:36 AM 12:37 PM 08:29 AM Order Date 10/29/2024 10/15/2024 05/29/2024 White Blood Count 9.7 (Ref Range: 4.8-10.8 X10*3/uL) 10.6 (Ref Range: 4.8-10.8 X10*3/uL) 4.3 L (Ref Range: 4.8-10.8 X10*3/uL) Red Blood Count 3.58 L (Ref Range: 4.60-5.80 X10*6/uL) 3.75 L (Ref Range: 4.60-5.80 X10*6/uL) 3.71 L (Ref Range: 4.60-5.80 X10*6/uL) Hemoglobin 11.5 L (Ref Range: 14.0-18.0 g/dl) 12.2 L (Ref Range: 14.0-18.0 g/dl) 12.1 L (Ref Range: 14.0-18.0 g/dl) Hematocrit 35.8 L (Ref Range: 42.0-52.0 %) 36.8 L (Ref Range: 42.0-52.0 %) 37.5 L (Ref Range: 42.0-52.0 %) Mean Corpuscular Volume 100.0 H (Ref Range: 80.0-98.0 fL) 98.1 H (Ref Range: 80.0-98.0 fL) 101.1 H (Ref Range: 80.0-98.0 fL) Mean Corpuscular Hemoglobin 32.1 (Ref Range: 27.0-33.0 pg) 32.5 (Ref Range: 27.0-33.0 pg) 32.6 (Ref Range: 27.0-33.0 pg) Mean Corpuscular HGB Conc 32.1 (Ref Range: 31.0-36.0 g/dl) 33.2 (Ref Range: 31.0-36.0 g/dl) 32.3 (Ref Range: 31.0-36.0 g/dl) Red Cell Distribution Width 12.7 (Ref Range: 11.0-16.0 %) 12.6 (Ref Range: 11.0-16.0 %) 12.3 (Ref Range: 11.0-16.0 %) Platelet Count 167 (Ref Range: 160-400 X10*3/uL) 219 (Ref Range: 160-400 X10*3/uL) 137 L (Ref Range: 160-400 X10*3/uL) Mean Platelet Volume 10.8 (Ref Range: 9.4-12.4 fL) 9.8 (Ref Range: 9.4-12.4 fL) 10.3 (Ref Range: 9.4-12.4 fL) Neutrophils Percent Auto 54.2 (Ref Range: 45-73 %) 72.4 (Ref Range: 45-73 %) 44.0 L (Ref Range: 45-73 %) Imm Gran Pct Auto 1.3 H (Ref Range: 0.0-0.4 %) 0.4 (Ref Range: 0.0-0.4 %) 0.5 H (Ref Range: 0.0-0.4 %) Lymphocytes Percent Auto 33.5 (Ref Range: 20-40 %) 15.7 L (Ref Range: 20-40 %) 38.9 (Ref Range: 20-40 %) Monocytes Percent Auto 10.1 (Ref Range: 2-11 %) 10.8 (Ref Range: 2-11 %) 13.1 H (Ref Range: 2-11 %) Eosinophils Percent Auto 0.5 (Ref Range: 0-4 %) 0.5 (Ref Range: 0-4 %) 3.0 (Ref Range: 0-4 %) Basophils Percent Auto 0.4 (Ref Range: 0-2 %) 0.2 (Ref Range: 0-2 %) 0.5 (Ref Range: 0-2 %) NRBC Pct Auto 0.0 (Ref Range: 0.0-0.2 /100WBC) 0.0 (Ref Range: 0.0-0.2 /100WBC) 0.0 (Ref Range: 0.0-0.2 /100WBC) Neutrophils Absolute Auto 5.3 (Ref Range: 2.0-8.3 x10*3/uL) 7.7 (Ref Range: 2.0-8.3 x10*3/uL) 1.9 L (Ref Range: 2.0-8.3 x10*3/uL) Imm Gran Abs Auto 0.13 H (Ref Range: 0.00-0.03 X10*3/uL) 0.04 H (Ref Range: 0.00-0.03 X10*3/uL) 0.02 (Ref Range: 0.00-0.03 X10*3/uL) Lymphocytes Absolute Auto 3.3 (Ref Range: 1.2-4.9 X10*3/uL) 1.7 (Ref Range: 1.2-4.9 X10*3/uL) 1.7 (Ref Range: 1.2-4.9 X10*3/uL) Monocytes Absolute Auto 1.0 (Ref Range: 0.1-1.2 X10*3/uL) 1.2 (Ref Range: 0.1-1.2 X10*3/uL) 0.6 (Ref Range: [...] X10*3/uL) 0.000 (Ref Range: 0.0-0.012 X10*3/uL) * Lab:Comprehensive Met. Panel * Collection Date 10/15/2024 09/28/2023 05/21/2023 Collection Time 12:37 PM 01:11 PM 09:30 AM Order Date 10/15/2024 09/28/2023 05/21/2023 Sodium 141 (Ref Range: 135-145 mmol/L) 144 (Ref Range: 135-145 mmol/L) 144 (Ref Range: 135-145 mmol/L) Bilirubin Total 0.6 (Ref Range: 0.0-1.0 mg/dL) 0.3 (Ref Range: 0.0-1.0 mg/dL) 0.4 (Ref Range: 0.0-1.0 mg/dL) Aspartate Amino Transferase 26 (Ref Range: 5-37 U/L) 21 (Ref Range: 5-37 U/L) 19 (Ref Range: 5-37 U/L) Alanine Aminotransferase 14 (Ref Range: 0-40 U/L) 15 (Ref Range: 0-40 U/L) 11 (Ref Range: 0-40 U/L) Total Protein 7.4 (Ref Range: 6.5-8.0 g/dL) 7.3 (Ref Range: 6.5-8.0 g/dL) 7.0 (Ref Range: 6.5-8.0 g/dL) Albumin Level 3.7 (Ref Range: 3.5-5.0 g/dL) 4.0 (Ref Range: 3.5-5.0 g/dL) 3.9 (Ref Range: 3.5-5.0 g/dL) Alkaline Phosphatase 59 (Ref Range: 39-117 U/L) 70 (Ref Range: 39-117 U/L) 62 (Ref Range: 39-117 U/L) Potassium 4.0 (Ref Range: 3.3-5.1 mmol/L) 4.4 (Ref Range: 3.3-5.1 mmol/L) 4.1 (Ref Range: 3.3-5.1 mmol/L) Chloride 107 (Ref Range: 96-108 mmol/L) 106 (Ref Range: 96-108 mmol/L) 107 (Ref Range: 96-108 mmol/L) Carbon Dioxide 28 (Ref Range: 22-29 mmol/L) 31 H (Ref Range: 22-29 mmol/L) 26 (Ref Range: 22-29 mmol/L) Anion Gap 10 L (Ref Range: 12-20) 11 L (Ref Range: 12-20) 15 (Ref Range: 12-20) Blood Urea Nitrogen 17 H (Ref Range: 9-16 mg/dL) 24 H (Ref Range: 9-16 mg/dL) 32 H (Ref Range: 9-16 mg/dL) Creatinine 1.69 H (Ref Range: 0.5-1.4 mg/dL) 1.51 H (Ref Range: 0.5-1.4 mg/dL) 1.62 H (Ref Range: 0.5-1.4 mg/dL) Estimated Glomerular Filt Rate 39 44 41 Glucose Random 105 (Ref Range: 60-115 mg/dL) 99 (Ref Range: 60-115 mg/dL) 99 (Ref Range: 60-115 mg/dL) Calcium 9.0 (Ref Range: 8.4-10.2 mg/dL) 9.3 (Ref Range: 8.4-10.2 mg/dL) 9.4 (Ref Range: 8.4-10.2 mg/dL) * Lab:Beta-2 Microglobulin, Se rum * Collection Date 10/15/2024 05/29/2024 01/02/2024 Collection Time 12:37 PM 08:29 AM 10:58 AM Order Date 10/15/2024 05/29/2024 01/02/2024 Beta-2 Microglobulin, Serum 4.29 A (Ref Range: < OR = 2.51 mg/L) 3.95 A (Ref Range: < OR = 2.51 mg/L) 3.61 A (Ref Range: < OR = 2.51 mg/L) * Examination: G eneral Examination: GENERAL APPEARANCE: [...] normal upper and lower extremities, sensory exam intact, Mild memory deficits. PSYCH: a lert, oriented Mild memory deficits. ? Assessment: * Assessment: 1. C LL (chronic lymphocytic leukemia) - C91.10 (Primary) N otes :He was continued on 140 mg daily with a follow-up in 21 days.His CBC today shows good control of his chronic lymphocytic leukemia. 2 . T hrombocytopenia - D69.6 N otes :His platelet count has returned to normal and this problem has resolved. 3 . B enign prostatic hyperplasia, presence of lower urinary tract symptoms unspecified, unspecified morphology - N40.0 N otes :He wakes twice at night to urinate but is satisfied with this level of functioning. No change in his regimen was desired. 4 . E ssential hypertension - I10 N otes :His blood pressure is stable and well controlled today and no change in his regimen seems necessary.His value was 129/67. 5 . W eight loss - R63.4 N otes :He has gained 6 pounds on his body mass index is now 27. He is no longer losing weight. 6 . J unctional tachycardia - I47.1 N otes :He was in a normal sinus rhythm today with a normal heart rate and no complaints. 7 . O verweight - E66.3 N otes :He has gained 6 pounds. His body mass index is 27.9. I recommended stabilizing his weight at this level. Plan: * Treatment: 2. T hrombocytopenia L AB: PROFILE, RANDOM (COMPREHENSIVE METABOLIC) L AB: CBC w DIFF L AB: Beta-2 Microglobulin, Serum 3. O thers Continue Chlorambucil Tablet, 2 MG, [...] Dietary needs education * Follow Up: 2 Months (Reason: ov review labs) * Images: * Sign off status: Completed true * Provider: Sarah Lynn MD Date: 0 12/27/2024 Generated for Bruce coleman/Kayla/Carolsmitting on: 10/17/2024 09:55 AM EST History and [...] normal upper and lower extremities, sensory exam intact, Mild memory deficits SKIN: no suspicious lesion s, anicteric PERIPHERAL PULSES: normal BREASTS: no masses palpable b ilaterally MUSCULOSKELETAL: extremities unremark able, no clubbing, cyanosis or edema LYMPH NODES: no enlarged lymph no tashia,spleen normal RECTAL EXAM: not examined PSYCH: alert, oriented Mild memory deficits ORAL CAVITY: normal, unremarkable
--- OUTSIDE RECORDS SUMMARY | 2025-02-18 05:02 | XMS_ITS ---
Author Organization Dillon Lynn III, MD Address [address] [place] [address] [place] [address] Care Team Providers Care Security Messenger Name Role Phone Alfredo LEGER, Avila Primary Care Provider Dr. Dillon Lai III Unavailable [phone] REASON FOR VISIT Concern Social History Sex Assigned At : Social History Observation Description Sex Assigned At Male Encounters Encounter Location Date Provider Diagnosis Dillon Lynn III, MD [address] [place] [address] [place] [address] 02/18/2025 Dillon Lynn CLL (chronic lymphoc ytic leukemia) C91.10 ; Thrombocytopenia D69.6 and Overweight E66.3 Assessments Encounter Date Diagnosis (ICD Code) Assessment Notes Treat ment Notes Treatment Clinical Notes 02/18/2025 CLL (chronic lymphocytic leukemia) (ICD-10 - C91.10) 02/18/2025 Thrombocytopenia (ICD-10 - D69.6) 02/18/2025 Overweight (ICD-10 - E66.3) Plan Of Treatment Next Appt Details Provider Name:Dillon Lynn , 09/27/2025 09:30:00 AM, [address] [place] [address] [place], [address], Progress Notes * Mariaa CARMENOB:1940 (85 yo M)Acc No.[id number]:02/18/2025 Patient: Sarah Ishmael BEAN :1940 A ge:85 Y S ex:Male Address:[address] [place] [address] Subjective: * Chief Complaints: * C oncern * Medical History: * Surgical History: * Hospitalization/Major Diagno stic Procedure: * Medications: Objective: * Vitals: * Physical Examination: Assessment: * Assessment: 1. C LL (chronic lymphocytic leukemia) - C91.10 2 . T hrombocytopenia - D69.6 3 . O verweight - E66.3 Plan: * Treatment: 2. T hrombocytopenia L AB: CBC w DIFF L AB: PROTHROMBIN TIME (PT, INR) L AB: PARTIAL THROMBOPLASTIN TIME (PTT) L AB: FIBRINOGEN 3. O verweight L AB: CBC w DIFF L AB: PROTHROMBIN TIME (PT, INR) L AB: PARTIAL THROMBOPLASTIN TIME (PTT) L AB: FIBRINOGEN * Procedure Codes: * true * Date: Generated for Bruce coleman/Kayla/Yadira on: 10/17/2024 09:56 AM EST
--- OUTSIDE RECORDS SUMMARY | 2025-03-07 05:30 | XMS_ITS ---
Author Organization Dillon Lynn III, MD Address [address] [place] [address] [place] [address] Care Team Providers Care Driver Helper Name Role Phone Alfredo LEGER, Avila [...] 2 puffs as needed Inhalation as needed 1,1,1,8l3rqorz Active Imbruvica 140 MG Oral Act sruthi [...] Provider Diagnosis Dillon Lynn III, MD [address] [place] [address] [place] [address] 03/07/2025 Dillon Lynn CLL (chronic lymphoc ytic [...] 2 puffs as needed Inhalation as needed 1,1,1,4r5pmstp Imbruvica 140 MG Oral Pending Test Test Name Order Date PROFILE, RANDOM (COMPREHENSIVE METABOLIC ) 03/07/2025 CBC w DIFF 03/07/2025 Next Appt Details Follow Up: 2 Months, Reason: ov review labs Provider Name:Dillon Lynn , 09/27/2025 09:30:00 AM, [address] [place] [address] , [address], [address], Progress Notes * Otis CARMENioDOB:1940 (85 yo M)Acc No.[id number]:03/07/2025 Progress Notes Patient: Ishmael GRIGSBY Provider: Sarah Lynn MD :1940 A ge:85 Y S ex:Male Date:03/07/2025 Address:[address] [place], [place] [phone] Pcp:Avila Fuentes MD Subjective: * Chief Complaints: * C hronic lymphocytic leukemiaBenign prostatic hypertrophyHypertensionNeutropeniaThrombocytopeniaHistory of junctional tachycardia * HPI: C OVID-19 Screening: went to er for cp bmc. He returns for medical management of his chronic lymphocytic leukemia.? Since his last visit he had developed an episode of chest pain and went to the [facility] where he was kept for 12 [...] He is . He was born in [place]. * Medications: T akingIbrutinib 140 MG Capsule [...] Inhalation as needed , Notes to Pharmacist: 1,1,1,2z2gcbrrOqugrjbzv 140 MG Capsule Oral Taking Ibrutinib 140 [...] Inhalation as needed , Notes to Pharmacist: 1,1,1,0y4veeatIvfwnw Imbruvica 140 MG Capsule Oral Not-Taking/PRNChlorambucil 2 [...] Date & Time - 02/19/2025 09:16 AM)?ValueReference Range?[id number] - MG/DL * Lab:Comprehensive Met. Panel * [...] MD Date: 0 03/07/2025 Generated for Bruce coleman/Kayla/Hiteshitting on: 10/17/2024 09:55 [...]
--- OUTSIDE RECORDS SUMMARY | 2025-05-09 05:45 | XMS_ITS ---
Author Organization Dillon Lynn III, MD Address [address] [place] [address] [place] [address] Care Team Providers Care Property Utilization Manager Name Role Phone Alfredo LEGER, Avila Primary Care Provider Dr. Dillon Lai III Unavailable [phone] Allergies Allergen (clinical drug ingredient) Drug/Non Drug Allergy documented on EMR Reaction Allergy Type Onset Date Status No Known Drug Allergy Unknown Drug Allergy Active REASON FOR VISIT After taking Imbruvica patient have delveloped Increased fatigue, abnormal bruising, lump on breastand hairloss, heart failure, CLL, Benign prostatic hypertrophy, Hypertension, Neutropenia, Thrombocytopenia, Weight loss, Junctional tachycardia Medications Medication SIG (Take, Route, Frequency, Duration) Notes Start Date End Date Status Mirtazapine 30 MG 1 tablet at bedtime Orally Once a day Active Chlorambucil 2 MG 1 tablet Orally daily for 30 days 05/09/2025 Active Imbruvica 140 MG Oral Act sruthi Morphine Sulfate 15 MG 1 tablet as needed Orally as needed Active Albuterol Sulfate 2 puffs as needed Inhalation as needed 1,1,1,3e1trpty Active Vitamin D3 50 MCG (2000 UT) 1 capsule Orally Once a day Active Vitamin B 12 100 MCG as directed Orally once a day Active traZODone HCl 100 MG 1 tablet at bedtime Orally Once a day Active traMADol HCl 50 MG [...] 1 tablet Orally Once a day Active Social History [...] non-smoker Vital Signs Temperature 98.4 degrees Fahrenheit 05/09/20 25 Blood pressure systolic 131 mm Hg 05/09/20 25 Blood pressure diastolic 64 mm Hg 025 Heart Rate 73 /min 05/09/2025 Height 66 in 05/09/2025 Weight 171 lbs 05/09/2025 BMI 27.6 kg/m2 05/09/2025 Encounters Encounter Location Date Provider Diagnosis Dillon Lynn III, MD [address] [place] [address] [place] [address] 05/09/2025 Dillon Lynn CLL (chronic lymphoc ytic leukemia) C91.10 ; Overweight E66.3 ; 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 He is stable and his disease is well controlled. I will try to obtain the chlorambucil that he and his family prefer. 05/09/2025 Overweight (ICD-10 - E66.3) He has gained 6 pounds. His body mass index is 27.9. I recommended stabilizing his weight at this level. 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 05/09/2025 Thrombocytopenia (ICD-10 - D69.6) His platelet count is at his baseline which is 121,000. He has had no bleeding. No change in his medications was made today. 05/09/2025 Benign prostatic hyperplasia, presence of lower urinary tract symptoms unspecified, unspecified morphology (ICD-10 - N40.0) He wakes twice at night to urinate but is satisfied with this level of functioning. No change in his regimen was desired. Plan Of Treatment Medication Medication Name Sig Start Date Stop Date Notes Mirtazapine 30 MG 1 tablet at bedtime Orally Once a day Chlorambucil 2 MG 1 tablet Orally clinton y for 30 days 05/09/2025 Imbruvica 140 MG Oral Morphine Sulfate 15 MG 1 tablet as neede d Orally as needed Albuterol Sulfate 2 puffs as needed Inhalation as needed 1,1,1,3h4fwqdx Vitamin D3 50 MCG (2000 UT) 1 capsule Orally Once a day Vitamin B 12 100 MCG as directed Orally once a day traZODone HCl 100 MG 1 tablet at bedtime Orally Once a day traMADol HCl 50 MG 2 tablet Orally twic e a day fentaNYL 25 MCG/HR APPLY 1 PATCH TOPICALLY TO THE SKIN EVERY 72 HOURS Transdermal Chlorambucil 2 MG 2 mg Orally daily 09/24/2024 Ibrutinib 140 MG 2 capsules Orally Once a day 10/10/2024 DX: C91.10 Chronic Lymphocytic leukemia Aspirin 81 81 MG 1 tablet Orally Once a day Pending Test Test Name Order Date PROFILE, RANDOM (COMPREHENSIVE METABOLIC ) 05/09/2025 CBC w DIFF 05/09/2025 Next Appt Details Follow Up: 6 Weeks, Reason: ov review labs Provider Name:Dillon Lynn , 09/27/2025 09:30:00 AM, [address] [place] [address], [address], Progress Notes * Otis CARMENioDOB:1940 (85 yo M)Acc No.[id number]:05/09/2025 Progress Notes Patient: Ishmael GRIGSBY Provider: Sarah Lynn MD :1940 A ge:85 Y S ex:Male Date:05/09/2025 Address:[address] [place], [place] [phone] Pcp:Avila Fuentes MD Subjective: * Chief Complaints: * A fter taking Imbruvica patient have delveloped Increased fatigue, abnormal bruising, lump on breast and hairloss, heart failureCLLBenign prostatic hypertrophyHypertensionNeutropeniaThrombocytopeniaWeight lossJunctional tachycardia * HPI: C OVID-19 Screening: Rachel zee was brought in by his granddaughter today with a message from his daughter for management of his chronic lymphocytic leukemia. For several years he was treated with chlorambucil was a medication he favored and was unwilling to give up. He was switched to ibrutinib and his insurance To cover the chlorambucil. The daughter and granddaughter now make a forceful request to return to chlorambucil as he is having any side effects from theibrutinib. They mention a loss of appetite and nausea breast mass chronic fatigue poor sleep and weakness. I have prescribed the chlorambucil at 2 mg daily which was his old dose. It is likely the insurance company will cover but we will appeal. He was hospitalized at [facility] couple of months ago with chest pain but has had no chest pain since. His cardiology appointment is pending. He complains of fatigue and bruising, right knee and back pain.Blood work done March 18, 2025 showed glucose 124 BUN 25 creatinine 1.8 for EGFR 35 vitamin D 59 magnesium 2.0. Blood work on February 19, 2025 showed white count 7.6 hematocrit 39 mean cell volume 100.3 platelets 121. Questions H ave you had any new onset fever, chills, cough, congestion, sore throat, shortness of breath, muscle aches? N o * ROS: G eneral/Constitutional: pain L ow back pain. C hills d enies. F atigue?admits. F ever d enies. E NT: Decreased hearing m ild. R espiratory: Cough d enies. C ardiovascular: Chest pain with exertion d enies. D yspnea on exertion?denies. S hortness of breath w ith exertion. G astrointestinal: Constipation o ccasional. D ecreased appetite d enies. D iarrhea d enies. H eartburn d enies. N ausea d enies. R ectal bleeding d enies. V omiting d enies. H ematology: bruising d enies. p etechiae d enies. S wollen glands n one have been noted. G enitourinary: Frequent urination d enies. M usculoskeletal: Muscle aches d enies. P ainful joints d enies. S ciatica d enies. W eakness d enies. S kin: Itching d enies. R trip d enies. S kin lesion(s)?denies. N eurologic: Difficulty speaking d enies. D izziness d enies.?Headache d enies. L ow back pain t hat is new. P sychiatric: Depressed mood d enies. * [...] He is . He was born in [place]. * Medications: T akingChlorambucil 2 MG Tablet 2 mg Orally daily [...] Inhalation as needed , Notes to Pharmacist: 1,1,1,6i6dsjxgCdsfgydrb 140 MG Capsule Oral Medication List reviewed and reconciled with the patientTaking Chlorambucil 2 MG Tablet 2 mg Orally [...] Inhalation as needed , Notes to Pharmacist: 1,1,1,5z8kemcuKjazyt Imbruvica 140 MG Capsule Oral Medication List reviewed and reconciled with the patient * Allergies: N o Known Drug Allergyno[Allergies Verified] Objective: * Vitals: H t: 66, Wt:171, BMI:27.6, BP:131/64, HR:73, Temp:98.4, Wt-k.56. * P ast Orders: Lab:Comprehensive Met. Panel * Collection Date 02/19/2025 [...] <0.05-4.0 ng/mL) 0.51 (Ref Range: <0.05-4.0 ng/mL) * Lab:Complete Blood Count Aut o Diff [...] Date & Time - 02/19/2025 09:16 AM)?ValueReference Range?[id number] - MG/DL ???Lab:Pathology (Order Date - 02/20/2025) (Collection Date & Time - 02/20/2025 04:27 PM) * Examination: G eneral Examination: GENERAL APPEARANCE: p leasant, well nourished, well developed, in no acute distress, calm and relaxed: overweight: elderly man. HEAD: a traumatic, normocephalic. EYES: e akila, perrla, anicteric, conjugate. EARS: : Normal anatomy with bilateral hearing loss. NOSE: s eptum intact. ORAL CAVITY: n [...] intact, Mild memory deficits. PSYCH: a lert, oriented. Assessment: * Assessment: 1. C LL (chronic lymphocytic leukemia) - C91.10 (Primary) N otes :He was continued on Ibrutinib without a change in dose. He is stable and his disease is well controlled. I will try to obtain the chlorambucil that he and his family prefer. 2 . O verweight - E66.3 N otes :He has gained 6 pounds. His body mass index is 27.9. I recommended stabilizing his weight at this level. 3 . J unctional tachycardia - I47.1 N otes :He was in a normal sinus rhythm today with a normal heart rate and no complaints. 4 . T hrombocytopenia - D69.6 N otes :His platelet count is at his baseline which is 121,000. He has had no bleeding. No change in his medications was made today. 5 . B enign prostatic hyperplasia, presence of lower urinary tract symptoms unspecified, unspecified morphology - N40.0 N otes :He wakes twice at night to urinate but is satisfied with this level of functioning. No change in his regimen was desired. Plan: * Treatment: 2. O thers Continue [...] Follow-up D ietary management education, guidance, and counseling * Follow Up: 6 Weeks (Reason: ov review labs) * Images: * Sign off status: Completed true * Provider: Sarah Lynn MD Date: 0 05/09/2025 Generated for Bruce coleman/Kayla/Hiteshitting on: 1 10/17/2024 09:56 AM EST History and Physical Notes * HPI (History of Present Illness) Category Sub-Category Detail Notes COVID-19 Screening Questions Have you had any new onset fever, chills, cough, congestion, sore throat, shortness of breath, muscle aches?: No Examination Category Sub-Category Detail Notes General Examination GENERAL APPEARANCE: pleasant , well nourished, well developed, in no acute distress, calm and relaxed: overweight: elderly man HEAD: atraumatic, normocep halic EYES: eomi, perrla, anicte lucy, conjugate EARS: : Normal anatomy wit h bilateral hearing loss NOSE: septum intact NECK/THYROID: no jugular venous [...]
--- OUTSIDE RECORDS SUMMARY | 2025-05-09 06:17 | XMS_ITS ---
Author Organization Dillon Lynn III, MD Address [address] [place] [facility] [place] [address] Care Team Providers Care Senior Product Manager Name Role Phone Alfredo LEGER, Avila Primary Care Provider Dr. Dillon Lai III Unavailable REASON FOR VISIT go back on Leukeran/Chlorambucil Social History Sex Assigned At : Social History Observation Description Sex Assigned At Male Encounters Encounter Location Date Provider Diagnosis Dillon Lynn III, MD [address] [place] [address] [address] [facility] [place] [address] 05/09/2025 Dillon Lynn Plan Of Treatment Next Appt Details Provider Name:Dillon Lynn , 09/27/2025 09:30:00 AM, [address] [place] [address] [place], [address], Progress Notes * Otis CARMENioDOB:1940 (85 yo M)Acc No.[id number]:05/09/2025 Patient: Sarah Ishmael BEAN :1940 A ge:85 Y S ex:Male Address:[address] [place] [address] * true * Date: Generated for Printi ng/Faxing/eTransmitting on: 10/17/2024 09:56 AM EST
--- OUTSIDE RECORDS SUMMARY | 2025-06-17 08:35 | XMS_ITS ---
Author Organization Dillon Lynn III, MD Address [address] [place] [address] Care Team Providers Care Disability Examiner Name Role Phone Alfredo LEGER, Avila Primary Care Provider Dr. Dillon Lai III Unavailable [phone] REASON FOR VISIT FYI only Social History Sex Assigned At : Social History Observation Description Sex Assigned At Male Encounters Encounter Location Date Provider Diagnosis Dillon Lynn III, MD [address] [place] [address] [place] [address] 06/17/2025 Dillon Lynn CLL (chronic lymphocytic leukemia) C91.10 Assessments Encounter Date Diagnosis (ICD Code) Assessment Notes Treatment Notes Treatment Clinical Notes 06/17/2025 CLL (chronic lymphocytic leukemia) (ICD-10 - C91.10) He was continued on Ibrutinib without a change in dose. He is stable and his disease is well controlled. I will try to obtain the chlorambucil that he and his family prefer. Plan Of Treatment Medication Medication Name Sig Start Date Stop Date Notes Chlorambucil 2 MG 2 mg Orally daily 09/24/2024 Ibrutinib 140 MG 2 capsules Orally On day 10/10/2024 DX: C91.10 Chronic Lymphocytic leukemia Imbruvica 140 MG Oral Next Appt Details Provider Name:Dillon Lynn , 09/27/2025 09:30:00 AM, [address] [place] [address] [place], [address], Progress Notes * Otis CARMENioDOB:1940 (85 yo M)Acc No.[id number]:06/17/2025 Patient: Ishmael GRIGSBY :1940 A ge:85 Y S ex:Male Address:[address] [place] [address] * Refills Stop Ibrutinib Capsule, 140 MG, Orally, 2 capsules, Once a day Stop Imbruvica Capsule, 140 MG, Oral Stop Chlorambucil Tablet, 2 MG, Orally, 2 mg, daily * true * Date: Generated for Bruce coleman/Kayla/Hiteshitting on: 1 10/17/2024 09:54 AM EST
--- OUTSIDE RECORDS SUMMARY | 2025-06-21 04:30 | XMS_ITS ---
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 Diloln Lai III Unavailable Allergies Allergen (clinical drug ingredient) Drug/Non Drug Allergy documented on EMR Reaction Allergy Type Onset Date Status No Known Drug Allergy Unknown Drug Allergy Active REASON FOR VISIT Chronic lymphocytic leukemia, Benign prostatic hypertrophy, Hypertension, Junctional tachycardia, Reason weight loss, Neutropenia, Thrombocytopenia, Weight loss Medications Medication SIG (Take, Route, Frequency, Duration) Notes Start Date End Date Status Mirtazapine 30 MG 1 tablet at bedtime Orally Once a day Active Morphine Sulfate 15 MG 1 tablet as neede d Orally as needed Active Albuterol Sulfate 2 puffs as needed Inhalation as needed 1,1,1,7k9mtpdu Active Chlorambucil 2 MG 1 tablet Orally daily 05/09/2025 Active Leukeran 2 MG TAKE 1 TABLET BY MOUTH DAILY Oral Active Vitamin D3 50 MCG (2000 UT) 1 capsule Orally Once a day Active Vitamin B 12 100 MCG as directed Orally once a day Active traMADol HCl 50 MG 2 tablet Orally twic e a day Active fentaNYL 25 MCG/HR APPLY [...] non-smoker Vital Signs Temperature 97.2 degrees Fahrenheit 06/21/20 25 Blood pressure systolic 132 mm Hg 06/21/20 25 Blood pressure diastolic 69 mm Hg 025 Heart Rate 64 /min 06/21/2025 Height 66 in 06/21/2025 Weight 170 lbs 06/21/2025 BMI 27.44 kg/m2 06/21/2025 Encounters Encounter Location Date Provider Diagnosis Dillon Lynn III, MD [address] [place] [address] [place] [address] 06/21/2025 Dillon Lynn CLL (chronic lymphoc ytic leukemia) C91.10 ; Thrombocytopenia D69.6 ; Neutropenia D70.9 ; Overweight E66.3 ; Urine retention R33.9 ; Benign prostatic hyperplasia, presence of lower urinary tract symptoms unspecified, unspecified morphology N40.0 and Junctional tachycardia I47.1 Assessments Encounter Date Diagnosis (ICD Code) Assessment Notes Treat ment Notes Treatment Clinical Notes 06/21/2025 CLL (chronic lymphocytic leukemia) (ICD-10 - C91.10) He was continued on Ibrutinib without a change in dose. He is stable and his disease is well controlled. I will try to obtain the chlorambucil that he and his family prefer. 06/21/2025 Thrombocytopenia (ICD-10 - D69.6) His platelets are stable at 135,000. He has had no bleeding. He will continue on current therapy and notify me if he has any GI or purpura or episodes of epistaxis or bleeding. 06/21/2025 Neutropenia (ICD-10 - D70.9) His white blood cell count is at the low end of normal. He has had no infections. No changes necessary his medication. 06/21/2025 Overweight (ICD-10 - E66.3) 06/21/2025 Urine retention (ICD-10 - R33.9) He recently had a catheter in place 06/21/2025 Benign prostatic hyperplasia, presence of lower urinary tract symptoms unspecified, unspecified morphology (ICD-10 - N40.0) He wakes twice at night to urinate but is satisfied with this level of functioning. No change in his regimen was desired. 06/21/2025 Junctional tachycard ia (ICD-10 - I47.1) He [...] 2 puffs as needed Inhalation as needed 1,1,1,6r9mnjfv Chlorambucil 2 MG 1 tablet Orally daily 05/09/2025 Leukeran 2 MG TAKE 1 TABLET BY JANET DAILY Oral Vitamin D3 50 MCG (1999 UT) 1 capsule Orally Once a day Vitamin B 12 100 MCG as directed Orally once a day traMADol HCl 50 MG 2 tablet Orally twic e a day fentaNYL 25 MCG/HR APPLY 1 PATCH TOPICA LLY TO THE SKIN EVERY 72 HOURS Transdermal traZODone HCl 100 MG 1 tablet at bedtime Orally Once a day Aspirin 81 81 MG 1 tablet Orally Once a day Pending Test Test Name Order Date PROFILE, RANDOM (COMPREHENSIVE METABOLIC ) 06/21/2025 CBC w DIFF 06/21/2025 RETIC 06/21/2025 Next Appt Details Follow Up: 3 Months, Reason: OV Provider Name:Dillon Lynn , 09/27/2025 09:30:00 AM, [address] [place] [address] DR, [address], [address], Progress Notes * Otis CARMENioDOB:1940 (85 yo M)Acc No.[id number]:06/21/2025 Progress Notes Patient: Sarah JENNIFEROtis Bolanosio Provider: Sarah Lynn MD :1940 A ge:85 Y S ex:Male Date:06/21/2025 Address:[address] [place], [place] [phone] Pcp:Avila Fuentes MD Subjective: * Chief Complaints: * C hronic lymphocytic leukemiaBenign prostatic hypertrophyHypertensionJunctional tachycardiaReason weight lossNeutropeniaThrombocytopeniaWeight loss * HPI: C OVID-19 Screening: He says he was taken to the local emergency room June 14. Blood work done. There is no record of this [facility]. No changes were made in his regimen.He has had no recent chest pain. He has seen Dr. Singh of cardiology began him on a beta nia.His weight has been stable.A CT scan of the chest ordered by Dr. Fuentes done at [facility] in March 2024 showed coronary artery calcifications. [facility] work [facility] shows control of the CLL. No change in his regimen was made. Questions H ave you had any new [...] with exertion d enies. D yspnea on exertion?with prolonged activity. S hortness of breath t hat is moderate. G astrointestinal: Constipation d enies. D ecreased appetite d enies.?Diarrhea d enies. H eartburn d enies. N ausea d enies. R ectal bleeding?denies. V omiting d enies. H ematology: bruising d enies. p etechiae d enies. S wollen glands n one have been noted. G enitourinary: Frequent urination t wice a night. M usculoskeletal: Muscle aches d enies. P ainful joints d enies. S ciatica d enies. W eakness t hat is generalized. S kin: Itching d enies. R trip [...] He is . He was born in [place]. * Medications: T akingAspirin 81 81 MG [...] Inhalation as needed , Notes to Pharmacist: 1,1,1,9d5rmmuiTrjubivbtgky 2 MG Tablet 1 tablet Orally daily Leukeran 2 MG Tablet TAKE 1 TABLET BY MOUTH DAILY Oral Medication List reviewed and reconciled with [...] Inhalation as needed , Notes to Pharmacist: 1,1,1,1f6hhupeLmivcn Chlorambucil 2 MG Tablet 1 tablet Orally daily Taking Leukeran 2 MG Tablet TAKE 1 TABLET BY MOUTH DAILY Oral Medication List reviewed and reconciled with the patient * Allergies: N o Known Drug Allergyno[Allergies Verified] Objective: * Vitals: H t: 66, Wt:170, BMI:27.44, BP:132/69, HR:64, Temp:97.2, Wt-k.11. * P ast Orders: Lab:Complete Blood Count Aut o Diff * Collection Date 06/14/2025 02/19/2025 12/27/2024 Collection Time 11:11 AM 09:16 AM 11:03 AM Order Date 06/14/2025 02/19/2025 12/27/2024 White Blood Count 4.9 (Ref Range: 4.8-10.8 X10*3/uL) 7.6 (Ref Range: 4.8-10.8 X10*3/uL) 8.5 (Ref Range: 4.8-10.8 X10*3/uL) Red Blood Count 3.97 L (Ref Range: 4.60-5.80 X10*6/uL) 3.89 L (Ref Range: 4.60-5.80 X10*6/uL) 3.70 L (Ref Range: 4.60-5.80 X10*6/uL) Hemoglobin 12.8 L (Ref Range: 14.0-18.0 g/dl) 12.4 L (Ref Range: 14.0-18.0 g/dl) 11.9 L (Ref Range: 14.0-18.0 g/dl) Hematocrit 39.7 L (Ref Range: 42.0-52.0 %) 39.0 L (Ref Range: 42.0-52.0 %) 36.7 L (Ref Range: 42.0-52.0 %) Mean Corpuscular Volume 100.0 H (Ref Range: 80.0-98.0 fL) 100.3 H (Ref Range: 80.0-98.0 fL) 99.2 H (Ref Range: 80.0-98.0 fL) Mean Corpuscular Hemoglobin 32.2 (Ref Range: 27.0-33.0 pg) 31.9 (Ref Range: 27.0-33.0 pg) 32.2 (Ref Range: 27.0-33.0 pg) Mean Corpuscular HGB Conc 32.2 (Ref Range: 31.0-36.0 g/dl) 31.8 (Ref Range: 31.0-36.0 g/dl) 32.4 (Ref Range: 31.0-36.0 g/dl) Red Cell Distribution Width 13.1 (Ref Range: 11.0-16.0 %) 12.8 (Ref Range: 11.0-16.0 %) 13.1 (Ref Range: 11.0-16.0 %) Platelet Count 135 L (Ref Range: 160-400 X10*3/uL) 121 L (Ref Range: 160-400 X10*3/uL) 125 L (Ref Range: 160-400 X10*3/uL) Mean Platelet Volume 10.9 (Ref Range: 9.4-12.4 fL) 11.9 (Ref Range: 9.4-12.4 fL) 11.7 (Ref Range: 9.4-12.4 fL) Neutrophils Percent Auto 75.2 H (Ref Range: 45-73 %) 34.7 L (Ref Range: 45-73 %) 42.1 L (Ref Range: 45-73 %) Imm Gran Pct Auto 0.6 H (Ref Range: 0.0-0.4 %) 0.3 (Ref Range: 0.0-0.4 %) 0.5 H (Ref Range: 0.0-0.4 %) Lymphocytes Percent Auto 19.9 L (Ref Range: 20-40 %) 52.5 H (Ref Range: 20-40 %) 47.8 H (Ref Range: 20-40 %) Monocytes Percent Auto 4.3 (Ref Range: 2-11 %) 10.3 (Ref Range: 2-11 %) 8.1 (Ref Range: 2-11 %) Eosinophils Percent Auto 0.0 (Ref Range: 0-4 %) 1.7 (Ref Range: 0-4 %) 1.1 (Ref Range: 0-4 %) Basophils Percent Auto 0.0 (Ref Range: 0-2 %) 0.5 (Ref Range: 0-2 %) 0.4 (Ref Range: 0-2 %) NRBC Pct Auto 0.0 (Ref Range: 0.0-0.2 /100WBC) 0.0 (Ref Range: 0.0-0.2 /100WBC) 0.0 (Ref Range: 0.0-0.2 /100WBC) Neutrophils Absolute Auto 3.7 (Ref Range: 2.0-8.3 x10*3/uL) 2.6 (Ref Range: 2.0-8.3 x10*3/uL) 3.6 (Ref Range: 2.0-8.3 x10*3/uL) Imm Gran Abs Auto 0.03 (Ref Range: 0.00-0.03 X10*3/uL) 0.02 (Ref Range: 0.00-0.03 X10*3/uL) 0.04 H (Ref Range: 0.00-0.03 X10*3/uL) Lymphocytes Absolute Auto 1.0 L (Ref Range: 1.2-4.9 X10*3/uL) 4.0 (Ref Range: 1.2-4.9 X10*3/uL) 4.1 (Ref Range: 1.2-4.9 X10*3/uL) Monocytes Absolute Auto 0.2 (Ref Range: 0.1-1.2 X10*3/uL) 0.8 (Ref Range: 0.1-1.2 X10*3/uL) 0.7 (Ref Range: 0.1-1.2 X10*3/uL) Eosinophils Absolute Auto 0.0 (Ref Range: 0.0-0.4 X10*3/uL) 0.1 (Ref Range: 0.0-0.4 X10*3/uL) 0.1 (Ref Range: 0.0-0.4 X10*3/uL) Basophils Absolute Auto 0.0 (Ref Range: 0.0-0.2 X10*3/uL) 0.0 (Ref Range: 0.0-0.2 X10*3/uL) 0.0 (Ref Range: 0.0-0.2 X10*3/uL) NRBC Abs Auto 0.000 (Ref Range: 0.0-0.012 X10*3/uL) 0.000 (Ref Range: 0.0-0.012 X10*3/uL) 0.000 (Ref Range: 0.0-0.012 X10*3/uL) * Lab:Comprehensive Met. Panel * Collection Date 06/14/2025 02/19/2025 12/27/2024 Collection Time 11:11 AM 09:16 AM 11:03 AM Order Date 06/14/2025 02/19/2025 12/27/2024 Sodium 142 (Ref Range: 135-145 mmol/L) 143 (Ref Range: 135-145 mmol/L) 143 (Ref Range: 135-145 mmol/L) Bilirubin Total 0.3 (Ref Range: 0.0-1.0 mg/dL) 0.3 (Ref Range: 0.0-1.0 mg/dL) 0.4 (Ref Range: 0.0-1.0 mg/dL) Aspartate Amino Transferase 35 (Ref Range: 5-37 U/L) 33 (Ref Range: 5-37 U/L) 34 (Ref Range: 5-37 U/L) Alanine Aminotransferase 24 (Ref Range: 0-40 U/L) 17 (Ref Range: 0-40 U/L) 14 (Ref Range: 0-40 U/L) Total Protein 7.0 (Ref Range: 6.5-8.0 g/dL) 6.8 (Ref Range: 6.5-8.0 g/dL) 6.7 (Ref Range: 6.5-8.0 g/dL) Albumin Level 4.1 (Ref Range: 3.5-5.0 g/dL) 3.9 (Ref Range: 3.5-5.0 g/dL) 3.7 (Ref Range: 3.5-5.0 g/dL) Alkaline Phosphatase 76 (Ref Range: 39-117 U/L) 65 (Ref Range: 39-117 U/L) 51 (Ref Range: 39-117 U/L) Potassium 4.8 (Ref Range: 3.3-5.1 mmol/L) 4.3 (Ref Range: 3.3-5.1 mmol/L) 4.3 (Ref Range: 3.3-5.1 mmol/L) Chloride 108 (Ref Range: 96-108 mmol/L) 109 H (Ref Range: 96-108 mmol/L) 108 (Ref Range: 96-108 mmol/L) Carbon Dioxide 27 (Ref Range: 22-29 mmol/L) 27 (Ref Range: 22-29 mmol/L) 27 (Ref Range: 22-29 mmol/L) Anion Gap 12 (Ref Range: 12-20) 11 L (Ref Range: 12-20) 12 (Ref Range: 12-20) Blood Urea Nitrogen 28 H (Ref Range: 9-16 mg/dL) 27 H (Ref Range: 9-16 mg/dL) 23 H (Ref Range: 9-16 mg/dL) Creatinine 1.74 H (Ref Range: 0.5-1.4 mg/dL) 1.86 H (Ref Range: 0.5-1.4 mg/dL) 1.63 H (Ref Range: 0.5-1.4 mg/dL) Estimated Glomerular Filt Rate 37 35 41 Glucose Random 142 H (Ref Range: 60-115 mg/dL) 94 (Ref Range: 60-115 mg/dL) 100 (Ref Range: 60-115 mg/dL) Calcium 8.7 (Ref Range: 8.4-10.2 mg/dL) 8.9 (Ref Range: 8.4-10.2 mg/dL) 9.0 (Ref Range: 8.4-10.2 mg/dL) * Examination: G eneral Examination: GENERAL APPEARANCE: p leasant, well nourished, well developed, in no acute distress, calm and relaxed: overweight: man. HEAD: a traumatic, normocephalic. EYES: e [...] sounds normal, no ascites, no organomegaly, no mass: overweight. RECTAL EXAM: n ot examined. MUSCULOSKELETAL: [...] he and his family prefer. 2 . T hrombocytopenia - D69.6 N otes :His platelets are stable at 135,000. He has had no bleeding. He will continue on current therapy and notify me if he has any GI or purpura or episodes of epistaxis or bleeding. 3 . N eutropenia - D70.9 N otes :His white blood cell count is at the low end of normal. He has had no infections. No changes necessary his medication. 4 . O verweight - E66.3 5 . U rine retention - R33.9 ? N otes :He recently had a catheter in place 6 . B enign prostatic hyperplasia, presence of lower urinary tract symptoms unspecified, unspecified morphology - N40.0 N otes :He wakes twice at night to urinate but is satisfied with this level of functioning. No change in his regimen was desired. 7 . J unctional tachycardia - I47.1 N otes :He was in a normal sinus rhythm today with a normal heart rate and no complaints. Plan: * Treatment: 2. T hrombocytopenia L AB: PROFILE, RANDOM (COMPREHENSIVE METABOLIC) L AB: CBC w DIFF L AB: RETIC 3. N eutropenia L AB: PROFILE, RANDOM (COMPREHENSIVE METABOLIC) L AB: CBC w DIFF L AB: RETIC 4. O verweight L AB: PROFILE, RANDOM (COMPREHENSIVE METABOLIC) L AB: CBC w DIFF L AB: RETIC * Procedure Codes: * Preventive Medicine: Counseling: C are goal follow-up plan: Counseling for abnormal BMI given Y es Above Normal BMI Follow-up D ietary management education, guidance, and counseling * Follow Up: 3 Months (Reason: OV) * Images: * Sign off status: Completed true * Provider: Sarah Lynn MD Date: Generated for Shari jared/Kayal/eTransmitting on: 10/17/2024 09:55 AM EST History and Physical Notes * HPI (History of Present Illness) Category Sub-Category Detail Notes COVID-19 Screening Questions Have you had any new onset fever, chills, cough, congestion, sore throat, shortness of breath, muscle aches?: No Examination Category Sub-Category Detail Notes General Examination GENERAL APPEARANCE: pleasant , well nourished, well developed, in no acute distress, calm and relaxed: overweight: man HEAD: atraumatic, normocep halic EYES: eomi, perrla, anicte lucy, conjugate EARS: normal NOSE: septum intact NECK/THYROID: no jugular venous di stention, no carotid bruit, thyroid normal HEART: no clicks, gallops, murmurs, or rubs, regular rhythm, S1, S2 normal, no s3, or vascular bruits LUNGS: clear to auscultatio n ABDOMEN: bowel sounds normal, no ascites, no organomegaly, no mass: overweight NEUROLOGIC: alert and oriented, cranial nerves [...]
--- OUTSIDE RECORDS SUMMARY | 2025-07-23 06:39 | XMS_ITS ---
Author Organization Dillon Lynn III, MD Address [address] [place] [address] Care Team Providers Care Hospitality Associate Name Role Phone Alfredo LEGER, Avila Primary Care Provider Dr. Dillon Lai III Unavailable [phone] REASON FOR VISIT Message Medications Medication SIG (Take, Route, Frequency, Duration) Notes Start Date End Date Status Leukeran 2 MG TAKE 1 TABLET BY JANET TH DAILY Oral one tablet daily for 75 days Active Social History Sex Assigned At : Social History Observation Description Sex Assigned At Male Encounters Encounter Location Date Provider Diagnosis Dillon Lynn III, MD [address] [place] [address] [place] [address] 07/23/2025 Dillon Lynn CLL (chronic lymphocytic leukemia) C91.10 Assessments Encounter Date Diagnosis (ICD Code) Assessment Notes Treatment Notes Treatment Clinical Notes 07/23/2025 CLL (chronic lymphocytic leukemia) (ICD-10 - C91.10) He was continued on Ibrutinib without a change in dose. He is stable and his disease is well controlled. I will try to obtain the chlorambucil that he and his family prefer. Plan Of Treatment Medication Medication Name Sig Start Date Stop Date Notes Leukeran 2 MG TAKE 1 TABLET BY JANET TH DAILY Oral one tablet daily for 75 days Next Appt Details Provider Name:Dillon Lynn , 09/27/2025 09:30:00 AM, [address] [place] [address] [place], [address], Progress Notes * Mariaa CARMENOB:1940 (85 yo M)Acc No.[id number]:07/23/2025 Patient: Ishmael GRIGSBY :1940 A ge:85 Y S ex:Male Address:[address] [place] [phone] * Refills Refill Leukeran Tablet, 2 MG, Oral, 75 Tablet, TAKE 1 TABLET BY MOUTH DAILY, one tablet daily, 75 days, Refills=5 * true * Date: Generated for Bruce coleman/Kayla/Carolsmitting on: 10/17/2024 09:55 AM EST
--- NOTE | 2025-08-16 09:21 | MHC.OFFVIS ---
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 Accompanied by: Grand Child Allergies No Known Allergies Allergy (Unverified 06/04/25 11:00) Medication List - Last Reconciled 08/16/25 by BARBARA Herzog albuterol sulfate 90 mcg/actuation 2 puffs inhalation Q4H PRN aspirin 81 mg PO DAILY atorvastatin (Lipitor) 10 mg PO QPM chlorambucil (Leukeran) 2 mg PO DAILY doxepin (Silenor) 3 mg PO BEDTIME PRN fentanyl 25 mcg/hr topical metoprolol succinate ER (Toprol XL) 25 mg PO DAILY mirtazapine 30 mg PO DAILY tramadol 100 mg PO BID PRN HPI HPI f/up testing: Details: The patient is an 85 year old male presenting for follow-up for chest discomfort and coronary artery disease. A chest CT from 04/23/2025 revealed moderate coronary artery calcifications.. 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 His wall motion abnormality was noted on an echo a few years ago, suggesting the myocardial infarction was not a recent event. He was recently started on Metoprolol and atorvastatin. He reports that his chest discomfort has improved. He is experiencing some increased shortness of breath, particularly on exertion and when lying down. He gets relief when he uses his asthma inhaler. He also reports long-standing dizziness upon standing, which sometimes leads to falls. His past medical history is significant for hyperlipidemia, hypertension, supraventricular tachycardia, chronic kidney disease, chronic low back pain, memory impairment, and a history of smoking. His LDL was 95 on 05/29/2024 before he was started on a statin. His current cardiac medications include aspirin, atorvastatin, and metoprolol. His grandson is present at that visit and daughter is on facetime. 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 herniation Primary erectile dysfunction Kidney stone Chronic kidney disease Diverticulitis Pulmonary emphysema Heart failure Paroxysmal supraventricular tachycardia Hypertensive disorder Restless legs Depressive disorder Metabolic syndrome X Chronic lymphoid leukemia Herpes zoster Surgical History History of prostatectomy Family History Mother Stroke Social History Alcohol intake: never Patient Tobacco Use Status: Never used Tobacco Review of Systems Const All systems reviewed & are unremarkable except as noted in HPI and below Denies chills, Denies fatigue, Denies fever(s), Denies frequent falls, Denies weakness, Denies weight gain and Denies weight loss ENT Denies dizziness Card Denies chest pain, Denies leg edema, Denies lightheadedness, Denies palpitations, Reports dyspnea and Reports dyspnea on exertion Resp Denies cough, Reports dyspnea and Reports dyspnea on exertion GI Denies hematochezia Musc Details: unsteady Denies abnormal gait, Denies muscle weakness, Denies numbness, Denies radiating pain into limb and Denies tingling Neuro Denies abnormal gait, Denies dizziness, Denies frequent falls, Denies numbness, Denies tingling and Denies weakness Endo Denies fatigue and Denies palpitations Physical Exam Vital Signs: Last Vital Signs Pulse 71 08/16/25 09:23 BP 122/70 08/16/25 09:23 BMI result Body Mass Index 29.2 Const General: cooperative, healthy appearing, comfortable and no acute distress Orientation/consciousness: patient oriented x3 Neck Neck: Yes normal visual inspection Resp Effort & Inspection: normal respiratory effort Auscultation: clear to auscultation bilaterally, no crackles, no rales, no rhonchi and no wheezes Cardio Rate: regular rate Rhythm: regular rhythm Heart sounds: S1 normal heart sound present, S2 normal heart sound present, no gallops, no murmurs and no rubs GI Inspection: Yes normal to inspection Skin General skin exam: no rashes or lesions noted Neuro General: patient oriented x3 Extrem General: Yes normal to inspection, No no pedal edema and No calf tenderness Psych Appearance: grossly normal Mental Status: mental status grossly normal Speech and movement: Normal speech and movement present Assessment & Plan Assessment & Plan (1) Atherosclerotic cardiovascular disease: Code(s): I25.10 - Atherosclerotic heart disease of [place] coronary artery without angina pectoris Category: Medical Plan: History of CAD, with prior coronary calcification seen on CT scan. Recent echo showing reduced EF and wall motion abnormality, similar to prior echocardiogram 2022. This was followed by a nuclear stress test which does show findings suggestive of nontransmural infarct of the inferior and inferior lateral wall. Reviewed with him in detail. Offered diagnostic cardiac catheterization for further evaluation and patient/family declined at this time. He was previously reporting chest discomfort which has improved following the addition of metoprolol. He does report issues with lightheadedness and unsteadiness which are not new. Will hold off on additional medications that could lower blood pressure at this time to avoid increasing his fall risk. Continue aspirin indefinitely. Continue atorvastatin with ideal LDL goal less than 70. Checking fasting lipids today. He is reporting some shortness of breath which could be related to his COPD however will check BNP to assess for Congestive heart failure. Cardiology follow-up 3 months, sooner if needed to reassess symptoms and review plan of care. (2) Abnormal nuclear stress test: Code(s): R94.39 - Abnormal result of other cardiovascular function study Category: Medical Plan: As above (3) Inferior IN: Code(s): I21.19 - ST elevation (STEMI) myocardial infarction involving other coronary artery of inferior wall Category: Medical Plan: As above (4) Hyperlipidemia: Code(s): E78.5 - Hyperlipidemia, unspecified Category: Medical Plan: [place] LDL goal less than 70. Fasting lipids today. Continue atorvastatin and will titrate if warranted Plan I explained to the patient and his family that his tests indicate he has had a heart attack in the past, causing his heart to be weak, which is likely the cause of his current shortness of breath. I detailed the plan to obtain bloodwork today to check for congestive heart failure and to monitor his cholesterol. I discussed that if the blood test shows fluid buildup, we may start a diuretic. We discussed further diagnostic options, including an invasive cardiac catheterization to fully visualize his coronary arteries, and I reviewed the associated risks. I explained that since he is not currently having chest pain, it is reasonable to continue with medical management. The patient and his family agreed to stick with medications for now. I strongly advised them that if he experiences any severe or acute chest pain, he must seek immediate medical attention by calling 911. I recommended a follow-up visit in three months, or sooner if his symptoms worsen. Orders: Orders NT Pro B Type Natriuretic Pept Today I25.10 - Atherosclerotic heart disease of [place] coronary artery without angina pectoris Lipid Panel Today I25.10 - Atherosclerotic heart disease of [place] coronary artery without angina pectoris Comprehensive [place]. Panel Fast Today I25.10 - Atherosclerotic heart disease of [place] coronary artery without angina pectoris Patient Instructions: - Please go to the lab to have your blood drawn today. - Continue to take your aspirin, atorvastatin (cholesterol pill), and metoprolol as prescribed. - If you have severe and sudden chest pain, call 911 for emergency help immediately. - You have decided to continue with medications for now instead of pursuing a more invasive heart procedure. - The blood test ordered today will help us check for extra fluid in your body and see how well the cholesterol medication is working. - Please schedule a follow-up appointment in three months, or call us sooner if your symptoms get worse. Patient was informed and verbally consented to the use of an ambient scribe for clinic note documentation during this visit. Visit time spent on chart review, interview, assessment, orders, documentation. Coding Level of Care Code Est Pt Level 4 (16054) Add On Problem Visit Only Diagnoses Atherosclerotic cardiovascular disease I25.10 Abnormal nuclear stress test R94.39 Inferior IN I21.19 Hyperlipidemia E78.5 Time Spent (min) 28
[2025-08-16 09:23] VITALS: BP 122/70; PULSE 71; BMI 29.2
--- OUTSIDE RECORDS SUMMARY | 2025-08-16 09:56 | XMS_ITS | Patient Health Record ---
Author Organization [facility] Address [address] [place] [id number] Care Team Providers Care Hotel Operations Manager Name Role Phone Valentino Acosta Jr Reason For Referral No Information Plan Of Treatment No Information
--- OUTSIDE RECORDS SUMMARY | 2025-08-16 09:56 | XMS_ITS | Patient Health Record ---
Author Organization Dillon Lynn III, MD Address [address] [place] [address] [place] [address] Care Team Providers Care Supervisor Education Name Role Phone Avila Fuentes MD Primary Care Provider Dr. Dillon Lai III Unavailable Allergies Allergen (clinical drug ingredient) Drug/Non Drug Allergy documented on EMR Reaction Allergy Type Onset Date Status No Known Drug Allergy Unknown Drug Allergy Active Results Component Value Reference Range Notes Beta-2 Microglobulin, Serum Reviewed date:02/27/2025 03:57:54 PM Interpretation: Performing Lab:[facility], [address] [place] [phone] Notes/Report: Beta-2 Microglobulin, Serum 3.88 < OR = 2.51 mg/L THIS TEST WAS PERFORMED AT: [facility] [address] [place] [phone] VINCE LUCAS MD Complete Blood Count Auto Di ff Reviewed date:11/11/2024 10:16:50 AM Interpretation: Performing Lab:[facility], [address] [place] [phone] Notes/Report: White Blood Count 10.6 4.8-10.8 X10*3/uL [...] Panel Reviewed date:11/11/2024 10:16:50 AM Interpretation: Performing Lab:[facility], [address] [place] [phone] Notes/Report: Sodium 141 135-145 mmol/L Potassium 4.0 [...] Serum Reviewed date:11/11/2024 10:16:50 AM Interpretation: Performing Lab:[facility], [address] [place] [phone] Notes/Report: Beta-2 Microglobulin, Serum 4.29 < OR = 2.51 mg/L THIS TEST WAS PERFORMED AT: [facility] [address] [place] [phone] VINCE LUCAS MD Complete Blood Count Auto Di ff Reviewed date:11/11/2024 10:16:50 AM Interpretation: Performing Lab:[facility], [address] [place] [phone] Notes/Report: White Blood Count 9.7 4.8-10.8 X10*3/uL [...] ff Reviewed date:12/29/2024 08:46:20 PM Interpretation: Performing Lab:[facility], [address] [place] [phone] Notes/Report: White Blood Count 8.5 4.8-10.8 X10*3/uL [...] Panel Reviewed date:12/29/2024 08:46:20 PM Interpretation: Performing Lab:[facility], [address] [place] [phone] Notes/Report: Sodium 143 135-145 mmol/L Potassium 4.3 [...] ff Reviewed date:02/20/2025 05:39:39 AM Interpretation: Performing Lab:[facility], [address] [place] [phone] Notes/Report: White Blood Count 7.6 4.8-10.8 X10*3/uL [...] INR Reviewed date:02/20/2025 05:39:39 AM Interpretation: Performing Lab:[address] [phone] Notes/Report: Prothrombin Time 9.9 10.9-12.4 SEC INTERNATIONAL [...] Time Reviewed date:02/20/2025 05:39:39 AM Interpretation: Performing Lab:[facility], [address] [place] [phone] Notes/Report: Partial Thromboplastin Time 30.4 26.0-36.8 SEC For information regarding the monitoring of direct thrombin inhibitors, please refer to Pharmacy. Fibrinogen Reviewed date:02/20/2025 05:39:39 AM Interpretation: Performing Lab:[address] [phone] Notes/Report: Fibrinogen 445 259-690 MG/DL Comprehensive Met. Panel Reviewed date:02/20/2025 05:39:39 AM Interpretation: Performing Lab:[facility] [address], [place] [address] Notes/Report: Sodium 143 135-145 mmol/L Potassium 4.3 [...] Antigen Reviewed date:02/20/2025 03:22:01 PM Interpretation: Performing Lab:[facility], [address] [place] [phone] Notes/Report: Prostate Specific Antigen 0.47 <0.05-4.0 ng/mL PSA methodology: Best Alinity i Chemiluminescent Microparticle Immunoassay (CMIA) Pathology Reviewed date:02/27/2025 03:57:54 PM Interpretation: Performing Lab:[facility], [address] [place] [phone] Notes/Report: ------- Name: George Beltran Age/Sex: 85/M : 1940 Unit#: [id number] Attend Dr: Mary Servin [facility]: 02/20/25 Status : DEP REF Location: .LAB Disch: ------- SPEC : [id number] RECD : 02/21/25 STATUS: ADRIANA MOSLEY NUM: [id number] MARC: 02/20/[address] [facility] [address]: Mary Servin [facility] ENTERED: 02/21/25 36 SP TYPE: Cytology OTHR [...] and their performance characte ristics determined by [facility]. They have not been cleared or appr jose carlos by the U.S. Food and Drug Administration (FDA). However, the FDA has determined that such clearance or approval is not necessary. This laboratory is certified under the Clinical Laboratory Improvement Amendments of 1988 (CLIA) as qualified to perform high comp lexity clinical laboratory testing. Copies To: Dillon Lynn MD [address] [place] [address], [facility] [address] [place] [address] [facility] [address] [place] [address] Dr. [address] [id number] [email or web address] CONTINUED ON NEXT PAGE ------- Name: Vinayak LundyGeorge schultz freida Age/Sex: 85/M : 1940 Unit#: [id number] Attend Dr: Mary Servin [facility] Re02/20/25 Status : DEP REF Location: [facility] Disch: ------- SPEC : [id number] RECD : 02/21/25 STATUS: ADRIANA MOSLEY NUM: [id number] MARC: 02/20/25-[address] [facility] [address]: Mary Servin [facility] EN[facility]ED: 02/21/25-11 36 SP TYPE: Cytology OTHR DR: Dillon Lynn MD ORDERED: Cyto-enhanced ------- Signed (si gnature on file) Dung Bowman MD 02/25/25 1130 ------- END OF REPORT Complete Blood Count Auto Di ff Reviewed date:06/14/2025 03:59:43 PM Interpretation: Performing Lab:[facility], [address] [place] [phone] Notes/Report: White Blood Count 4.9 4.8-10.8 X10*3/uL Red Blood Count 3.97 4.60-5.80 X10*6/uL Hemoglobin 12.8 14.0-18.0 g/dl Hematocrit 39.7 42.0-52.0 % Mean Corpuscular Volume 100.0 80.0-98.0 fL Mean Corpuscular Hemoglobin 32.2 27.0-33.0 pg Mean Corpuscular HGB Conc 32.2 31.0-36.0 g/dl Red Cell Distribution Width 13.1 11.0-16.0 % Platelet Count 135 160-400 X10*3/uL Mean Platelet Volume 10.9 9.4-12.4 fL Neutrophils Percent Auto 75.2 45-73 % Imm Gran Pct Auto 0.6 0.0-0.4 % Lymphocytes Percent Auto 19.9 20-40 % Monocytes Percent Auto 4.3 2-11 % Eosinophils Percent Auto 0.0 0-4 % Basophils Percent Auto 0.0 0-2 % NRBC Pct Auto 0.0 0.0-0.2 /100WBC Neutrophils Absolute Auto 3.7 2.0-8.3 x10*3/uL Imm Gran Abs Auto 0.03 0.00-0.03 X10*3/uL Lymphocytes Absolute Auto 1.0 1.2-4.9 X10*3/uL Monocytes Absolute Auto 0.2 0.1-1.2 X10*3/uL Eosinophils Absolute Auto 0.0 0.0-0.4 X10*3/uL Basophils Absolute Auto 0.0 0.0-0.2 X10*3/uL NRBC Abs Auto 0.000 0.0-0.012 X10*3/uL Comprehensive Met. Panel Reviewed date:06/14/2025 03:59:43 PM Interpretation: Performing Lab:[facility], [address] [place] [phone] Notes/Report: Sodium 142 135-145 mmol/L Potassium 4.8 3.3-5.1 mmol/L Chloride 108 96-108 mmol/L Carbon Dioxide 27 22-29 mmol/L Anion Gap 12 12-20 Blood Urea Nitrogen 28 9-16 mg/dL Creatinine 1.74 0.5-1.4 mg/dL Estimated Glomerular Filt Rate 37 Chronic Kidney Disease: Estimated GFR < 60 mL/min/1.73m2 Severe Kidney Disease: Estimated GFR < 15 mL/min/1.73m2 Glucose Random 142 60-115 mg/dL Calcium 8.7 8.4-10.2 mg/dL Bilirubin Total 0.3 0.0-1.0 mg/dL Aspartate Amino Transferase 35 5-37 U/L Alanine Aminotransferase 24 0-40 U/L Total Protein 7.0 6.5-8.0 g/dL Albumin Level 4.1 3.5-5.0 g/dL Alkaline Phosphatase 76 39-117 U/L Reason For Referral No Information Medications Medication SIG (Take, Route, Frequency, Duration) Notes Start Date End Date Status Mirtazapine 30 MG 1 tablet at bedtime Orally Once a day Active Morphine Sulfate 15 MG 1 tablet as neede d Orally as needed Active Albuterol Sulfate 2 puffs as needed Inhalation as needed 1,1,1,7a6yjdwu Active Aspirin 81 81 MG 1 tablet Orally Once a day Active Vitamin D3 50 MCG (1999 UT) 1 capsule Orally Once a day Active Vitamin B 12 100 MCG as directed Orally once a day Active traMADol HCl 50 MG 2 tablet Orally twic e a day Active Leukeran 2 MG TAKE 1 TABLET BY MOUTH DAILY Oral one tablet daily for 75 days Active fentaNYL 25 MCG/HR APPLY 1 PATCH TOPICALLY TO THE SKIN EVERY 72 HOURS Transdermal Active traZODone HCl 100 MG 1 tablet at bedtime Orally Once a day Active Social History [...] Problem Status W/U Status Risk Notes Problem 935324755 Overweight (E66.3) Active confirmed He has gained 6 pounds. His body mass index is 27.9. I recommended stabilizing his weight at this level. Problem Weight loss (830827347) Weight loss (R63.4) Active confirmed He has gained 6 pounds on his body mass index is now 27. He is no longer losing weight. Problem 133591035 Thrombocytopenia (D69.6) Active confirmed His platelets are stable at 135,000. He has had no bleeding. He will continue on current therapy and notify me if he has any GI or purpura or episodes of epistaxis or bleeding. Problem 284527503 Neutropenia (D70.9) Active confirmed His white blood cell count is at the low end of normal. He has had no infections. No changes necessary his medication. Problem 05453457 Essential hypertension (I10) Active confirmed His blood pressure is stable and well controlled today and no change in his regimen seems necessary.His value was 133/76. Problem 86251163 CLL (chronic lymphocytic leukemia) (C91.10) Active confirmed He was continued on Ibrutinib without a change in dose. He is stable and his disease is well controlled. I will try to obtain the chlorambucil that he and his family prefer. Problem 910500982 Urine retention (R33.9) Active confirmed He recently had a catheter in place Problem 628161164 Benign prostatic hyperplasia, presence of lower urinary tract symptoms unspecified, unspecified morphology (N40.0) Active confirmed He wakes twice at night to urinate but is satisfied with this level of functioning. No change in his regimen was desired. Problem 591380923 Diverticulitis (K57.92) Active confirmed He clinically has diverticulitis and will be treated with antibiotics for close follow-up visit. 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 Vital Signs Heart Rate 64 /min 06/21/2025 Temperature 97.2 degrees Fahrenheit 06/21/2025 Blood pressure diastolic 69 mm Hg 06/21/2025 Height 66 in 06/21/2025 Blood pressure systolic 132 mm Hg 06/21/2025 Weight 170 lbs 06/21/2025 BMI 27.44 kg/m2 06/21/2025 Encounters Encounter Location Date Provider Diagnosis Dillon Lynn III, MD [address] [place] [address] [place] [address] 10/16/2024 Dillon Lynn CLL (chronic lymphoc ytic leukemia) C91.10 ; Benign prostatic hyperplasia, presence of lower urinary tract symptoms unspecified, unspecified morphology N40.0 ; Thrombocytopenia D69.6 ; Junctional tachycardia I47.1 and Overweight E66.3 Dillon Lynn III, MD [address] [place] [address] [place] [address] 11/01/2024 Dillon Lynn CLL (chronic lymphoc ytic leukemia) C91.10 ; Thrombocytopenia D69.6 ; Overweight E66.3 and Essential hypertension I10 Dillon Lynn III, MD [address] [place] [address] [place] [address] 12/27/2024 Dillon Lynn CLL (chronic lymphoc ytic leukemia) C91.10 ; Thrombocytopenia D69.6 ; Benign prostatic hyperplasia, presence of lower urinary tract symptoms unspecified, unspecified morphology N40.0 ; Essential hypertension I10 ; Weight loss R63.4 ; Junctional tachycardia I47.1 and Overweight E66.3 Dillon Lynn III, MD [address] [place] [address] [place] [address] 03/07/2025 Dillon Lynn CLL (chronic lymphoc ytic leukemia) C91.10 ; Thrombocytopenia D69.6 ; Neutropenia D70.9 ; Benign prostatic hyperplasia, presence of lower urinary tract symptoms unspecified, unspecified morphology N40.0 ; Essential hypertension I10 and Junctional tachycardia I47.1 Dillon Lynn III, MD [address] [place] [address] [place] [address] 05/09/2025 Dillon Lynn CLL (chronic lymphoc ytic leukemia) C91.10 ; Overweight E66.3 ; Junctional tachycardia I47.1 ; Thrombocytopenia D69.6 and Benign prostatic hyperplasia, presence of lower urinary tract symptoms unspecified, unspecified morphology N40.0 Dillon Lynn III, MD [address] [place] [address] [place] [address] 06/21/2025 Dillon Lynn CLL (chronic lymphoc ytic leukemia) C91.10 ; Thrombocytopenia D69.6 ; Neutropenia D70.9 ; Overweight E66.3 ; Urine retention R33.9 ; Benign prostatic hyperplasia, presence of lower urinary tract symptoms unspecified, unspecified morphology N40.0 and Junctional tachycardia I47.1 Dillon Lynn III, MD [address] [place] [address] [place] [address] 09/20/2024 Diloln Lynn III, MD [address] [place] [address] [place] [address] 09/24/2024 Dillon Lynn III, MD [address] [place] [address] [place] [address] 11/14/2024 Dillon Lynn III, MD [address] [place] [address] [place] [address] 02/18/2025 Dillon Lynn CLL (chronic lymphoc ytic leukemia) C91.10 ; Thrombocytopenia D69.6 and Overweight E66.3 Dillon Lynn III, MD [address] [place] [address] [place] [address] 05/09/2025 Dillon Lynn III, MD [address] [place] [address] [place] [address] 06/17/2025 Dillon Lynn CLL (chronic lymphoc ytic leukemia) C91.10 Dillon Lynn III, MD [address] [place] [address] [place] [address] 07/23/2025 Dillon Lynn CLL (chronic lymphoc ytic leukemia) C91.10 Assessments Encounter Date Diagnosis (ICD [...] or episodes of epistaxis or bleeding. 06/21/2025 CLL (chronic lymphocytic leukemia) (ICD-10 - C91.10) He was continued on Ibrutinib without a change in dose. He is stable and his disease is well controlled. I will try to obtain the chlorambucil that he and his family prefer. 02/18/2025 CLL (chronic lymphocytic leukemia) (ICD-10 - C91.10) 06/17/2025 CLL (chronic lymphocytic leukemia) (ICD-10 - C91.10) He was continued on Ibrutinib without a change in dose. He is stable and his disease is well controlled. I will try to obtain the chlorambucil that he and his family prefer. 07/23/2025 CLL (chronic lymphocytic leukemia) (ICD-10 - C91.10) He was continued on Ibrutinib without a change in dose. He is stable and his disease is well controlled. I will try to obtain the chlorambucil that he and his family prefer. 10/16/2024 Thrombocytopenia (ICD-10 - D69.6) His mild [...] a normal heart rate and no complaints. 06/21/2025 Neutropenia (ICD-10 - D70.9) His white blood cell count is at the low end of normal. He has had no infections. No changes necessary his medication. 02/18/2025 Thrombocytopenia (ICD-10 - D69.6) 10/16/2024 Junctional [...] change in his medications was made today. 06/21/2025 Overweight (ICD-10 - E66.3) 02/18/2025 Overweight (ICD-10 - E66.3) 10/16/2024 Overweight [...] change in his regimen was desired. 06/21/2025 Urine retention (ICD-10 - R33.9) He recently had a catheter in place 12/27/2024 Junctional tachycardia (ICD-10 - I47.1) He was in a normal sinus rhythm today with a normal heart rate and no complaints. 03/07/2025 Junctional tachycardia (ICD-10 - I47.1) He was in a normal sinus rhythm today with a normal heart rate and no complaints. 06/21/2025 Benign prostatic hyperplasia, presence of lower urinary tract symptoms unspecified, unspecified morphology (ICD-10 - N40.0) He wakes twice at night to urinate but is satisfied with this level of functioning. No change in his regimen was desired. 12/27/2024 Overweight (ICD-10 - E66.3) He has gained 6 pounds. His body mass index is 27.9. I recommended stabilizing his weight at this level. 06/21/2025 Junctional tachycardia (ICD-10 - I47.1) He was in a normal sinus rhythm today with a normal heart rate and no complaints. Plan Of Treatment Pending Test Test Name Order Date PROFILE, RANDOM (COMPREHENSIVE METABOLIC ) 03/07/2025 PROFILE, RANDOM (COMPREHENSIVE METABOLIC ) 05/09/2025 PROFILE, RANDOM (COMPREHENSIVE METABOLIC ) 06/21/2025 CBC w DIFF 06/21/2025 CBC w DIFF 03/07/2025 CBC w DIFF 05/09/2025 RETIC 06/21/2025 Next Appt Details Provider Name:Dillon Lynn , 09/27/2025 09:30:00 AM, [address] [place] [address] , [facility], [address], Insurance Providers Payer Name Payer Address Payer Phone Subscriber Number Group Number Insured Name Patient Relationship to Insured Coverage Start Date Coverage End Date MEDICARE NGS [address] [place] [address] [id number] Ishmael Licea Self - patient is the insured MED[place] [address] [place] [id number] Ishmael Licea Self - patient is the insured Medical (General) History Medical History History ICD Code hypertension bph urine retention elevated psa back surgery for nerve impingement chronic lymphocytic leukemia Coronary artery disease Paroxysmal supraventricular tachycardia Interstitial lung disease Surgical History Surgery Date(Month/Year) No history right parotid gland lymph node biopsy, C LL/SLL 12/2011 Hospitalization History Reason Date(Month/Year) No history
--- OUTSIDE RECORDS SUMMARY | 2025-08-16 09:57 | XMS_ITS | Clinical Summary ---
Author Organization [facility] Address [address] [place] [address] Phone Care Team Providers Care Clinical Science Consultant Name Role Phone Avila Fuentes Primary Care Provider [phone] Allergies No known active allergies Social History Tobacco Use Types Packs/Day Years Used Date Smoking Tobacco: Former Cigarettes Smokeless Tobacco: Never Tobacco Cessation:Counseling Given: Not Answered Sex and Gender Information Value Date Recorded Sex Assigned at Male 10/01/2024 5:33 PM EST Legal Sex Male 5:20 AM EST Gender Identity Male 10/01/2024 5:33 PM EST Sexual Orientation Straight 10/01/2024 5: 33 PM EST Last Filed Vital Signs Vital Sign Reading [...] Comprehensive metabolic panel (10/01/2024 5:15 PM EST) [facility] Sodium 139 133 - 145 mmol/L LAB CHEMISTRY METHOD 10/01/2024 6:52 PM EST [facility] Potassium 4.2 3.5 - 5.5 mmol/L LAB CHEMISTRY METHOD 10/01/2024 6:52 PM [facility] Chloride 106 96 - 110 mmol/L LAB CHEMISTRY METHOD 10/01/2024 6:52 PM [facility] CO2 27 21 - 32 mmol/L LAB CHEMISTRY METHOD 10/01/2024 6:52 PM [facility] Anion Gap 6 3 - 11 LAB CHEMISTRY METHOD 10/01/2024 6:52 PM [facility] Glucose 95 70 - 100 mg/dL LAB CHEMISTRY METHOD 10/01/2024 6:52 PM [facility] BUN 25 5 - 25 mg/dL LAB CHEMISTRY METHOD 10/01/2024 6:52 PM [facility] Creatinine 1.71(H) 0.70 - 1.30 mg/dL LAB CHEMISTRY METHOD 10/01/2024 6:52 PM [facility] eGFR 39(L) >=60 mL/min/1. 73m2 LAB CHEMISTRY METHOD 10/01/2024 6:52 PM [facility] Comment:Calculation based on the Chronic Kidney Disease Epidemiology Collaboration (CKD-EPI) equation refit without adjustment for race. BUN/Creatinine Ratio 14.6 LAB CHEMISTRY METHOD 10/01/2024 6:52 PM [facility] Calcium 8.9 8.5 - 10.5 mg/dL LAB CHEMISTRY METHOD 10/01/2024 6:52 PM [facility] AST (SGOT) 24 10 - 42 unit/L LAB CHEMISTRY METHOD 10/01/2024 6:52 PM [facility] ALT (SGPT) 20 10 - 60 unit/L LAB CHEMISTRY METHOD 10/01/2024 6:52 PM [facility] Alkaline Phosphatase 62 42 - 121 unit/L LAB CHEMISTRY METHOD 10/01/2024 6:52 PM [facility] Total Protein 6.8 6.0 - 8.0 g/dL LAB CHEMISTRY METHOD 10/01/2024 6:52 PM [facility] Albumin 3.7 3.2 - 5.0 g/dL LAB CHEMISTRY METHOD 10/01/2024 6:52 PM EST [facility] Total Bilirubin 0.4 0.0 - 1.4 mg/dL LAB CHEMISTRY METHOD 10/01/2024 6:52 PM EST [facility] Blood Venous blood specimen / Unknown Venipuncture / Unknown 10/01/2024 5:15 PM EST 10/01/2024 5:49 PM EST us Larry [facility] LEGER LAB BLOOD ORDERABLES Final Resu lt [facility] ([facility] [address] [place] [address], from Last 3 Months or Most Recently Relevant to Health Maintenance Insurance MEDICAID - [place] MEDICARE Care Teams Clinical Science Consultant Relationship Specialty Start Date End Date Avila Fuentes DO [address] [facility] [address] [place], [place] PCP - General Internal Medicine 09/08/17
== END 2025-08-16 09:47 | disposition home or self-care (01) ==
LOC: HO.HCS 09:19
PROVIDERS: PCP Internal Medicine; Visit Provider Nurse Practitioner Family
DX: I25.10 Atherosclerotic heart disease of native coronary artery without angina pectoris (principal); R94.39 Abnormal result of other cardiovascular function study; I21.19 ST elevation (STEMI) myocardial infarction involving other coronary artery of inferior wall; E78.5 Hyperlipidemia, unspecified
CPT/HCPCS: 99214; G2211

== ENCOUNTER 2025-08-16 09:19 | Outpatient (REF) | payer MEDICARE, MEDICAID, SELFPAY ==
[2025-08-16 11:07] LABS: Alanine Aminotransferase 30 U/L (0-40); Albumin Level 4.0 g/dL (3.5-5.0); Alkaline Phosphatase 76 U/L (39-117); Anion Gap 10 (12-20); Aspartate Amino Transferase 38 U/L (5-37); Blood Urea Nitrogen 29 mg/dL (9-16); Calcium 9.2 mg/dL (8.4-10.2); Carbon Dioxide 29 mmol/L (22-29); Chloride 108 mmol/L (96-108); Cholesterol 124 mg/dL (<200); Estimated Glomerular Filt Rate 32; HDL Cholesterol 39 mg/dL (>40); Potassium 4.3 mmol/L (3.3-5.1); Sodium 143 mmol/L (135-145); Total Protein 6.8 g/dL (6.5-8.0); Triglycerides 142 mg/dL (<150)
[2025-08-16 11:20] LABS: NT Pro B Type Natriuretic Pept 655.5 pg/mL (<300)
== END 2025-08-16 09:20 | disposition home or self-care (01) ==
LOC: HO.LAB 09:19
PROVIDERS: PCP Internal Medicine; Visit Provider Nurse Practitioner Family
DX: I25.10 Atherosclerotic heart disease of native coronary artery without angina pectoris (principal); I21.19 ST elevation (STEMI) myocardial infarction involving other coronary artery of inferior wall; E78.5 Hyperlipidemia, unspecified; R94.39 Abnormal result of other cardiovascular function study; Z79.82 Long term (current) use of aspirin; Z79.899 Other long term (current) drug therapy
CPT/HCPCS: 36415; 80053; 80061; 83880; 99212

== ENCOUNTER 2025-08-27 12:15 | Outpatient (REF) | payer MEDICARE, MEDICAID, SELFPAY ==
--- OUTSIDE RECORDS SUMMARY | 2024-11-01 04:15 | XMS_ITS ---
Author Organization Dillon Lynn III, MD Address [address] [place] [address] [place] [address] Care Team Providers Care Varnish Maker Helper Name Role Phone Alfredo LEGER, Avila Primary Care Provider Dr. Dillon Lai III Unavailable [phone] Allergies Allergen (clinical drug ingredient) Drug/Non Drug Allergy documented on EMR Reaction Allergy Type Onset Date Status No Known Drug Allergy Unknown Drug Allergy Active REASON FOR VISIT Chronic lymphocytic leukemia, Benign prostatic hypertrophy, Thrombocytopenia, Neutropenia Medications Medication SIG (Take, Route, Frequency, Duration) Notes Start Date End Date Status Albuterol Sulfate 2 puffs as needed Inhalation as needed 1,1,1,0z9welhq Active Morphine Sulfate 15 MG 1 tablet [...] Date Provider Diagnosis Dillon Lynn III, MD [address] [place] [address] [address] [place], [place] [address] 11/01/2024 Dillon Lynn CLL (chronic lymphoc ytic [...] 2 puffs as needed Inhalation as needed 1,1,1,2d7rycpz Morphine Sulfate 15 MG 1 tablet as [...] Provider Name:Dillon Lynn , 09/27/2025 09:30:00 AM, [address] [place], [place] [address]KATHARINE, [place], [address], Progress Notes * Otis CARMENioDOB:1940 (84 yo M)Acc No.[id number]:11/01/2024 Progress Notes Patient: Ishmael GRIGSBY Provider: Sarah Lynn MD :1940 A ge:84 Y S ex:Male Date:11/01/2024 Address:[address] [place], [place] [phone] Pcp:Avila Fuentes MD Subjective: * Chief Complaints: [...] He is . He was born in [place]. * Medications: T akingIbrutinib 140 MG Capsule [...] Inhalation as needed , Notes to Pharmacist: 1,1,1,5r7bzmzfMymcstloo 140 MG Capsule Oral Taking Ibrutinib 140 [...] Inhalation as needed , Notes to Pharmacist: 1,1,1,4s8ivhmrWwqsqd Imbruvica 140 MG Capsule Oral DiscontinuedChlorambucil 2 [...] 0 11/01/2024 Generated for Bruce coleman/Kayla/Hiteshitting on: 04:14 PM EST History and Physical Notes * [...]
--- OUTSIDE RECORDS SUMMARY | 2024-11-14 10:57 | XMS_ITS ---
Author Organization Dillon Lynn III, MD Address [address] [place] [address] [place] [address] Care Team Providers Care Highway Maintenance Technician Name Role Phone Alfredo LEGER, Avila Primary Care Provider Dr. Dillon Lai III Unavailable [phone] REASON FOR VISIT Message Social History Sex Assigned At : Social History Observation Description Sex Assigned At Male Encounters Encounter Location Date Provider Diagnosis Dillon Lynn III, MD [address] [place] [address] [address] [facility] [place] [place] [address] 11/14/2024 Dillon Lynn Plan Of Treatment Next Appt Details Provider Name:Dillon Lynn , 09/27/2025 09:30:00 AM, [address] [place] [address] [place], [address], Progress Notes * Otis CARMENioDOB:1940 (84 yo M)Acc No.[id number]:11/14/2024 Patient: Ishmael GRIGSBY :1940 A ge:84 Y S ex:Male Address:[address] [place] [address] * true * Date: Generated for Bruce coleman/Kayla/eTransmitting on: 04:15 PM EST
--- OUTSIDE RECORDS SUMMARY | 2024-12-27 05:30 | XMS_ITS ---
Author Organization Dillon Lynn III, MD Address [address] [place] [address] Care Team Providers Care Senior Net Developer Name Role Phone Alfredo LEGER, Avila Primary Care Provider Dr. Dillon Lai III Unavailable [phone] Allergies Allergen (clinical drug ingredient) Drug/Non Drug Allergy documented on EMR Reaction Allergy Type Onset Date Status No Known Drug Allergy Unknown Drug Allergy Active Results Component Value Reference Range Notes Beta-2 Microglobulin, Serum Reviewed date:02/27/2025 03:57:54 PM Interpretation: Performing Lab:[facility], [address] [place] [phone] Notes/Report: Beta-2 Microglobulin, Serum 3.88 < OR = 2.51 m g/L THIS TEST WAS PERFORMED AT: [facility] [address] [place] [phone] VINCE LUCAS MD REASON FOR VISIT Chronic [...] 2 puffs as needed Inhalation as needed 1,1,1,3x9jsqoa Active fentaNYL 25 MCG/HR APPLY 1 PATCH [...] Date Provider Diagnosis Dillon Lynn III, MD [address] [place] [address] [place] [address] 12/27/2024 Dillon Lynn CLL (chronic lymphoc ytic [...] 2 puffs as needed Inhalation as needed 1,1,1,3z3esbiv fentaNYL 25 MCG/HR APPLY 1 PATCH TOPICALLY [...] Provider Name:Dillon Lynn , 09/27/2025 09:30:00 AM, [address] [place] [address] [address], [place], [address], Progress Notes * Otis CARMENioDOB:1940 (84 yo M)Acc No.[id number]:12/27/2024 Progress Notes Patient: Sarah JENNIFERSammy BolanosIshmael Provider: Sarah Lynn MD :1940 A ge:84 Y S ex:Male Date:12/27/2024 Address:[address] [place] [address], [id number] Pcp:Avila Fuentes MD Subjective: * Chief Complaints: [...] was born in [place]. * Medications: T akingIbrutinib 140 MG Capsule [...] Inhalation as needed , Notes to Pharmacist: 1,1,1,9i2rsfdyGcasba Ibrutinib 140 MG Capsule 2 capsules Orally [...] Inhalation as needed , Notes to Pharmacist: 1,1,1,5z1kpjvpFfxdtdcnosbdIablnolqkkmr 2 MG Tablet 2 mg Orally daily [...] 0 12/27/2024 Generated for Bruce coleman/Kayla/Carolsmitting on: 04:14 PM EST History and Physical [...]
--- OUTSIDE RECORDS SUMMARY | 2025-02-18 05:02 | XMS_ITS ---
Author Organization Dillon Lynn III, MD Address [address] [place] [address] [place] [address] Care Team Providers Care Housefellow Name Role Phone Alfredo LEGER, Avila Primary Care Provider Dr. Dillon Lai III Unavailable [phone] REASON FOR VISIT Concern Social History Sex Assigned At : Social History Observation Description Sex Assigned At Male Encounters Encounter Location Date Provider Diagnosis Dillon Lynn III, MD [address] [place] [address] [place] [address] 02/18/2025 Dillon Lynn CLL (chronic lymphoc ytic leukemia) C91.10 ; Thrombocytopenia D69.6 and Overweight E66.3 Assessments Encounter Date Diagnosis (ICD Code) Assessment Notes Treat ment Notes Treatment Clinical Notes 02/18/2025 CLL (chronic lymphocytic leukemia) (ICD-10 - C91.10) 02/18/2025 Thrombocytopenia (ICD-10 - D69.6) 02/18/2025 Overweight (ICD-10 - E66.3) Plan Of Treatment Next Appt Details Provider Name:Dillon Lynn , 09/27/2025 09:30:00 AM, [address] [place] [address] [place], [address], Progress Notes * Mariaa CARMENOB:1940 (85 yo M)Acc No.[id number]:02/18/2025 Patient: Sarah Ishmael BEAN :1940 A ge:85 Y S ex:Male Address:[address] [place] [address] Subjective: * Chief Complaints: * C oncern [...] * Date: Generated for Bruce coleman/Kayla/Yadira on: 04:14 PM EST
--- OUTSIDE RECORDS SUMMARY | 2025-03-07 05:30 | XMS_ITS ---
Author Organization Dillon Lynn III, MD Address [address] [place] [address] [place] [address] Care Team Providers Care Principal Database Developer Name Role Phone Alfredo LEGER, Avila Primary Care Provider Dr. Dillon Lai III Unavailable Allergies Allergen (clinical drug ingredient) Drug/Non Drug Allergy documented on EMR Reaction Allergy Type Onset Date Status No Known Drug Allergy Unknown Drug Allergy Active REASON FOR VISIT Chronic lymphocytic leukemia, Benign prostatic hypertrophy, Hypertension, Neutropenia, Thrombocytopenia, History of junctional tachycardia Medications Medication SIG (Take, Route, Frequency, Duration) [...] 2 tablet Orally twice a day Active Chlorambucil 2 MG 2 mg Orally daily 09/24/2024 Active Ibrutinib 140 MG 2 capsules Orally Once a day DX: C91.10 Chronic Lymphocytic leukemia 10/10/2024 Active Aspirin 81 81 MG 1 tablet Orally Once a day Active Vitamin D3 50 MCG (1999 UT) 1 capsule Orally Once a day Active Vitamin B 12 100 MCG as directed Orally once a day Active Albuterol Sulfate 2 puffs as needed Inhalation as needed 1,1,1,5h3rtkxb Active Imbruvica 140 MG Oral Act sruthi Social History Tobacco Use: Social History Observation [...] non-smoker Vital Signs Temperature 97.4 degrees Fahrenheit 03/07/20 25 Blood pressure systolic 133 mm Hg 03/07/20 25 Blood pressure diastolic 76 mm Hg 025 Heart Rate 74 /min 03/07/2025 Height 66 in 03/07/2025 Weight 171 lbs 03/07/2025 BMI 27.6 kg/m2 03/07/2025 Encounters Encounter Location Date Provider Diagnosis Dillon Lynn III, MD [address] [place] [address] [place] [address] 03/07/2025 Dillon Lynn CLL (chronic lymphoc ytic leukemia) C91.10 ; Thrombocytopenia D69.6 ; Neutropenia D70.9 ; Benign prostatic hyperplasia, presence of lower urinary tract symptoms unspecified, unspecified morphology N40.0 ; Essential hypertension I10 and Junctional tachycardia I47.1 Assessments Encounter Date Diagnosis (ICD Code) Assessment Notes Treat ment Notes Treatment Clinical Notes 03/07/2025 CLL (chronic lymphocytic leukemia) (ICD-10 - C91.10) He was continued on Ibrutinib without a change in dose. He is stable and his disease is well controlled. 03/07/2025 Thrombocytopenia (ICD-10 - D69.6) His platelet count is at his baseline which is 121,000. He has had no bleeding. No change in his medications was made today. 03/07/2025 Neutropenia (ICD-10 - D70.9) His neutrophils and lymphocytes are present in normal numbers. His medication was continued at the current dose. 03/07/2025 Benign prostatic hyperplasia, presence of lower urinary tract symptoms unspecified, unspecified morphology (ICD-10 - N40.0) He wakes twice at night to urinate but is satisfied with this level of functioning. No change in his regimen was desired. 03/07/2025 Essential hypertensi on (ICD-10 - I10) His blood pressure is stable and well controlled today and no change in his regimen seems necessary.His value was 133/76. 03/07/2025 Junctional tachycard ia (ICD-10 - I47.1) He was in a normal sinus rhythm today with a normal heart rate and no complaints. Plan Of Treatment Medication Medication Name Sig [...] 2 tablet Orally twic e a day Chlorambucil 2 MG 2 mg Orally daily 09/24/2024 Ibrutinib 140 MG 2 capsules Orally Once a day 10/10/2024 DX: C91.10 Chronic Lymphocytic leukemia Aspirin 81 81 MG 1 tablet Orally Once a day Vitamin D3 50 MCG (1999 UT) 1 capsule Orally Once a day Vitamin B 12 100 MCG as directed Orally once a day Albuterol Sulfate 2 puffs as needed Inhalation as needed 1,1,1,5x7khadw Imbruvica 140 MG Oral Pending Test Test Name Order Date PROFILE, RANDOM (COMPREHENSIVE METABOLIC ) 03/07/2025 CBC w DIFF 03/07/2025 Next Appt Details Follow Up: 2 Months, Reason: ov review labs Provider Name:Dillon Lynn , 09/27/2025 09:30:00 AM, [address] [place] [address] , [address], [address], Progress Notes * Otis CARMENioDOB:1940 (85 yo M)Acc No.[id number]:03/07/2025 Progress Notes Patient: Ishmael GRIGSBY Provider: Sarah Lynn MD :1940 A ge:85 Y S ex:Male Date:03/07/2025 Address:[address] [place], [place] [phone] Pcp:Avila Fuentes MD Subjective: * Chief Complaints: * C hronic lymphocytic leukemiaBenign prostatic hypertrophyHypertensionNeutropeniaThrombocytopeniaHistory of junctional tachycardia * HPI: C OVID-19 Screening: went to er for cp bmc. He returns for medical management of his chronic lymphocytic leukemia.? Since his last visit he had developed an episode of chest pain and went to the [facility] where he was kept for 12 hours but then allowed to return home. He has had no further chest pain. He has been compliant with all his medications. He denies any shortness of breath or difficulty urinating. He says his appetite is good.He has lost 2 pounds. His body mass index is 27. Questions H ave you had any new [...] He is . He was born in [place]. * Medications: T akingIbrutinib 140 MG Capsule 2 capsules Orally Once a day , Notes to Pharmacist: DX: C91.10 Chronic Lymphocytic leukemiaAspirin 81 81 MG Tablet Delayed Release 1 tablet Orally Once a day Vitamin D3 50 MCG (1999 UT) Capsule 1 capsule Orally Once a [...] Inhalation as needed , Notes to Pharmacist: 1,1,1,1q9wlszuJskulklil 140 MG Capsule Oral Taking Ibrutinib 140 MG Capsule 2 capsules Orally Once a day , Notes to Pharmacist: DX: C91.10 Chronic Lymphocytic leukemiaTaking Aspirin 81 81 MG Tablet Delayed Release 1 tablet Orally Once a day Taking Vitamin D3 50 MCG (1999 UT) Capsule 1 capsule Orally Once a [...] Inhalation as needed , Notes to Pharmacist: 1,1,1,1m6ofjweImfdls Imbruvica 140 MG Capsule Oral Not-Taking/PRNChlorambucil 2 MG Tablet 2 mg Orally daily Medication List reviewed and reconciled with the patientNot-Taking/PRN Chlorambucil 2 MG Tablet 2 mg Orally daily Medication List reviewed and reconciled with the patient * Allergies: N o Known Drug Allergyno[Allergies Verified] Objective: * Vitals: H t: 66, Wt:171, BMI:27.6, BP:133/76, HR:74, Temp:97.4, Wt-k.56. * P ast Orders: Lab:Complete Blood Count Aut o Diff * Collection Date 02/19/2025 12/27/2024 10/29/2024 Collection Time 09:16 AM 11:03 AM 09:36 AM Order Date 02/19/2025 12/27/2024 10/29/2024 White Blood Count 7.6 (Ref Range: 4.8-10.8 X10*3/uL) 8.5 (Ref Range: 4.8-10.8 X10*3/uL) 9.7 (Ref Range: 4.8-10.8 X10*3/uL) Red Blood Count 3.89 L (Ref Range: 4.60-5.80 X10*6/uL) 3.70 L (Ref Range: 4.60-5.80 X10*6/uL) 3.58 L (Ref Range: 4.60-5.80 X10*6/uL) Hemoglobin 12.4 L (Ref Range: 14.0-18.0 g/dl) 11.9 L (Ref Range: 14.0-18.0 g/dl) 11.5 L (Ref Range: 14.0-18.0 g/dl) Hematocrit 39.0 L (Ref Range: 42.0-52.0 %) 36.7 L (Ref Range: 42.0-52.0 %) 35.8 L (Ref Range: 42.0-52.0 %) Mean Corpuscular Volume 100.3 H (Ref Range: 80.0-98.0 fL) 99.2 H (Ref Range: 80.0-98.0 fL) 100.0 H (Ref Range: 80.0-98.0 fL) Mean Corpuscular Hemoglobin 31.9 (Ref Range: 27.0-33.0 pg) 32.2 (Ref Range: 27.0-33.0 pg) 32.1 (Ref Range: 27.0-33.0 pg) Mean Corpuscular HGB Conc 31.8 (Ref Range: 31.0-36.0 g/dl) 32.4 (Ref Range: 31.0-36.0 g/dl) 32.1 (Ref Range: 31.0-36.0 g/dl) Red Cell Distribution Width 12.8 (Ref Range: 11.0-16.0 %) 13.1 (Ref Range: 11.0-16.0 %) 12.7 (Ref Range: 11.0-16.0 %) Platelet Count 121 L (Ref Range: 160-400 X10*3/uL) 125 L (Ref Range: 160-400 X10*3/uL) 167 (Ref Range: 160-400 X10*3/uL) Mean Platelet Volume 11.9 (Ref Range: 9.4-12.4 fL) 11.7 (Ref Range: 9.4-12.4 fL) 10.8 (Ref Range: 9.4-12.4 fL) Neutrophils Percent Auto 34.7 L (Ref Range: 45-73 %) 42.1 L (Ref Range: 45-73 %) 54.2 (Ref Range: 45-73 %) Imm Gran Pct Auto 0.3 (Ref Range: 0.0-0.4 %) 0.5 H (Ref Range: 0.0-0.4 %) 1.3 H (Ref Range: 0.0-0.4 %) Lymphocytes Percent Auto 52.5 H (Ref Range: 20-40 %) 47.8 H (Ref Range: 20-40 %) 33.5 (Ref Range: 20-40 %) Monocytes Percent Auto 10.3 (Ref Range: 2-11 %) 8.1 (Ref Range: 2-11 %) 10.1 (Ref Range: 2-11 %) Eosinophils Percent Auto 1.7 (Ref Range: 0-4 %) 1.1 (Ref Range: 0-4 %) 0.5 (Ref Range: 0-4 %) Basophils Percent Auto 0.5 (Ref Range: 0-2 %) 0.4 (Ref Range: 0-2 %) 0.4 (Ref Range: 0-2 %) NRBC Pct Auto 0.0 (Ref Range: 0.0-0.2 /100WBC) 0.0 (Ref Range: 0.0-0.2 /100WBC) 0.0 (Ref Range: 0.0-0.2 /100WBC) Neutrophils Absolute Auto 2.6 (Ref Range: 2.0-8.3 x10*3/uL) 3.6 (Ref Range: 2.0-8.3 x10*3/uL) 5.3 (Ref Range: 2.0-8.3 x10*3/uL) Imm Gran Abs Auto 0.02 (Ref Range: 0.00-0.03 X10*3/uL) 0.04 H (Ref Range: 0.00-0.03 X10*3/uL) 0.13 H (Ref Range: 0.00-0.03 X10*3/uL) Lymphocytes Absolute Auto 4.0 (Ref Range: 1.2-4.9 X10*3/uL) 4.1 (Ref Range: 1.2-4.9 X10*3/uL) 3.3 (Ref Range: 1.2-4.9 X10*3/uL) Monocytes Absolute Auto 0.8 (Ref Range: 0.1-1.2 X10*3/uL) 0.7 (Ref Range: 0.1-1.2 X10*3/uL) 1.0 (Ref Range: 0.1-1.2 X10*3/uL) Eosinophils Absolute Auto 0.1 (Ref Range: 0.0-0.4 X10*3/uL) 0.1 (Ref Range: 0.0-0.4 X10*3/uL) 0.1 (Ref Range: 0.0-0.4 X10*3/uL) Basophils Absolute Auto 0.0 (Ref Range: 0.0-0.2 X10*3/uL) 0.0 (Ref Range: 0.0-0.2 X10*3/uL) 0.0 (Ref Range: 0.0-0.2 X10*3/uL) NRBC Abs Auto 0.000 (Ref Range: 0.0-0.012 X10*3/uL) 0.000 (Ref Range: 0.0-0.012 X10*3/uL) 0.000 (Ref Range: 0.0-0.012 X10*3/uL) ???Lab:Prothrombin Time INR (Order Date - 02/19/2025) (Collection Date & Time - 02/19/2025 09:16 AM)?ValueReference Range?Prothrombin Time9.9L 10.9-12.4 - SEC?INTERNATIONAL NORM RATIO0.90.9-1.1 - ???Lab:Partial Thromboplastin Time (Order Date - 02/19/2025) (Collection Date & Time - 02/19/2025 09:16 AM)?ValueReference Range?Partial Thromboplastin Time30.426.0-36.8 - SEC ???Lab:Fibrinogen (Order Date - 02/19/2025) (Collection Date & Time - 02/19/2025 09:16 AM)?ValueReference Range?[id number] - MG/DL * Lab:Comprehensive Met. Panel * Collection Date 02/19/2025 12/27/2024 10/15/2024 Collection Time 09:16 AM 11:03 AM 12:37 PM Order Date 02/19/2025 12/27/2024 10/15/2024 Sodium 143 (Ref Range: 135-145 mmol/L) 143 (Ref Range: 135-145 mmol/L) 141 (Ref Range: 135-145 mmol/L) Bilirubin Total 0.3 (Ref Range: 0.0-1.0 mg/dL) 0.4 (Ref Range: 0.0-1.0 mg/dL) 0.6 (Ref Range: 0.0-1.0 mg/dL) Aspartate Amino Transferase 33 (Ref Range: 5-37 U/L) 34 (Ref Range: 5-37 U/L) 26 (Ref Range: 5-37 U/L) Alanine Aminotransferase 17 (Ref Range: 0-40 U/L) 14 (Ref Range: 0-40 U/L) 14 (Ref Range: 0-40 U/L) Total Protein 6.8 (Ref Range: 6.5-8.0 g/dL) 6.7 (Ref Range: 6.5-8.0 g/dL) 7.4 (Ref Range: 6.5-8.0 g/dL) Albumin Level 3.9 (Ref Range: 3.5-5.0 g/dL) 3.7 (Ref Range: 3.5-5.0 g/dL) 3.7 (Ref Range: 3.5-5.0 g/dL) Alkaline Phosphatase 65 (Ref Range: 39-117 U/L) 51 (Ref Range: 39-117 U/L) 59 (Ref Range: 39-117 U/L) Potassium 4.3 (Ref Range: 3.3-5.1 mmol/L) 4.3 (Ref Range: 3.3-5.1 mmol/L) 4.0 (Ref Range: 3.3-5.1 mmol/L) Chloride 109 H (Ref Range: 96-108 mmol/L) 108 (Ref Range: 96-108 mmol/L) 107 (Ref Range: 96-108 mmol/L) Carbon Dioxide 27 (Ref Range: 22-29 mmol/L) 27 (Ref Range: 22-29 mmol/L) 28 (Ref Range: 22-29 mmol/L) Anion Gap 11 L (Ref Range: 12-20) 12 (Ref Range: 12-20) 10 L (Ref Range: 12-20) Blood Urea Nitrogen 27 H (Ref Range: 9-16 mg/dL) 23 H (Ref Range: 9-16 mg/dL) 17 H (Ref Range: 9-16 mg/dL) Creatinine 1.86 H (Ref Range: 0.5-1.4 mg/dL) 1.63 H (Ref Range: 0.5-1.4 mg/dL) 1.69 H (Ref Range: 0.5-1.4 mg/dL) Estimated Glomerular Filt Rate 35 41 39 Glucose Random 94 (Ref Range: 60-115 mg/dL) 100 (Ref Range: 60-115 mg/dL) 105 (Ref Range: 60-115 mg/dL) Calcium 8.9 (Ref Range: 8.4-10.2 mg/dL) 9.0 (Ref Range: 8.4-10.2 mg/dL) 9.0 (Ref Range: 8.4-10.2 mg/dL) * Lab:Prostate Specific Antige n * Collection Date 02/19/2025 05/15/2021 Collection Time 09:16 AM 10:30 AM Order Date 02/19/2025 05/15/2021 Prostate Specific Antigen 0.47 (Ref Range: <0.05-4.0 ng/mL) 0.51 (Ref Range: <0.05-4.0 ng/mL) ???Lab:Pathology (Order Date - 02/20/2025) (Collection Date & Time - 02/20/2025 04:27 PM) * Lab:Beta-2 Microglobulin, Se rum * Collection Date 02/19/2025 10/15/2024 05/29/2024 Collection Time 09:16 AM 12:37 PM 08:29 AM Order Date 12/27/2024 10/15/2024 05/29/2024 Beta-2 Microglobulin, Serum 3.88 A (Ref Range: < OR = 2.51 mg/L) 4.29 A (Ref Range: < OR = 2.51 mg/L) 3.95 A (Ref Range: < OR = 2.51 mg/L) * Examination: G eneral Examination: GENERAL APPEARANCE: p leasant, well nourished, well developed, in no acute distress, calm and relaxed, overweight, man. HEAD: a traumatic, normocephalic. EYES: e [...] sounds normal, no ascites, no organomegaly, no mass, overweight. RECTAL EXAM: n ot examined. MUSCULOSKELETAL: e xtremities unremarkable, no clubbing, cyanosis or edema. PERIPHERAL PULSES: n ormal. NEUROLOGIC: a lert and oriented, cranial nerves 2-12 grossly intact, deep tendon reflexes 2+ symmetrical, motor strength normal upper and lower extremities, sensory exam intact. PSYCH: a lert, oriented, Forgetful, speech clear. ? Assessment: * Assessment: 1. C LL (chronic lymphocytic leukemia) - C91.10 (Primary) N otes :He was continued on Ibrutinib without a change in dose. He is stable and his disease is well controlled. 2 . T hrombocytopenia - D69.6 N otes :His platelet count is at his baseline which is 121,000. He has had no bleeding. No change in his medications was made today. 3 . N eutropenia - D70.9 N otes :His neutrophils and lymphocytes are present in normal numbers. His medication was continued at the current dose. 4 . B enign prostatic hyperplasia, presence of lower urinary tract symptoms unspecified, unspecified morphology - N40.0 N otes :He wakes twice at night to urinate but is satisfied with this level of functioning. No change in his regimen was desired. 5 . E ssential hypertension - I10 N otes :His blood pressure is stable and well controlled today and no change in his regimen seems necessary.His value was 133/76. 6 . J unctional tachycardia - I47.1 N otes :He was in a normal sinus rhythm today with a normal heart rate and no complaints. Plan: * Treatment: 2. T hrombocytopenia L AB: PROFILE, RANDOM (COMPREHENSIVE METABOLIC) L AB: CBC w DIFF 3. N eutropenia L AB: PROFILE, RANDOM (COMPREHENSIVE METABOLIC) L AB: CBC w DIFF 4. O thers Continue Chlorambucil Tablet, 2 MG, 2 mg, Orally, daily; C ontinue Ibrutinib Capsule, 140 MG, 2 capsules, Orally, Once a day, Notes to Pharmacist: DX: C91.10 Chronic Lymphocytic leukemia. ? * Procedure Codes: * Follow Up: 2 Months (Reason: ov review labs) * Images: * Sign off status: Completed true * Provider: Sarah Lynn MD Date: 0 03/07/2025 Generated for Bruce coleman/Kayla/Yadira on: 04:14 PM EST History and Physical [...] sounds normal, no ascites, no organomegaly, no mass, overweight NEUROLOGIC: alert and oriented, cranial nerves 2-12 grossly intact, deep tendon reflexes 2+ symmetrical, motor strength normal upper and lower extremities, sensory exam intact SKIN: no suspicious lesion s, anicteric PERIPHERAL PULSES: normal BREASTS: no masses palpable b ilaterally MUSCULOSKELETAL: extremities unremark able, no clubbing, cyanosis or edema LYMPH NODES: no enlarged lymph no tashia,spleen normal RECTAL EXAM: not examined PSYCH: alert, oriented, For getful, speech clear ORAL CAVITY: normal, unremarkable
--- OUTSIDE RECORDS SUMMARY | 2025-05-09 05:45 | XMS_ITS ---
Author Organization Dillon Lynn III, MD Address [address] [place] [address] [place] [address] Care Team Providers Care Law Clerk Name Role Phone Alfredo LEGER, Avila Primary Care Provider Dr. Dillon Lai III Unavailable [phone] Allergies Allergen (clinical drug ingredient) Drug/Non Drug [...] 2 puffs as needed Inhalation as needed 1,1,1,5o4xjzrj Active Vitamin D3 50 MCG (2000 UT) [...] Date Provider Diagnosis Dillon Lynn III, MD [address] [place] [address] [place] [address] 05/09/2025 Dillon Lynn CLL (chronic lymphoc ytic [...] 2 puffs as needed Inhalation as needed 1,1,1,5x6zizdb Vitamin D3 50 MCG (2000 UT) 1 [...] Provider Name:Dillon Lynn , 09/27/2025 09:30:00 AM, [address] [place] [address], [address], Progress Notes * Otis CARMENioDOB:1940 (85 yo M)Acc No.[id number]:05/09/2025 Progress Notes Patient: Ishmael GRIGSBY Provider: Sarah Lynn MD :1940 A ge:85 Y S ex:Male Date:05/09/2025 Address:[address] [place], [place] [phone] Pcp:Avila Fuentes MD Subjective: * Chief Complaints: [...] we will appeal. He was hospitalized at [facility] couple of months ago with chest pain [...] born in [place]. * Medications: T akingChlorambucil 2 MG Tablet [...] Inhalation as needed , Notes to Pharmacist: 1,1,1,9e0yxrbqKyxmwktxc 140 MG Capsule Oral Medication List reviewed [...] Inhalation as needed , Notes to Pharmacist: 1,1,1,6f7fyeddWxonen Imbruvica 140 MG Capsule Oral Medication List [...] Date & Time - 02/19/2025 09:16 AM)?ValueReference Range?[id number] - MG/DL ???Lab:Pathology (Order Date - 02/20/2025) [...] Lynn MD Date: 0 05/09/2025 Generated for Shari jared/Kayla/Hiteshitting on: 04:15 PM EST History and Physical Notes * [...]
--- OUTSIDE RECORDS SUMMARY | 2025-05-09 06:17 | XMS_ITS ---
Author Organization Dillon Lynn III, MD Address [address] [place] [address] Care Team Providers Care Salesperson Books Name Role Phone Alfredo LEGER, Avila Primary Care Provider Dr. Dillon Lai III Unavailable [phone] REASON FOR VISIT go back on Leukeran/Chlorambucil Social History Sex Assigned At : Social History Observation Description Sex Assigned At Male Encounters Encounter Location Date Provider Diagnosis Dillon Lynn III, MD [address] [place] [address] [address] [place] [place] [address] 05/09/2025 Dillon Lynn Plan Of Treatment Next Appt Details Provider Name:Dillon Lynn , 09/27/2025 09:30:00 AM, [address] [place] [address] [place], [address], Progress Notes * Otis CARMENioDOB:1940 (85 yo M)Acc No.[id number]:05/09/2025 Patient: Sarah Ishmael BEAN :1940 A ge:85 Y S ex:Male Address:[address] [place] [phone] * true * Date: Generated for Printi ng/Faxing/eTransmitting on: 04:14 PM EST
--- OUTSIDE RECORDS SUMMARY | 2025-06-17 08:35 | XMS_ITS ---
Author Organization Dillon Lynn III, MD Address [address] [place] [address] Care Team Providers Care Wrap Checker Name Role Phone Alfredo LEGER, Avila Primary Care Provider Dr. Dillon Lai III Unavailable REASON FOR VISIT FYI only Social History Sex Assigned At : Social History Observation Description Sex Assigned At Male Encounters Encounter Location Date Provider Diagnosis Dillon Lynn III, MD [address] [place] [address] [place] [address] 06/17/2025 Dillon Lynn CLL (chronic lymphocytic leukemia) [...] Provider Name:Dillon Lynn , 09/27/2025 09:30:00 AM, [address] [place] [address] [place], [address], Progress Notes * Otis CARMENioDOB:1940 (85 yo M)Acc No.[id number]:06/17/2025 Patient: Ishmael GRIGSBY :1940 A ge:85 Y S ex:Male Address:[address] [place] [address] * Refills Stop Ibrutinib Capsule, 140 MG, Orally, 2 capsules, Once a day Stop Imbruvica Capsule, 140 MG, Oral Stop Chlorambucil Tablet, 2 MG, Orally, 2 mg, daily * true * Date: Generated for Bruce coleman/Kayla/Hiteshitting on: 04:13 PM EST
--- OUTSIDE RECORDS SUMMARY | 2025-06-21 04:30 | XMS_ITS ---
Author Organization Dillon Lynn III, MD Address [address] [place] [address] [place] [address] Care Team Providers Care Transition Rn Name Role Phone Alfredo LEGER, Avila Primary Care Provider Dr. Dillon Lai III Unavailable [phone] Allergies Allergen (clinical drug ingredient) Drug/Non Drug [...] 2 puffs as needed Inhalation as needed 1,1,1,9h6ebfjb Active Chlorambucil 2 MG 1 tablet Orally [...] Provider Diagnosis Dillon Lynn III, MD [address] [place] [address] [place] [address] 06/21/2025 Dillon Lynn CLL (chronic lymphoc ytic [...] 2 puffs as needed Inhalation as needed 1,1,1,6b8poile Chlorambucil 2 MG 1 tablet Orally daily [...] Provider Name:Dillon Lynn , 09/27/2025 09:30:00 AM, [address] [place] [address] DR, [address], [address], Progress Notes * Otis CARMENioDOB:1940 (85 yo M)Acc No.[id number]:06/21/2025 Progress Notes Patient: Sarah JENNIFEROtis Bolanosio Provider: Sarah Lynn MD :1940 A ge:85 Y S ex:Male Date:06/21/2025 Address:[address] [place], [place] [phone] Pcp:Avila Fuentes MD Subjective: * Chief Complaints: * C hronic lymphocytic leukemiaBenign prostatic hypertrophyHypertensionJunctional tachycardiaReason weight lossNeutropeniaThrombocytopeniaWeight loss * HPI: C OVID-19 Screening: He says he was taken to the local emergency room June 14. Blood work done. There is no record of this [facility]. No changes were made in his regimen.He has had no recent chest pain. He has seen Dr. Singh of cardiology began him on a beta nia.His weight has been stable.A CT scan of the chest ordered by Dr. Fuentes done at [facility] in March 2024 showed coronary artery calcifications. [...] born in [place]. * Medications: T akingAspirin 81 81 MG [...] Inhalation as needed , Notes to Pharmacist: 1,1,1,1x5rdceoZrdixixggyww 2 MG Tablet 1 tablet Orally daily [...] Inhalation as needed , Notes to Pharmacist: 1,1,1,6c4useozBxxarf Chlorambucil 2 MG Tablet 1 tablet Orally [...] Provider: Sarah Lynn MD Date: Generated for Printi ng/Kayla/eTransmitting on: 04:14 PM EST History and Physical [...]
--- OUTSIDE RECORDS SUMMARY | 2025-07-23 06:39 | XMS_ITS ---
Author Organization Dillon Lynn III, MD Address [address] [address] Care Team Providers Care Catering Server Name Role Phone Alfredo LEGER, Avila Primary Care Provider Dr. Dillon Lai III Unavailable REASON FOR VISIT Message Medications Medication SIG (Take, Route, Frequency, Duration) Notes Start Date End Date Status Leukeran 2 MG TAKE 1 TABLET BY JANET TH DAILY Oral one tablet daily for 75 days Active Social History Sex Assigned At : Social History Observation Description Sex Assigned At Male Encounters Encounter Location Date Provider Diagnosis Dillon Lynn III, MD [address] [place] [address] [place] [address] 07/23/2025 Dillon Lynn CLL (chronic lymphocytic leukemia) [...] Provider Name:Dillon Lynn , 09/27/2025 09:30:00 AM, [address] [place] [address] [place], [address], Progress Notes * Mariaa CARMENOB:1940 (85 yo M)Acc No.[id number]:07/23/2025 Patient: Ishmael GRIGSBY :1940 A ge:85 Y S ex:Male Address:[address] [place] [phone] * Refills Refill Leukeran Tablet, 2 MG, Oral, 75 Tablet, TAKE 1 TABLET BY MOUTH DAILY, one tablet daily, 75 days, Refills=5 * true * Date: Generated for Bruce coleman/Kayla/Hiteshitting on: 04:13 PM EST
--- NOTE | ~2025-08-27 | XR_ITS ---
EXAMINATION: XR HIP, LEFT CLINICAL INFORMATION: PAIN IN LEFT HIP COMPARISON: None available. TECHNIQUE: Two views of the left hip. FINDINGS: No fracture. Alignment is anatomic. Hip joint space is maintained. Soft tissues are unremarkable. XR/XR hip LT w [id number] IMPRESSION: Normal left hip. Electronically signed by: Lloyd Merlos MD 08/27/2025 01:24 PM [facility] [place]
--- OUTSIDE RECORDS SUMMARY | 2025-08-27 16:15 | XMS_ITS | Patient Health Record ---
Author Organization Dillon Lynn III, MD Address [address] [place] [address] [place] [address] Care Team Providers Care Marketing Production Specialist Name Role Phone Avila Fuentes MD Primary Care Provider Dr. Dillon Lai III Unavailable [phone] Allergies Allergen (clinical drug ingredient) Drug/Non Drug Allergy documented on EMR Reaction Allergy Type Onset Date Status No Known Drug Allergy Unknown Drug Allergy Active Results Component Value Reference Range Notes Beta-2 Microglobulin, Serum Reviewed date:02/27/2025 03:57:54 PM Interpretation: Performing Lab:[facility], [address] [place] [phone] Notes/Report: Beta-2 Microglobulin, Serum 3.88 < OR = 2.51 mg/L THIS TEST WAS PERFORMED AT: [facility] [address] [place] [phone] VINCE LUCAS MD Complete Blood Count Auto Di ff Reviewed date:11/11/2024 10:16:50 AM Interpretation: Performing Lab:[facility], [address] [place] [phone] Notes/Report: White Blood Count 10.6 4.8-10.8 X10*3/uL [...] Panel Reviewed date:11/11/2024 10:16:50 AM Interpretation: Performing Lab:[facility], [address] [place] [phone] Notes/Report: Sodium 141 135-145 mmol/L Potassium 4.0 [...] Serum Reviewed date:11/11/2024 10:16:50 AM Interpretation: Performing Lab:[facility], [address] [place] [phone] Notes/Report: Beta-2 Microglobulin, Serum 4.29 < OR = 2.51 mg/L THIS TEST WAS PERFORMED AT: [facility] [address] [place] [phone] VINCE LUCAS MD Complete Blood Count Auto Di ff Reviewed date:11/11/2024 10:16:50 AM Interpretation: Performing Lab:[facility], [address] [place] [phone] Notes/Report: White Blood Count 9.7 4.8-10.8 X10*3/uL [...] ff Reviewed date:12/29/2024 08:46:20 PM Interpretation: Performing Lab:[facility], [address] [place] [phone] Notes/Report: White Blood Count 8.5 4.8-10.8 X10*3/uL [...] Panel Reviewed date:12/29/2024 08:46:20 PM Interpretation: Performing Lab:[facility], [address] [place] [phone] Notes/Report: Sodium 143 135-145 mmol/L Potassium 4.3 [...] ff Reviewed date:02/20/2025 05:39:39 AM Interpretation: Performing Lab:[facility], [address] [place] [phone] Notes/Report: White Blood Count 7.6 4.8-10.8 X10*3/uL [...] INR Reviewed date:02/20/2025 05:39:39 AM Interpretation: Performing Lab:[address] [phone] Notes/Report: Prothrombin Time 9.9 10.9-12.4 SEC INTERNATIONAL [...] Time Reviewed date:02/20/2025 05:39:39 AM Interpretation: Performing Lab:[facility], [address] [place] [phone] Notes/Report: Partial Thromboplastin Time 30.4 26.0-36.8 SEC For information regarding the monitoring of direct thrombin inhibitors, please refer to Pharmacy. Fibrinogen Reviewed date:02/20/2025 05:39:39 AM Interpretation: Performing Lab:[address] [phone] Notes/Report: Fibrinogen 445 259-690 MG/DL Comprehensive Met. Panel Reviewed date:02/20/2025 05:39:39 AM Interpretation: Performing Lab:[facility] [address], [place] [address] Notes/Report: Sodium 143 135-145 mmol/L Potassium 4.3 [...] Antigen Reviewed date:02/20/2025 03:22:01 PM Interpretation: Performing Lab:[facility], [address] [place] [phone] Notes/Report: Prostate Specific Antigen 0.47 <0.05-4.0 ng/mL PSA methodology: Best Alinity i Chemiluminescent Microparticle Immunoassay (CMIA) Pathology Reviewed date:02/27/2025 03:57:54 PM Interpretation: Performing Lab:[facility], [address] [place] [phone] Notes/Report: ------- Name: George Beltran Age/Sex: 85/M : 1940 Unit#: [id number] Attend Dr: Mary Servin [facility]: 02/20/25 Status : DEP REF Location: .LAB Disch: ------- SPEC : [id number] RECD : 02/21/25 STATUS: ADRIANA MOSLEY NUM: [id number] MARC: 02/20/25 [facility] DR: Mary Servin [facility] ENTERED: 02/21/25 36 SP TYPE: Cytology OTHR [...] and their performance characte ristics determined by [facility]. They have not been cleared or appr jose carlos by the U.S. Food and Drug Administration (FDA). However, the FDA has determined that such clearance or approval is not necessary. This laboratory is certified under the Clinical Laboratory Improvement Amendments of 1988 (CLIA) as qualified to perform high comp lexity clinical laboratory testing. Copies To: Dillon Lynn MD [address] [place] [address], [facility] [address] [address] [facility] [address] [place] [address] Dr. [address] [id number] [email or web address] CONTINUED ON NEXT PAGE ------- Name: Vinayak LundyGeorge schultz freida Age/Sex: 85/M : 1940 Unit#: [id number] Attend Dr: Mary Servin [facility] Re02/20/25 Status : DEP REF Location: [facility] Disch: ------- SPEC : [id number] RECD : 02/21/25 STATUS: ADRIANA MOSLEY NUM: [id number] MARC: 02/20/25-1626 [facility] DR: Mary Servin [facility] ENTERED: 02/21/25-11 36 SP TYPE: Cytology OTHR DR: Dillon Lynn MD ORDERED: Cyto-enhanced ------- Signed (si gnature on file) Dung Bowman MD 02/25/25 1130 ------- END OF REPORT Complete Blood Count Auto Di ff Reviewed date:06/14/2025 03:59:43 PM Interpretation: Performing Lab:[facility], [address] [place] [phone] Notes/Report: White Blood Count 4.9 4.8-10.8 X10*3/uL [...] Panel Reviewed date:06/14/2025 03:59:43 PM Interpretation: Performing Lab:[facility], [address] [place] [phone] Notes/Report: Sodium 142 135-145 mmol/L Potassium 4.8 [...] 2 puffs as needed Inhalation as needed 1,1,1,1a2iyerb Active Aspirin 81 81 MG 1 tablet [...] Problem Status W/U Status Risk Notes Problem 010578587 Overweight (E66.3) Active confirmed He has gained 6 pounds. His body mass index is 27.9. I recommended stabilizing his weight at this level. Problem Weight loss (552349344) Weight loss (R63.4) Active confirmed He has gained 6 pounds on his body mass index is now 27. He is no longer losing weight. Problem 223716137 Thrombocytopenia (D69.6) Active confirmed His platelets are stable at 135,000. He has had no bleeding. He will continue on current therapy and notify me if he has any GI or purpura or episodes of epistaxis or bleeding. Problem 845008501 Neutropenia (D70.9) Active confirmed His white blood cell count is at the low end of normal. He has had no infections. No changes necessary his medication. Problem 57430152 Essential hypertension (I10) Active confirmed His blood pressure is stable and well controlled today and no change in his regimen seems necessary.His value was 133/76. Problem 39901001 CLL (chronic lymphocytic leukemia) (C91.10) Active confirmed He was continued on Ibrutinib without a change in dose. He is stable and his disease is well controlled. I will try to obtain the chlorambucil that he and his family prefer. Problem 039545447 Urine retention (R33.9) Active confirmed He recently had a catheter in place Problem 159856464 Benign prostatic hyperplasia, presence of lower urinary tract symptoms unspecified, unspecified morphology (N40.0) Active confirmed He wakes twice at night to urinate but is satisfied with this level of functioning. No change in his regimen was desired. Problem 111319665 Diverticulitis (K57.92) Active confirmed He clinically has diverticulitis and will be treated with antibiotics for close follow-up visit. 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) Active confirmed He was [...] Date Provider Diagnosis Dillon Lynn III, MD [address] [place] [address] [place] [phone] 10/16/2024 Dillon Lynn CLL (chronic lymphoc ytic leukemia) C91.10 ; Benign prostatic hyperplasia, presence of lower urinary tract symptoms unspecified, unspecified morphology N40.0 ; Thrombocytopenia D69.6 ; Junctional tachycardia I47.1 and Overweight E66.3 Dillon Lynn III, MD [address] [place] [address] [place] [phone] 11/01/2024 Dillon Lynn CLL (chronic lymphoc ytic leukemia) C91.10 ; Thrombocytopenia D69.6 ; Overweight E66.3 and Essential hypertension I10 Dillon Lynn III, MD [address] [place] [address] [place] [address] 12/27/2024 Dillon Lynn CLL (chronic lymphoc ytic leukemia) C91.10 ; Thrombocytopenia D69.6 ; Benign prostatic hyperplasia, presence of lower urinary tract symptoms unspecified, unspecified morphology N40.0 ; Essential hypertension I10 ; Weight loss R63.4 ; Junctional tachycardia I47.1 and Overweight E66.3 Dillon Lynn III, MD [address] [place] [address] [place] [phone] 03/07/2025 Dillon Lynn CLL (chronic lymphoc ytic leukemia) C91.10 ; Thrombocytopenia D69.6 ; Neutropenia D70.9 ; Benign prostatic hyperplasia, presence of lower urinary tract symptoms unspecified, unspecified morphology N40.0 ; Essential hypertension I10 and Junctional tachycardia I47.1 Dillon Lynn III, MD [address] [place] [address] [place] [address] 05/09/2025 Dillon Lynn CLL (chronic lymphoc ytic leukemia) C91.10 ; Overweight E66.3 ; Junctional tachycardia I47.1 ; Thrombocytopenia D69.6 and Benign prostatic hyperplasia, presence of lower urinary tract symptoms unspecified, unspecified morphology N40.0 Dillon Lynn III, MD [address] [place] [address] [place] [address] 06/21/2025 Dillon Lynn CLL (chronic lymphoc ytic leukemia) C91.10 ; Thrombocytopenia D69.6 ; Neutropenia D70.9 ; Overweight E66.3 ; Urine retention R33.9 ; Benign prostatic hyperplasia, presence of lower urinary tract symptoms unspecified, unspecified morphology N40.0 and Junctional tachycardia I47.1 Dillon Lynn III, MD [address] [place] [address] [place] [address] 09/20/2024 Dillon Lynn III, MD [address] [place] [address] [place] [address] 09/24/2024 Dillon Lynn III, MD [address] [place] [address] [place] [address] 11/14/2024 Dillon Lynn III, MD [address] [place] [address] [place] [address] 02/18/2025 Dillon Lynn CLL (chronic lymphoc ytic leukemia) C91.10 ; Thrombocytopenia D69.6 and Overweight E66.3 Dillon yLnn III, MD [address] [place] [address] [place] [address] 05/09/2025 Dillon Lynn III, MD [address] [place] [address] [place] [address] 06/17/2025 Dillon Lynn CLL (chronic lymphoc ytic leukemia) C91.10 Dillon Lynn III, MD [address] [place] [address] [place] [phone] 07/23/2025 Dillon Lynn CLL (chronic lymphoc ytic [...] Provider Name:Dillon Lynn , 09/27/2025 09:30:00 AM, [address] [place] [address] , [facility] [address], [address], Insurance Providers Payer Name Payer Address Payer Phone Subscriber Number Group Number Insured Name Patient Relationship to Insured Coverage Start Date Coverage End Date MEDICARE NGS [address] [place] [address] [id number] Ishmael Licea Self - patient is the insured MED[place] [address] [id number] Ishmael Licea Self - patient is the [...]
--- OUTSIDE RECORDS SUMMARY | 2025-08-27 16:15 | XMS_ITS | Clinical Summary ---
Author Organization [facility] Address [address] [place] [address] Phone Care Team Providers Care Uniform Room Attendant Name Role Phone Avila Fuentes Primary Care Provider [phone] Allergies No known active allergies Social History [...] Comprehensive metabolic panel (10/01/2024 5:15 PM EST) [facility] Sodium 139 133 - 145 mmol/L LAB CHEMISTRY METHOD 10/01/2024 6:52 PM EST [facility] Potassium 4.2 3.5 - 5.5 mmol/L LAB CHEMISTRY METHOD 10/01/2024 6:52 PM [facility] Chloride 106 96 - 110 mmol/L LAB CHEMISTRY METHOD 10/01/2024 6:52 PM [facility] CO2 27 21 - 32 mmol/L LAB CHEMISTRY METHOD 10/01/2024 6:52 PM [facility] Anion Gap 6 3 - 11 LAB CHEMISTRY METHOD 10/01/2024 6:52 PM [facility] Glucose 95 70 - 100 mg/dL LAB CHEMISTRY METHOD 10/01/2024 6:52 PM [facility] BUN 25 5 - 25 mg/dL LAB CHEMISTRY METHOD 10/01/2024 6:52 PM [facility] Creatinine 1.71(H) 0.70 - 1.30 mg/dL LAB CHEMISTRY METHOD 10/01/2024 6:52 PM [facility] eGFR 39(L) >=60 mL/min/1. 73m2 LAB CHEMISTRY METHOD 10/01/2024 6:52 PM [facility] Comment:Calculation based on the Chronic Kidney Disease Epidemiology Collaboration (CKD-EPI) equation refit without adjustment for race. BUN/Creatinine Ratio 14.6 LAB CHEMISTRY METHOD 10/01/2024 6:52 PM [facility] Calcium 8.9 8.5 - 10.5 mg/dL LAB CHEMISTRY METHOD 10/01/2024 6:52 PM [facility] AST (SGOT) 24 10 - 42 unit/L LAB CHEMISTRY METHOD 10/01/2024 6:52 PM [facility] ALT (SGPT) 20 10 - 60 unit/L LAB CHEMISTRY METHOD 10/01/2024 6:52 PM [facility] Alkaline Phosphatase 62 42 - 121 unit/L LAB CHEMISTRY METHOD 10/01/2024 6:52 PM [facility] Total Protein 6.8 6.0 - 8.0 g/dL LAB CHEMISTRY METHOD 10/01/2024 6:52 PM [facility] Albumin 3.7 3.2 - 5.0 g/dL LAB CHEMISTRY METHOD 10/01/2024 6:52 PM EST [facility] Total Bilirubin 0.4 0.0 - 1.4 mg/dL LAB CHEMISTRY METHOD 10/01/2024 6:52 PM EST [facility] Blood Venous blood specimen / Unknown Venipuncture / Unknown 10/01/2024 5:15 PM EST 10/01/2024 5:49 PM EST us Larry B Kiko LEGER LAB BLOOD ORDERABLES Final Resu lt [facility] ([facility] [address] [place] [address], from Last 3 Months or Most Recently Relevant to Health Maintenance Insurance MEDICAID - [place] MEDICARE Care Teams Uniform Room Attendant Relationship Specialty Start Date End Date Avila Fuentes DO [address] [place], [place] PCP - General Internal Medicine 09/08/17
--- OUTSIDE RECORDS SUMMARY | 2025-08-27 16:15 | XMS_ITS | Patient Health Record ---
Author Organization [facility] Address [address] [place] [address] Care Team Providers Care Manager Party Name Role Phone Valentino Acosta Jr [phone] Reason For Referral No Information Plan Of Treatment No Information
== END 2025-08-27 12:16 | disposition home or self-care (01) ==
LOC: HO.XRAY 12:15
PROVIDERS: PCP Internal Medicine; Visit Provider Internal Medicine
DX: M25.552 Pain in left hip (principal)
CPT/HCPCS: 73502

== ENCOUNTER → 2025-08-27 12:25 | Outpatient (BNV) | payer MEDICARE, MEDICAID, SELFPAY | PROVIDERS: PCP Internal Medicine; Visit Provider Radiology Diagnostic Radiology | DX: M25.552 Pain in left hip (principal) | CPT/HCPCS: 73502 ==